=== PATIENT | female | born 1980 | race Caucasian/White ===

== ENCOUNTER 2021-01-08 10:37 | Outpatient (REF) | payer OTHER, SELFPAY ==
[2021-01-08 14:43] LABS: Anion Gap 14 (12-20); Blood Urea Nitrogen 16 mg/dL (9-16); Carbon Dioxide 23 mmol/L (22-29); Chloride 106 mmol/L (96-108); Estimated Glomerular Filt Rate > 60; Potassium 4.3 mmol/L (3.3-5.1); Sodium 139 mmol/L (135-145)
[2021-01-08 14:58] LABS: Thyroid Stimulating Hormone 13.94 uIU/mL (0.32-4.0)
== END 2021-01-08 10:38 | disposition home or self-care (01) ==
LOC: HO.10HDL 10:37
PROVIDERS: Visit Provider Family Medicine
DX: E03.9 Hypothyroidism, unspecified (principal); I10 Essential (primary) hypertension
CPT/HCPCS: 36415; 80051; 82565; 84439; 84443; 84520

== ENCOUNTER 2021-02-21 12:09 | Outpatient (REF) | payer OTHER, SELFPAY ==
[2021-02-21 14:00] LABS: Free T4 (Free Thyroxine) 1.06 ng/dL (0.71-1.85); Thyroid Stimulating Hormone 4.34 uIU/mL (0.32-4.0)
== END 2021-02-21 12:10 | disposition home or self-care (01) ==
LOC: HO.10HDL 12:09
PROVIDERS: Visit Provider Family Medicine
DX: E03.9 Hypothyroidism, unspecified (principal)
CPT/HCPCS: 36415; 84439; 84443

== ENCOUNTER 2021-08-02 12:02 | Outpatient (REF) | payer OTHER, SELFPAY ==
[2021-08-02 14:14] LABS: Estimated Average Glucose 108 mg/dL; Hemoglobin A1c % 5.4 %
[2021-08-02 14:35] LABS: Anion Gap 12 (12-20); Blood Urea Nitrogen 13 mg/dL (9-16); Carbon Dioxide 24 mmol/L (22-29); Chloride 107 mmol/L (96-108); Estimated Glomerular Filt Rate > 60; Glucose Fasting 101 mg/dL (60-99); Potassium 4.1 mmol/L (3.3-5.1); Sodium 139 mmol/L (135-145)
[2021-08-02 14:47] LABS: Free T4 (Free Thyroxine) 0.79 ng/dL (0.71-1.85); Thyroid Stimulating Hormone 5.03 uIU/mL (0.32-4.0)
== END 2021-08-02 12:03 | disposition home or self-care (01) ==
LOC: HO.10HDL 12:02
PROVIDERS: Visit Provider Family Medicine
DX: I10 Essential (primary) hypertension (principal); E03.9 Hypothyroidism, unspecified; R73.9 Hyperglycemia, unspecified
CPT/HCPCS: 36415; 80051; 82565; 82947; 83036; 84439; 84443; 84520

== ENCOUNTER → 2021-10-08 09:58 | Outpatient (BNVA) | payer OTHER, SELFPAY | PROVIDERS: PCP Family Medicine; Visit Provider Physician Assistant | DX: Z13.89 Encounter for screening for other disorder (principal) ==

== ENCOUNTER → 2021-10-31 08:12 | Outpatient (BNVA) | payer OTHER, SELFPAY | PROVIDERS: PCP Family Medicine; Visit Provider Surgery | DX: Z13.89 Encounter for screening for other disorder (principal) | CPT/HCPCS: Q3014 ==

== ENCOUNTER 2021-11-02 11:28 | Outpatient (REF) | payer OTHER, SELFPAY ==
--- NOTE | ~2021-11-02 | XR_ITS ---
EXAMINATION: XR CHEST CLINICAL INFORMATION: Morbid obesity COMPARISON: 04/14/2017 TECHNIQUE: 2 views of the chest were obtained. FINDINGS: No significant abnormality is noted involving the heart, lungs, mediastinum, bony thorax or soft tissues. XR/XR chest 2V IMPRESSION: Unremarkable examination.
--- NOTE | 2021-11-02 11:35 | ECG_ITS ---
Test Reason : E66.01 Blood Pressure : / mmHG Vent. Rate : 071 BPM Atrial Rate : 071 BPM P-R Int : 132 ms QRS Dur : 084 ms QT Int : 376 ms P-R-T Axes : 010 015 -08 degrees QTc Int : 408 ms Normal sinus rhythm Normal ECG When compared to the previous EKG of No significant changes seen Referred By: Adi Saba Electronically Signed By:Taj Hunter
[2021-11-02 12:04] LABS: MANUAL DIFF FLAG NO
[2021-11-02 12:35] LABS: Basophils Percent Auto 0.4 % (0-2); Eosinophils Absolute Auto 0.1 X10*3/uL (0.0-0.4); Hematocrit 42.3 % (37.0-47.0); Hemoglobin 13.6 g/dl (12.0-16.0); Imm Gran Abs Auto 0.02 X10*3/uL (0.00-0.03); Imm Gran Pct Auto 0.3 % (0.0-0.4); Lymphocytes Absolute Auto 1.6 X10*3/uL (1.2-4.9); Lymphocytes Percent Auto 20.6 % (20-40); Mean Corpuscular HGB Conc 32.2 g/dl (31.0-35.0); Mean Corpuscular Hemoglobin 28.8 pg (27.0-33.0); Mean Corpuscular Volume 89.4 fL (80.0-98.0); Mean Platelet Volume 10.7 fL (9.4-12.3); Monocytes Absolute Auto 0.6 X10*3/uL (0.1-1.2); Monocytes Percent Auto 7.1 % (2-11); Neutrophils Absolute Auto 5.5 x10*3/uL (2.0-8.3); Neutrophils Percent Auto 70.6 % (45-73); Platelet Count 356 X10*3/uL (160-400); Red Blood Count 4.73 X10*6/uL (4.20-5.50); Red Cell Distribution Width 13.3 % (11.0-16.0); White Blood Count 7.8 X10*3/uL (4.8-10.8)
[2021-11-02 12:49] LABS: Estimated Average Glucose 105 mg/dL; Hemoglobin A1c % 5.3 %
[2021-11-02 12:52] LABS: Alanine Aminotransferase 40 U/L (0-31); Albumin Level 4.2 g/dL (3.5-5.0); Alkaline Phosphatase 105 U/L (39-117); Anion Gap 11 (12-20); Aspartate Amino Transferase 26 U/L (5-31); Bilirubin Total 0.9 mg/dL (0.0-1.0); Blood Urea Nitrogen 15 mg/dL (9-16); C Reactive Protein 1.33 mg/dL (< or = 0.50); Calcium 9.7 mg/dL (8.4-10.2); Carbon Dioxide 27 mmol/L (22-29); Chloride 105 mmol/L (96-108); Cholesterol 204 mg/dL; Estimated Glomerular Filt Rate > 60; Glucose Random 106 mg/dL (60-115); HDL Cholesterol 44 mg/dL; Iron 47 mcg/dL (30-160); LDL Cholesterol Calculated 139 mg/dl; Percent Iron Saturation 13 % (15-50); Potassium 4.2 mmol/L (3.3-5.1); Sodium 139 mmol/L (135-145); Total Iron Binding Capacity 355 mcg/dL (228-428); Total Protein 7.6 g/dL (6.5-8.0); Triglycerides 109 mg/dL; Unsaturated Iron Binding 308 ug/dL
[2021-11-02 13:15] LABS: Ferritin 168 ng/mL (10-250); Insulin 13 uU/mL (2-29); TSH reflex Free T4 5.82 uIU/mL (0.32-4.0); Vitamin D 25-OH Total 13.4 ng/mL (>30)
[2021-11-02 13:34] LABS: Folate 4.4 ng/mL (> or = 4.0); Vitamin B12 270 pg/mL (200-900)
[2021-11-02 14:07] LABS: Free T4 (Free Thyroxine) 0.95 ng/dL (0.71-1.85)
[2021-11-05 13:35] LABS: Calcium (PTHI) 9.4 mg/dL (8.6-10.2); PTHI 103 pg/mL (14-64)
[2021-11-06 12:52] LABS: Zinc 65 mcg/dL (60-130)
[2021-11-07 17:17] LABS: Vitamin A 42 mcg/dL (38-98)
[2021-11-08 08:11] LABS: Vitamin B1 <6 nmol/L (8-30)
== END 2021-11-02 11:29 | disposition home or self-care (01) ==
LOC: HO.LAB 11:28
PROVIDERS: PCP Family Medicine; Visit Provider Surgery
DX: I10 Essential (primary) hypertension (principal); E03.9 Hypothyroidism, unspecified; G93.2 Benign intracranial hypertension; J45.909 Unspecified asthma, uncomplicated; E66.01 Morbid (severe) obesity due to excess calories
CPT/HCPCS: 36415; 71046; 80053; 80061; 82306; 82607; 82728; 82746; 83036; 83525; 83540; 83970; 84425; 84439; 84443; 84590; 84630; 85025; 86140; 93005; 99211

== ENCOUNTER 2021-11-02 12:50 | Outpatient (REF) | payer OTHER, SELFPAY ==
[2021-11-06 13:07] LABS: H Pylori Breath Test Negative (Negative)
== END 2021-11-02 12:51 | disposition home or self-care (01) ==
LOC: HO.LNP 12:50
PROVIDERS: Visit Provider Surgery
DX: E66.01 Morbid (severe) obesity due to excess calories (principal); E03.9 Hypothyroidism, unspecified; I10 Essential (primary) hypertension; J45.909 Unspecified asthma, uncomplicated; G93.2 Benign intracranial hypertension
CPT/HCPCS: 83013

== ENCOUNTER → 2021-11-08 12:49 | Outpatient (BNVA) | payer OTHER, SELFPAY | PROVIDERS: PCP Family Medicine; Visit Provider Counselor Mental Health | DX: F43.23 Adjustment disorder with mixed anxiety and depressed mood (principal) | CPT/HCPCS: 90791 ==

== ENCOUNTER → 2021-11-21 08:05 | Outpatient (BNVA) | payer OTHER, SELFPAY | PROVIDERS: PCP Family Medicine; Visit Provider Dietitian, Registered | DX: E66.01 Morbid (severe) obesity due to excess calories (principal) | CPT/HCPCS: 97802 ==

== ENCOUNTER → 2021-11-30 08:16 | Outpatient (BNVA) | payer OTHER, SELFPAY | PROVIDERS: PCP Family Medicine; Visit Provider Surgery | DX: Z13.89 Encounter for screening for other disorder (principal) | CPT/HCPCS: Q3014 ==

== ENCOUNTER 2021-12-11 10:17 | Outpatient (REF) | payer OTHER, SELFPAY ==
--- NOTE | ~2021-12-11 | MM_ITS ---
EXAMINATION: MM SCREENING DIGITAL BREAST TOMOSYNTHESIS, BILATERAL CLINICAL INFORMATION: Screening. Asymptomatic. The lifetime risk of breast cancer based on the Tyrer-Cuzick Model is 15%. COMPARISON: Mammography: 02/09/2016 (baseline) TECHNIQUE: Digital breast tomosynthesis is performed in both the craniocaudal and mediolateral oblique views along with computer-aided detection (CAD). Synthesized 2D images are generated from the tomosynthesis. Additional left cleavage view is provided. FINDINGS: The breasts are heterogeneously dense, which may obscure small masses (ACR BI-RADS breast composition Category c). Breast tissue composition borders on average fibroglandular. Parenchymal pattern is similar to baseline exam. Again, there is incidental intramammary node posterior upper outer right breast and there is incidental low left axillary tail node on MLO view. Skin contours are smooth. MM/MM tomosynthesis screening BI IMPRESSION: No mammographic evidence of malignancy. ASSESSMENT: BI-RADS 2: Benign RECOMMENDATION: Routine annual mammography screening. This patient's information was entered into a reminder system with a target due date for their next mammogram.
== END 2021-12-11 10:18 | disposition home or self-care (01) ==
LOC: HO.MAMMO 10:17
PROVIDERS: PCP Family Medicine; Visit Provider Family Medicine
DX: Z12.31 Encounter for screening mammogram for malignant neoplasm of breast (principal)
CPT/HCPCS: 77063; 77067

== ENCOUNTER 2021-12-13 08:17 | Outpatient (REF) | payer OTHER, SELFPAY ==
--- NOTE | ~2021-12-13 | US_ITS ---
EXAMINATION: US COMPLETE ABDOMEN WITH LIVER ELASTOGRAPHY CLINICAL INFORMATION: Obesity. COMPARISON: Ultrasound abdomen 02/23/2020. TECHNIQUE: Real-time imaging of the abdominal viscera. Noninvasive ultrasound liver fibrosis assessment is performed using Toshia ElastPQ point quantification shear wave elastography (2D-SWE) with a C5-2 MHz transducer. Multiple elastography samples are obtained. FINDINGS: PANCREAS: Normal. The visualized pancreatic head and body are normal in appearance. The remainder of the pancreas is obscured from visualization by the overlying bowel gas. ABDOMINAL AORTA: The proximal, middle, and distal aortic segments are normal in caliber. INFERIOR VENA CAVA: Visualized portions are normal. LIVER: The liver demonstrates normal size, contour and diffuse increased echogenicity. No focal lesion or intrahepatic biliary duct dilatation. The right lobe measures 17.8 cm in length. The left lobe measures 9.6 cm in length. Portal flow is hepatopedal. Shear wave liver elastography median stiffness is 1.55 m/s (reference: normal median stiffness is 1.3 m/s or less). IQR/median stiffness to assess sampling precision is 0.12 (reference: good quality data set is IQR/median stiffness of 0.15 or less). GALLBLADDER: Normal. The gallbladder is physiologically distended without evidence of stones, sludge, polyps, wall thickening or pericholecystic fluid. COMMON BILE DUCT: Normal in caliber measuring 0.6 cm in diameter. RIGHT KIDNEY: Normal. No hydronephrosis. No renal calculi or focal parenchymal lesions. The kidney measures 11.3 cm in maximum dimension. LEFT KIDNEY: Normal. No hydronephrosis. No renal calculi or focal parenchymal lesions. The kidney measures 10.8 cm in maximum dimension. SPLEEN: Normal. The spleen measures 11.4 cm in maximum dimension. FREE FLUID: None. US/US abdomen comp w elastography IMPRESSION: 1. Diffuse hepatic steatosis without focal lesion. The rest of the abdominal ultrasound is unremarkable. 2. Liver elastography: Median liver stiffness 1.55 m/s. Findings correlate with cACLD (ruled out). REFERENCE: Society of Radiologists in Ultrasound Liver Stiffness Thresholds (2019): LIVER STIFFNESS THRESHOLDS: *Liver Stiffness equal or less than 1.3 m/s: High probability of being normal. *Liver Stiffness less than 1.7 m/s: In the absence of other known clinical signs, rules out compensated advanced chronic liver disease. *Liver Stiffness 1.7-2.1 m/s: Suggestive of compensated advanced chronic liver disease but need further test for confirmation. *Liver Stiffness over 2.1 m/s: Rules in compensated advanced chronic liver disease. *Liver Stiffness over 2.4 m/s: Suggestive of clinically significant portal hypertension. QUALITY OF DATA SET: *IQR/Median value equal or less than 0.15 implies a quality data set. *IQR/Median value over 0.15 implies a poor quality data set. SIGNIFICANT CHANGE FROM PRIOR EXAM: Significant change if liver stiffness measurement is 10% or greater from prior exam. OTHER CONSIDERATIONS: The stage of liver fibrosis may be overestimated in the setting of acute hepatitis, liver inflammation, elevated liver function tests, hepatic vascular congestion, obstructive cholestasis, non-fasting state, and infiltrative diseases such as amyloidosis and lymphoma. In some patients with NAFLD, the liver stiffness thresholds for compensated advanced chronic liver disease may be lower. In causes other than viral hepatitis and NAFLD, liver stiffness thresholds are not well established.
--- NOTE | ~2021-12-13 | FL_ITS ---
EXAMINATION: XR FLUOROSCOPY UPPER GI WITH AIR CLINICAL INFORMATION: Morbid/severe obesity. COMPARISON: None. TECHNIQUE: Routine upper GI air-contrast study was performed. FINDINGS: Following oral administration of thick barium and effervescent granules, there is normal propagation of bolus from oral cavity through the pharynx and esophagus and into the stomach without any evidence of obstruction, narrowing or stricture. On placing patient supine and prone lying, the course, caliber and peristalsis of the stomach and the duodenal bulb are normal. The mucosal pattern of stomach and the duodenum is normal. There is mild gastroesophageal reflux without hiatal hernia. FLUOROSCOPY TIME: 1.6 minutes. DOSE AREA PRODUCT: 129.135 uGy-m2 (microgray-meter squared). FL/FL upper GI w air IMPRESSION: Mild gastroesophageal reflux without hiatal hernia.
== END 2021-12-13 08:18 | disposition home or self-care (01) ==
LOC: HO.US 08:17
PROVIDERS: PCP Family Medicine; Visit Provider Surgery
DX: E03.9 Hypothyroidism, unspecified (principal); G93.2 Benign intracranial hypertension; I10 Essential (primary) hypertension; J45.909 Unspecified asthma, uncomplicated; E66.01 Morbid (severe) obesity due to excess calories
CPT/HCPCS: 74246; 76705; 76981

== ENCOUNTER 2021-12-21 08:12 | Outpatient (REF) | payer OTHER, SELFPAY ==
[2021-12-21 13:00] LABS: MANUAL DIFF FLAG NO
[2021-12-21 13:16] LABS: Basophils Percent Auto 0.4 % (0-2); Eosinophils Absolute Auto 0.2 X10*3/uL (0.0-0.4); Eosinophils Percent Auto 1.9 % (0-4); Hemoglobin 13.1 g/dl (12.0-16.0); Imm Gran Abs Auto 0.03 X10*3/uL (0.00-0.03); Imm Gran Pct Auto 0.4 % (0.0-0.4); Lymphocytes Absolute Auto 1.8 X10*3/uL (1.2-4.9); Mean Corpuscular HGB Conc 32.8 g/dl (31.0-35.0); Mean Corpuscular Hemoglobin 28.4 pg (27.0-33.0); Mean Corpuscular Volume 86.6 fL (80.0-98.0); Mean Platelet Volume 11.1 fL (9.4-12.3); Monocytes Absolute Auto 0.8 X10*3/uL (0.1-1.2); Monocytes Percent Auto 9.9 % (2-11); Neutrophils Absolute Auto 5.1 x10*3/uL (2.0-8.3); Neutrophils Percent Auto 64.4 % (45-73); Platelet Count 311 X10*3/uL (160-400); Red Blood Count 4.62 X10*6/uL (4.20-5.50); Red Cell Distribution Width 12.8 % (11.0-16.0)
[2021-12-21 13:22] LABS: INTERNATIONAL NORM RATIO 1.2 (0.9-1.1); Prothrombin Time 13.9 SEC (9.9-13.0)
[2021-12-21 13:25] LABS: Partial Thromboplastin Time 35.1 SEC (24.1-38.0)
[2021-12-21 13:45] LABS: Alanine Aminotransferase 32 U/L (0-31); Albumin Level 4.1 g/dL (3.5-5.0); Alkaline Phosphatase 98 U/L (39-117); Anion Gap 12 (12-20); Aspartate Amino Transferase 22 U/L (5-31); Bilirubin Total 0.8 mg/dL (0.0-1.0); Blood Urea Nitrogen 13 mg/dL (9-16); C Reactive Protein 2.13 mg/dL (< or = 0.50); Calcium 9.6 mg/dL (8.4-10.2); Carbon Dioxide 26 mmol/L (22-29); Chloride 105 mmol/L (96-108); Cholesterol 186 mg/dL; Estimated Glomerular Filt Rate > 60; Glucose Random 106 mg/dL (60-115); HDL Cholesterol 42 mg/dL; LDL Cholesterol Calculated 119 mg/dl; Potassium 4.3 mmol/L (3.3-5.1); Sodium 139 mmol/L (135-145); Total Protein 7.3 g/dL (6.5-8.0); Triglycerides 127 mg/dL
[2021-12-21 14:00] LABS: Estimated Average Glucose 100 mg/dL; Hemoglobin A1c % 5.1 %
[2021-12-21 14:08] LABS: Insulin 24 uU/mL (2-29); TSH reflex Free T4 0.01 uIU/mL (0.32-4.0)
[2021-12-21 15:30] LABS: Free T4 (Free Thyroxine) 1.69 ng/dL (0.71-1.85)
== END 2021-12-21 08:13 | disposition home or self-care (01) ==
LOC: HO.LAB 08:12
PROVIDERS: PCP Family Medicine; Visit Provider Surgery
DX: E66.01 Morbid (severe) obesity due to excess calories (principal); E03.9 Hypothyroidism, unspecified; I10 Essential (primary) hypertension
CPT/HCPCS: 36415; 80053; 80061; 83036; 83525; 84439; 84443; 85025; 85610; 85730; 86140; 86850; 86900; 86901; Q3014

== ENCOUNTER 2021-12-27 06:03 | Inpatient (IN) | payer OTHER, SELFPAY ==
[2021-12-20 10:45] VITALS: BMI 44.9
--- NOTE | 2021-12-22 00:05 | MHC.SHP ---
Pre-Procedural Eval Section A Date of Service: 12/22/21 The patient is an INPATIENT: Yes The History & Physical has been completed within 30 days and I have reviewed it.: Yes Section B Chief Complaint: obesity Relevant Social History: None Present Medications: None Medical History: No relevant PMH History of Previous Operations: No relevant previous surgery Allergies: Allergies Allergy/AdvReac Type Severity Reaction Status Date / Time Penicillins [PENICILLINS] Allergy Intermediate HIVES Verified 12/21/21 11:40 Review of Systems Sugical H&P ROS: Negative: Constitution, Cardiovascular, Respiratory, Neurological, Psychiatric, Hem-Onc, Allergic/Immunologic, Gastrointestinal, Genitourinary, Musculoskeletal, Integumentary, Endocrine and Eyes/Ears/Nose/Throat Exam Surgical H&P Exam: Normal: HEENT, Normal: Heart, Normal: Lungs, Normal: Extremities, Normal: Abdomen, Normal: Skin and Normal: Neurological Plan Diagnosis/Plan: Unchanged I have reviewed the history and physical and performed a pertinent physical examination on my patient. No changes have occurred unless specified.
--- NOTE | 2021-12-26 09:31 | HO.ANESPROP2 ---
Documented by User: Elizabeth Hernandez NP 12/26/21 09:33 HPI - Anesthesia Eval Consult details Narrative: 41yo F for Gastrectomy Sleeve,EGD,poss diaphragmatic hernia,poss ventral hernia,poss open, PMFSH Active Problems Active Problems: All Active Problems (Updated 12/20/21 @ 10:41 by Wanda Tomlin, MIRANDA) Adjustment disorder with mixed anxiety and depressed mood (Acute) Vitamin B1 deficiency (Acute) Vitamin B12 deficiency (Acute) Vitamin D deficiency (Acute) Pseudotumor cerebri (Acute) Asthma (Acute) Anxiety (Acute) Neck pain (Acute) Back pain (Acute) Hypothyroidism (Acute) IBS (irritable bowel syndrome) (Acute) Hypertension (Acute) Morbid obesity (Acute) Past Medical History Medical History (Updated 12/20/21 @ 10:41 by Wanda Tomlin RN) Anxiety Asthma Back pain Depression Environmental allergies Fatty liver Fibromyalgia GERD (gastroesophageal reflux disease) Graves' disease History of lumbar puncture Hx of headache Hypertension Hypothyroidism IBS (irritable bowel syndrome) Morbid obesity Neck pain Pseudotumor cerebri Seasonal allergies Family History Family History (Updated 10/08/21 @ 10:10 by Shahida Hi) Mother Hypertension Heart problem Father Diabetes Heart problem High cholesterol Brother Hypertension Sister Hypertension Sister Hypertension Sister Hypertension Brother Heart problem Hypertension Son No problems noted. Daughter No problems noted. Surgical History Surgical History (Updated 12/20/21 @ 10:27 by Wanda Tomlin RN) History of hysteroscopy Hx of section Hx of tubal ligation Social History Social History (Updated 10/08/21 @ 10:11 by Shahida Hi) Household Members Other:: son 19 yrs, daughter 18 yrs Are you a primary managed care nurse to a significant other at home: No Do you presently have visiting nurse or other home services: No Alcohol intake: never Patient Tobacco Use Status: Former Tobacco user Quit Date: 2016 Tobacco use type: Cigarette Advance Directives: No Meds Allergies Allergy/AdvReac Type Severity Reaction Status Date / Time Penicillins [PENICILLINS] Allergy Intermediate HIVES Verified 12/21/21 11:40 Home Medications Medication Instructions Recorded Confirmed Last Taken Type cyclobenzaprine 5 mg tablet 5 mg PO BEDTIME 10/08/21 12/21/21 Unknown History dicyclomine 10 mg capsule 10 mg PO Q8H PRN 10/08/21 12/21/21 Unknown History diltiazem HCl 360 mg 360 mg PO DAILY 10/08/21 12/21/21 12/27/21 History capsule,extended release 24 hr hydralazine 50 mg tablet 50 mg PO BID 10/08/21 12/21/21 12/27/21 History levothyroxine 200 mcg tablet 200 mcg PO DAILY 10/08/21 12/21/21 12/27/21 History ibuprofen 400 mg tablet 400 mg PO TID PRN 10/30/21 12/21/21 12/06/21 History albuterol sulfate 90 mcg/actuation 2 puff INHALATION Q6H PRN 12/20/21 12/21/21 Unknown History aerosol inhaler citalopram 20 mg tablet 1 tab PO DAILY 12/20/21 12/21/21 Unknown History Exam Exam Date and Time: December 26, 2021 0931 Height,Weight and Vital Signs: Height 5 ft 1 in Weight 107.955 kg Pertinent Lab Results Pertinent Lab Results: Laboratory Tests 12/21/21 12/21/21 12:58 12:58 WBC 8.0 Hgb 13.1 Hct 40.0 Plt Count 311 Sodium 139 Potassium 4.3 Chloride 105 Carbon Dioxide 26 BUN 13 Creatinine 0.88 Narrative Narrative: EKG 10/2021 Vent. Rate : 071 BPM ? ? Atrial Rate : 071 BPM ?? P-R Int : 132 ms? QRS Dur : 084 ms ? ? QT Int : 376 ms ? ? ? P-R-T Axes : 010 015 -08 degrees ?? QTc Int : 408 ms ? Normal sinus rhythm Normal ECG When compared to the previous EKG of No significant changes seen Assessment and Plan Assessment Anesthesia Assessment: Chart Reviewed Documented by User: Mary Woodard MD 12/27/21 07:05 [facility] Past Medical History Medical History (Updated 12/20/21 @ 10:41 by Wanda Tomlin RN) Anxiety Asthma Back pain Depression Environmental allergies Fatty liver Fibromyalgia GERD (gastroesophageal reflux disease) Graves' disease History of lumbar puncture Hx of headache Hypertension Hypothyroidism IBS (irritable bowel syndrome) Morbid obesity Neck pain Pseudotumor cerebri Seasonal allergies Family History Family History (Updated 10/08/21 @ 10:10 by Shahida Hi) Mother Hypertension Heart problem Father Diabetes Heart problem High cholesterol Brother Hypertension Sister Hypertension Sister Hypertension Sister Hypertension Brother Heart problem Hypertension Son No problems noted. Daughter No problems noted. Family history of problems with anesthesia: No Surgical History Surgical History (Updated 12/20/21 @ 10:27 by Wanda Tomlin RN) History of hysteroscopy Hx of section Hx of tubal ligation History of Problems with Anesthesia: No Social History Social History (Updated 10/08/21 @ 10:11 by Shahida Hi) Household Members Other:: son 19 yrs, daughter 18 yrs Are you a primary managed care nurse to a significant other at home: No Do you presently have visiting nurse or other home services: No Alcohol intake: never Patient Tobacco Use Status: Former Tobacco user Quit Date: 2016 Tobacco use type: Cigarette Advance Directives: No Meds Allergies Allergy/AdvReac Type Severity Reaction Status Date / Time Penicillins [PENICILLINS] Allergy Intermediate HIVES Verified 12/21/21 11:40 Home Medications Medication Instructions Recorded Confirmed Last Taken Type cyclobenzaprine 5 mg tablet 5 mg PO BEDTIME 10/08/21 12/21/21 Unknown History dicyclomine 10 mg capsule 10 mg PO Q8H PRN 10/08/21 12/21/21 Unknown History diltiazem HCl 360 mg 360 mg PO DAILY 10/08/21 12/21/21 12/27/21 History capsule,extended release 24 hr hydralazine 50 mg tablet 50 mg PO BID 10/08/21 12/21/21 12/27/21 History levothyroxine 200 mcg tablet 200 mcg PO DAILY 10/08/21 12/21/21 12/27/21 History ibuprofen 400 mg tablet 400 mg PO TID PRN 10/30/21 12/21/21 12/06/21 History albuterol sulfate 90 mcg/actuation 2 puff INHALATION Q6H PRN 12/20/21 12/21/21 Unknown History aerosol inhaler citalopram 20 mg tablet 1 tab PO DAILY 12/20/21 12/21/21 Unknown History Exam Airway Mallampati Class: II TM Dist: >3cm Neck ROM: Full Assessment and Plan Assessment Anesthesia Assessment: Anesthesia Plan Discussed Final Anesthetic Review Family History of Problems with Anesthesia: No History of Problems with Anesthesia: No NPO: Yes ASA Class: III Final Preanesthetic Review: No Changes in Pt Med Stat, Meds/Allgs Chart Reviewed, Consent Obtained/Reviewed and Anes Risks/Benef Reviewed Patient Risk: Intermediate Procedure Risk: Intermediate Anesthetic Plan Anesthetic Plan: GA Disposition: Standard PACU
[2021-12-26 12:47] LABS: COVID-19 Test Negative (Negative)
[2021-12-27] VITALS (12 sets, daily range): BP systolic 134–175; BP diastolic 82–108; PULSE 83–124; RESP 16–20; TEMP 35.8–37.1; O2SAT 96–99
[2021-12-27] MEDS: Lactated Ringers 1,000 ML 999 ML IV (06:30)
--- NOTE | 2021-12-27 10:46 | PM.DS ---
DS: Providers Provider Date of Service: 12/28/21 Date of admission: 12/27/21 06:03 Primary care physician: Alen Land MD DS: Summary Hospital Course Hospital Course: ADMITTING DIAGNOSIS: morbid obesity, anxiety, asthma, LBP, HTN, Hypothyroid ? DISCHARGE DIAGNOSIS: same, s/p laparoscopic sleeve gastrectomy ? PAST SURGICAL HISTORY: cesarian section, tubal ligation ? PROCEDURE: upper endoscopy, laparoscopic sleeve gastrectomy ? DISCHARGE SUMMARY: ? History of Present Illness: ? The patient is a 41 year-old woman with a BMI of 47.7 kg/m2 and associated co-morbidities as described above. The patient had extensive work-up,lost?18.4 lbs preoperatively and was electively scheduled for laparoscopic, possible open sleeve gastrectomy and gastropexy. Risks and complications of the surgery were discussed with the patient in advance, particularly the possibility of , pulmonary embolism, anastomotic leak, bleeding, bowel injury, GERD, cardiac, renal or pulmonary complications. The patient understood all the risks and was in agreement with the surgical plan. ? Hospital Course: ? The patient underwent an uneventful laparoscopic sleeve gastrectomy with gastropexy on the day of admission. Postoperatively, the patient was transferred to the surgical floor. The patient received IV Acetaminophen and IV dilaudid for pain control. Patient was started on bariatric phase 1 diet POD #0. On postoperative day one, the patient was feeling well without nausea, vomiting, fevers, or tachycardia. The patient had some mild incisional pain and the abdomen was soft. ? On the morning of postoperative day one, the patient was continued on 1 ounce of water or ice every half hour. During the day, the patient did fairly well, having some incisional pain, but able to ambulate adequately and to tolerate liquids well. ? Since the patient is doing well, we decided that the patient was ready to be discharged. The patient was given instructions to follow-up with me next week and to call my office for any fever over 101, persistent abdominal pain, nausea, vomiting, GERD, symptoms of DVT such as calf tenderness, or leg swelling, or pulmonary embolism such as chest pain or shortness of breath. The patient was also instructed to drink 40-60 ounces of liquids per day using the 1-ounce cups. The patient had been given prescriptions for Tylenol for pain, Zofran prn for nausea, and pantoprazole and carafate previously. The patient was encouraged to ambulate and use the incentive spirometer. The patient was allowed to shower, but no baths, and encouraged to stay active at home. All of these instructions were given to the patient personally. All questions were answered and the patient understood all instructions, the instructions were also given to the patient in print. The pt was also found to have a low TSH of 0.01. She has known hypothryoidism and has been followed by her PCP for this. SHe recently had a medication adjustment in October. She requested a referral to Endocrinology and one was placed to Dr Terry Washington. Time Spent with Patient Time attestation: Total time spent providing and/or coordinating discharge services: Discharge coordination time: Less than 30 minutes Quality: Safe Use of Opioids Does Pt have an Active Cancer Diagnosis on the Problem List?: No Quality: Stroke Does the patient have a stroke diagnosis?: No Physical Exam Vital Signs: Vital Signs: Last Vital Signs Temp 96.5 F L 12/27/21 06:08 Pulse 83 12/27/21 06:08 Resp 18 12/27/21 06:08 BP 134/91 H 12/27/21 06:08 Pulse Ox 98 12/27/21 06:08 BMI result Body Mass Index 44.9 DS: Data Data Completed and Pending Pending studies at discharge: Pending at discharge 12/27/21 09:57 Surgical [PTH] Routine Labs on day of discharge: Laboratory Results - last 24 hr 12/21/21 12/26/21 12:49 12:15 COVID-19 (BAL) Negative COVID-19 Clin Com See Note Blood Type A Positive Antibody Screen NEGATIVE Discharge Plan Discharge Patient Disposition: Home, Self-Care Discharge Diagnosis: s/p laparoscopic sleeve gastrectomy Referrals: Alen Land MD [Primary Care Provider] - 1 Week Discharge Medications: Continued citalopram 20 mg tablet 1 tab PO DAILY 0RF albuterol sulfate 90 mcg/actuation Hfa Aerosol Inhaler 2 puff INHALATION Q6H PRN (Reason: Shortness Of Breath Or Wheezing) 0RF hydralazine 50 mg tablet 50 mg PO BID 0RF dicyclomine 10 mg capsule 10 mg PO Q8H PRN (Reason: cramps) 0RF cyclobenzaprine 5 mg tablet 5 mg PO BEDTIME 0RF diltiazem HCl 360 mg capsule,extended release 24hr 360 mg PO DAILY 0RF pantoprazole 40 mg tablet,delayed release (DR/EC) 40 mg PO DAILY Qty: 30 2RF sucralfate 100 mg/mL suspension 10 ml PO BID Qty: 400 2RF ondansetron HCl 4 mg tablet 4 mg PO Q12H Qty: 20 0RF Held levothyroxine 200 mcg tablet 200 mcg PO DAILY 0RF Hold Instructions: Resume on 12/31/21. Discontinued thiamine HCl (vitamin B1) 100 mg tablet 100 mg PO DAILY Qty: 30 2RF mecobalamin (vitamin B12) 1,000 mcg tablet,disintegrating 1,000 mcg sublingual DAILY Qty: 30 2RF Rx Instructions: place tablet under tongue and allow to dissolve for at least30 secs before swallowing cholecalciferol (vitamin D3) 125 mcg (5,000 unit) capsule 125 mcg PO DAILY Qty: 30 2RF ibuprofen 400 mg tablet 400 mg PO TID PRN (Reason: Pain) 0RF polyethylene glycol 3350 [Miralax] 17 gram powder in packet 17 g PO DAILY Qty: 14 0RF Rx Instructions: Mix each packet with 8oz of water and do 7 packets on 12/25/21 and another 7 packets on 12/26/21 Discharge Orders: Discharge Order (Routine); Ordered 12/28/21 Ordered By: Adi Saba Diet: other Activity on Discharge: No heavy lifting Stand Alone Forms: Patient Portal Discharge page Care Plan Goals: weight loss Health Concerns: morbid obesity Plan of Treatment: No tub baths, sex or returning to work until discussed at first post op appointment. No exercise, alcohol, tobacco or illegal drug use. Continue to use incentive spirometer hourly while awake. Walk in home for 5- 10 minutes every 2 hours during the first week. Follow all instructions in the bariatric handbook and call with any questions.Discharge Instructions 1. Please call your doctor or come back to the emergency room should any new symptoms arise. 2. You will receive a courtesy call from [facility] 24-48 hours after discharge. 3. Activity: abstain from alcohol, practice limited stair climbing, no bending, no driving, no exercise, no illicit substances, no lifting, no sex, no tub bath, no work. 4. Diet: continue as discussed with Dr. Saba. 5. Dressing Change/Wound Care: Your incision is covered by clear bandages and guaze underneath. If the area is tender, you may apply an ice pack for short intervals (no more than 20 minutes on, followed by at least 20 minutes off). Do not apply heat. Do not use creams, lotions, or topical antibiotics unless instructed to do so by your surgeon. These can cause infection or allergic reaction. 6. Call your doctor if: - Your temperature exceeds 101.5 F - You experience excessive pain or swelling - You have an unexpected reaction to medication - You have excessive bleeding - You experience continued vomiting/nausea - Your incision begins to separate - Your incision shows signs of infection such as increased redness, swelling, excessive pain, heat, or drainage (light blood or clear fluid is normal) 7. General instructions: No lifting greater than 5 lbs for the next 4 weeks[address] within 24 hours of taking narcotic pain medications. If you do not move your bowels in the next 2 days, please take milk of magnesia over the counter. Please follow the post op diet and do not advance your diet until you are seen in the office in about 2 weeks. Please walk around your home every hour or two to prevent blood clots from forming in your legs. You do not need to wake from sleeping to walk. Please sleep in a bed or couch to prevent kinking at the hips and knees. Please take your incentive spirometer (your lung building attendant) home with you and use it for the next few days to prevent pneumonias. You may shower, no hot tubs, baths or swimming pools. Please call the office with any questions or concerns such as increasing abdominal pain, fever, chills, shortness of breath, chest pain, leg pain or swelling, or redness or drainage from your incisions. Please stay on stage 3 diet which includes sugar free clear liquids such as ice pops and jello and broth and crystal light. Avoid all carbonation. Please drink 3 protein shakes with at least 25-30 grams of protein daily or 3 of the Celebrate 4:1 shakes which can be purchased in our office. The Celebrate shakes have all of the bariatric vitamins you need if you consume these shakes. If you are drinking other protein shakes, you will need to purchase the Celebrate multivitamins and calcium that we provide in the office (they will provide all the vitamins you need). Please make sure you are consuming at least 40-60 ounces of water in addition to your 3 protein shakes daily. Do not hesitate to contact the office with any questions at . The patient's medical history has been reviewed and they are considered low risk for post op DVT and therefore DVT prophylaxis is not considered necessary. Travel after surgery was reviewed. The patient has not disclosed any travel plans during the first 30 days after surgery and they have been advised that within the first 30 days after surgery any bus, plane, train or car travel over 2 hours in duration is contraindicated due to the possibility of developing blood clots from immobility. Any travel, needs to include periods of ambulation of 10 minutes in duration every 2 hours.? The patient was instructed to discuss any plans for travel during this period with their bariatric surgeon. Assessment: stable s/p laparoscopic sleeve gastrectomy Discharge Date/Time: 12/28/21 09:16
[2021-12-27] MEDS: Metoclopramide HCl 10 MG/2 ML VIAL IVPUSH (10:47)
[2021-12-27] MEDS: Famotidine/PF 20 MG/2 ML VIAL IVPUSH ×2 (10:49→20:35)
--- NOTE | 2021-12-27 10:52 | P.BOP_ITS ---
Brief Operative Note Date of Service: 12/27/21 Pre-op diagnosis: Morbid obesity with comorbidities (see below) Post-op diagnosis: same (congenital abdominal adhesions) Procedure: INITIAL PATIENT BMI ON PRESENTATION AT OUR OFFICE: 47.7 kg/m2 LAST BMI BEFORE SURGERY: 44.2 kg/m2 COMORBIDITIES: hypothyroidism, pseudotumor cerebri, hypertension, back pain, neck pain, IBS, anxiety, asthma, GERD, mild fibrosis ?The patient presented to the Weight Management Program with significant obesity that was negatively impacting the patient's comorbidities as listed above.? The program is a phased program with a special focus on preoperative medical weight management to promote substantial weight loss and prepare the patients for the second phase of the program: bariatric surgery. The patient participated in an intensive weekly lifestyle ?intervention and exercise program during which the patient ?has lost between the initial office visit and the last preoperative visit 19 lbs, or 7.4% of initial actual body weight. It was deemed appropriate for the patient to now have bariatric surgery. In light of the current Covid-19 pandemic and the well documented strong association of obesity and increased risk of worse outcomes if infected with Covid-19 (REFERENCES: https://pubmed.ncbi.nlm.nih.gov/87640285/ ,? https://pubmed.ncbi.nlm.nih.gov/13155777/ ), any delay in undergoing bariatric surgery may lead to the patient's worsening health condition and increased?risk of more severe Covid-19 disease if infected. In addition a recent?study from [facility] published in [employer] on 08/27/2021 ([email or web address]) found that, among patients with obesity, substantial weight loss achieved with surgery was associated with improved outcomes of COVID-19 infection. The findings suggest that obesity can be a modifiable risk factor for the severity of COVID-19 infection. In addition, the patient met the BMI-criteria for bariatric surgery based on the BMI on initial presentation. The patient should not be penalized for achieving such weight loss because ?it is not sustainable long-term without surgical intervention and it was achieved in preparation for bariatric surgery ?under my direction and based on my published research ([email or web address]).[email or web address] and? [email or web address]. soard.org/article/[email or web address](56)[email or web address]-X/pdf ) ?that a 10% preoperative weight loss improves long-term weight loss after surgery and reduces perioperative complications.? Insurance carriers such as [facility] have endorsed my recommendations ?and have included in their policies criteria to include a 10% preoperative weight loss requirement. PROCEDURE: Esophago-gastroscopy, laparoscopic lysis of adhesions, laparoscopic sleeve gastrectomy and laparoscopic gastropexy INDICATIONS: This is a 41 year-old female who was electively scheduled for laparoscopic, possibly open sleeve gastrectomy. The risks and complications of the procedure were discussed with the patient in advance, particularly the possibility of ; pulmonary embolism; staple line leak; bleeding; GERD; cardiac, pulmonary, or renal complications; as well as long-term problems such as insufficient weight loss, vitamin deficiency, strictures, or ulcers. The patient understood all the risks, and was in agreement to proceed with surgery. DESCRIPTION OF PROCEDURE: After informed consent was obtained from the patient, the patient was given preoperative antibiotics, and was transferred to the operating room. After successful induction of general anesthesia, pneumatic compression devices were placed on both lower extremities. An upper endoscopy was performed next. The oropharynx and esophagus appeared to be within normal limits. There was no diaphragmatic hernia present consistent with the findings of the preoperative upper GI. The stomach was entered. Then after all fluid and air were suctioned and the stomach was fully decompressed, the scope was withdrawn and secured in the mid esophagus. The patient was then prepped and draped in the usual sterile manner, and abdominal access was established at the right upper quadrant with the Laverne technique. A 12 mm blunt port was inserted, and the abdomen was insufflated with CO2 to a pressure of 15 mmHg. Under direct visualization, additional ports were placed, specifically two 5 mm Versi-step ports to the left upper quadrant, and a 5 mm Versi-Step port to the right upper quadrant. 1% lidocaine plain was used to infiltrate all port sites as well as all fascia defects. Using the EndoClose suture passer device, I placed a #1 Polysorb tie across the falciform ligament in order to retract it up against the abdominal wall and prevent injury of the ligament with our instruments during the procedure. Following that, the patient was placed in a steep reverse Trendelenburg position. An additional 5 mm port was placed to the right flank for the Mediflex retractor that was used to retract the left lobe of the liver. The gastro-esophageal fat pad was opened with the ultrasonic device (Thunderbeat, Olympus) and the anterior esophagus and hiatus were exposed. The angle of His was opened with the ultrasonic device the fundus of the stomach from any diaphragmatic and splenic attachments. I then opened the gastrocolic ligament between the transverse colon and the greater curvature of the stomach with the ultrasonic device to enter the lesser sac and facilitate the ligation of the short gastric vessels. I started at a mid-point along the greater curvature and using the Thunderbeat, all short gastric vessels were divided all the way to the angle of His until the left warner was completely dissected at its entirety. I then divided the gastro-colic ligament distally to a distance of about 3-4 cm proximal to the pylorus. There were extensive congenital adhesions between the pancreas and posterior gastric wall. Those were lysed completely with the ultrasonic device. Adhesiolysis took approximately 45 min to complete. The stomach was then divided transversely with one Endo MIGUE-45 purple, two MIGUE- 45 orange loads and three MIGUE-60 articulating orange loads using the AEON stapler and loads. Every effort was made that the gastric sleeve had a tubular shape and an even caliber throughout. Once the sleeve resection was completed, the staple line of the gastric sleeve was reinforced with Hemoclips. The resected stomach was retrieved without difficulty from the Laverne port. A gastropexy was then performed in order to prevent postoperative GERD and partial gastric volvulus. Several interrupted 2.0 Surgidac sutures were placed between the sleeve's staple line and the previously divided greater omentum and gastro-colic ligament using the Endo-Stitch device. ?An upper endoscopy was performed. There was no narrowing at the GE junction. The scope was easily advanced all the way to the pylorus which was clearly visualized. There was no narrowing anywhere and the sleeve's caliber was even throughout. The sleeve's staple line was inspected and there was no evidence of ischemia, bleeding or dehiscence. At that point the gastroscope was withdrawn from the patient?s mouth while we were decompressing the bowel and the stomach from any remaining air. I looked into the lesser sac to see how the sleeve was situating and it was situating well. There was no bleeding from the staple line, spleen, or short gastric vessels. The Mediflex retractor was removed, and the undersurface of the liver was inspected and there was no bleeding. The patient was placed in supine position. I closed the fascial defect of the 12 mm port site with a figure of eight #1 Polysorb suture. Then 100 cc 0.25 % Marcaine plain with 10 mg of Dexamethasone were used to infiltrate the fascial closure as well as all skin incisions. At this point, the abdomen was deflated, all ports were removed under direct vision, and no bleeding was noted from any of the port sites. The skin incisions were irrigated with saline and were closed with 4-0 absorbable monofilament sutures. Steri-Strips and OpSites were used to cover all incisions. The patient was extubated and was transferred in stable condition to the recovery room for further care. I was present and performed all waters parts of the procedure. Mr Carias was the assistant signal maintainer. There were no residents to assist with this case. Jagdeep Saba MD, PhD, FACS Surgeon: Adi Saba MD Anesthesia: GETA, local and other (TAP block and 5.5ml of Zynrelef) Was an American Indian Policy Specialist used for this Procedure?: Yes American Indian Policy Specialist: Chad Carias Estimated blood loss (mL): 10 IV fluids (mL): 2,500 Urine output (mL): 0 (No Headley to gravity) Pathology: other (Stomach) Condition: stable Disposition: PACU
--- NOTE | 2021-12-27 10:57 | PM.PNGS ---
Subjective Subjective Date of Service: 12/28/21 Interval history: Patient has mild incisional pain, but was able to ambulate and use the incentive spirometer. She is tolerating phase 1 bariatric diet Physical Exam Vital Signs: Vital Signs: Last Vital Signs Temp 96.5 F L 12/27/21 06:08 Pulse 83 12/27/21 06:08 Resp 18 12/27/21 06:08 BP 134/91 H 12/27/21 06:08 Pulse Ox 98 12/27/21 06:08 BMI result Body Mass Index 44.9 GI: Inspection: Yes normal to inspection, Yes incision (clean, dry and intact) and Yes obesity Extrem: Right lower extremity: normal to inspection (no calf tenderness) Left lower extremity: normal to inspection (no calf tenderness) Objective Data Active Medications Albuterol Sulfate (Albuterol Sulfate (0.083%) 2.5 Mg/3 Ml Vial.Neb) 2.5 mg INHALE ONCE PRN PRN Reason: Shortness of Breath/Wheezing Famotidine (Famotidine/Pf 20 Mg/2 Ml Vial) 20 mg IVPUSH BID SANDY Last Admin: 12/27/21 10:49 Dose: 20 mg Documented by: DEON.WARM Fentanyl (Fentanyl Citrate/Pf 100 Mcg/2 Ml Vial) 50 mcg IVPUSH Q5M PRN; Protocol PRN Reason: Pain, Severe (Pain Scale 7-10) Lactated Ringer's (Lr) 1,000 mls @ 100 mls/hr IVCONT .Q10H SANDY Lactated Ringer's (Lr) 1,000 mls @ 100 mls/hr IVCONT .Q10H [facility] Metoclopramide HCl (Metoclopramide Hcl 10 Mg/2 Ml Vial) 10 mg IVPUSH Q6H PRN PRN Reason: Nausea Last Admin: 12/27/21 10:47 Dose: 10 mg Documented by: HO.WARM Ondansetron HCl (Ondansetron Hcl 4 Mg/2 Ml Vial) 4 mg IVPUSH ONCE PRN PRN Reason: Nausea and Vomiting Oxycodone HCl (Oxycodone Hcl Immed Release 5 Mg Tablet) 10 mg PO ONCE PRN PRN Reason: Pain, Severe (Pain Scale 7-10) Labs CBC & Chem 7: 12/28/21 05:30 12/28/21 05:30 Labs: Laboratory Results - last 24 hr 12/21/21 12/26/21 12:49 12:15 COVID-19 (BAL) Negative COVID-19 Clin Com See Note Blood Type A Positive Antibody Screen NEGATIVE Procedures Date of Service Date of Service: 12/28/21 Progress Note: A&P Assessment and plan (1) S/P laparoscopic sleeve gastrectomy: Status: Acute Assessment and Plan: s/p laparoscopic sleeve gastrectomy, lysis of adhesions and gastropexy Doing well Check am labs. If OK, will discharge home? (2) Morbid obesity: Status: Acute (3) Hypertension: Status: Acute (4) IBS (irritable bowel syndrome): Status: Acute (5) Hypothyroidism: Status: Acute (6) Back pain: Status: Acute (7) Neck pain: Status: Acute (8) Anxiety: Status: Acute (9) Asthma: Status: Acute (10) Pseudotumor cerebri: Status: Acute (11) Congenital intra-abdominal adhesions: Status: Acute (12) GERD (gastroesophageal reflux disease): Status: Acute (13) Liver fibrosis: Status: Acute Time Spent With Patient Time: Total time spent is greater than 50% in coordination of care (as documented) at patient's floor/unit and/or counseling patient: Quality Stroke Does the patient have a stroke diagnosis?: No VTE Prior VTE?: No VTE Risk Level:: Surgical - moderate VTE Device Contraindication: N/A - Device Ordered VTE Drug Contraindication: Treatment Not Indicated
[2021-12-27 11:34] LABS: Hematocrit 37.7 % (37.0-47.0); Hemoglobin 12.4 g/dl (12.0-16.0)
[2021-12-27 11:37] LABS: Anion Gap 13 (12-20); Blood Urea Nitrogen 10 mg/dL (9-16); Calcium 8.7 mg/dL (8.4-10.2); Carbon Dioxide 23 mmol/L (22-29); Chloride 103 mmol/L (96-108); Creatinine Clr Calc Pharmacy 96.6; Estimated Glomerular Filt Rate > 60; Glucose Random 146 mg/dL (60-115); Potassium 3.4 mmol/L (3.3-5.1); Sodium 136 mmol/L (135-145)
[2021-12-27] MEDS: Lactated Ringers 1,000 ML 100 ML IVCONT (12:07)
--- NOTE | 2021-12-27 15:30 | MHC.CM.PN ---
nurse case operator ntoe electronic medical record reviewed along with case discssed with staff nurse , met with patient tajik speaking , s/p bariatric surgical patient , awake alert reported [place] [facility] [place] two children a son age 19 yrs just graduated and a daughter 18 years of age , educated about hcp and she woul like to complete one tomorrow naming her children as her agents. she has no vna , no dme servixes in the home, and does not anticipate having any needs at discharge , she is active with mental health counseling with [facility] and her pcp provids her medciations at this time. discharge plan home no aervices pcp dr angela zamora surgical bariatric follow up pwer discharge instructions transportation to be determined family member or friend covid vacinated x2 would like to complet hcp 12/28/21
[2021-12-27] MEDS: KCl 40 mEq in 0.9 % Sodium Chl 40 MEQ/1,000 ML IV.SOLN 125 MEQ IVCONT (17:55)
[2021-12-27] MEDS: HYDROmorphone HCl 0.5 MG/0.5 ML SYRINGE 0.25 MG IVPUSH (18:18)
[2021-12-27] MEDS: ondansetron HCL 4 MG/2 ML VIAL IVPUSH (20:34)
[2021-12-27] MEDS: LORazepam 2 MG/ML VIAL 0.5 MG IVPUSH (20:34)
[2021-12-27] MEDS: 0.9 % Sodium Chloride Flush 3 ML SYRINGE IVFLUSH (20:35)
[2021-12-27] MEDS: Metoprolol Tartrate 5 MG in 0.9 % Sodium Chloride 50 ML 220 MG IV (22:01)
[2021-12-28] MEDS: KCl 40 mEq in 0.9 % Sodium Chl 40 MEQ/1,000 ML IV.SOLN 125 MEQ IVCONT (01:29)
[2021-12-28 03:20] VITALS: BP 147/86; PULSE 97; RESP 18; TEMP 36.6; O2SAT 95
[2021-12-28] MEDS: Metoprolol Tartrate 5 MG in 0.9 % Sodium Chloride 50 ML 220 MG IV (03:32)
[2021-12-28] MEDS: ondansetron HCL 4 MG/2 ML VIAL IVPUSH (03:33)
[2021-12-28] MEDS: Levothyroxine Sodium 200 MCG TABLET PO (05:40)
[2021-12-28 06:06] LABS: MANUAL DIFF FLAG NO
[2021-12-28 06:18] LABS: Basophils Percent Auto 0.1 % (0-2); Hematocrit 36.6 % (37.0-47.0); Hemoglobin 12.4 g/dl (12.0-16.0); Imm Gran Abs Auto 0.06 X10*3/uL (0.00-0.03); Imm Gran Pct Auto 0.5 % (0.0-0.4); Lymphocytes Absolute Auto 1.2 X10*3/uL (1.2-4.9); Lymphocytes Percent Auto 10.6 % (20-40); Mean Corpuscular HGB Conc 33.9 g/dl (31.0-35.0); Mean Corpuscular Hemoglobin 29.5 pg (27.0-33.0); Mean Corpuscular Volume 86.9 fL (80.0-98.0); Mean Platelet Volume 11.1 fL (9.4-12.3); Monocytes Absolute Auto 0.8 X10*3/uL (0.1-1.2); Neutrophils Percent Auto 81.8 % (45-73); Platelet Count 318 X10*3/uL (160-400); Red Blood Count 4.21 X10*6/uL (4.20-5.50); Red Cell Distribution Width 12.7 % (11.0-16.0)
[2021-12-28 06:52] LABS: Anion Gap 13 (12-20); Blood Urea Nitrogen 8 mg/dL (9-16); Calcium 9.3 mg/dL (8.4-10.2); Carbon Dioxide 21 mmol/L (22-29); Chloride 108 mmol/L (96-108); Creatinine Clr Calc Pharmacy 105.2; Estimated Glomerular Filt Rate > 60; Glucose Random 107 mg/dL (60-115); Potassium 4.7 mmol/L (3.3-5.1); Sodium 137 mmol/L (135-145)
[2021-12-28 08:22] VITALS: BP 144/85; PULSE 76; RESP 18; TEMP 36.3; O2SAT 97
--- NOTE | 2021-12-28 10:57 | MHC.CM.PN ---
NURSE CXASE MANAGEMENT MET WITH PATIENT SHE IS AWARE THAT SHE WILL BE DISCHAGRED HOME TODAY DISCHARGE PLAN HOME NO SERVICES PCP FIOLLOW UP POST DISCHARGE TERANSPORTATION NPATIENT TO SELF ARRANGE HCP COMPLETED ON THIS ADMISSION NAMING HER TWO CHILDREN HER AGENTS , ORIGINAL AND COPIES GIEBN TO HER ONE PLACED IN HARD CHARGT
--- NOTE | 2021-12-28 14:40 | HO.POSTANES ---
Post Anesthesia Evaluation Post Anesthesia Evaluation Vital Signs: Vital Signs Temp Pulse Resp BP Pulse Ox 12/28/21 08:22 97.4 F 76 18 144/85 H 97 12/28/21 03:20 98 F 97 18 147/86 H 95 Anesthesia: General Endotracheal-GETA Mental Status: Awake Pain Control: Satisfactory Nausea/Vomiting: None Hydration: Adequate Anesthesia-Related Issues: No Anes. Related Issues
== END 2021-12-28 09:16 | disposition home or self-care (01) | DRG 621 ==
LOC: HO.SSSA 10:46 → HO.S3 11:21
PROVIDERS: Physician Assistant Surgical; Admitting Provider Surgery; PCP Family Medicine; Visit Provider Surgery
PROC: 0DB64Z3 Excision of Stomach, Percutaneous Endoscopic Approach, Vertical (ICD-10-PCS; CPT 43845; principal; 2021-12-27 08:00)
DX: E66.01 Morbid (severe) obesity due to excess calories (principal); J45.909 Unspecified asthma, uncomplicated; M54.9 Dorsalgia, unspecified; F32.A Depression, unspecified; K76.0 Fatty (change of) liver, not elsewhere classified; M79.7 Fibromyalgia; K21.9 Gastro-esophageal reflux disease without esophagitis; E05.00 Thyrotoxicosis with diffuse goiter without thyrotoxic crisis or storm; G93.2 Benign intracranial hypertension; Z68.41 Body mass index [BMI] 40.0-44.9, adult; K58.9 Irritable bowel syndrome, unspecified; K66.0 Peritoneal adhesions (postprocedural) (postinfection); I10 Essential (primary) hypertension; Z20.822 Contact with and (suspected) exposure to COVID-19; Z98.51 Tubal ligation status; Z87.891 Personal history of nicotine dependence; Z79.890 Hormone replacement therapy; Z79.899 Other long term (current) drug therapy
CPT/HCPCS: 36415; 80048; 85014; 85018; 85025; 86850; 86900; 86901; 87635; 88307; 88342; 99024; A4649; C9399; J0131; J1100; J1170; J1956; J2060; J2250; J2405; J2550; J2765; J3010

== ENCOUNTER → 2022-01-01 13:19 | Outpatient (BNVA) | payer OTHER, SELFPAY | PROVIDERS: PCP Family Medicine; Referring Provider Family Medicine; Visit Provider Surgery | DX: E66.01 Morbid (severe) obesity due to excess calories (principal); Z68.41 Body mass index [BMI] 40.0-44.9, adult; Z98.84 Bariatric surgery status | CPT/HCPCS: 99212 ==

== ENCOUNTER 2022-01-10 12:11 | Outpatient (REF) | payer OTHER, SELFPAY ==
[2022-01-10 12:52] LABS: MANUAL DIFF FLAG NO
[2022-01-10 12:58] LABS: Basophils Percent Auto 0.4 % (0-2); Eosinophils Absolute Auto 0.1 X10*3/uL (0.0-0.4); Eosinophils Percent Auto 1.7 % (0-4); Hemoglobin 14.1 g/dl (12.0-16.0); Imm Gran Abs Auto 0.03 X10*3/uL (0.00-0.03); Imm Gran Pct Auto 0.4 % (0.0-0.4); Lymphocytes Absolute Auto 1.7 X10*3/uL (1.2-4.9); Lymphocytes Percent Auto 23.4 % (20-40); Mean Corpuscular HGB Conc 33.6 g/dl (31.0-35.0); Mean Corpuscular Hemoglobin 28.8 pg (27.0-33.0); Mean Corpuscular Volume 85.7 fL (80.0-98.0); Mean Platelet Volume 11.6 fL (9.4-12.3); Monocytes Absolute Auto 0.7 X10*3/uL (0.1-1.2); Monocytes Percent Auto 10.4 % (2-11); Neutrophils Absolute Auto 4.5 x10*3/uL (2.0-8.3); Neutrophils Percent Auto 63.7 % (45-73); Platelet Count 324 X10*3/uL (160-400); Red Cell Distribution Width 13.1 % (11.0-16.0); White Blood Count 7.1 X10*3/uL (4.8-10.8)
[2022-01-10 13:53] LABS: Free T4 (Free Thyroxine) 1.56 ng/dL (0.71-1.85); Thyroid Stimulating Hormone < 0.01 uIU/mL (0.32-4.0)
== END 2022-01-10 12:12 | disposition home or self-care (01) ==
LOC: HO.LAB 12:11
PROVIDERS: Absent Provider Surgery; PCP Family Medicine; Visit Provider Family Medicine
DX: R53.83 Other fatigue (principal)
CPT/HCPCS: 36415; 84439; 84443; 85025

== ENCOUNTER → 2022-01-23 08:14 | Outpatient (BNVA) | payer OTHER, SELFPAY | PROVIDERS: PCP Family Medicine; Visit Provider Dietitian, Registered | DX: E66.01 Morbid (severe) obesity due to excess calories (principal); Z68.41 Body mass index [BMI] 40.0-44.9, adult; Z71.3 Dietary counseling and surveillance | CPT/HCPCS: 97803 ==

== ENCOUNTER → 2022-02-06 09:49 | Outpatient (BNVA) | payer OTHER, SELFPAY | PROVIDERS: PCP Family Medicine; Referring Provider Surgery; Visit Provider Dietitian, Registered | DX: E66.9 Obesity, unspecified (principal); Z3A.39 39 weeks gestation of pregnancy | CPT/HCPCS: 97803 ==

== ENCOUNTER → 2022-02-27 10:44 | Outpatient (BNVA) | payer OTHER, SELFPAY | PROVIDERS: PCP Family Medicine; Referring Provider Surgery; Visit Provider Dietitian, Registered | DX: E66.9 Obesity, unspecified (principal); Z68.39 Body mass index [BMI] 39.0-39.9, adult; Z98.84 Bariatric surgery status; Z71.3 Dietary counseling and surveillance | CPT/HCPCS: 97803 ==

== ENCOUNTER → 2022-03-27 10:42 | Outpatient (BNVA) | payer OTHER, SELFPAY | PROVIDERS: PCP Family Medicine; Referring Provider Surgery; Visit Provider Dietitian, Registered | DX: E66.9 Obesity, unspecified (principal); Z68.37 Body mass index [BMI] 37.0-37.9, adult | CPT/HCPCS: 97803 ==

== ENCOUNTER → 2022-03-29 12:54 | Outpatient (BNVA) | payer OTHER, SELFPAY | PROVIDERS: PCP Family Medicine; Visit Provider Internal Medicine Endocrinology, Diabetes & Metabolism | DX: E03.9 Hypothyroidism, unspecified (principal); Z79.899 Other long term (current) drug therapy | CPT/HCPCS: 99202 ==

== ENCOUNTER → 2022-04-26 11:20 | Outpatient (BNVA) | payer OTHER, SELFPAY | PROVIDERS: PCP Family Medicine; Referring Provider Surgery; Visit Provider Dietitian, Registered | DX: E66.9 Obesity, unspecified (principal); Z68.37 Body mass index [BMI] 37.0-37.9, adult | CPT/HCPCS: 97803 ==

== ENCOUNTER → 2022-05-28 10:50 | Outpatient (BNVA) | payer OTHER, SELFPAY | PROVIDERS: PCP Family Medicine; Referring Provider Surgery; Visit Provider Dietitian, Registered | DX: E66.9 Obesity, unspecified (principal); Z68.35 Body mass index [BMI] 35.0-35.9, adult; Z98.84 Bariatric surgery status; Z71.3 Dietary counseling and surveillance | CPT/HCPCS: 97803 ==

== ENCOUNTER → 2022-06-28 09:30 | Outpatient (BNVA) | payer OTHER, SELFPAY | PROVIDERS: PCP Family Medicine; Referring Provider Dietitian, Registered; Visit Provider Physician Assistant Surgical | DX: E66.9 Obesity, unspecified (principal); Z98.84 Bariatric surgery status; Z68.34 Body mass index [BMI] 34.0-34.9, adult | CPT/HCPCS: Q3014 ==

== ENCOUNTER → 2022-07-29 10:58 | Outpatient (BNVA) | payer OTHER, SELFPAY | PROVIDERS: PCP Family Medicine; Visit Provider Dietitian, Registered | DX: E66.9 Obesity, unspecified (principal); Z68.34 Body mass index [BMI] 34.0-34.9, adult | CPT/HCPCS: 97803 ==

== ENCOUNTER 2022-07-31 11:53 | Outpatient (REF) | payer OTHER, SELFPAY ==
[2022-07-31 12:10] LABS: MANUAL DIFF FLAG NO
[2022-07-31 12:36] LABS: Basophils Percent Auto 0.4 % (0-2); Eosinophils Absolute Auto 0.2 X10*3/uL (0.0-0.4); Hematocrit 40.3 % (37.0-47.0); Hemoglobin 13.6 g/dl (12.0-16.0); Imm Gran Abs Auto 0.03 X10*3/uL (0.00-0.03); Imm Gran Pct Auto 0.4 % (0.0-0.4); Lymphocytes Absolute Auto 1.7 X10*3/uL (1.2-4.9); Lymphocytes Percent Auto 23.2 % (20-40); Mean Corpuscular HGB Conc 33.7 g/dl (31.0-35.0); Mean Corpuscular Hemoglobin 30.2 pg (27.0-33.0); Mean Corpuscular Volume 89.4 fL (80.0-98.0); Mean Platelet Volume 10.9 fL (9.4-12.3); Monocytes Absolute Auto 0.5 X10*3/uL (0.1-1.2); Monocytes Percent Auto 6.9 % (2-11); Neutrophils Percent Auto 67.1 % (45-73); Platelet Count 307 X10*3/uL (160-400); Red Blood Count 4.51 X10*6/uL (4.20-5.50); Red Cell Distribution Width 12.4 % (11.0-16.0); White Blood Count 7.5 X10*3/uL (4.8-10.8)
[2022-07-31 12:42] LABS: Estimated Average Glucose 94 mg/dL; Hemoglobin A1c % 4.9 %
[2022-07-31 13:30] LABS: Ferritin 165 ng/mL (10-250); Insulin 7 uU/mL (2-29); TSH reflex Free T4 6.34 uIU/mL (0.32-4.0); Vitamin D 25-OH Total 28.6 ng/mL (>30)
[2022-07-31 13:39] LABS: Alanine Aminotransferase 16 U/L (0-31); Alkaline Phosphatase 89 U/L (39-117); Anion Gap 13 (12-20); Aspartate Amino Transferase 16 U/L (5-31); Bilirubin Total 0.9 mg/dL (0.0-1.0); Blood Urea Nitrogen 11 mg/dL (9-16); C Reactive Protein 1.21 mg/dL (< or = 0.50); Calcium 9.3 mg/dL (8.4-10.2); Carbon Dioxide 25 mmol/L (22-29); Chloride 103 mmol/L (96-108); Cholesterol 211 mg/dL; Estimated Glomerular Filt Rate > 60; Folate 9.6 ng/mL (> or = 4.0); Free T4 (Free Thyroxine) 0.82 ng/dL (0.71-1.85); Glucose Random 92 mg/dL (60-115); HDL Cholesterol 55 mg/dL; Iron 81 mcg/dL (30-160); LDL Cholesterol Calculated 129 mg/dl; Percent Iron Saturation 27 % (15-50); Sodium 137 mmol/L (135-145); Thyroid Stimulating Hormone 6.24 uIU/mL (0.32-4.0); Total Iron Binding Capacity 303 mcg/dL (228-428); Total Protein 7.1 g/dL (6.5-8.0); Triglycerides 137 mg/dL; Unsaturated Iron Binding 222 ug/dL; Vitamin B12 228 pg/mL (200-900)
[2022-08-01 09:00] LABS: Thyroid Peroxidase Antibodies >900 IU/mL (<9)
[2022-08-02 13:44] LABS: Calcium (PTHI) 9.2 mg/dL (8.6-10.2); PTHI 77 pg/mL (16-77)
[2022-08-03 17:58] LABS: Zinc 78 mcg/dL (60-130)
[2022-08-04 16:48] LABS: Vitamin A 51 mcg/dL (38-98)
[2022-08-05 06:18] LABS: Vitamin B1 <6 nmol/L (8-30)
== END 2022-07-31 11:54 | disposition home or self-care (01) ==
LOC: HO.LAB 11:53
PROVIDERS: Absent Provider Physician Assistant Surgical; PCP Family Medicine; Visit Provider Internal Medicine Endocrinology, Diabetes & Metabolism
DX: K91.2 Postsurgical malabsorption, not elsewhere classified (principal); E03.9 Hypothyroidism, unspecified; Z98.84 Bariatric surgery status
CPT/HCPCS: 36415; 80053; 80061; 82306; 82607; 82728; 82746; 83036; 83525; 83540; 83970; 84425; 84439; 84443; 84590; 84630; 85025; 86140; 86376; 99212

== ENCOUNTER → 2022-09-05 11:07 | Outpatient (BNVA) | payer OTHER, SELFPAY | PROVIDERS: PCP Family Medicine; Visit Provider Dietitian, Registered | DX: E66.9 Obesity, unspecified (principal); Z68.35 Body mass index [BMI] 35.0-35.9, adult; Z98.84 Bariatric surgery status; Z71.3 Dietary counseling and surveillance | CPT/HCPCS: 97803 ==

== ENCOUNTER → 2022-11-04 11:08 | Outpatient (BNVA) | payer OTHER, SELFPAY | PROVIDERS: PCP Family Medicine; Visit Provider Dietitian, Registered | DX: E66.9 Obesity, unspecified (principal) | CPT/HCPCS: 97803 ==

== ENCOUNTER 2022-11-07 14:34 | Outpatient (REF) | payer OTHER, SELFPAY ==
[2022-11-07 16:24] LABS: Free T4 (Free Thyroxine) 0.85 ng/dL (0.71-1.85); Thyroid Stimulating Hormone 2.16 uIU/mL (0.32-4.0)
== END 2022-11-07 14:35 | disposition home or self-care (01) ==
LOC: HO.LAB 14:34
PROVIDERS: PCP Family Medicine; Visit Provider Internal Medicine Endocrinology, Diabetes & Metabolism
DX: E03.9 Hypothyroidism, unspecified (principal)
CPT/HCPCS: 36415; 84439; 84443

== ENCOUNTER → 2022-11-15 09:56 | Outpatient (BNVA) | payer OTHER, SELFPAY | PROVIDERS: PCP Family Medicine; Visit Provider Internal Medicine Endocrinology, Diabetes & Metabolism | DX: E03.9 Hypothyroidism, unspecified (principal) | CPT/HCPCS: 99212 ==

== ENCOUNTER 2023-01-24 09:59 | Outpatient (REF) | payer OTHER, SELFPAY ==
[2023-01-24 11:07] LABS: Estimated Average Glucose 94 mg/dL; Hemoglobin A1c % 4.9 %
[2023-01-24 11:26] LABS: Anion Gap 12 (12-20); Blood Urea Nitrogen 13 mg/dL (9-16); Carbon Dioxide 26 mmol/L (22-29); Chloride 110 mmol/L (96-108); Cholesterol 210 mg/dL; Estimated Glomerular Filt Rate > 60; Glucose Fasting 90 mg/dL (60-99); HDL Cholesterol 54 mg/dL; LDL Cholesterol Calculated 134 mg/dl; Potassium 4.2 mmol/L (3.3-5.1); Sodium 144 mmol/L (135-145); Triglycerides 111 mg/dL
== END 2023-01-24 10:00 | disposition home or self-care (01) ==
LOC: HO.10HDL 09:59
PROVIDERS: Visit Provider Family Medicine
DX: I10 Essential (primary) hypertension (principal); E78.00 Pure hypercholesterolemia, unspecified; Z79.899 Other long term (current) drug therapy
CPT/HCPCS: 36415; 80051; 80061; 82565; 82947; 83036; 84520

== ENCOUNTER 2023-09-12 10:25 | Outpatient (REF) | payer OTHER, SELFPAY ==
[2023-09-12 14:07] LABS: Alanine Aminotransferase 14 U/L (0-31); Anion Gap 8 (12-20); Aspartate Amino Transferase 13 U/L (5-31); Blood Urea Nitrogen 15 mg/dL (9-16); Carbon Dioxide 27 mmol/L (22-29); Chloride 108 mmol/L (96-108); Cholesterol 193 mg/dL (<200); Estimated Glomerular Filt Rate > 60; Glucose Fasting 88 mg/dL (60-99); HDL Cholesterol 54 mg/dL (>40); LDL Cholesterol Calculated 120 mg/dL (<100); Sodium 139 mmol/L (135-145); Triglycerides 95 mg/dL (<150)
[2023-09-12 14:10] LABS: Thyroid Stimulating Hormone 3.91 uIU/mL (0.32-4.0)
[2023-09-12 14:16] LABS: Estimated Average Glucose 97 mg/dL
== END 2023-09-12 10:26 | disposition home or self-care (01) ==
LOC: HO.10HDL 10:25
PROVIDERS: Visit Provider Family Medicine
DX: I10 Essential (primary) hypertension (principal); E03.9 Hypothyroidism, unspecified; E78.00 Pure hypercholesterolemia, unspecified; R73.9 Hyperglycemia, unspecified; Z79.899 Other long term (current) drug therapy
CPT/HCPCS: 36415; 80051; 80061; 82550; 82565; 82947; 83036; 84439; 84443; 84450; 84460; 84520

== ENCOUNTER 2023-11-30 12:58 | Inpatient (IN) | payer OTHER, SELFPAY ==
--- NOTE | ~2023-11-30 | XR_ITS ---
EXAMINATION: CHEST 2 VIEWS CLINICAL INFORMATION: CP, fever. COMPARISON: 11/02/2021. TECHNIQUE: PA and lateral views of the chest obtained. FINDINGS: The lungs are well expanded. No focal infiltrate, effusion, edema, or pneumothorax. Cardiac and mediastinal silhouettes are within normal limits for technique. No acute bony abnormality seen XR/XR chest 2V IMPRESSION: No evidence of acute disease
--- NOTE | ~2023-11-30 | CT_ITS ---
EXAMINATION: CT abdomen pelvis w IV con CLINICAL INFORMATION: Reason for Exam Right lower quadrant pain COMPARISON: No prior CT available for comparison. TECHNIQUE: Multidetector volumetric imaging was performed from the superior aspect of the liver through the pubic symphysis 85 mL Omnipaque 350 injected Sagittal and coronal reformatted images were obtained on the technologist's workstation. This CT examination was performed using dose optimization techniques as appropriate, variously including the following: *Automated exposure control *Adjustment of mA and/or kV according to patient size (this includes techniques or standardized protocols for targeted exams where dose is matched to indication/reason for exam; i.e. extremities or head) *Use of iterative reconstruction technique DLP: 872 mGy-cm FINDINGS: LOWER THORAX: Included lung bases are clear. HEPATOBILIARY: No focal hepatic lesions. No biliary ductal dilatation. GALLBLADDER: Gallbladder unremarkable. SPLEEN: Spleen is normal in size. PANCREAS: No focal mass or ductal dilatation. STOMACH AND GASTROINTESTINAL TRACT: Postsurgical changes prior partial gastrectomy, no CT evidence of dehiscence or leak. There is no bowel distention or thickening. No CT evidence of appendicitis. ADRENALS: No adrenal nodules. KIDNEYS/URETERS: There is mild left renal hydronephrosis and hydroureter there is however no calcified visible stone along the course of the ureter, this could be due to recently passed stone, reflux, versus soft tissue obstruction of the distal ureter at the UVJ. No mass found. There are small nonobstructing stones in the left kidney measuring 2 and 3 mm, 3 of which found. Single tiny 1 mm stone right kidney. No hydronephrosis on the right side. URINARY BLADDER: Partially decompressed. PELVIC VISCERA: Unremarkable PERITONEUM: No free air or fluid. LYMPH NODES: No lymphadenopathy. VASCULAR:Abdominal aorta normal in size, no aneurysm found. BONES, ABDOMINAL WALL AND SOFT TISSUES: Age-appropriate changes of the spine and skeletal system, no destructive osteolytic or osteosclerotic bone lesion found CT/CT abdomen pelvis w IV con IMPRESSION: 1. There is mild left renal hydronephrosis and hydroureter, there is however no calcified visible stone along the course of the left ureter, this could be due to recently passed stone, reflux, versus soft tissue obstruction of the distal ureter at the UVJ. 2. There are small nonobstructing stones in the left kidney and single tiny stone in the right kidney. 3. Postsurgical changes prior partial gastrectomy, no CT evidence of dehiscence or leak. 4. 4. No CT evidence of appendicitis, no explanation for patient's right lower quadrant pain.
--- NOTE | 2023-11-30 13:00 | ECG_ITS ---
Test Reason : CP Blood Pressure : / mmHG Vent. Rate : 145 BPM Atrial Rate : 145 BPM P-R Int : 112 ms QRS Dur : 074 ms QT Int : 348 ms P-R-T Axes : 000 002 001 degrees QTc Int : 540 ms Sinus tachycardia Nonspecific ST abnormality Abnormal ECG When compared with ECG of 02-NOV-2021 11:50, Vent. rate has increased BY 74 BPM Referred By: Lori Sheppard Electronically Signed By:HOLLIS MIRELES MD
[2023-11-30 13:05] VITALS: BP 153/107; PULSE 145; RESP 18; TEMP 38.4; O2SAT 99; BMI 41.9
--- NOTE | 2023-11-30 13:05 | ED_ITS ---
HPI - General Adult General Chief complaint: Fever Stated complaint: CP Since Friday Fever Nausea Etc Time Seen by Provider: 11/30/23 13:52 Source: patient Mode of arrival: ambulatory Limitations: no limitations History of Present Illness HPI narrative: 43-year-old female female history of congenital intra-abdominal adhesions, GERD, liver fibrosis, adjustment disorder, anxiety, status post laparoscopic sleeve gastrectomy, vitamin B12 deficiency, pseudotumor cerebri, asthma, anxiety, hypothyroidism, IBS, hypertension, obesity presents to the emergency department with concerns that she may be having an IBS flare for the past 4 days. Reports right-sided abdominal discomfort right-sided flank pain, headache, fevers, chills, fatigue, malaise and myalgias. Denies sick contacts. She tells me she just does not feel right. She reports she never gets fevers and yesterday she took her temperature and her temperature was a 102.1 degrees and this am 103.6F this is why she decided to come in. Reporting diffuse chest discomfort however no shortness a breath. Related Data Home Medications Medication Instructions Recorded Confirmed cyclobenzaprine 5 mg tablet 5 mg PO BEDTIME 10/08/21 11/15/22 dicyclomine 10 mg capsule 10 mg PO Q8H PRN cramps 10/08/21 11/15/22 diltiazem HCl 360 mg 360 mg PO DAILY 10/08/21 11/15/22 capsule,extended release 24 hr hydralazine 50 mg tablet 50 mg PO BID 10/08/21 11/15/22 albuterol sulfate 90 mcg/actuation 2 puff inhalation Q6H PRN 12/20/21 11/15/22 aerosol inhaler Shortness Of Breath Or Wheezing citalopram 20 mg tablet 1 tab PO DAILY 12/20/21 11/15/22 diltiazem HCl 180 mg 180 mg PO DAILY 03/29/22 11/15/22 capsule,extended release 24 hr trazodone 50 mg tablet 50 mg PO BEDTIME 11/15/22 11/15/22 Previous Rx's Medication Instructions Recorded inulin 2 gram chewable tablet 2 g PO DAILY #90 tabs 06/28/22 levothyroxine 150 mcg tablet 150 mcg PO DAILY #20 tabs 08/01/22 levothyroxine 175 mcg tablet 175 mcg PO DAILY #20 tabs 08/01/22 cholecalciferol (vitamin D3) 25 25 mcg PO DAILY #90 caps 08/05/22 mcg (1,000 unit) capsule thiamine mononitrate (vit B1) 100 100 mg PO DAILY #90 tabs 08/05/22 mg tablet (Vitamin B-1 (mononitrate)) Allergies Allergy/AdvReac Type Severity Reaction Status Date / Time Penicillins [PENICILLINS] Allergy Intermediate HIVES Verified 11/30/23 13:05 Review of Systems 2 Review of Systems: Constitutional : No Weight loss, + Fever, + Chills, + Fatigue, + Malaise ENT/Mouth : No sore throat, No Rhinorrhea Eyes: No Eye Pain, No Swelling, No Redness Cardiovascular : No Chest Pain, No SOB, No Dyspnea on Exertion, No Orthopnea, No Edema, No Palpitations Respiratory : No Cough, No Sputum, No Wheezing Gastrointestinal : No Nausea, No Vomiting, No Diarrhea, No Constipation, + abdominal Pain, No Hematochezia, No Melena Genitourinary : No Dysuria, No Urinary Frequency, No Hematuria, Musculoskeletal : No joint pain, No Myalgias, No Joint Swelling Skin : No Skin Lesions, No rash Neuro : No Weakness, No Numbness, No Dizziness, No Headache Psych : No Anxiety/Panic, No Depression All other systems reviewed and are negative Yes all other systems are reviewed and are negative [facility] Past Medical History Attestation statement: The following information was validated with the patient. Source: old records reviewed and nursing notes reviewed Medical History (Updated 11/30/23 @ 17:55 by YURIDIA Gonzalez) Liver fibrosis Graves' disease GERD (gastroesophageal reflux disease) Fibromyalgia Fatty liver Hx of headache Seasonal allergies Environmental allergies Depression History of lumbar puncture Pseudotumor cerebri Asthma Anxiety Neck pain Back pain Hypothyroidism IBS (irritable bowel syndrome) Hypertension Morbid obesity Surgical History History of hysteroscopy History of sleeve gastrectomy Hx of section Hx of tubal ligation Family History Family History Mother Hypertension Heart problem Father Diabetes Heart problem High cholesterol Brother Hypertension Sister Hypertension Sister Hypertension Sister Hypertension Brother Heart problem Hypertension Son No problems noted. Daughter No problems noted. Social History Social History Household Members Other:: son 19 yrs, daughter 18 yrs Are you a primary summer child caregiver to a significant other at home: No Do you presently have visiting nurse or other home services: No Alcohol intake: never Patient Tobacco Use Status: Former Tobacco user Quit Date: 2016 Tobacco use type: Cigarette Advance Directives: No Advance Directives Information Provided: No Patient : No service: No Current occupational status: disabled Physical Exam ED Vital Signs: Vital Signs - 24 hr 11/30/23 13:05 11/30/23 15:18 11/30/23 15:39 Temperature 101.2 F H 99.1 F Pulse Rate 145 H 108 H 102 H Respiratory Rate 18 21 H 22 H Blood Pressure 153/107 H 133/90 H 137/92 H Pulse Oximetry 99 97 96 Oxygen Delivery Method Room Air Room Air Room Air BMI result Body Mass Index 41.9 tachy, febrile Appearance: Alert.? Oriented X3.? No acute distress.? Head: Normocephalic, atraumatic, no step-offs or deformities Eyes: Pupils equal, round and reactive to light.? CVS: Normal heart rate and rhythm.? Pulses normal.? Respiratory: No respiratory distress.? Breath sounds normal.? Abdomen: Soft and +TTP to RUQ .? Skin: Skin warm and dry.? Normal skin color.? Normal skin turgor.? Extremities: No lower extremity edema.? No calf ttp. 5/5 strength to bilateral upper and lower extremities Back: Mild L sided CVa tenderness Neuro: Oriented X 3.? No motor deficit.? No sensory deficit. CN 2-12 intact Course Course Course Narrative: This is an RME: Additional HPI, ROS, PE not included below will be deferred to primary provider. Patient is a 43 old female who presents to the emergency department for evaluation of IBS flare x 4 days, took bentyl with no improvement, having fevers, chills, diffuse chest pain but primarily right- sided, headaches, body aches. T max yesterday 102.1 Reports history of intracranial hypertension. Tylenol 975mg at 0800, ibuprofen 600mg at 0000 (states not supposed to take secondary to gastric sleeve in 2021). Meeting sepsis criteria, charge loader made aware. Reevaluation(s) Reevaluation #1: Patients HR now 90-97 bpm. Patient well appearing. UA resulted and showing + nitrates and leukocytes. Discussed this case with Urology who states if patient still tachy she should be admitted for hydration, fluids and atbx. They will follow while in the hospital. NO indication for surgical managment. Patient agreeable to stay in the hospital. Laboratory studies with leukocytosis and left shift. Chemistry unremarkable. Beta hCG negative Time: 17:45 Medications Administered Discontinued Medications Generic Name Dose Route Start Last Admin Trade Name Sam PRN Reason Stop Dose Admin Acetaminophen 975 mg 11/30/23 13:11 11/30/23 14:06 Acetaminophen 325 Mg Tablet PO 11/30/23 13:12 975 mg ONCE ONE Administration Sodium Chloride 1,000 mls @ 999 mls/hr 11/30/23 14:15 11/30/23 15:15 Ns IV 11/30/23 15:15 Infused .Q1H1M SANDY Infusion Ceftriaxone Sodium 1 gm/ 50 mls @ 100 mls/hr 11/30/23 15:55 11/30/23 17:06 Sodium Chloride IV 11/30/23 16:24 Infused ONCE ONE Infusion Ibuprofen 400 mg 11/30/23 14:05 11/30/23 14:10 Ibuprofen 400 Mg Tablet PO 11/30/23 14:06 400 mg ONCE ONE Administration Iohexol 100 ml 11/30/23 14:55 11/30/23 14:56 Iohexol 350 Mg/Ml 100 Ml Infus..Btl IV 11/30/23 14:56 85 ml ONCE ONE Administration Medical Decision Making Medical Decision Making MDM Narrative: 43-year-old female presents with concerns that she may have an IBS flare x4 days. Also reporting fevers, chills, chest discomfort, right-sided flank pain and abdominal pain Physical exam slight right upper quadrant discomfort and L-sided flank pain. Patient tachycardic on exam heart rate around 110. History and physical exam concerning for pyelonephritis versus urinary tract infection versus cholecystitis. Unlikely acute abdomen, obstruction, appendicitis, diverticulitis, pancreatitis. Unlikely metabolic derangements however will rule out. Will also rule out viral illnesses. Headache likely secondary to viral illness unlikely meningitis, encephalitis, intracranial hemorrhage, stroke, posterior stroke. Negative NIH stroke scale. This patient was initially evaluated by Dr. Wallace who administered ibuprofen, ceftriaxone, acetaminophen and fluids. Labs and imaging also ordered by previous provider. I was to follow results. Differential Diagnosis Differential Diagnoses: The differential diagnosis associated with the presentation includes History and physical exam concerning for pyelonephritis versus urinary tract infection versus cholecystitis. Unlikely acute abdomen, obstruction, appendicitis, diverticulitis, pancreatitis. Unlikely metabolic derangements however will rule out. Will also rule out viral illnesses. Headache likely secondary to viral illness unlikely meningitis, encephalitis, intracranial hemorrhage, stroke, posterior stroke. Negative NIH stroke scale. Admission/Observation Consideration of admission/observation: Escalation of care including admission/observation considered Likely Consult Healthcare Provider Management of the patient was discussed with: Hospitalist Lab Data MDM Lab Attestation statement: I reviewed the patient's lab results. 11/30/23 13:32 11/30/23 13:32 Labs: Lab Results 11/30/23 11/30/23 Range/Units 13:32 16:57 WBC 11.3 H (4.8-10.8) X10*3/uL RBC 4.77 (4.20-5.50) X10*6/uL Hgb 14.1 (12.0-16.0) g/dl Hct 41.4 (37.0-47.0) % MCV 86.8 (80.0-98.0) fL MCH 29.6 (27.0-33.0) pg MCHC 34.1 (31.0-35.0) g/dl RDW 12.4 (11.0-16.0) % Plt Count 215 D (160-400) X10*3/uL MPV 10.4 (9.4-12.3) fL Immature Gran % (Auto) 0.7 H (0.0-0.4) % Neut % (Auto) 87.4 H (45-73) % Lymph % (Auto) 5.7 L (20-40) % [place] % (Auto) 6.0 (2-11) % Eos % (Auto) 0.0 (0-4) % Baso % (Auto) 0.2 (0-2) % Lymph # (Auto) 0.7 L (1.2-4.9) X10*3/uL [place] # (Auto) 0.7 (0.1-1.2) X10*3/uL Eos # (Auto) 0.0 (0.0-0.4) X10*3/uL Baso # (Auto) 0.0 (0.0-0.2) X10*3/uL Abs Immat Gran (auto) 0.08 H (0.00-0.03) X10*3/uL Absolute Neuts (auto) 9.9 H (2.0-8.3) x10*3/uL Absolute Nucleated RBC 0.000 (0.0-0.012) X10*3/uL Nucleated RBC % (auto) 0.0 (0.0-0.2) /100WBC PT 18.5 H (11.1-13.3) SEC INR 1.5 H (0.9-1.1) Sodium 137 (135-145) mmol/L Potassium 3.2 L (3.3-5.1) mmol/L Chloride 104 (96-108) mmol/L Carbon Dioxide 23 (22-29) mmol/L Anion Gap 13 (12-20) BUN 15 (9-16) mg/dL Creatinine 1.30 (0.5-1.4) mg/dL Estim Creat Clear Calc 62.4 Estimated GFR 44 Random Glucose 119 H (60-115) mg/dL Lactic Acid 1.5 (0.5-2.0) mmol/L Calcium 9.3 (8.4-10.2) mg/dL Total Bilirubin 1.3 H (0.0-1.0) mg/dL AST 24 (5-31) U/L ALT 32 H (0-31) U/L Alkaline Phosphatase 112 (39-117) U/L Troponin I High Sens 3.5 (<3.5-17.0) ng/L Total Protein 8.3 H (6.5-8.0) g/dL Albumin 4.0 (3.5-5.0) g/dL Lipase 13 (8-78) U/L Beta HCG, Quant < 2 mIU/mL Urine Color Yellow Urine Appearance Cloudy Urine pH 6.0 (5.0-9.0) Ur Specific [place] >= 1.030 H (1.005-1.025) Urine Protein 100 (2+) H (Neg-Trace) mg/dL Urine Glucose (UA) Negative (Negative) mg/dL Urine Ketones 15 (Negative) mg/dL Urine Blood Large (3+) H (Negative) Urine Nitrite Positive H (Negative) Ur Leukocyte Esterase Trace H (Negative) Urine RBC >20 H (0-2) /HPF Urine WBC 21-50 H (0-5) /HPF Ur Squamous Epith Cells 3-5 (0-2) /HPF Urine Bacteria 4+ (None Seen) Hyaline Casts 3-5 (0-2) /LPF Urine Test NEGATIVE (NEGATIVE) Influenza Type A (PCR) NEGATIVE (Negative) Influenza Type B (PCR) NEGATIVE (Negative) RSV RNA Qual (PCR) NEGATIVE (Negative) SARS-CoV-2 RNA (RT-PCR) NEGATIVE (Negative) Independent Interpretation I performed an independent interpretation of an: CT Scan (CT/CT abdomen pelvis w IV con IMPRESSION: 1. There is mild left renal hydronephrosis and hydroureter, there is however no calcified visible stone along the course of the left ureter, this could be due to recently passed stone, reflux, versus soft tissue obstruction of the distal ureter at the UV) Radiology Impression Discussion of test interpretation with radiology: I have reviewed the radiologist's reading. Prescription Management I considered prescription management with: Antibiotic Chronic Conditions Patient?s care impacted by: Hypertension and Other (Obesity, congenital intra- abdominal adhesions, GERD, liver fibrosis, adjustment disorder, anxiety, status post laparoscopic sleeve gastrectomy, vitamin B12 deficiency, pseudotumor cerebri, asthma, anxiety, hypothyroidism, IBS, hypertension, obesity) Critical Care Time Critical Care Time Critical Care Time: Yes Total Critical Care Time: 45 Attestation: I attest to this time spent taking care of the patient, obtaining history, physical, reviewing labs, imaging, speaking to my attending, speaking to specialist. Discharge Plan Discharge Clinical Impression: Pyelonephritis Patient Disposition: Still a Patient Prescriptions: No Action levothyroxine 150 mcg tablet 150 mcg PO DAILY Qty: 20 5RF Rx Instructions: To Alternate 150 mcg with 175 mcg levothyroxine 175 mcg tablet 175 mcg PO DAILY Qty: 20 5RF Rx Instructions: Alternate 150 mcg with 175 mcg thiamine mononitrate (vit B1) [Vitamin B-1 (mononitrate)] 100 mg tablet 100 mg PO DAILY Qty: 90 3RF cholecalciferol (vitamin D3) 25 mcg (1,000 unit) capsule 25 mcg PO DAILY Qty: 90 3RF citalopram 20 mg tablet 1 tab PO DAILY albuterol sulfate 90 mcg/actuation Hfa Aerosol Inhaler 2 puff INHALATION Q6H PRN (Reason: Shortness Of Breath Or Wheezing) hydralazine 50 mg tablet 50 mg PO BID dicyclomine 10 mg capsule 10 mg PO Q8H PRN (Reason: cramps) cyclobenzaprine 5 mg tablet 5 mg PO BEDTIME diltiazem HCl 360 mg capsule,extended release 24hr 360 mg PO DAILY diltiazem HCl 180 mg capsule,extended release 24hr 180 mg PO DAILY inulin 2 gram tablet,chewable 2 g PO DAILY Qty: 90 3RF trazodone 50 mg tablet 50 mg PO BEDTIME
[2023-11-30 13:38] LABS: MANUAL DIFF FLAG NO
[2023-11-30 13:47] LABS: Basophils Percent Auto 0.2 % (0-2); Hematocrit 41.4 % (37.0-47.0); Hemoglobin 14.1 g/dl (12.0-16.0); Imm Gran Abs Auto 0.08 X10*3/uL (0.00-0.03); Imm Gran Pct Auto 0.7 % (0.0-0.4); Lymphocytes Absolute Auto 0.7 X10*3/uL (1.2-4.9); Lymphocytes Percent Auto 5.7 % (20-40); Mean Corpuscular HGB Conc 34.1 g/dl (31.0-35.0); Mean Corpuscular Hemoglobin 29.6 pg (27.0-33.0); Mean Corpuscular Volume 86.8 fL (80.0-98.0); Mean Platelet Volume 10.4 fL (9.4-12.3); Monocytes Absolute Auto 0.7 X10*3/uL (0.1-1.2); Neutrophils Absolute Auto 9.9 x10*3/uL (2.0-8.3); Neutrophils Percent Auto 87.4 % (45-73); Platelet Count 215 X10*3/uL (160-400); Red Blood Count 4.77 X10*6/uL (4.20-5.50); Red Cell Distribution Width 12.4 % (11.0-16.0); White Blood Count 11.3 X10*3/uL (4.8-10.8)
[2023-11-30 13:48] LABS: INTERNATIONAL NORM RATIO 1.5 (0.9-1.1); Prothrombin Time 18.5 SEC (11.1-13.3)
[2023-11-30 13:51] LABS: Lactic Acid 1.5 mmol/L (0.5-2.0)
[2023-11-30 13:56] LABS: Alanine Aminotransferase 32 U/L (0-31); Alkaline Phosphatase 112 U/L (39-117); Anion Gap 13 (12-20); Aspartate Amino Transferase 24 U/L (5-31); Bilirubin Total 1.3 mg/dL (0.0-1.0); Blood Urea Nitrogen 15 mg/dL (9-16); Calcium 9.3 mg/dL (8.4-10.2); Carbon Dioxide 23 mmol/L (22-29); Chloride 104 mmol/L (96-108); Creatinine Clr Calc Pharmacy 62.4; Estimated Glomerular Filt Rate 44; Glucose Random 119 mg/dL (60-115); Lipase 13 U/L (8-78); Potassium 3.2 mmol/L (3.3-5.1); Sodium 137 mmol/L (135-145); Total Protein 8.3 g/dL (6.5-8.0)
[2023-11-30 14:03] LABS: Troponin-I High Sensitivity 3.5 ng/L (<3.5-17.0)
[2023-11-30] MEDS: Acetaminophen 325 MG TABLET 975 MG PO (14:06)
[2023-11-30] MEDS: Ibuprofen 400 MG TABLET PO (14:10)
[2023-11-30] MEDS: 0.9 % Sodium Chloride 1,000 ML 999 ML IV (14:10)
--- NOTE | 2023-11-30 14:15 | PC.NURSE ---
patient brought back to ED 10, 20# IV placed in the right forearm, second set of cultures drawn by PCT. patient medicated per OCT for fever. patient on tele monitor, tachycardic in the 120s. patient is alert and oriented x3, ambulatory.
[2023-11-30 14:33] LABS: HCG Quantitative < 2 mIU/mL
[2023-11-30 14:40] LABS: Influenza A PCR NEGATIVE (Negative); Influenza B PCR NEGATIVE (Negative); Resp Syncy Virus RNA Qual PCR NEGATIVE (Negative); SARS COV2 PCR INHOUSE NEGATIVE (Negative)
[2023-11-30] MEDS: iohexoL 350 MG/ML 100 ML INFUS..BTL IV (14:56)
[2023-11-30 15:18] VITALS: BP 133/90; PULSE 108; RESP 21; O2SAT 97
[2023-11-30 15:39] VITALS: BP 137/92; PULSE 102; RESP 22; TEMP 37.3; O2SAT 96
[2023-11-30] MEDS: cefTRIAXone sodium 1 GM in 0.9 % Sodium Chloride 50 ML IV (16:24)
[2023-11-30 17:14] LABS: Appearance Urine Cloudy; Color Urine Yellow; Glucose Urine UA Negative (Negative); Leukocyte Esterase Urine Trace (Negative); Nitrite Urine Positive (Negative); Specific Gravity - Urine >= 1.030 (1.005-1.025); UMIC TRIGGER UACC YES; Urine Blood Large (3+) (Negative); Urine Ketones 15 mg/dL (Negative); Urine Protein 100 (2+) mg/dL (Neg-Trace)
[2023-11-30 17:17] LABS: UPreg QC Valid YES; Urine Pregnancy NEGATIVE (NEGATIVE)
[2023-11-30 17:40] LABS: Bacteria Urine 4+ (None Seen); RBC Urine >20 /HPF (0-2); UACC Culture Trigger YES; WBC Urine 21-50 /HPF (0-5)
--- NOTE | 2023-11-30 18:03 | PM.IMHP ---
History of Present Illness Date of Service: 11/30/23 Attending physician on admission: Nohelia Guzmán Chief Complaint: fevers, malaise, abd pain 43 year old female with history of hypothyroidism, h/o gastric sleevectomy, vitamin d/b1/b12 deficiency, htn, ICH, gerd, fibromyalgia, and ibs presented to the ed earlier today for evaluation of fevers and abdominal pain. Reports began experiencing right sided abdominal pain and flank pain about 1 week ago. Thought this was an ibs flare an increased dose of dicyclomine without effect. In the last few days has developed shaking chills, sweats, fevers 102-103.6 this morning with increased urinary frequency, decreased urinary output, and urgency.She also states she has a dry cough, headache, and air hunger. No sore throat, congestion, n/v/d, dysuria, hematuria, lightheadedness, wheezing, or chest pain. No known sick contacts. On arrival, pt febrile ot 101.2, tachycardic to 145, tachypneic to 22. No hypotension. Mild leukocytosis 11.3. Renal function and lytes normal except for K 3.2. Lactic acid 1.5. UA with trace leuks, positive nitrites, 3+ blood, elevated specific gravity, positive urinary sediment, 4+ bacteria. Negative for COVID-19, RSV, influenza. CXR unremarkable. CT abdomen/pelvis shows mild left-sided renal hydronephrosis and hydroureter but no visible calcified stone possibly recent passed stone, reflux, versus soft tissue obstruction of the distal ureter at the UVJ. There is small nonobstructing stones in the left kidney and single tiny stone in the right kidney. No clear explanation for right lower quadrant pain. In the ED, has received IV NS, Tylenol, ibuprofen, and IV ceftriaxone. Review of Systems Review of Systems: General: +fevers, +malaise, +chills. No unintentional weight loss HEENT: No blurred vision, diplopia. No sore throat, nasal congestion, rhinorrhea, sinus pain, ear pain Cardiovascular: No chest pain, palpitations, or leg edema Respiratory: +cough. No shortness of breath, wheezing GI: +abd pain. No nausea, vomiting, diarrhea, constipation, melena, hematochezia : +increased frequency/urgency, +decreased urinary output. No dysuria, hematuria MSK: No myalgia. +r flank pain Neuro: +headaches. No weakness, paresthesias Skin: No rashes or lesions [facility] Medical History Liver fibrosis Graves' disease GERD (gastroesophageal reflux disease) Fibromyalgia Fatty liver Hx of headache Seasonal allergies Environmental allergies Depression History of lumbar puncture Pseudotumor cerebri Asthma Anxiety Neck pain Back pain Hypothyroidism IBS (irritable bowel syndrome) Hypertension Morbid obesity Family History Mother Hypertension Heart problem Father Diabetes Heart problem High cholesterol Brother Hypertension Sister Hypertension Sister Hypertension Sister Hypertension Brother Heart problem Hypertension Son No problems noted. Daughter No problems noted. Surgical History History of sleeve gastrectomy History of hysteroscopy Hx of tubal ligation Hx of section Social History Household Members Other:: son 19 yrs, daughter 18 yrs Are you a primary manager home healthcare to a significant other at home: No Do you presently have visiting nurse or other home services: No Alcohol intake: never Patient Tobacco Use Status: Former Tobacco user Quit Date: 2016 Tobacco use type: Cigarette Advance Directives: No Advance Directives Information Provided: No Patient : No service: No Current occupational status: disabled Meds Allergies Allergy/AdvReac Type Severity Reaction Status Date / Time Penicillins [PENICILLINS] Allergy Intermediate HIVES Verified 11/30/23 13:05 Active Medications: Current Medications Acetaminophen (Acetaminophen 325 Mg Tablet) 650 mg PO Q6H PRN PRN Reason: Pain, Mild (Pain Scale 1-3) Enoxaparin Sodium (Enoxaparin Sodium 40 Mg/0.4 Ml Syringe) 40 mg SUBCUT Q24H SANDY Sodium Chloride (Ns) 1,000 mls @ 100 mls/hr IVCONT .Q10H SANDY Ceftriaxone Sodium 1 gm/ (Sodium Chloride) 50 mls @ 100 mls/hr IV Q24H SANDY Morphine Sulfate (Morphine Sulfate 4 Mg/Ml Cartridge) 2 mg IVPUSH Q4H PRN; Protocol PRN Reason: Pain, Severe (Pain Scale 7-10) Ondansetron HCl (Ondansetron Hcl 4 Mg/2 Ml Vial) 4 mg IVPUSH Q8H PRN PRN Reason: Nausea and Vomiting Oxycodone HCl (Oxycodone Hcl Immed Release 5 Mg Tablet) 5 mg PO Q6H PRN PRN Reason: Pain, Moderate(Pain Scale 4-6) Senna (Sennosides 8.6 Mg Tablet) 17.2 mg PO BEDTIME PRN PRN Reason: Constipation Sodium Chloride (0.9 % Sodium Chloride Flush 3 Ml Syringe) 3 [facility] Medications Medication Instructions Recorded Confirmed Last Taken Type buspirone 5 mg tablet 5 mg PO TID 11/30/23 11/30/23 Unknown History cholecalciferol (vitamin D3) 25 25 mcg PO DAILY 11/30/23 11/30/23 Unknown History mcg (1,000 unit) tablet (Vitamin D3) citalopram 10 mg tablet 10 mg PO QAM 11/30/23 11/30/23 Unknown History citalopram 20 mg tablet 20 mg PO QPM 11/30/23 11/30/23 Unknown History dicyclomine 10 mg capsule 10 mg PO Q8H PRN cramps 11/30/23 11/30/23 Unknown History ibuprofen 200 mg tablet 600 - 800 mg PO Q8H PRN Pain 11/30/23 11/30/23 11/30/23 History levothyroxine 150 mcg tablet 150 mcg PO DAILY 11/30/23 11/30/23 11/30/23 History metoprolol succinate 50 mg 50 mg PO QAM 11/30/23 11/30/23 Unknown History tablet,extended release 24 hr vitamin B complex 1 tab PO DAILY 11/30/23 11/30/23 Unknown History Physical Exam Vital Signs and Narrative: Vital Signs: Last Vital Signs Temp 99.1 F 11/30/23 15:39 Pulse 102 H 11/30/23 15:39 Resp 22 H 11/30/23 15:39 BP 137/92 H 11/30/23 15:39 Pulse Ox 96 11/30/23 15:39 O2 Del Method Room Air 11/30/23 15:39 BMI result Body Mass Index 41.9 Constitutional - Awake and Alert, No apparent distress Eyes - PERRLA, EOMI Cardiovascular - S1S2, RRR, No edema Respiratory - Normal lung expansion, Normal respiratory effort, No respiratory distress, CTA bilaterally Gastrointestinal - midl lower abd ttp. ND; +BS; No rebound or guarding - +Left sided CVA tenderness Extremities - no calf tenderness bilaterally, no swelling Skin - Warm/Dry Neurological - Alert & oriented x3 Psychological - Appropriate affect Results Labs 11/30/23 13:32 11/30/23 13:32 Labs: Laboratory Results - last 24 hr 11/30/23 11/30/23 13:32 16:57 MCV 86.8 MCH 29.6 MCHC 34.1 RDW 12.4 Plt Count 215 D MPV 10.4 Immature Gran % (Auto) 0.7 H Neut % (Auto) 87.4 H Lymph % (Auto) 5.7 L [place] % (Auto) 6.0 Eos % (Auto) 0.0 Baso % (Auto) 0.2 Lymph # (Auto) 0.7 L [place] # (Auto) 0.7 Eos # (Auto) 0.0 Baso # (Auto) 0.0 Abs Immat Gran (auto) 0.08 H Absolute Neuts (auto) 9.9 H Absolute Nucleated RBC 0.000 Nucleated RBC % (auto) 0.0 PT 18.5 H INR 1.5 H Anion Gap 13 Estim Creat Clear Calc 62.4 Estimated GFR 44 Random Glucose 119 H Lactic Acid 1.5 Calcium 9.3 Total Bilirubin 1.3 H AST 24 ALT 32 H Alkaline Phosphatase 112 Troponin I High Sens 3.5 Total Protein 8.3 H Albumin 4.0 Lipase 13 Beta HCG, Quant < 2 Urine Color Yellow Urine Appearance Cloudy Urine pH 6.0 Ur Specific [place] >= 1.030 H Urine Protein 100 (2+) H Urine Glucose (UA) Negative Urine Ketones 15 Urine Blood Large (3+) H Urine Nitrite Positive H Ur Leukocyte Esterase Trace H Urine RBC >20 H Urine WBC 21-50 H Ur Squamous Epith Cells 3-5 Urine Bacteria 4+ Hyaline Casts 3-5 Urine Test NEGATIVE Influenza Type A (PCR) NEGATIVE Influenza Type B (PCR) NEGATIVE RSV RNA Qual (PCR) NEGATIVE SARS-CoV-2 RNA (RT-PCR) NEGATIVE Imaging Radiologist's Impressions: Impressions Chest X-Ray 11/30/23 13:16 IMPRESSION: No evidence of acute disease Abdomen/Pelvis CT 11/30/23 15:01 IMPRESSION: 1. There is mild left renal hydronephrosis and hydroureter, there is however no calcified visible stone along the course of the left ureter, this could be due to recently passed stone, reflux, versus soft tissue obstruction of the distal ureter at the UVJ. 2. There are small nonobstructing stones in the left kidney and single tiny stone in the right kidney. 3. Postsurgical changes prior partial gastrectomy, no CT evidence of dehiscence or leak. 4. 4. No CT evidence of appendicitis, no explanation for patient's right lower quadrant pain. Assessment and Plan (1) Pyelonephritis: Status: Acute Plan 43 year old female with history of hypothyroidism, h/o gastric sleevectomy, vitamin d/b1/b12 deficiency, htn, ICH, gerd, fibromyalgia, and ibs who is morbidly obese with bmi >41 admitted for further management of clinical pyelonephritis with sepsis. #Acute clinical pyelonephritis with sepsis -leukocytosis 11.3, tachycardia, febrile, tachypneic. No lactic acidosis. No other significant organ dysfunctionor hypotension. No severe sepsis/shock -CT abd pelvis shows mild left hydronephrosis and hydroureter without visible stone- possibly passed stone, reflux, vs soft tissue obstruction of distal ureter at UVJ -per urology, no surgical intervention. Consider consult if not improving -IV cts (initiated 11/29) -continue ivf -follow cbc, cultures #Acute kidney injury -creat 1.31, baseline 0.8- likely prerenal possibly from recently passed stone as above -continue ivf -avoid nephrotoxins -low sodium diet -follow renal function.lytes #Acute hypokalemia -K 3.2. repleted, follow lytes #HTN/ICH -continue metoprolol #hypothyroidism -continue levothyroxine #Mood disoder -continue home meds #Morbid obesity with bmi >41 -weight loss efforts encouraged. h/o gastric sleeve dvt prophylaxis- lovenox full code pt requires inpt stay at least 2 midnights for management of clinical pyelonephritis with sepsis and lizzeth requiring iv abx, ivf and close monitoring of vital signs and close monitoring for decompensation Quality Stroke Does the patient have a stroke diagnosis?: No VTE Prior VTE?: No VTE Risk Level:: Medical - moderate - high VTE Device Contraindication: Treatment Not Indicated VTE Drug Contraindication: N/A - Med Ordered
--- NOTE | 2023-11-30 18:03 | PHA.MEDREC ---
Pharmacy Consult ? Medication Reconciliation Pharmacy has completed the medication reconciliation. spoke with patient to confirm medications. She reports taking metoprolol in the morning instead of bedtime. She reports taking levothyroxine and ibuprofen today.
[2023-11-30 18:46] VITALS: BP 144/97; PULSE 92; RESP 20; TEMP 36.8; O2SAT 99
[2023-11-30] MEDS: 0.9 % Sodium Chloride 1,000 ML 100 ML IVCONT (18:47)
[2023-11-30] MEDS: Metoprolol Succinate ER 50 MG TAB.ER.24H PO (19:02)
[2023-11-30] MEDS: Escitalopram Oxalate 5 MG TABLET PO (19:02)
[2023-11-30] MEDS: Escitalopram Oxalate 10 MG TABLET PO ×2 (19:02→20:17)
[2023-11-30] MEDS: oxyCODONE HCl Immed Release 5 MG TABLET PO (20:24)
--- NOTE | 2023-11-30 20:46 | PC.NURSE ---
Assumed care of this Pt at 1900. Pt A&Ox3, reports 01/08 headache. Pt medicated per OCT. IV fluids running per OCT. Pt ambulated independently to BR with steady gait. Report complete Pt will be transported to room 376, Pt aware of plan.
[2023-11-30 22:34] VITALS: BP 137/82; PULSE 87; RESP 20; TEMP 36.8; O2SAT 95
[2023-11-30 22:42] VITALS: BMI 42.6
[2023-12-01] VITALS (8 sets, daily range): BP systolic 131–142; BP diastolic 82–87; PULSE 76–88; RESP 16–18; TEMP 36.2–36.9; O2SAT 95–96
--- NOTE | 2023-12-01 01:53 | MHC.PIE ---
p; critical lab, blood cx + for GNR i; dr rivera notified e; will cont to monitor
[2023-12-01] MEDS: Acetaminophen 325 MG TABLET 650 MG PO ×3 (01:57→23:46)
[2023-12-01] MEDS: oxyCODONE HCl Immed Release 5 MG TABLET PO (01:58)
[2023-12-01] MEDS: 0.9 % Sodium Chloride 1,000 ML 100 ML IVCONT ×2 (04:35→16:00)
[2023-12-01] MEDS: Levothyroxine Sodium 150 MCG TABLET PO (04:36)
[2023-12-01 05:40] LABS: MANUAL DIFF FLAG NO
[2023-12-01 05:43] LABS: Basophils Percent Auto 0.3 % (0-2); Eosinophils Percent Auto 0.4 % (0-4); Hematocrit 33.1 % (37.0-47.0); Hemoglobin 11.2 g/dl (12.0-16.0); Imm Gran Abs Auto 0.05 X10*3/uL (0.00-0.03); Imm Gran Pct Auto 0.7 % (0.0-0.4); Lymphocytes Absolute Auto 0.7 X10*3/uL (1.2-4.9); Lymphocytes Percent Auto 10.6 % (20-40); Mean Corpuscular HGB Conc 33.8 g/dl (31.0-35.0); Mean Corpuscular Hemoglobin 30.1 pg (27.0-33.0); Mean Platelet Volume 10.7 fL (9.4-12.3); Monocytes Absolute Auto 0.5 X10*3/uL (0.1-1.2); Monocytes Percent Auto 6.7 % (2-11); Neutrophils Absolute Auto 5.5 x10*3/uL (2.0-8.3); Neutrophils Percent Auto 81.3 % (45-73); Platelet Count 165 X10*3/uL (160-400); Red Blood Count 3.72 X10*6/uL (4.20-5.50); Red Cell Distribution Width 12.7 % (11.0-16.0); White Blood Count 6.7 X10*3/uL (4.8-10.8)
--- NOTE | 2023-12-01 05:57 | MHC.PIE ---
p; second blood cx + for GNR i; dr rivera notified e; will cont to monitor
[2023-12-01 06:07] LABS: Anion Gap 10 (12-20); Blood Urea Nitrogen 15 mg/dL (9-16); Calcium 8.4 mg/dL (8.4-10.2); Carbon Dioxide 20 mmol/L (22-29); Chloride 111 mmol/L (96-108); Estimated Glomerular Filt Rate 57; Glucose Random 108 mg/dL (60-115); Potassium 3.9 mmol/L (3.3-5.1); Sodium 137 mmol/L (135-145)
[2023-12-01] MEDS: Albuterol/Iprat 2.5/0.5MG 3 ML AMPUL.NEB INHALE ×4 (08:07→19:59)
[2023-12-01] MEDS: Escitalopram Oxalate 5 MG TABLET PO (08:54)
[2023-12-01] MEDS: Metoprolol Succinate ER 50 MG TAB.ER.24H PO (08:54)
[2023-12-01] MEDS: Benzonatate 100 MG CAPSULE PO ×3 (08:54→20:39)
[2023-12-01] MEDS: 0.9 % Sodium Chloride Flush 3 ML SYRINGE IVFLUSH (08:54)
[2023-12-01] MEDS: busPIRone HCl 5 MG TABLET PO ×3 (08:54→20:39)
[2023-12-01] MEDS: Cholecalciferol (Vitamin D3) 25 MCG TABLET PO (08:54)
[2023-12-01] MEDS: Multivitamin TABLET 1 TAB PO (08:54)
--- NOTE | 2023-12-01 09:30 | HO.PM.IMPN ---
Subjective Subjective Date of Service: 12/01/23 Physical Exam Vital Signs: Vital Signs: Last Vital Signs Temp 98.5 F 12/01/23 07:28 Pulse 88 12/01/23 08:07 Resp 95 H 12/01/23 08:07 BP 142/87 H 12/01/23 07:28 Pulse Ox 95 12/01/23 07:28 O2 Del Method Room Air 12/01/23 07:28 BMI result Body Mass Index 42.6 Objective Data Active Medications Acetaminophen (Acetaminophen 325 Mg Tablet) 650 mg PO Q6H PRN PRN Reason: Pain, Mild (Pain Scale 1-3) Last Admin: 12/01/23 08:58 Dose: 650 mg Documented By: CUCA Albuterol/Ipratropium (Albuterol/Iprat 2.5/0.5mg 3 Ml Ampul.Neb) 3 ml INHALE RQ4H WHILE AWAKE [facility] Last Admin: 12/01/23 08:07 Dose: 3 ml Documented By: RACHID Benzonatate (Benzonatate 100 Mg Capsule) 100 mg PO TID [facility] Last Admin: 12/01/23 08:54 Dose: 100 mg Documented By: CUCA Buspirone HCl (Buspirone Hcl 5 Mg Tablet) 5 mg PO TID [facility] Last Admin: 12/01/23 08:54 Dose: 5 mg Documented By: CUCA Dicyclomine HCl (Dicyclomine Hcl 10 Mg Capsule) 10 mg PO Q8H PRN PRN Reason: cramps Enoxaparin Sodium (Enoxaparin Sodium 40 Mg/0.4 Ml Syringe) 40 mg SUBCUT Q24H [facility] Last Admin: 11/30/23 18:49 Dose: Not Given Documented By: ESTEBAN Non-Admin Reason: Patient Refused Escitalopram Oxalate (Escitalopram Oxalate 5 Mg Tablet) 5 mg PO DAILY [facility] Last Admin: 12/01/23 08:54 Dose: 5 mg Documented By: CUCA Escitalopram Oxalate (Escitalopram Oxalate 10 Mg Tablet) 10 mg PO DAILY@2100 [facility] Last Admin: 11/30/23 20:17 Dose: 10 mg Documented By: SERRANX Guaifenesin (Guaifenesin 200 Mg/10 Ml 10 Ml Liquid) 10 ml PO Q4H PRN PRN Reason: Cough Sodium Chloride (Ns) 1,000 mls @ 100 mls/hr IVCONT .Q10H [facility] Last Admin: 12/01/23 04:35 Dose: 100 mls/hr Documented By: SALAZAR Ceftriaxone Sodium 1 gm/ (Sodium Chloride) 50 mls @ 100 mls/hr IV Q24H [facility] Ibuprofen (Ibuprofen 600 Mg Tablet) 600 mg PO Q6H PRN PRN Reason: Headache Levothyroxine Sodium (Levothyroxine Sodium 150 Mcg Tablet) 150 mcg PO DAILY@0600 [facility] Last Admin: 12/01/23 04:36 Dose: 150 mcg Documented By: SALAZAR Metoprolol Succinate (Metoprolol Succinate Er 50 Mg Tab.Er.24h) 50 mg PO DAILY [facility]; Protocol Last Admin: 12/01/23 08:54 Dose: 50 mg Documented By: CUCA Morphine Sulfate (Morphine Sulfate 4 Mg/Ml Cartridge) 2 mg IVPUSH Q4H PRN; Protocol PRN Reason: Pain, Severe (Pain Scale 7-10) Multivitamins/Vitamin C (Multivitamin Tablet) 1 tab PO DAILY [facility] Last Admin: 12/01/23 08:54 Dose: 1 tab Documented By: CUCA Ondansetron HCl (Ondansetron Hcl 4 Mg/2 Ml Vial) 4 mg IVPUSH Q8H PRN PRN Reason: Nausea and Vomiting Oxycodone HCl (Oxycodone Hcl Immed Release 5 Mg Tablet) 5 mg PO Q6H PRN PRN Reason: Pain, Moderate(Pain Scale 4-6) Last Admin: 12/01/23 01:58 Dose: 5 mg Documented By: SALAZAR Senna (Sennosides 8.6 Mg Tablet) 17.2 mg PO BEDTIME PRN PRN Reason: Constipation Sodium Chloride (0.9 % Sodium Chloride Flush 3 Ml Syringe) 3 ml IVFLUSH QSHIFT [facility] Last Admin: 12/01/23 08:54 Dose: 3 ml Documented By: CUCA Vitamin D (Cholecalciferol (Vitamin D3) 25 Mcg Tablet) 25 mcg PO DAILY [facility] Last Admin: 12/01/23 08:54 Dose: 25 mcg Documented By: CUCA Labs 12/01/23 05:24 12/01/23 05:24 Labs: Laboratory Results - last 24 hr 11/30/23 11/30/23 12/01/23 13:32 16:57 05:24 MCV 86.8 89.0 MCH 29.6 30.1 MCHC 34.1 33.8 RDW 12.4 12.7 Plt Count 215 D 165 MPV 10.4 10.7 Immature Gran % (Auto) 0.7 H 0.7 H Neut % (Auto) 87.4 H 81.3 H Lymph % (Auto) 5.7 L 10.6 L [place] % (Auto) 6.0 6.7 Eos % (Auto) 0.0 0.4 Baso % (Auto) 0.2 0.3 Lymph # (Auto) 0.7 L 0.7 L [place] # (Auto) 0.7 0.5 Eos # (Auto) 0.0 0.0 Baso # (Auto) 0.0 0.0 Abs Immat Gran (auto) 0.08 H 0.05 H Absolute Neuts (auto) 9.9 H 5.5 Absolute Nucleated RBC 0.000 0.000 Nucleated RBC % (auto) 0.0 0.0 PT 18.5 H INR 1.5 H Anion Gap 13 10 L Estim Creat Clear Calc 62.4 78.0 Estimated GFR 44 57 Random Glucose 119 H 108 Lactic Acid 1.5 Calcium 9.3 8.4 D Total Bilirubin 1.3 H AST 24 ALT 32 H Alkaline Phosphatase 112 Troponin I High Sens 3.5 Total Protein 8.3 H Albumin 4.0 Lipase 13 Beta HCG, Quant < 2 Urine Color Yellow Urine Appearance Cloudy Urine pH 6.0 Ur Specific [place] >= 1.030 H Urine Protein 100 (2+) H Urine Glucose (UA) Negative Urine Ketones 15 Urine Blood Large (3+) H Urine Nitrite Positive H Ur Leukocyte Esterase Trace H Urine RBC >20 H Urine WBC 21-50 H Ur Squamous Epith Cells 3-5 Urine Bacteria 4+ Hyaline Casts 3-5 Urine Test NEGATIVE Influenza Type A (PCR) NEGATIVE Influenza Type B (PCR) NEGATIVE RSV RNA Qual (PCR) NEGATIVE SARS-CoV-2 RNA (RT-PCR) NEGATIVE Microbiology Microbiology Results: Microbiology 11/30/23 16:57 Urine Culture - Preliminary Urine clean catch - Urine graf top Gram negative yesica 11/30/23 14:11 Blood Culture - Preliminary Blood - Venous Prelim: GNR Gram Stain only 11/30/23 13:32 Blood Culture - Preliminary Blood - Venous Prelim: GNR Gram Stain only Assessment and Plan (1) Pyelonephritis: Status: Acute Plan 43 year old female with history of hypothyroidism, h/o gastric sleevectomy, vitamin d/b1/b12 deficiency, htn, ICH, gerd, fibromyalgia, and ibs who is morbidly obese with bmi >41 admitted for further management of clinical pyelonephritis with sepsis. GNR bacteremia secondary to Acute clinical pyelonephritis with sepsis leukocytosis 11.3, tachycardia, febrile, tachypneic. No lactic acidosis. No other significant organ dysfunction or hypotension. No severe sepsis/shock CT abd pelvis shows mild left hydronephrosis and hydroureter without visible stone- possibly passed stone, reflux, vs soft tissue obstruction of distal ureter at UVJ continue IVF follow final cx continue Rocephin ID consult Dry cough patient reports hx of this but not recent was told that it had to do with thyroid but has never had US of thyroid, TSH WNL ? r/t GERD vs virus, oral cavity without inflammation CXR neg for consolidation and clear lungs without wheezing ordered salena padgett albuterol updrafts IV pepcid RPP to rule out viral cause Acute kidney injury Creat trending down likely prerenal possibly from recently passed stone as above continue IVF Acute hypokalemia Repleted and resolved HTN continue metoprolol Hypothyroidism continue levothyroxine Mood disoder continue home meds Morbid obesity. BMI 42.6 Discussed importance of weight management as this may be contributing to worsening of other comorbidities Hx of gastric surgery DVT prophylaxis with lovenox Attending Dr. Blair full code Continue hospital stay for management of clinical pyelonephritis with sepsis and lizzeth requiring iv abx, ivf and close monitoring of vital signs and close monitoring for decompensation Quality Stroke Does the patient have a stroke diagnosis?: No VTE Prior VTE?: No VTE Risk Level:: Medical - moderate - high VTE Device Contraindication: Treatment Not Indicated VTE Drug Contraindication: N/A - Med Ordered
--- NOTE | 2023-12-01 09:53 | MHC.CM.PN ---
IMM DELIVERED PATIENT IS FROM HOME W/ ADULT CHILDREN FUNCTIONALLY INDEPENDENT. DENIES USE OF SERVICES OR DME. PCP MIGUE LAZO MD HCP ON FILE AND VERIFIED, AGENT IS SON DP: GOAL IS HOME SELF CARE. SON TO TRANSPORT. CM WILL CONTINUE TO FOLLOW FOR DC NEEDS.
[2023-12-01] MEDS: Famotidine/PF 20 MG/2 ML VIAL IVPUSH (10:45)
[2023-12-01] MEDS: Ibuprofen 600 MG TABLET PO ×2 (14:07→20:41)
[2023-12-01] MEDS: cefTRIAXone sodium 1 GM in 0.9 % Sodium Chloride 50 ML IV (19:21)
[2023-12-01] MEDS: Escitalopram Oxalate 10 MG TABLET PO (20:38)
--- NOTE | 2023-12-01 23:09 | W.PM.IDCN ---
History of Present Illness Data of Consult Service Date: 12/01/23 Requesting physician: Belem Paredes Primary Care Provider: Alen Land MD HPI Reason for consult: sepsis,gram negative yesica She presents with fever to 102 as well as right sided flank pain for a day. She has some nausea but no vomiting and some fatigue. She has gram negative rods urine and blood. There is some pyelonephritis but no obstruction. [facility] Past Medical History Medical History Liver fibrosis Graves' disease GERD (gastroesophageal reflux disease) Fibromyalgia Fatty liver Hx of headache Seasonal allergies Environmental allergies Depression History of lumbar puncture Pseudotumor cerebri Asthma Anxiety Neck pain Back pain Hypothyroidism IBS (irritable bowel syndrome) Hypertension Morbid obesity Family History Family History Mother Hypertension Heart problem Father Diabetes Heart problem High cholesterol Brother Hypertension Sister Hypertension Sister Hypertension Sister Hypertension Brother Heart problem Hypertension Son No problems noted. Daughter No problems noted. Family history: reviewed and not pertinent Surgical History Surgical History History of sleeve gastrectomy History of hysteroscopy Hx of tubal ligation Hx of section Social History Social History Household Members: Family Household Members Other:: son 19 yrs, daughter 18 yrs Housing: House Are you a primary attending ambulatory care to a significant other at home: No Do you presently have visiting nurse or other home services: No Alcohol intake: never Patient Tobacco Use Status: Former Tobacco user Quit Date: 2016 Tobacco use type: Cigarette Use of substances other than those prescribed or required for medical reasons: No Currently Displaying Signs/Symptoms of Drug Intoxication Withdrawal: No Have you been hit, kicked, punched, or otherwise hurt by someone within the past year? If so, by whom?: No Do you feel safe in your current relationship?: Yes Is there a partner from a previous relationship who is making you feel unsafe now?: No Are you made to feel afraid or neglected: No Advance Directives: No Advance Directives Information Provided: No Do you have thoughts of harming others: None Do you have a plan to hurt others: No Plan Recently lost weight without trying: No Eating poorly because of decreased appetite: No Nutrition Risks: No Nutritional Risk Patient : No : No Poor oral hygiene: No service: No Current occupational status: disabled Meds Allergies Allergy/AdvReac Type Severity Reaction Status Date / Time Penicillins [PENICILLINS] Allergy Intermediate HIVES Verified 11/30/23 13:05 Active Medications: Current Medications Acetaminophen (Acetaminophen 325 Mg Tablet) 650 mg PO Q6H PRN PRN Reason: Pain, Mild (Pain Scale 1-3) Last Admin: 12/01/23 08:58 Dose: 650 mg Albuterol/Ipratropium (Albuterol/Iprat 2.5/0.5mg 3 Ml Ampul.Neb) 3 ml INHALE RQ4H WHILE AWAKE [facility] Last Admin: 12/01/23 19:59 Dose: 3 ml Benzonatate (Benzonatate 100 Mg Capsule) 100 mg PO TID [facility] Last Admin: 12/01/23 20:39 Dose: 100 mg Buspirone HCl (Buspirone Hcl 5 Mg Tablet) 5 mg PO TID [facility] Last Admin: 12/01/23 20:39 Dose: 5 mg Dicyclomine HCl (Dicyclomine Hcl 10 Mg Capsule) 10 mg PO Q8H PRN PRN Reason: cramps Enoxaparin Sodium (Enoxaparin Sodium 40 Mg/0.4 Ml Syringe) 40 mg SUBCUT Q24H [facility] Last Admin: 12/01/23 19:13 Dose: Not Given Escitalopram Oxalate (Escitalopram Oxalate 5 Mg Tablet) 5 mg PO DAILY [facility] Last Admin: 12/01/23 08:54 Dose: 5 mg Escitalopram Oxalate (Escitalopram Oxalate 10 Mg Tablet) 10 mg PO DAILY@2100 [facility] Last Admin: 12/01/23 20:38 Dose: 10 mg Famotidine (Famotidine/Pf 20 Mg/2 Ml Vial) 20 mg IVPUSH DAILY [facility] Last Admin: 12/01/23 10:45 Dose: 20 mg Guaifenesin (Guaifenesin 200 Mg/10 Ml 10 Ml Liquid) 10 ml PO Q4H PRN PRN Reason: Cough Sodium Chloride (Ns) 1,000 mls @ 100 mls/hr IVCONT .Q10H [facility] Last Admin: 12/01/23 16:00 Dose: 100 mls/hr Ceftriaxone Sodium 1 gm/ (Sodium Chloride) 50 mls @ 100 mls/hr IV Q24H [facility] Last Infusion: 12/01/23 19:55 Dose: Infused Ibuprofen (Ibuprofen 600 Mg Tablet) 600 mg PO Q6H PRN PRN Reason: Headache Last Admin: 12/01/23 20:41 Dose: 600 mg Levothyroxine Sodium (Levothyroxine Sodium 150 Mcg Tablet) 150 mcg PO DAILY@0600 [facility] Last Admin: 12/01/23 04:36 Dose: 150 mcg Metoprolol Succinate (Metoprolol Succinate Er 50 Mg Tab.Er.24h) 50 mg PO DAILY [facility]; Protocol Last Admin: 12/01/23 08:54 Dose: 50 mg Morphine Sulfate (Morphine Sulfate 4 Mg/Ml Cartridge) 2 mg IVPUSH Q4H PRN; Protocol PRN Reason: Pain, Severe (Pain Scale 7-10) Multivitamins/Vitamin C (Multivitamin Tablet) 1 tab PO DAILY [facility] Last Admin: 12/01/23 08:54 Dose: 1 tab Ondansetron HCl (Ondansetron Hcl 4 Mg/2 Ml Vial) 4 mg IVPUSH Q8H PRN PRN Reason: Nausea and Vomiting Oxycodone HCl (Oxycodone Hcl Immed Release 5 Mg Tablet) 5 mg PO Q6H PRN PRN Reason: Pain, Moderate(Pain Scale 4-6) Last Admin: 12/01/23 01:58 Dose: 5 mg Senna (Sennosides 8.6 Mg Tablet) 17.2 mg PO BEDTIME PRN PRN Reason: Constipation Sodium Chloride (0.9 % Sodium Chloride Flush 3 Ml Syringe) 3 ml IVFLUSH QSHIFT [facility] Last Admin: 12/01/23 16:01 Dose: Not Given Vitamin D (Cholecalciferol (Vitamin D3) 25 Mcg Tablet) 25 mcg PO DAILY [facility] Last Admin: 12/01/23 08:54 Dose: 25 mcg Home Medications Medication Instructions Recorded Confirmed Last Taken Type buspirone 5 mg tablet 5 mg PO TID 11/30/23 11/30/23 Unknown History cholecalciferol (vitamin D3) 25 25 mcg PO DAILY 11/30/23 11/30/23 Unknown History mcg (1,000 unit) tablet (Vitamin D3) citalopram 10 mg tablet 10 mg PO QAM 11/30/23 11/30/23 Unknown History citalopram 20 mg tablet 20 mg PO QPM 11/30/23 11/30/23 Unknown History dicyclomine 10 mg capsule 10 mg PO Q8H PRN cramps 11/30/23 11/30/23 Unknown History ibuprofen 200 mg tablet 600 - 800 mg PO Q8H PRN Pain 11/30/23 11/30/23 11/30/23 History levothyroxine 150 mcg tablet 150 mcg PO DAILY 11/30/23 11/30/23 11/30/23 History metoprolol succinate 50 mg 50 mg PO QAM 11/30/23 11/30/23 Unknown History tablet,extended release 24 hr vitamin B complex 1 tab PO DAILY 11/30/23 11/30/23 Unknown History Physical Exam Vital Signs: Vital Signs: Last Vital Signs Temp 97.6 F 12/01/23 19:28 Pulse 82 12/01/23 20:00 Resp 16 12/01/23 20:00 BP 142/87 H 12/01/23 19:28 Pulse Ox 96 12/01/23 19:28 O2 Del Method Room Air 12/01/23 19:28 BMI result Body Mass Index 42.6 Const: General: cooperative HEENT: Head: Yes normal to inspection Face and sinus: Yes normal facial exam Mouth: Normal oral and palatal mucosa present Teeth and gingiva: dentition normal Eyes: General: appearance normal, both eyes and all related structures Pupils: Equal, round and reactive pupils present Resp: Effort & Inspection: normal respiratory effort Cardio: Rate: regular rate Rhythm: regular rhythm GI: Palpation (GI): Soft to palpation and nontender : General: Yes no CVA tenderness Back/Spine/Pelvis: Other: some thoracic disk discomfort Back: no CVA tenderness Skin: General skin exam: no rashes or lesions noted Neuro: General: moves all extremities Cranial nerves: Yes Equal, round and reactive pupils present Extrem: General: Yes normal to inspection Psych: Appearance: grossly normal Results Labs 12/01/23 05:24 12/01/23 05:24 Labs: Short CBC 12/01/23 Range/Units 05:24 WBC 6.7 (4.8-10.8) X10*3/uL Hgb 11.2 L D (12.0-16.0) g/dl Hct 33.1 L D (37.0-47.0) % Plt Count 165 (160-400) X10*3/uL BMP 12/01/23 05:24 Sodium 137 Potassium 3.9 D Chloride 111 H Carbon Dioxide 20 L BUN 15 Creatinine 1.05 Calcium 8.4 D Microbiology Microbiology Results: Microbiology 11/30/23 14:11 Blood - Venous Blood Culture - Preliminary Gram negative yesica 11/30/23 13:32 Blood - Venous Blood Culture - Preliminary Gram negative yesica 11/30/23 16:57 Urine clean catch - Urine graf top Urine Culture - Preliminary Gram negative yesica Assessment and Plan (1) Pyelonephritis: Status: Acute She has likely urinary source of sepsis. She has no signs of SBP. She has possible gram negative such as E coli or Klebsiella. (2) Liver fibrosis: Status: Acute Plan IV Ceftriaxone Await final cultures. Urology evaluation.
[2023-12-01] MEDS: guaiFENesin 200 MG/10 ML 10 ML LIQUID PO (23:45)
[2023-12-02] MEDS: 0.9 % Sodium Chloride 1,000 ML 100 ML IVCONT ×2 (01:46→09:38)
[2023-12-02] MEDS: Ibuprofen 600 MG TABLET PO (06:16)
[2023-12-02] MEDS: guaiFENesin 200 MG/10 ML 10 ML LIQUID PO (06:16)
[2023-12-02] MEDS: Levothyroxine Sodium 150 MCG TABLET PO (06:17)
[2023-12-02] MEDS: Albuterol/Iprat 2.5/0.5MG 3 ML AMPUL.NEB INHALE ×3 (07:25→20:05)
[2023-12-02 07:26] VITALS: PULSE 85; RESP 16; O2SAT 95
[2023-12-02 07:49] VITALS: BP 154/82; PULSE 98; RESP 17; TEMP 37.1; O2SAT 97
[2023-12-02] MEDS: Benzonatate 100 MG CAPSULE PO ×3 (08:15→20:23)
[2023-12-02] MEDS: Famotidine/PF 20 MG/2 ML VIAL IVPUSH (08:15)
[2023-12-02] MEDS: busPIRone HCl 5 MG TABLET PO ×3 (08:15→20:23)
[2023-12-02] MEDS: Metoprolol Succinate ER 50 MG TAB.ER.24H PO (08:15)
[2023-12-02] MEDS: Cholecalciferol (Vitamin D3) 25 MCG TABLET PO (08:15)
[2023-12-02] MEDS: Escitalopram Oxalate 5 MG TABLET PO (08:15)
[2023-12-02] MEDS: Multivitamin TABLET 1 TAB PO (08:15)
--- NOTE | 2023-12-02 08:19 | P.PNIM_ITS ---
Subjective Subjective Date of Service: 12/02/23 Review of Systems Follow up GNR bacteremia, UTI dry cough and headache Physical Exam 2 Vital Signs: Vital Signs: Last Vital Signs Temp 98.7 F 12/02/23 07:49 Pulse 98 12/02/23 07:49 Resp 17 12/02/23 07:49 BP 154/82 H 12/02/23 07:49 Pulse Ox 97 12/02/23 07:49 O2 Del Method Room Air 12/02/23 07:49 BMI result Body Mass Index 42.6 Appearing in no acute distress lung sounds are clear to auscultation heart regular rate rhythm, clear S1, S2 positive bowel sounds, abdomen is soft, nontender neuro patient is alert x3, no focal deficits Objective Data Active Medications Acetaminophen (Acetaminophen 325 Mg Tablet) 650 mg PO Q6H PRN PRN Reason: Pain, Mild (Pain Scale 1-3) Last Admin: 12/01/23 23:46 Dose: 650 mg Documented By: YISSEL Albuterol/Ipratropium (Albuterol/Iprat 2.5/0.5mg 3 Ml Ampul.Neb) 3 ml INHALE RQ4H WHILE AWAKE [facility] Last Admin: 12/02/23 07:25 Dose: 3 ml Documented By: RACHID Benzonatate (Benzonatate 100 Mg Capsule) 100 mg PO TID [facility] Last Admin: 12/02/23 08:15 Dose: 100 mg Documented By: ELLIOTT Buspirone HCl (Buspirone Hcl 5 Mg Tablet) 5 mg PO TID [facility] Last Admin: 12/02/23 08:15 Dose: 5 mg Documented By: ELLIOTT Dicyclomine HCl (Dicyclomine Hcl 10 Mg Capsule) 10 mg PO Q8H PRN PRN Reason: cramps Enoxaparin Sodium (Enoxaparin Sodium 40 Mg/0.4 Ml Syringe) 40 mg SUBCUT Q24H [facility] Last Admin: 12/01/23 19:13 Dose: Not Given Documented By: GAMAL Non-Admin Reason: Patient Refused Escitalopram Oxalate (Escitalopram Oxalate 5 Mg Tablet) 5 mg PO DAILY [facility] Last Admin: 12/02/23 08:15 Dose: 5 mg Documented By: ELLIOTT Escitalopram Oxalate (Escitalopram Oxalate 10 Mg Tablet) 10 mg PO DAILY@2100 [facility] Last Admin: 12/01/23 20:38 Dose: 10 mg Documented By: GAMAL Famotidine (Famotidine/Pf 20 Mg/2 Ml Vial) 20 mg IVPUSH DAILY [facility] Last Admin: 12/02/23 08:15 Dose: 20 mg Documented By: ELLIOTT Guaifenesin (Guaifenesin 200 Mg/10 Ml 10 Ml Liquid) 10 ml PO Q4H PRN PRN Reason: Cough Last Admin: 12/02/23 06:16 Dose: 10 ml Documented By: YISSEL Sodium Chloride (Ns) 1,000 mls @ 100 mls/hr IVCONT .Q10H [facility] Last Admin: 12/02/23 01:46 Dose: 100 mls/hr Documented By: YISSEL Ceftriaxone Sodium 1 gm/ (Sodium Chloride) 50 mls @ 100 mls/hr IV Q24H [facility] Last Infusion: 12/01/23 19:55 Dose: Infused Documented By: GAMAL Ibuprofen (Ibuprofen 600 Mg Tablet) 600 mg PO Q6H PRN PRN Reason: Headache Last Admin: 12/02/23 06:16 Dose: 600 mg Documented By: YISSEL Levothyroxine Sodium (Levothyroxine Sodium 150 Mcg Tablet) 150 mcg PO DAILY@0600 [facility] Last Admin: 12/02/23 06:17 Dose: 150 mcg Documented By: YISSEL Melatonin (Melatonin 3 Mg Tablet) 6 mg PO BEDTIME PRN PRN Reason: Insomnia Metoprolol Succinate (Metoprolol Succinate Er 50 Mg Tab.Er.24h) 50 mg PO DAILY [facility]; Protocol Last Admin: 12/02/23 08:15 Dose: 50 mg Documented By: ELLIOTT Morphine Sulfate (Morphine Sulfate 4 Mg/Ml Cartridge) 2 mg IVPUSH Q4H PRN; Protocol PRN Reason: Pain, Severe (Pain Scale 7-10) Multivitamins/Vitamin C (Multivitamin Tablet) 1 tab PO DAILY [facility] Last Admin: 12/02/23 08:15 Dose: 1 tab Documented By: ELLIOTT Ondansetron HCl (Ondansetron Hcl 4 Mg/2 Ml Vial) 4 mg IVPUSH Q8H PRN PRN Reason: Nausea and Vomiting Oxycodone HCl (Oxycodone Hcl Immed Release 5 Mg Tablet) 5 mg PO Q6H PRN PRN Reason: Pain, Moderate(Pain Scale 4-6) Last Admin: 12/01/23 01:58 Dose: 5 mg Documented By: SALAZAR Dossna (Sennosides 8.6 Mg Tablet) 17.2 mg PO BEDTIME PRN PRN Reason: Constipation Sodium Chloride (0.9 % Sodium Chloride Flush 3 Ml Syringe) 3 ml IVFLUSH QSHIFT [facility] Last Admin: 12/02/23 07:19 Dose: Not Given Documented By: ELLIOTT Non-Admin Reason: See Note Vitamin D (Cholecalciferol (Vitamin D3) 25 Mcg Tablet) 25 mcg PO DAILY [facility] Last Admin: 12/02/23 08:15 Dose: 25 mcg Documented By: ELLIOTT Labs 12/01/23 05:24 12/01/23 05:24 Microbiology Microbiology Results: Microbiology 11/30/23 16:57 Urine Culture - Final Urine clean catch - Urine graf top Escherichia coli 11/30/23 14:11 Blood Culture - Preliminary Blood - Venous Gram negative yesica 11/30/23 13:32 Blood Culture - Preliminary Blood - Venous Gram negative yesica Assessment and Plan (1) Pyelonephritis: Status: Acute Plan 43 year old female with history of hypothyroidism, h/o gastric sleevectomy, vitamin d/b1/b12 deficiency, htn, ICH, gerd, fibromyalgia, and ibs who is morbidly obese with bmi >41 admitted for further management of clinical pyelonephritis with sepsis. GNR bacteremia secondary to Acute clinical pyelonephritis with sepsis leukocytosis 11.3, tachycardia, febrile, tachypneic. No lactic acidosis. No other significant organ dysfunction or hypotension. No severe sepsis/shock CT abd pelvis shows mild left hydronephrosis and hydroureter without visible stone- possibly passed stone, reflux, vs soft tissue obstruction of distal ureter at UVJ continue Rocephin consult> no surgical intervention needed at this time, o/p urology follow up for monitoring of stones ID consult>follow final cx for final abx Dry cough patient reports hx of this but not recent was told that it had to do with thyroid but has never had US of thyroid, TSH WNL ? 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 rec Breo 200 daily, VIANEY as needed, consider o/p antihistamine: chlorphenaramine Acute kidney injury Creat trending down likely prerenal possibly from recently passed stone as above s/p IVF Acute hypokalemia Repleted and resolved HTN continue metoprolol Hypothyroidism continue levothyroxine Mood disoder continue home meds Morbid obesity. BMI 42.6 Discussed importance of weight management as this may be contributing to worsening of other comorbidities Hx of gastric surgery DVT prophylaxis with lovenox Attending Dr. Blair full code Continue hospital stay for management of clinical pyelonephritis with sepsis and lizzeth requiring iv abx, ivf and close monitoring of vital signs and close monitoring for decompensation Quality Stroke Does the patient have a stroke diagnosis?: No VTE Prior VTE?: No VTE Risk Level:: Medical - moderate - high VTE Device Contraindication: Treatment Not Indicated VTE Drug Contraindication: N/A - Med Ordered
[2023-12-02 08:40] LABS: Adenovirus PCR Not Detected (Not Detect.); Bordetella parapertussis PCR Not Detected (Not Detect.); Bordetella pertussis PCR Not Detected (Not Detect.); Chlamydia pneumoniae PCR Not Detected (Not Detect.); Coronavirus 229E PCR Not Detected (Not Detect.); Coronavirus HKU1 PCR Not Detected (Not Detect.); Coronavirus NL63 PCR Not Detected (Not Detect.); Coronavirus OC43 PCR Not Detected (Not Detect.); Human metapneumovirus PCR Not Detected (Not Detect.); Influenza A PCR Not Detected (Not Detect.); Influenza B PCR Not Detected (Not Detect.); Mycoplasma pneumoniae PCR Not Detected (Not Detect.); Parainfluenza 1 PCR Not Detected (Not Detect.); Parainfluenza 2 PCR Not Detected (Not Detect.); Parainfluenza 3 PCR Not Detected (Not Detect.); Parainfluenza 4 PCR Not Detected (Not Detect.); RSV PCR Not Detected (Not Detect.); Rhino/Enterovirus PCR Not Detected (Not Detect.)
--- NOTE | 2023-12-02 08:54 | PM.CNPUL ---
History of Present Illness History of Present Illness Consult date: 12/02/23 Chief complaint: Clinical Pyelonephritis,sepsis Narrative: This is an in patient pulmonary consultation. The patient is a 43 year old female with history of hypothyroidism, h/o gastric sleevectomy, gerd, fibromyalgia, and ibs presented to the ed earlier today for evaluation of fevers and abdominal pain. Reports began experiencing right sided abdominal pain and flank pain about 1 week ago. Thought this was an ibs flare an increased dose of dicyclomine without effect. In the last few days has developed shaking chills, sweats, fevers 102-103.6 this morning with increased urinary frequency, decreased urinary output, and urgency.She also states she has a dry cough, headache, and air hunger. No sore throat, congestion, n/v/d, dysuria, hematuria, lightheadedness, wheezing, or chest pain. No known sick contacts. The patient is admitted to the hospital with pyelonephritis. She is currently on antibiotics. On further questioning she does complaint of persistent cough. Nonproductive in nature could be moderate to severe resulting in significant headaches. She has been having this cough since she had COVID-19. Can not seem to improve. She has gotten a few courses of prednisone the to help her symptoms. A Pulmonary consultation was requested regarding the chronic persistent cough. Currently cough is a little better. She does have some post exhalation cough and also some expiratory wheezing suggesting some reactive airway disease. Review of Systems Review of Systems: General: +fevers, -malaise, -chills. No unintentional weight loss HEENT: No blurred vision, diplopia. No sore throat, nasal congestion, rhinorrhea, sinus pain, ear pain Cardiovascular: No chest pain, palpitations, or leg edema Respiratory: +cough. No shortness of breath, wheezing GI: +abd pain. No nausea, vomiting, diarrhea, constipation, melena, hematochezia : +increased frequency/urgency, +decreased urinary output. No dysuria, hematuria MSK: No myalgia. +r flank pain Neuro: +headaches. 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 Reactive airway disease Chronic cough Liver fibrosis Graves' disease GERD (gastroesophageal reflux disease) Fibromyalgia Fatty liver Hx of headache Seasonal allergies Environmental allergies Depression History of lumbar puncture Pseudotumor cerebri Asthma Anxiety Neck pain Back pain Hypothyroidism IBS (irritable bowel syndrome) Hypertension Morbid obesity Family History Family History Mother Hypertension Heart problem Father Diabetes Heart problem High cholesterol Brother Hypertension Sister Hypertension Sister Hypertension Sister Hypertension Brother Heart problem Hypertension Son No problems noted. Daughter No problems noted. Family history: reviewed and not pertinent Surgical History Surgical History History of sleeve gastrectomy History of hysteroscopy Hx of tubal ligation Hx of section Social History Social History Household Members: Family Household Members Other:: son 19 yrs, daughter 18 yrs Housing: House Are you a primary healthcare business analyst to a significant other at home: No Do you presently have visiting nurse or other home services: No Alcohol intake: never Patient Tobacco Use Status: Former Tobacco user Quit Date: 2016 Tobacco use type: Cigarette Use of substances other than those prescribed or required for medical reasons: No Currently Displaying Signs/Symptoms of Drug Intoxication Withdrawal: No Have you been hit, kicked, punched, or otherwise hurt by someone within the past year? If so, by whom?: No Do you feel safe in your current relationship?: Yes Is there a partner from a previous relationship who is making you feel unsafe now?: No Are you made to feel afraid or neglected: No Advance Directives: No Advance Directives Information Provided: No Do you have thoughts of harming others: None Do you have a plan to hurt others: No Plan Recently lost weight without trying: No Eating poorly because of decreased appetite: No Nutrition Risks: No Nutritional Risk Patient : No : No Poor oral hygiene: No service: No Current occupational status: disabled Meds Allergies Allergy/AdvReac Type Severity Reaction Status Date / Time Penicillins [PENICILLINS] Allergy Intermediate HIVES Verified 11/30/23 13:05 Active Medications: Current Medications Acetaminophen (Acetaminophen 325 Mg Tablet) 650 mg PO Q6H PRN PRN Reason: Pain, Mild (Pain Scale 1-3) Last Admin: 12/01/23 23:46 Dose: 650 mg Acetaminophen/Butalbital/Caffeine (Butalb/Acetamin/Caff 50/325/40 Tablet) 1 tab PO Q4H PRN PRN Reason: headache Albuterol/Ipratropium (Albuterol/Iprat 2.5/0.5mg 3 Ml Ampul.Neb) 3 ml INHALE RQ4H WHILE AWAKE [facility] Last Admin: 12/02/23 07:25 Dose: 3 ml Benzonatate (Benzonatate 100 Mg Capsule) 100 mg PO TID [facility] Last Admin: 12/02/23 08:15 Dose: 100 mg Buspirone HCl (Buspirone Hcl 5 Mg Tablet) 5 mg PO TID [facility] Last Admin: 12/02/23 08:15 Dose: 5 mg Dicyclomine HCl (Dicyclomine Hcl 10 Mg Capsule) 10 mg PO Q8H PRN PRN Reason: cramps Enoxaparin Sodium (Enoxaparin Sodium 40 Mg/0.4 Ml Syringe) 40 mg SUBCUT Q24H [facility] Last Admin: 12/01/23 19:13 Dose: Not Given Escitalopram Oxalate (Escitalopram Oxalate 5 Mg Tablet) 5 mg PO DAILY [facility] Last Admin: 12/02/23 08:15 Dose: 5 mg Escitalopram Oxalate (Escitalopram Oxalate 10 Mg Tablet) 10 mg PO DAILY@2100 [facility] Last Admin: 12/01/23 20:38 Dose: 10 mg Famotidine (Famotidine/Pf 20 Mg/2 Ml Vial) 20 mg IVPUSH DAILY [facility] Last Admin: 12/02/23 08:15 Dose: 20 mg Fluticasone/Vilanterol (Fluticasone/Vilanterol 200/25 Blst.W.Dev) 1 puff INHALE RDAILY [facility] Guaifenesin (Guaifenesin 200 Mg/10 Ml 10 Ml Liquid) 10 ml PO Q4H PRN PRN Reason: Cough Last Admin: 12/02/23 06:16 Dose: 10 ml Sodium Chloride (Ns) 1,000 mls @ 100 mls/hr IVCONT .Q10H [facility] Last Admin: 12/02/23 01:46 Dose: 100 mls/hr Ceftriaxone Sodium 1 gm/ (Sodium Chloride) 50 mls @ 100 mls/hr IV Q24H [facility] Last Infusion: 12/01/23 19:55 Dose: Infused Ibuprofen (Ibuprofen 600 Mg Tablet) 600 mg PO Q6H PRN PRN Reason: Headache Last Admin: 12/02/23 06:16 Dose: 600 mg Levothyroxine Sodium (Levothyroxine Sodium 150 Mcg Tablet) 150 mcg PO DAILY@0600 [facility] Last Admin: 12/02/23 06:17 Dose: 150 mcg Melatonin (Melatonin 3 Mg Tablet) 6 mg PO BEDTIME PRN PRN Reason: Insomnia Metoprolol Succinate (Metoprolol Succinate Er 50 Mg Tab.Er.24h) 50 mg PO DAILY [facility]; Protocol Last Admin: 12/02/23 08:15 Dose: 50 mg Morphine Sulfate (Morphine Sulfate 4 Mg/Ml Cartridge) 2 mg IVPUSH Q4H PRN; Protocol PRN Reason: Pain, Severe (Pain Scale 7-10) Multivitamins/Vitamin C (Multivitamin Tablet) 1 tab PO DAILY [facility] Last Admin: 12/02/23 08:15 Dose: 1 tab Ondansetron HCl (Ondansetron Hcl 4 Mg/2 Ml Vial) 4 mg IVPUSH Q8H PRN PRN Reason: Nausea and Vomiting Oxycodone HCl (Oxycodone Hcl Immed Release 5 Mg Tablet) 5 mg PO Q6H PRN PRN Reason: Pain, Moderate(Pain Scale 4-6) Last Admin: 12/01/23 01:58 Dose: 5 mg Senna (Sennosides 8.6 Mg Tablet) 17.2 mg PO BEDTIME PRN PRN Reason: Constipation Sodium Chloride (0.9 % Sodium Chloride Flush 3 Ml Syringe) 3 ml IVFLUSH QSHIFT [facility] Last Admin: 12/02/23 07:19 Dose: Not Given Vitamin D (Cholecalciferol (Vitamin D3) 25 Mcg Tablet) 25 mcg PO DAILY [facility] Last Admin: 12/02/23 08:15 Dose: 25 mcg Home Medications Medication Instructions Recorded Confirmed Last Taken Type buspirone 5 mg tablet 5 mg PO TID 11/30/23 11/30/23 Unknown History cholecalciferol (vitamin D3) 25 25 mcg PO DAILY 11/30/23 11/30/23 Unknown History mcg (1,000 unit) tablet (Vitamin D3) citalopram 10 mg tablet 10 mg PO QAM 11/30/23 11/30/23 Unknown History citalopram 20 mg tablet 20 mg PO QPM 11/30/23 11/30/23 Unknown History dicyclomine 10 mg capsule 10 mg PO Q8H PRN cramps 11/30/23 11/30/23 Unknown History ibuprofen 200 mg tablet 600 - 800 mg PO Q8H PRN Pain 11/30/23 11/30/23 11/30/23 History levothyroxine 150 mcg tablet 150 mcg PO DAILY 11/30/23 11/30/23 11/30/23 History metoprolol succinate 50 mg 50 mg PO QAM 11/30/23 11/30/23 Unknown History tablet,extended release 24 hr vitamin B complex 1 tab PO DAILY 11/30/23 11/30/23 Unknown History Physical Exam Vital Signs: Vital Signs: Last Vital Signs Temp 98.7 F 12/02/23 07:49 Pulse 98 12/02/23 07:49 Resp 17 12/02/23 07:49 BP 154/82 H 12/02/23 07:49 Pulse Ox 97 12/02/23 07:49 O2 Del Method Room Air 12/02/23 07:49 BMI result Body Mass Index 42.6 Appearing in no acute distress lung sounds+ post exhalation cough, +wheezing during force exhalation heart regular rate rhythm, clear S1, S2 positive bowel sounds, abdomen is soft, nontender neuro patient is alert x3, no focal deficits Results Laboratory Findings 12/01/23 05:24 12/01/23 05:24 ABG, PT/INR, D-dimer: PT/INR, D-dimer PT 18.5 SEC (11.1-13.3) H 11/30/23 13:32 INR 1.5 (0.9-1.1) H 11/30/23 13:32 Abnormal lab findings: Abnormal Labs 11/30/23 11/30/23 12/01/23 13:32 16:57 05:24 WBC 11.3 H RBC 3.72 L D Hgb 11.2 L D Hct 33.1 L D Immature Gran % (Auto) 0.7 H 0.7 H Neut % (Auto) 87.4 H 81.3 H Lymph % (Auto) 5.7 L 10.6 L Lymph # (Auto) 0.7 L 0.7 L Abs Immat Gran (auto) 0.08 H 0.05 H Absolute Neuts (auto) 9.9 H PT 18.5 H INR 1.5 H Potassium 3.2 L Chloride 111 H Carbon Dioxide 20 L Anion Gap 10 L Random Glucose 119 H Total Bilirubin 1.3 H ALT 32 H Total Protein 8.3 H Ur Specific Dalton >= 1.030 H Urine Protein 100 (2+) H Urine Blood Large (3+) H Urine Nitrite Positive H Ur Leukocyte Esterase Trace H Urine RBC >20 H Urine WBC 21-50 H Microbiology: Microbiology 11/30/23 16:57 Urine clean catch - Urine graf top Urine Culture - Final Escherichia coli 11/30/23 14:11 Blood - Venous Blood Culture - Preliminary Gram negative yesica 11/30/23 13:32 Blood - Venous Blood Culture - Preliminary Gram negative yesica Diagnostic Findings Chest x-ray: report reviewed Assessment and Plan (1) Chronic cough: Status: Acute (2) Reactive airway disease: Qualifiers: Asthma severity: moderate Asthma persistence: persistent Asthma complication type: uncomplicated Qualified Code(s): J45.40 - Moderate persistent asthma, uncomplicated Status: Acute (3) 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 Procedures Date of Service Date of Service: 12/02/23
[2023-12-02 09:05] LABS: SARS-CoV-2 PCR Not Detected (Not Detect.)
[2023-12-02] MEDS: methylPREDNISolone Sod Succ 125 MG/2 ML VIAL 60 MG IVPUSH (09:38)
--- NOTE | 2023-12-02 11:10 | P.CNUR_ITS ---
History of Present Illness Consult details Consult date: 12/02/23 Requesting physician: Belem Paredes Narrative: 43 year old female with history of hypothyroidism, h/o gastric sleevectomy, vitamin d/b1/b12 deficiency, htn, ICH, gerd, fibromyalgia, and IBS presented to the ED for evaluation of fevers and abdominal pain. She states she began experiencing right sided abdominal pain and flank pain about 1 week ago and thought this was due to flare in IBS. In the last few days has developed shaking chills, sweats, fevers with increased urinary frequency, and urgency, denies dysuria. Denies prior h/o kidney stones. I reviewed CT imaging, findings c/w recently passed stone. Blood and urine c/s GNR. ID has also been consulted. Clinically improving on IV abx, denies flank pain. CTAP w/IV contrast: There is mild left renal hydronephrosis and hydroureter, there is however no calcified visible stone along the course of the left ureter, this could be due to recently passed stone, reflux, versus soft tissue obstruction of the distal ureter at the UVJ. There are small nonobstructing stones in the left kidney and single tiny stone in the right kidney. 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 Reactive airway disease Chronic cough Liver fibrosis Graves' disease GERD (gastroesophageal reflux disease) Fibromyalgia Fatty liver Hx of headache Seasonal allergies Environmental allergies Depression History of lumbar puncture Pseudotumor cerebri Asthma Anxiety Neck pain Back pain Hypothyroidism IBS (irritable bowel syndrome) Hypertension Morbid obesity Family History Family History Mother Hypertension Heart problem Father Diabetes Heart problem High cholesterol Brother Hypertension Sister Hypertension Sister Hypertension Sister Hypertension Brother Heart problem Hypertension Son No problems noted. Daughter No problems noted. Family history: reviewed and not pertinent Surgical History Surgical History History of sleeve gastrectomy History of hysteroscopy Hx of tubal ligation Hx of section Social History Social History Household Members: Family Household Members Other:: son 19 yrs, daughter 18 yrs Housing: House Are you a primary day care home provider to a significant other at home: No Do you presently have visiting nurse or other home services: No Alcohol intake: never Patient Tobacco Use Status: Former Tobacco user Quit Date: 2016 Tobacco use type: Cigarette Use of substances other than those prescribed or required for medical reasons: No Currently Displaying Signs/Symptoms of Drug Intoxication Withdrawal: No Have you been hit, kicked, punched, or otherwise hurt by someone within the past year? If so, by whom?: No Do you feel safe in your current relationship?: Yes Is there a partner from a previous relationship who is making you feel unsafe now?: No Are you made to feel afraid or neglected: No Advance Directives: No Advance Directives Information Provided: No Do you have thoughts of harming others: None Do you have a plan to hurt others: No Plan Recently lost weight without trying: No Eating poorly because of decreased appetite: No Nutrition Risks: No Nutritional Risk Patient : No : No Poor oral hygiene: No service: No Current occupational status: disabled Meds Allergies Allergy/AdvReac Type Severity Reaction Status Date / Time Penicillins [PENICILLINS] Allergy Intermediate HIVES Verified 11/30/23 13:05 Active Medications: Current Medications Acetaminophen (Acetaminophen 325 Mg Tablet) 650 mg PO Q6H PRN PRN Reason: Pain, Mild (Pain Scale 1-3) Last Admin: 12/01/23 23:46 Dose: 650 mg Acetaminophen/Butalbital/Caffeine (Butalb/Acetamin/Caff 50/325/40 Tablet) 1 tab PO Q4H PRN PRN Reason: headache Albuterol/Ipratropium (Albuterol/Iprat 2.5/0.5mg 3 Ml Ampul.Neb) 3 ml INHALE RQ4H WHILE AWAKE [facility] Last Admin: 12/02/23 07:25 Dose: 3 ml Benzonatate (Benzonatate 100 Mg Capsule) 100 mg PO TID [facility] Last Admin: 12/02/23 08:15 Dose: 100 mg Buspirone HCl (Buspirone Hcl 5 Mg Tablet) 5 mg PO TID [facility] Last Admin: 12/02/23 08:15 Dose: 5 mg Dicyclomine HCl (Dicyclomine Hcl 10 Mg Capsule) 10 mg PO Q8H PRN PRN Reason: cramps Enoxaparin Sodium (Enoxaparin Sodium 40 Mg/0.4 Ml Syringe) 40 mg SUBCUT Q24H [facility] Last Admin: 12/01/23 19:13 Dose: Not Given Escitalopram Oxalate (Escitalopram Oxalate 5 Mg Tablet) 5 mg PO DAILY [facility] Last Admin: 12/02/23 08:15 Dose: 5 mg Escitalopram Oxalate (Escitalopram Oxalate 10 Mg Tablet) 10 mg PO DAILY@2100 [facility] Last Admin: 12/01/23 20:38 Dose: 10 mg Famotidine (Famotidine/Pf 20 Mg/2 Ml Vial) 20 mg IVPUSH DAILY [facility] Last Admin: 12/02/23 08:15 Dose: 20 mg Fluticasone/Vilanterol (Fluticasone/Vilanterol 200/25 Blst.W.Dev) 1 puff INHALE RDAILY [facility] Guaifenesin (Guaifenesin 200 Mg/10 Ml 10 Ml Liquid) 10 ml PO Q4H PRN PRN Reason: Cough Last Admin: 12/02/23 06:16 Dose: 10 ml Sodium Chloride (Ns) 1,000 mls @ 100 mls/hr IVCONT .Q10H [facility] Last Admin: 12/02/23 09:38 Dose: 100 mls/hr Ceftriaxone Sodium 1 gm/ (Sodium Chloride) 50 mls @ 100 mls/hr IV Q24H [facility] Last Infusion: 12/01/23 19:55 Dose: Infused Ibuprofen (Ibuprofen 600 Mg Tablet) 600 mg PO Q6H PRN PRN Reason: Headache Last Admin: 12/02/23 06:16 Dose: 600 mg Levothyroxine Sodium (Levothyroxine Sodium 150 Mcg Tablet) 150 mcg PO DAILY@0600 [facility] Last Admin: 12/02/23 06:17 Dose: 150 mcg Melatonin (Melatonin 3 Mg Tablet) 6 mg PO BEDTIME PRN PRN Reason: Insomnia Metoprolol Succinate (Metoprolol Succinate Er 50 Mg Tab.Er.24h) 50 mg PO DAILY [facility]; Protocol Last Admin: 12/02/23 08:15 Dose: 50 mg Morphine Sulfate (Morphine Sulfate 4 Mg/Ml Cartridge) 2 mg IVPUSH Q4H PRN; Protocol PRN Reason: Pain, Severe (Pain Scale 7-10) Multivitamins/Vitamin C (Multivitamin Tablet) 1 tab PO DAILY [facility] Last Admin: 12/02/23 08:15 Dose: 1 tab Ondansetron HCl (Ondansetron Hcl 4 Mg/2 Ml Vial) 4 mg IVPUSH Q8H PRN PRN Reason: Nausea and Vomiting Oxycodone HCl (Oxycodone Hcl Immed Release 5 Mg Tablet) 5 mg PO Q6H PRN PRN Reason: Pain, Moderate(Pain Scale 4-6) Last Admin: 12/01/23 01:58 Dose: 5 mg Senna (Sennosides 8.6 Mg Tablet) 17.2 mg PO BEDTIME PRN PRN Reason: Constipation Sodium Chloride (0.9 % Sodium Chloride Flush 3 Ml Syringe) 3 ml IVFLUSH QSHIFT [facility] Last Admin: 12/02/23 07:19 Dose: Not Given Vitamin D (Cholecalciferol (Vitamin D3) 25 Mcg Tablet) 25 mcg PO DAILY [facility] Last Admin: 12/02/23 08:15 Dose: 25 mcg Home Medications Medication Instructions Recorded Confirmed Last Taken Type buspirone 5 mg tablet 5 mg PO TID 11/30/23 11/30/23 Unknown History cholecalciferol (vitamin D3) 25 25 mcg PO DAILY 11/30/23 11/30/23 Unknown History mcg (1,000 unit) tablet (Vitamin D3) citalopram 10 mg tablet 10 mg PO QAM 11/30/23 11/30/23 Unknown History citalopram 20 mg tablet 20 mg PO QPM 11/30/23 11/30/23 Unknown History dicyclomine 10 mg capsule 10 mg PO Q8H PRN cramps 11/30/23 11/30/23 Unknown History ibuprofen 200 mg tablet 600 - 800 mg PO Q8H PRN Pain 11/30/23 11/30/23 11/30/23 History levothyroxine 150 mcg tablet 150 mcg PO DAILY 11/30/23 11/30/23 11/30/23 History metoprolol succinate 50 mg 50 mg PO QAM 11/30/23 11/30/23 Unknown History tablet,extended release 24 hr vitamin B complex 1 tab PO DAILY 11/30/23 11/30/23 Unknown History Physical Exam 2 Vital Signs: Vital Signs: Last Vital Signs Temp 98.7 F 12/02/23 07:49 Pulse 98 12/02/23 07:49 Resp 17 12/02/23 07:49 BP 154/82 H 12/02/23 07:49 Pulse Ox 97 12/02/23 07:49 O2 Del Method Room Air 12/02/23 07:49 BMI result Body Mass Index 42.6 Const: General: cooperative, healthy appearing and no acute distress O rientation/consciousness: patient oriented x3 HEENT: Head: Yes normal to inspection, Yes normocephalic and Yes atraumatic Eyes: Conjunctivae: conjunctivae normal Neck: Neck: Yes normal visual inspection and Yes trachea midline Chest: Chest palpation & inspection: normal inspection of the chest Resp: Effort & Inspection: normal respiratory effort Cardio: Rate: regular rate GI: Inspection: Yes normal to inspection Palpation (GI): Soft to palpation : General: No no CVA tenderness Back/Spine/Pelvis: Back: No no CVA tenderness Neuro: General: patient oriented x3 Psych: Appearance: grossly normal Results Labs 12/01/23 05:24 12/01/23 05:24 Labs: Urine 11/30/23 Range/Units 16:57 Urine Color Yellow Urine Appearance Cloudy Urine pH 6.0 (5.0-9.0) Ur Specific [place] >= 1.030 H (1.005-1.025) Urine Protein 100 (2+) H (Neg-Trace) mg/dL Urine Glucose (UA) Negative (Negative) mg/dL Urine Test NEGATIVE (NEGATIVE) Collected: 11/30/23-1656 Status: COMP Req#: [id number] Received: 11/30/23 Source: [facility] Desc: Urine graf Subm Dr: Lori Sheppard CNP Ordered: Urine Culture Procedure Result Verified Urine Culture Final 12/02/23 Organism 1 Escherichia coli Quant > 100,000 cfu/mL E coli M.I.C. RX --------- --- Ampicillin 8 S Ceftriaxone <=0.25 S Gentamicin <=1 S Levofloxacin <=0.12 S Nitrofurantoin <=16 S Trimethoprim/Sulfamethoxazole <=20 S Imaging Additional studies: Date of Service: 11/30/23 EXAMINATION: CT abdomen pelvis w IV con CLINICAL INFORMATION: Reason for Exam Right lower quadrant pain COMPARISON: No prior CT available for comparison. TECHNIQUE: Multidetector volumetric imaging was performed from the superior aspect of the liver through the pubic symphysis 85 mL Omnipaque 350 injected Sagittal and coronal reformatted images were obtained on the technologist's workstation. This CT examination was performed using dose optimization techniques as appropriate, variously including the following: *Automated exposure control *Adjustment of mA and/or kV according to patient size (this includes techniques or standardized protocols for targeted exams where dose is matched to indication/reason for exam; i.e. extremities or head) *Use of iterative reconstruction technique DLP: 872 mGy-cm FINDINGS: LOWER THORAX: Included lung bases are clear. HEPATOBILIARY: No focal hepatic lesions. No biliary ductal dilatation. GALLBLADDER: Gallbladder unremarkable. SPLEEN: Spleen is normal in size. PANCREAS: No focal mass or ductal dilatation. STOMACH AND GASTROINTESTINAL TRACT: Postsurgical changes prior partial gastrectomy, no CT evidence of dehiscence or leak. There is no bowel distention or thickening. No CT evidence of appendicitis. ADRENALS: No adrenal nodules. KIDNEYS/URETERS: There is mild left renal hydronephrosis and hydroureter there is however no calcified visible stone along the course of the ureter, this could be due to recently passed stone, reflux, versus soft tissue obstruction of the distal ureter at the UVJ. No mass found. There are small nonobstructing stones in the left kidney measuring 2 and 3 mm, 3 of which found. Single tiny 1 mm stone right kidney. No hydronephrosis on the right side. URINARY BLADDER: Partially decompressed. PELVIC VISCERA: Unremarkable PERITONEUM: No free air or fluid. LYMPH NODES: No lymphadenopathy. VASCULAR:Abdominal aorta normal in size, no aneurysm found. BONES, ABDOMINAL WALL AND SOFT TISSUES: Age-appropriate changes of the spine and skeletal system, no destructive osteolytic or osteosclerotic bone lesion found IMPRESSION: 1. There is mild left renal hydronephrosis and hydroureter, there is however no calcified visible stone along the course of the left ureter, this could be due to recently passed stone, reflux, versus soft tissue obstruction of the distal ureter at the UVJ. 2. There are small nonobstructing stones in the left kidney and single tiny stone in the right kidney. 3. Postsurgical changes prior partial gastrectomy, no CT evidence of dehiscence or leak. 4. 4. No CT evidence of appendicitis, no explanation for patient's right lower quadrant pain. Assessment and Plan (1) Pyelonephritis: Status: Acute (2) Bilateral kidney stones: Status: Acute (3) Hydronephrosis: Status: Acute Plan No surgical intervention indicated at this time. Urine c/s - Ecoli - pansensitive Abx per ID. Will need Outpatient urology follow up to monitor stones Procedures Date of Service Date of Service: 12/02/23
[2023-12-02 11:27] VITALS: PULSE 98; RESP 17; O2SAT 96
[2023-12-02 15:28] VITALS: BP 154/84; PULSE 82; RESP 18; TEMP 36.4; O2SAT 96
[2023-12-02] MEDS: Enoxaparin Sodium 40 MG/0.4 ML SYRINGE SUBCUT (17:03)
[2023-12-02] MEDS: cefTRIAXone sodium 1 GM in 0.9 % Sodium Chloride 50 ML IV (17:03)
[2023-12-02 19:15] VITALS: BP 164/88; PULSE 96; RESP 18; TEMP 36.3; O2SAT 97
[2023-12-02 20:07] VITALS: PULSE 72; RESP 16; O2SAT 97
[2023-12-02] MEDS: 0.9 % Sodium Chloride Flush 3 ML SYRINGE IVFLUSH (20:23)
[2023-12-02] MEDS: Escitalopram Oxalate 10 MG TABLET PO (20:23)
[2023-12-02] MEDS: Butalb/Acetamin/Caff 50/325/40 TABLET 1 TAB PO (20:32)
[2023-12-03 03:52] VITALS: BP 163/92; PULSE 86; RESP 16; TEMP 36.1; O2SAT 97
[2023-12-03 05:52] LABS: Anion Gap 12 (12-20); Blood Urea Nitrogen 11 mg/dL (9-16); Carbon Dioxide 21 mmol/L (22-29); Chloride 112 mmol/L (96-108); Creatinine Clr Calc Pharmacy 97.5; Estimated Glomerular Filt Rate > 60; Glucose Random 124 mg/dL (60-115); Potassium 3.7 mmol/L (3.3-5.1); Sodium 141 mmol/L (135-145)
[2023-12-03 06:42] LABS: Thyroid Stimulating Hormone 0.83 uIU/mL (0.32-4.0)
[2023-12-03] MEDS: busPIRone HCl 5 MG TABLET PO (07:09)
[2023-12-03] MEDS: Cholecalciferol (Vitamin D3) 25 MCG TABLET PO (07:09)
[2023-12-03] MEDS: Escitalopram Oxalate 5 MG TABLET PO (07:09)
[2023-12-03] MEDS: Metoprolol Succinate ER 50 MG TAB.ER.24H PO (07:09)
[2023-12-03] MEDS: predniSONE 20 MG TABLET 40 MG PO (07:09)
[2023-12-03] MEDS: Levothyroxine Sodium 150 MCG TABLET PO (07:09)
[2023-12-03] MEDS: Benzonatate 100 MG CAPSULE PO (07:09)
[2023-12-03] MEDS: Multivitamin TABLET 1 TAB PO (07:09)
[2023-12-03] MEDS: Famotidine/PF 20 MG/2 ML VIAL IVPUSH (07:09)
[2023-12-03] MEDS: oxyCODONE HCl Immed Release 5 MG TABLET PO ×2 (07:10→12:55)
[2023-12-03] MEDS: 0.9 % Sodium Chloride Flush 3 ML SYRINGE IVFLUSH (07:10)
--- NOTE | 2023-12-03 07:17 | PC.NURSE ---
Pt reported concerns to this technical proposal writer my hands are red and there is even some green in one spot . RN assessed, no redness or green discoloration noted. Pt denies itchiness. Hands are dry, normothermic. Dr. Angel Lazaro notified. order for TSH level this morning, back WNL. No changes in hands overnight. Oncoming RN made aware in handoff report.
[2023-12-03 07:37] VITALS: BP 147/86; PULSE 70; RESP 16; TEMP 36.4; O2SAT 97
[2023-12-03 08:17] VITALS: PULSE 75; RESP 16; O2SAT 98
[2023-12-03] MEDS: Fluticasone/Vilanterol 200/25 BLST.W.DEV 1 PUFF INHALE (08:17)
[2023-12-03] MEDS: Albuterol/Iprat 2.5/0.5MG 3 ML AMPUL.NEB INHALE (08:17)
--- NOTE | 2023-12-03 09:53 | P.DS_ITS ---
DS: Providers Provider Date of Service: 12/03/23 Date of admission: 11/30/23 17:57 Primary care physician: Alen Land MD Consults: 12/01/23 09:32 Consult to Infectious Diseases Routine Consulting Provider: [facility] Infectious Disease Reason for consultation: GNR bactermia 12/01/23 14:18 Consult to Pulmonology Routine Consulting Provider: [facility] Pulmonology Services Reason for consultation: continous dry cough 12/02/23 07:08 Consult to Urology Routine Consulting Provider: Kyung Sofia Reason for consultation: ecoli uti/bactermia DS: Diagnosis Discharge Diagnosis (1) Pyelonephritis: Status: Acute DS: Summary Hospital Course Hospital Course: History and physical as per admitting provider. 43 year old female with history of hypothyroidism, h/o gastric sleevectomy, vitamin d/b1/b12 deficiency, htn, ICH, gerd, fibromyalgia, and ibs presented to the ed earlier today for evaluation of fevers and abdominal pain. Reports began experiencing right sided abdominal pain and flank pain about 1 week ago. Thought this was an ibs flare an increased dose of dicyclomine without effect. In the last few days has developed shaking chills, sweats, fevers 102-103.6 this morning with increased urinary frequency, decreased urinary output, and urgency.She also states she has a dry cough, headache, and air hunger. No sore throat, congestion, n/v/d, dysuria, hematuria, lightheadedness, wheezing, or chest pain. No known sick contacts. On arrival, pt febrile ot 101.2, tachycardic to 145, tachypneic to 22. No hypotension. Mild leukocytosis 11.3. Renal function and lytes normal except for K 3.2. Lactic acid 1.5. UA with trace leuks, positive nitrites, 3+ blood, elevated specific gravity, positive urinary sediment, 4+ bacteria. Negative for COVID-19, RSV, influenza. CXR unremarkable. CT abdomen/pelvis shows mild left- sided renal hydronephrosis and hydroureter but no visible calcified stone possibly recent passed stone, reflux, versus soft tissue obstruction of the distal ureter at the UVJ. There is small nonobstructing stones in the left kidney and single tiny stone in the right kidney. No clear explanation for right lower quadrant pain. In the ED, has received IV NS, Tylenol, ibuprofen, and IV ceftriaxone. 43-year-old woman treated for E coli bacteremia and E coli UTI. Initially thought to be clinical pyelonephritis, abdominal CT showed mild left hydronephrosis and hydroureter without visible stone but patient may have passed a stone. She was started on IV Rocephin. She was seen by Urology with no recommendation for surgical intervention but outpatient follow-up as needed. She will continue with Ceftin for total of 14 days for bacteremia. She also had mild REBECA likely prerenal from passed stone, treated with IV fluids and resolved. She complained of an acute on chronic dry cough. She was last treated for this 18 months ago with steroids. She was seen by pulmonology while inpatient who thought this may be more related to asthma versus some inflammation near the trachea area as patient had no wheezing or abnormalities noted on chest x-ray inpatient status she did not have any history of asthma. She was started on scheduled DuoNebs, cough suppressants and was given a dose of IV Solu-Medrol thats all seemed to help her symptoms. [facility]. Short prednisone taper. She may follow-up with pulmonology o utpatient as needed. Plan is to discharge patient home and she is in agreement with this. Acute hypokalemia. Repleted and resolved Hypertension. Continue metoprolol Hypothyroidism. Continue levothyroxine Mental health. Continue home medications Morbid obesity. BMI 42.6. Discussed importance of weight management as this may be contributing to worsening of other comorbidities Time Attestation Discharge Coordination Time (in mins): 40 Quality: Safe Use of Opioids Does Pt have an Active Cancer Diagnosis on the Problem List?: No Quality: Stroke Does the patient have a stroke diagnosis?: No Physical Exam Vital Signs: Vital Signs: Last Vital Signs Temp 97.5 F 12/03/23 07:37 Pulse 75 12/03/23 08:17 Resp 16 12/03/23 08:17 BP 147/86 H 12/03/23 07:37 Pulse Ox 97 12/03/23 07:37 O2 Del Method Room Air 12/03/23 07:37 BMI result Body Mass Index 42.6 Appearing in no acute distress head is normocephalic atraumatic eyes pupils are PERRLA sclera is anicteric mouth throat mucous membranes are intact and moist neck is supple no lymphadenopathy, no JVD noted lung sounds are clear to auscultation heart regular rate rhythm, clear S1, S2 positive bowel sounds, abdomen is soft, nontender neuro patient is alert x3, no focal deficits DS: Data Data Completed and Pending Completed studies during hospitalization [Text1]: Procedures Excision of Stomach, Percutaneous Endoscopic Approach, Vertical (12/27/21) Release Peritoneum, Percutaneous Endoscopic Approach (12/27/21) Labs on day of discharge: Laboratory Results - last 24 hr 12/03/23 05:05 Hold Purple Top SEE NOTE Sodium 141 Potassium 3.7 Chloride 112 H Carbon Dioxide 21 L Anion Gap 12 BUN 11 Creatinine 0.84 Estim Creat Clear Calc 97.5 Estimated GFR > 60 Random Glucose 124 H Calcium 9.0 D TSH 0.83 Preliminary micro results at discharge 11/30/23 14:11 Blood Culture - Preliminary Blood - Venous Escherichia coli 11/30/23 13:32 Blood Culture - Preliminary Blood - Venous Escherichia coli Discharge Plan Discharge Anticipated Discharge Date/Time: 12/03/23 09:47 Patient Disposition: Home, Self-Care Discharge Diagnosis: E coli bacteremia E coli UTI Clinical pyelonephritis Acute on chronic dry cough REBECA Acute hypokalemia Referrals: Kyung Sofia MD [Physician] - None Alen aLnd MD [Primary Care Provider] - 1 Week Frandy Paredes MD [Physician] - None Discharge Medications: New prednisone 20 mg Tablet See Taper PO DAILY Qty: 20 0RF Taper: Prednisone 40 mg daily for 2 Days and 0 Hour 30 mg daily for 2 Days and 0 Hour 20 mg daily for 2 Days and 0 Hour 10 mg daily for 2 Days and 0 Hour benzonatate 100 mg Capsule 100 mg PO TID Qty: 12 0RF fluticasone furoate-vilanterol [Breo Ellipta] 200-25 mcg/dose Blister With Device 1 inh inhalation RDAILY Qty: 60 0RF cefuroxime axetil 500 mg tablet 500 mg PO BID Qty: 28 0RF Continued buspirone 5 mg tablet 5 mg PO TID metoprolol succinate 50 mg tablet extended release 24 hr 50 mg PO QAM citalopram 10 mg tablet 10 mg PO QAM citalopram 20 mg tablet 20 mg PO QPM levothyroxine 150 mcg tablet 150 mcg PO DAILY ibuprofen 200 mg Tablet 600 - 800 mg PO Q8H PRN (Reason: Pain) vitamin B complex Tablet 1 tab PO DAILY dicyclomine 10 mg capsule 10 mg PO Q8H PRN (Reason: cramps) cholecalciferol (vitamin D3) [Vitamin D3] 25 mcg (1,000 unit) Tablet 25 mcg PO DAILY Discharge Orders: Discharge Order (Routine); Ordered 12/03/23 Ordered By: Belem Paredes Diet: Advance to usual diet Activity on Discharge: As tolerated Stand Alone Forms: Patient Portal Discharge page Care Plan Goals: Take all medications as prescribed Health Concerns: E coli bacteremia E coli UTI Clinical pyelonephritis Acute on chronic dry cough REBECA Acute hypokalemia Plan of Treatment: Follow-up with primary care provider as needed Assessment: See discharge summary
--- NOTE | 2023-12-03 10:39 | MHC.CM.PN ---
Patient is medically cleared for dc home self care. Sister is at bedside to transport home. RN aware.
== END 2023-12-03 13:03 | disposition home or self-care (01) | DRG 872 ==
LOC: HO.ED 17:55 → HO.EDOVER 18:08 → HO.S3 19:47
PROVIDERS: Internal Medicine; Nurse Practitioner Family; Admitting Provider Physician Assistant; Emergency Provider Student in an Organized Health Care Education/Training Program; PCP Family Medicine; Visit Provider Nurse Practitioner Acute Care
DX: A41.9 Sepsis, unspecified organism (principal); N13.6 Pyonephrosis; N17.9 Acute kidney failure, unspecified; Z68.41 Body mass index [BMI] 40.0-44.9, adult; E78.6 Lipoprotein deficiency; E66.01 Morbid (severe) obesity due to excess calories; B96.20 Unspecified Escherichia coli [E. coli] as the cause of diseases classified elsewhere; U09.9 Post COVID-19 condition, unspecified; J45.40 Moderate persistent asthma, uncomplicated; M79.7 Fibromyalgia; E03.9 Hypothyroidism, unspecified; Z20.822 Contact with and (suspected) exposure to COVID-19; Z98.84 Bariatric surgery status; Z79.51 Long term (current) use of inhaled steroids; Z79.890 Hormone replacement therapy; Z79.899 Other long term (current) drug therapy
CPT/HCPCS: 0241U; 36415; 71046; 74177; 80048; 80053; 81001; 81025; 83605; 83690; 84443; 84484; 84702; 85025; 85610; 87040; 87077; 87086; 87088; 87186; 87205; 87633; 93005; 94640; 99285; J0696; J1650; J2930; Q9967

== ENCOUNTER → 2023-11-30 13:00 | Outpatient (BNV) | payer OTHER, SELFPAY | PROVIDERS: Admitting Provider Physician Assistant; Emergency Provider Student in an Organized Health Care Education/Training Program; PCP Family Medicine; Visit Provider Internal Medicine Cardiovascular Disease | DX: R94.31 Abnormal electrocardiogram [ECG] [EKG] (principal) | CPT/HCPCS: 93010 ==

== ENCOUNTER → 2023-11-30 17:57 | Outpatient (BNV) | payer OTHER, SELFPAY | PROVIDERS: Admitting Provider Physician Assistant; Emergency Provider Student in an Organized Health Care Education/Training Program; PCP Family Medicine; Visit Provider Internal Medicine | DX: N12 Tubulo-interstitial nephritis, not specified as acute or chronic (principal); K74.00 Hepatic fibrosis, unspecified | CPT/HCPCS: 99222 ==

== ENCOUNTER → 2023-11-30 17:57 | Outpatient (BNV) | payer OTHER, SELFPAY | PROVIDERS: Admitting Provider Physician Assistant; Emergency Provider Student in an Organized Health Care Education/Training Program; PCP Family Medicine; Visit Provider Hospitalist | DX: R05.3 Chronic cough (principal); J45.40 Moderate persistent asthma, uncomplicated; U09.9 Post COVID-19 condition, unspecified | CPT/HCPCS: 99223 ==

== ENCOUNTER → 2023-11-30 17:57 | Outpatient (BNV) | payer OTHER, SELFPAY | PROVIDERS: Admitting Provider Physician Assistant; Emergency Provider Student in an Organized Health Care Education/Training Program; PCP Family Medicine; Visit Provider Urology | DX: N12 Tubulo-interstitial nephritis, not specified as acute or chronic (principal); N20.0 Calculus of kidney; N13.30 Unspecified hydronephrosis | CPT/HCPCS: 99222 ==

== ENCOUNTER → 2023-11-30 17:57 | Outpatient (BNV) | payer OTHER, SELFPAY | PROVIDERS: Admitting Provider Physician Assistant; Emergency Provider Student in an Organized Health Care Education/Training Program; PCP Family Medicine; Visit Provider Nurse Practitioner Acute Care | DX: A41.9 Sepsis, unspecified organism (principal); N10 Acute pyelonephritis | CPT/HCPCS: 99223; 99232; 99239 ==

== ENCOUNTER 2023-12-09 09:02 | Outpatient (AMB) | payer OTHER, SELFPAY ==
--- NOTE | 2023-12-09 09:11 | MHC.OFFVIS ---
Intake Vital Signs 12/09/23 09:14 Height 5 ft 1.5 in Weight 230 lb BMI 42.7 BP 142/64 H Pulse 84 Pulse Source Pulse Oximeter Pulse Oximetry (%) 98 Oxygen Delivery Method Room Air Intake Visit Reasons: [place] [facility] [place] Follow Up/Cough Infectious Waste Technician Required: No Netbackup Administrator: Netbackup Administrator offered & declined Accompanied by: Self / Same As Patient Allergies Penicillins [PENICILLINS] Allergy (Intermediate, Verified 12/09/23 09:17) HIVES Medication List - Last Reconciled 12/09/23 by Angelina Noriega LPN benzonatate 100 mg PO TID buspirone 5 mg PO TID cefuroxime axetil 500 mg PO BID cholecalciferol (vitamin D3) (Vitamin D3) 25 mcg PO DAILY citalopram 20 mg PO QPM citalopram 10 mg PO QAM dicyclomine 10 mg PO Q8H PRN fluticasone furoate-vilanterol 200-25 mcg/dose (Breo Ellipta) 1 inh inhalation RDAILY ibuprofen 600 - 800 mg PO Q8H PRN levothyroxine 150 mcg PO DAILY metoprolol succinate ER 50 mg PO QAM prednisone See Taper mg PO DAILY vitamin B complex 1 tab PO DAILY HPI [place] [facility] [place] Follow Up/Cough HPI Details Torie is a pleasant 43 year old female, former smoker with 10 pack year history quit 6 years ago, with underlying asthma, HTN. seasonal allergies, GERD and Graves's disease. She was referred by ED for pulmonary evaluation. She was evaluated on the friday before easter started with a dry cough, moderate wheezing, dyspnea, also reported fevers ultimately diagnosed with UTI. Discharged with antibiotics and prednisone. She notes poor control of asthma with season changes, otherwise has been controlled. Today she reports intermittent wheezing, dry cough and dyspnea. She reports exacerbations more frequently since having COVID in 2019. Denies any pertinent family history. Denies any occupational exposure. She reports multiple seasonal allergies, no recent allergy tests. 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 Reactive airway disease Chronic cough Liver fibrosis Graves' disease GERD (gastroesophageal reflux disease) Fibromyalgia Fatty liver Hx of headache Seasonal allergies Environmental allergies Depression History of lumbar puncture Pseudotumor cerebri Asthma Anxiety Neck pain Back pain Hypothyroidism IBS (irritable bowel syndrome) Hypertension Morbid obesity Surgical History History of sleeve gastrectomy History of hysteroscopy Hx of tubal ligation Hx of section Family History Mother Hypertension Heart problem Father Diabetes Heart problem High cholesterol Brother Hypertension Sister Hypertension Sister Hypertension Sister Hypertension Brother Heart problem Hypertension Son No problems noted. Daughter No problems noted. Social History (Updated 12/09/23 @ 09:18 by Angelina Noriega LPN) Household Members: Family Household Members Other:: son 19 yrs, daughter 18 yrs Housing: House Are you a primary career development coordinator to a significant other at home: No Do you presently have visiting nurse or other home services: No Alcohol intake: never Patient Tobacco Use Status: Former Tobacco user Quit Date: 2016 Tobacco use type: Cigarette service: No Current occupational status: disabled Review of Systems Const Denies chills, Denies excessive sweating, Denies fever(s), Denies headache(s) and Denies night sweats Eyes Denies dry eyes, Denies irritation and Denies itchy eyes ENT Reports Normal hearing present, Denies headache(s), Denies nasal congestion, Denies nasal discharge, Denies post nasal drip and Denies sore throat Card Denies chest pain, Denies chest pain at rest, Denies chest pain with activity, Denies claudication, Denies leg edema, Denies orthopnea and Denies paroxysmal nocturnal dyspnea Resp Denies chest congestion, Denies excessive phlegm production, Denies pain on inspiration, Denies pain with cough and Denies stridor Musc Denies myalgias Neuro Reports Normal hearing present and Denies headache(s) Endo Denies excessive sweating Medhat/Lymph Denies lymphadenopathy Aller/Immun Denies itchy eyes and Denies seasonal rhinorrhea Physical Exam Vital Signs: Last Vital Signs Pulse 84 12/09/23 09:14 BP 142/64 H 12/09/23 09:14 Pulse Ox 98 12/09/23 09:14 Oxygen Delivery Method Room Air 12/09/23 09:14 BMI result Body Mass Index 42.7 Const General: cooperative, healthy appearing, comfortable, no acute distress, well developed and alert Nutritional Appearance: obese Orientation/consciousness: patient oriented x3 Limitations: no limitations HEENT Head: Yes normal to inspection, Yes normocephalic and Yes atraumatic Ears: hearing grossly normal bilaterally and external ears normal Eyes General: appearance normal, both eyes and all related structures Eyelids: Yes eyelids normal Sclerae: sclerae normal EOM: EOMs intact bilaterally Neck Neck: Yes normal visual inspection and Yes no lymphadenopathy Lymphatic: no lymphadenopathy noted Chest Chest palpation & inspection: normal inspection of the chest Resp Effort & Inspection: normal respiratory effort, able to speak in complete sentences, no audible wheezes, no cough, no stridor, not tachypneic, no tripod positioning and no use of accessory muscles Auscultation: clear to auscultation bilaterally Cardio Jugular venous distension: no JVD Rate: regular rate Rhythm: regular rhythm Skin Other: warm, dry General skin exam: no rashes or lesions noted Neuro General: patient oriented x3 Cranial nerves: Yes Normal hearing present Cognition (Neuro): normal cognition Gait exam (Neuro): Normal gait present Extrem General: Yes normal to inspection, Yes capillary refill normal, Yes no clubbing, cyanosis or edema and Yes no pedal edema Psych Appearance: grossly normal and well kempt Speech and movement: Normal speech and movement present and Clear speech present Affect: normal affect Attitude: cooperative Thought process: Normal thought process present Thought content: Normal thought content present Insight: Good insight present (Psych) Judgement: Good judgement present (Psych) Assessment & Plan Assessment & Plan (1) Asthma: Code(s): J45.909 - Unspecified asthma, uncomplicated (2) Environmental and seasonal allergies: Code(s): J30.89 - Other allergic rhinitis Plan Torie's symptoms are likely related to underlying asthma with an allergic component. Will send for PFT and RAST to evaluate. Encouraged to continue to use Breo, will send refills. Inhaler technique reviewed and importance of good oral hygiene. Unremarkable respiratory exam, finishing antibiotics and prednisone in the next few days. Advised to call if symptoms begin to worsen after completing course. All questions were answered and patient is in agreement of plan. Will follow up to review results or sooner if needed. Orders: Orders PFT pulmonary function test Today J45.909 - Unspecified asthma, uncomplicated Immunoglobulin E Today J30.89 - Other allergic rhinitis Resp Allergy Profile Region I Today J30.89 - Other allergic rhinitis Complete Blood Count Auto Diff Today J45.909 - Unspecified asthma, uncomplicated Medications: Changed From fluticasone furoate-vilanterol 200-25 mcg/dose (Breo Ellipta) 1 inh inhalation RDAILY 60 ea 0RF To fluticasone furoate-vilanterol 200-25 mcg/dose (Breo Ellipta) 1 inh inhalation DAILY 60 ea 6RF Coding Level of Care Code New Pt Level 4 (49222) Diagnoses Asthma J45.909 Environmental and seasonal allergies J30.89
[2023-12-09 09:14] VITALS: BP 142/64; PULSE 84; O2SAT 98; BMI 42.7
== END 2023-12-09 09:43 | disposition home or self-care (01) ==
PROVIDERS: PCP Family Medicine; Referring Provider Family Medicine; Visit Provider Nurse Practitioner Family
DX: J45.909 Unspecified asthma, uncomplicated (principal); J30.89 Other allergic rhinitis
CPT/HCPCS: 99204

== ENCOUNTER 2023-12-09 09:43 | Outpatient (REF) | payer OTHER, SELFPAY ==
[2023-12-09 11:39] LABS: MANUAL DIFF FLAG NO
[2023-12-09 11:41] LABS: Basophils Percent Auto 0.3 % (0-2); Eosinophils Absolute Auto 0.1 X10*3/uL (0.0-0.4); Eosinophils Percent Auto 0.8 % (0-4); Hematocrit 38.2 % (37.0-47.0); Hemoglobin 12.5 g/dl (12.0-16.0); Imm Gran Abs Auto 0.45 X10*3/uL (0.00-0.03); Imm Gran Pct Auto 3.2 % (0.0-0.4); Lymphocytes Absolute Auto 2.9 X10*3/uL (1.2-4.9); Lymphocytes Percent Auto 20.3 % (20-40); Mean Corpuscular HGB Conc 32.7 g/dl (31.0-35.0); Mean Corpuscular Hemoglobin 29.3 pg (27.0-33.0); Mean Corpuscular Volume 89.7 fL (80.0-98.0); Mean Platelet Volume 10.1 fL (9.4-12.3); Monocytes Absolute Auto 0.8 X10*3/uL (0.1-1.2); Monocytes Percent Auto 5.7 % (2-11); Neutrophils Absolute Auto 9.9 x10*3/uL (2.0-8.3); Neutrophils Percent Auto 69.7 % (45-73); Platelet Count 426 X10*3/uL (160-400); Red Blood Count 4.26 X10*6/uL (4.20-5.50); Red Cell Distribution Width 13.3 % (11.0-16.0); White Blood Count 14.2 X10*3/uL (4.8-10.8)
[2023-12-10 23:33] LABS: Class Alternaria alternata 0; Class Aspergillus fumigatus 0; Class Bermuda Grass 0; Class Birch 0; Class Cat Dander 2; Class Cladosporium herbarum 0; Class Cockroach 0/1; Class Common Ragweed 0; Class Cottonwood 0/1; Class Derm. pterony 3; Class Dermatophagoides farinae 3; Class Dog Dander 4; Class Elm 0; Class Maple Box Elder 0; Class Mountain Cedar 0/1; Class Mouse Urine Protein 0/1; Class Mugwort 0; Class Oak 0; Class Penicillium crysogenum 0; Class Rough Pigweed 0; Class Sheep Sorrel 0; Class Sycamore 0; Class Timothy Grass 0; Class Walnut Tree 0/1; Class White Ash 0; Class White Mulberry 0; D001 IgE D pteronyssinus 5.32 kU/L; D002 - IgE D farinae 4.24 kU/L; E001 - IgE Cat Dander 2.74 kU/L; E072-IgE Mouse Urine 0.34 kU/L; G002 IgE Bermuda Grass <0.10 kU/L; G006 - IgE Timothy Grass <0.10 kU/L; I006-IgE Cockroach, German 0.12 kU/L; Immunoglobulin E 186 kU/L (<OR=114); M001 IgE Penicillium chrysogen <0.10 kU/L; M002 - IgE Cladosporium herbar <0.10 kU/L; M003 - IgE Aspergillus fumigat <0.10 kU/L; M006 - IgE Alternaria alternat <0.10 kU/L; T001 IgE Maple/Box Elder <0.10 kU/L; T003 IgE Common Silver Birch <0.10 kU/L; T007 - IgE Oak, White <0.10 kU/L; T008 IgE Elm, American <0.10 kU/L; T011 - IgE Maple Leaf Sycamore <0.10 kU/L; T014 - IgE Cottonwood 0.12 kU/L; T015 - IgE Ash, White <0.10 kU/L; T070 - IgE White Mulberry <0.10 kU/L; W001 - IgE Ragweed, Short <0.10 kU/L; W006 - IgE Mugwort <0.10 kU/L; W014 IgE Pigweed, Common <0.10 kU/L; W018 IgE Sheep Sorrel <0.10 kU/L
== END 2023-12-09 09:44 | disposition home or self-care (01) ==
LOC: HO.WFDLDS 09:43
PROVIDERS: Visit Provider Nurse Practitioner Family
DX: J45.909 Unspecified asthma, uncomplicated (principal); Z91.09 Other allergy status, other than to drugs and biological substances
CPT/HCPCS: 36415; 82785; 85025; 86003; 99202

== ENCOUNTER 2024-01-05 15:08 | Outpatient (REF) | payer OTHER, SELFPAY ==
[2024-01-05 15:21] LABS: MANUAL DIFF FLAG NO
[2024-01-05 16:12] LABS: Basophils Percent Auto 0.5 % (0-2); Eosinophils Absolute Auto 0.2 X10*3/uL (0.0-0.4); Eosinophils Percent Auto 2.7 % (0-4); Hematocrit 40.1 % (37.0-47.0); Hemoglobin 13.5 g/dl (12.0-16.0); Imm Gran Abs Auto 0.03 X10*3/uL (0.00-0.03); Imm Gran Pct Auto 0.5 % (0.0-0.4); Lymphocytes Percent Auto 33.5 % (20-40); Mean Corpuscular HGB Conc 33.7 g/dl (31.0-35.0); Mean Corpuscular Hemoglobin 30.2 pg (27.0-33.0); Mean Corpuscular Volume 89.7 fL (80.0-98.0); Mean Platelet Volume 10.2 fL (9.4-12.3); Monocytes Absolute Auto 0.6 X10*3/uL (0.1-1.2); Monocytes Percent Auto 9.4 % (2-11); Neutrophils Absolute Auto 3.2 x10*3/uL (2.0-8.3); Neutrophils Percent Auto 53.4 % (45-73); Platelet Count 359 X10*3/uL (160-400); Red Blood Count 4.47 X10*6/uL (4.20-5.50); Red Cell Distribution Width 13.2 % (11.0-16.0)
[2024-01-05 16:49] LABS: Erythrocyte Sedimentation Rate 21 MM/HR (0-20)
[2024-01-05 17:01] LABS: Alanine Aminotransferase 19 U/L (0-31); Albumin Level 3.9 g/dL (3.5-5.0); Alkaline Phosphatase 84 U/L (39-117); Anion Gap 14 (12-20); Aspartate Amino Transferase 16 U/L (5-31); Bilirubin Total 0.4 mg/dL (0.0-1.0); Blood Urea Nitrogen 13 mg/dL (9-16); Calcium 9.2 mg/dL (8.4-10.2); Carbon Dioxide 24 mmol/L (22-29); Chloride 107 mmol/L (96-108); Estimated Glomerular Filt Rate > 60; Glucose Random 89 mg/dL (60-115); Potassium 3.8 mmol/L (3.3-5.1); Sodium 141 mmol/L (135-145); Total Protein 7.5 g/dL (6.5-8.0)
[2024-01-05 17:23] LABS: Thyroid Stimulating Hormone 4.78 uIU/mL (0.32-4.0)
== END 2024-01-05 15:09 | disposition home or self-care (01) ==
LOC: HO.LAB 15:08
PROVIDERS: PCP Family Medicine; Visit Provider Family Medicine
DX: I10 Essential (primary) hypertension (principal); D64.9 Anemia, unspecified; R53.83 Other fatigue; R53.81 Other malaise
CPT/HCPCS: 36415; 80053; 84443; 85025; 85652

== ENCOUNTER 2024-01-09 09:01 | Outpatient (REF) | payer OTHER, SELFPAY ==
[2024-01-09 16:24] LABS: Urine Cytology See Pathology rpt
== END 2024-01-09 09:02 | disposition home or self-care (01) ==
LOC: HO.LAB 09:01
PROVIDERS: PCP Family Medicine; Visit Provider Urology
DX: R31.9 Hematuria, unspecified (principal)
CPT/HCPCS: 81003; 88112; 99212

== ENCOUNTER 2024-01-09 09:01 | Outpatient (AMB) | payer OTHER, SELFPAY ==
--- NOTE | 2024-01-09 09:06 | MHC.OFFVIS ---
Intake Visit Reasons: Pyelonephritis, hydronephrosis, bilateral nephroli Intake Note: NEW Patient presents today to established treatment for Pyelonephritis: Meds- None Allergies to Antibiotic- Penicillin Blood Thinner- None Refrigeration Plant Cork Insulator Required: No Accompanied by: Self / Same As Patient Allergies Penicillins [PENICILLINS] Allergy (Intermediate, Verified 01/09/24 09:07) HIVES Medication List - Last Reconciled 01/10/24 by Kyung Sofia MD buspirone 5 mg PO TID cholecalciferol (vitamin D3) (Vitamin D3) 25 mcg PO DAILY citalopram 20 mg PO QPM citalopram 10 mg PO QAM dicyclomine 10 mg PO Q8H PRN levothyroxine 150 mcg PO DAILY metoprolol succinate ER 50 mg PO QAM vitamin B complex 1 tab PO DAILY HPI Comments Details: 01/09/2024--Torie is here for follow-up after inpatient at [facility] [place] treated for pyelonephritis. She was seen in consultation on 12/02/2023. She states that she completed the antibiotics that she was sent home with Ceftin 500 mg. She denies history of kidney stones in the past. She denies problems with the occurring UTIs. I have discussed that not drinking enough fluids is 1 of the leading causes of kidney stone formation. The patient states that since her gastric sleeve procedure she is limited on how much fluid she can consume. I have discussed plan for 24 hour urine and renal ultrasound to re-evaluate and confirm resolution of hydronephrosis. Review of chart: 12/02/23--[facility] [place]-consult HPI-- 43 year old female with history of hypothyroidism, h/o gastric sleevectomy, vitamin d/b1/b12 deficiency, htn, ICH, gerd, fibromyalgia, and IBS presented to the ED for evaluation of fevers and abdominal pain. She states she began experiencing right sided abdominal pain and flank pain about 1 week ago and thought this was due to flare in IBS. In the last few days has developed shaking chills, sweats, fevers with increased urinary frequency, and urgency, denies dysuria. Denies prior h/o kidney stones. I reviewed CT imaging, findings c/w recently passed stone. Blood and urine c/s GNR. ID has also been consulted. Clinically improving on IV abx, denies flank pain. CTAP w/IV contrast: There is mild left renal hydronephrosis and hydroureter, there is however no calcified visible stone along the course of the left ureter, this could be due to recently passed stone, reflux, versus soft tissue obstruction of the distal ureter at the UVJ. There are small nonobstructing stones in the left kidney and single tiny stone in the right kidney. 01/09/24--plan for 24 hour urine and renal ultrasound to re-evaluate and confirm resolution of hydronephrosis. FOR[facility] Medical History [id number] syndrome Reactive airway disease Chronic cough Liver fibrosis Graves' disease GERD (gastroesophageal reflux disease) Fibromyalgia Fatty liver Hx of headache Seasonal allergies Environmental allergies Depression History of lumbar puncture Pseudotumor cerebri Asthma Anxiety Neck pain Back pain Hypothyroidism IBS (irritable bowel syndrome) Hypertension Morbid obesity Surgical History History of sleeve gastrectomy History of hysteroscopy Hx of tubal ligation Hx of section Family History Mother Hypertension Heart problem Father Diabetes Heart problem High cholesterol Brother Hypertension Sister Hypertension Sister Hypertension Sister Hypertension Brother Heart problem Hypertension Son No problems noted. Daughter No problems noted. Social History Household Members: Family Household Members Other:: son 19 yrs, daughter 18 yrs Housing: House Are you a primary neonatal intensive care nurse to a significant other at home: No Do you presently have visiting nurse or other home services: No Alcohol intake: never Patient Tobacco Use Status: Former Tobacco user Quit Date: 2016 Tobacco use type: Cigarette service: No Current occupational status: disabled Review of Systems Const All systems reviewed & are unremarkable except as noted in HPI and below Reports no additional complaints Eyes Reports no additional complaints ENT Reports no additional complaints Card Reports no additional complaints Resp Reports no additional complaints GI Reports no additional complaints Reports as per HPI Musc Reports no additional complaints Skin/Breast Reports system reviewed and no additional complaints, except as documented Neuro Reports no additional complaints Psych Reports no additional complaints Endo Reports no additional complaints Medhat/Lymph Reports no additional complaints Aller/Immun Reports no additional complaints Results AMB Urinalysis, Automated UA Leukoctes 0 Michael/uL Last Edit by SRI Carbajal on 01/09/24 09:14 UA Nitrite Negative Last Edit by Myranda Dodson Ayaan on 01/09/24 09:14 UA Urobilinogen 0.2 mg/dL Last Edit by Myranda Dodson Ayaan on 01/09/24 09:14 UA Protein 15 mg/dL Last Edit by Myranda Dodson Ayaan on 01/09/24 09:14 UA pH 6.0 Last Edit by Myranda Dodson Ayaan on 01/09/24 09:14 UA Blood 200 Hair/uL Last Edit by Myranda Dodson Ayaan on 01/09/24 09:14 3+ Myranda Dodson 01/09/24 09:14 UA Specific [place] 1.020 Last Edit by Myranda Dodson Ayaan on 01/09/24 09:14 UA Ketone Negative Last Edit by Myranda Dodson Ayaan on 01/09/24 09:14 UA Bilirubin 0 mg/dL Last Edit by Myranda Dodson [facility] on 01/09/24 09:14 UA Glucose 0 mg/dL Last Edit by Myranda Dodson Ayaan on 01/09/24 09:14 Results Reviewed Results Reviewed: Laboratory Last Values Urine pH (Auto) 6.0 01/09/24 09:11 Specific [place] (Auto) 1.020 01/09/24 09:11 Urine Protein (Auto) 15 mg/dL 01/09/24 09:11 Glucose (UA)(Auto) 0 mg/dL 01/09/24 09:11 Urine Ketones (Auto) Negative 01/09/24 09:11 Urine Blood (Auto) 200 Hair/uL 01/09/24 09:11 Urine Nitrite (Auto) Negative 01/09/24 09:11 Urine Bilirubin (Auto) 0 mg/dL 01/09/24 09:11 Urine Urobilinogen (Auto) 0.2 mg/dL 01/09/24 09:11 Leukocyte Esterase (Auto) 0 Michael/uL 01/09/24 09:11 Collected: 11/30/23 Status: COMP Req#: [id number] Received: 11/30/23 Source: [facility] Sp Desc: Urine graf Subm Dr: Lori Sheppard RESISTOR WINDER Ordered: Urine Culture Procedure Result Verified Urine Culture Final 12/02/23 Organism 1 Escherichia coli Quant > 100,000 cfu/mL E coli M.I.C. RX --------- --- Ampicillin 8 S Ceftriaxone <=0.25 S Gentamicin <=1 S Levofloxacin <=0.12 S Nitrofurantoin <=16 S Trimethoprim/Sulfamethoxazole <=20 S Date of Service: 11/30/23 CLINICAL INFORMATION: Reason for Exam Right lower quadrant pain COMPARISON: No prior CT available for comparison. TECHNIQUE: Multidetector volumetric imaging was performed from the superior aspect of the liver through the pubic symphysis 85 mL Omnipaque 350 injected Sagittal and coronal reformatted images were obtained on the technologist's workstation. This CT examination was performed using dose optimization techniques as appropriate, variously including the following: *Automated exposure control *Adjustment of mA and/or kV according to patient size (this includes techniques or standardized protocols for targeted exams where dose is matched to indication/reason for exam; i.e. extremities or head) *Use of iterative reconstruction technique DLP: 872 mGy-cm FINDINGS: LOWER THORAX: Included lung bases are clear. HEPATOBILIARY: No focal hepatic lesions. No biliary ductal dilatation. GALLBLADDER: Gallbladder unremarkable. SPLEEN: Spleen is normal in size. PANCREAS: No focal mass or ductal dilatation. STOMACH AND GASTROINTESTINAL TRACT: Postsurgical changes prior partial gastrectomy, no CT evidence of dehiscence or leak. There is no bowel distention or thickening. No CT evidence of appendicitis. ADRENALS: No adrenal nodules. KIDNEYS/URETERS: There is mild left renal hydronephrosis and hydroureter there is however no calcified visible stone along the course of the ureter, this could be due to recently passed stone, reflux, versus soft tissue obstruction of the distal ureter at the UVJ. No mass found. There are small nonobstructing stones in the left kidney measuring 2 and 3 mm, 3 of which found. Single tiny 1 mm stone right kidney. No hydronephrosis on the right side. URINARY BLADDER: Partially decompressed. PELVIC VISCERA: Unremarkable PERITONEUM: No free air or fluid. LYMPH NODES: No lymphadenopathy. VASCULAR:Abdominal aorta normal in size, no aneurysm found. BONES, ABDOMINAL WALL AND SOFT TISSUES: Age-appropriate changes of the spine and skeletal system, no destructive osteolytic or osteosclerotic bone lesion found IMPRESSION: 1. There is mild left renal hydronephrosis and hydroureter, there is however no calcified visible stone along the course of the left ureter, this could be due to recently passed stone, reflux, versus soft tissue obstruction of the distal ureter at the UVJ. 2. There are small nonobstructing stones in the left kidney and single tiny stone in the right kidney. 3. Postsurgical changes prior partial gastrectomy, no CT evidence of dehiscence or leak. 4. 4. No CT evidence of appendicitis, no explanation for patient's right lower quadrant pain. Assessment & Plan Assessment & Plan (1) Pyelonephritis: Code(s): N12 - Tubulo-interstitial nephritis, not specified as acute or chronic Category: Medical (2) Hydronephrosis: Code(s): N13.30 - Unspecified hydronephrosis Category: Medical (3) Bilateral kidney stones: Code(s): N20.0 - Calculus of kidney Category: Medical (4) Complicated UTI (urinary tract infection): Code(s): N39.0 - Urinary tract infection, site not specified Category: Medical (5) Hydronephrosis, left: Code(s): N13.30 - Unspecified hydronephrosis Category: Medical Plan 24 hour urine and renal ultrasound to re-evaluate and confirm resolution of hydronephrosis. Orders: Orders AMB Urinalysis Automated 01/09/24 Z13.9 - Encounter for screening, unspecified Urine Cytology 01/09/24 R31.9 - Hematuria, unspecified US retroperitoneal comp 01/09/24 N13.30 - Unspecified hydronephrosis, N39.0 - Urinary tract infection, site not specified Patient Instructions: The patient had an opportunity to ask questions regarding treatment plan. The patient expressed understanding and agreement with the above treatment plan. The patient is aware they should contact our office by phone for worsening of their current condition or the appearance of new symptoms. Compliance is encouraged with any medications and followup testing that is ordered. It is a privilege to be allowed the opportunity to participate in the urologic care of your patient. If you have any questions or concerns regarding treatment for the above conditions please do not hesitate to contact me. The office telephone contact is [phone]. This note is constructed in part using voice recognition software. While every effort has been made to ensure accuracy dinkey engine firer errors may have been included. Yours sincerely, Kyung Sofia MD Coding Level of Care Code Est Pt Level 4 (92238) Complex EM visit Add On G2211 Diagnoses Pyelonephritis N12 Hydronephrosis N13.30 Bilateral kidney stones N20.0 Complicated UTI (urinary tract infection) N39.0 Hydronephrosis, left N13.30
== END 2024-01-09 09:40 | disposition home or self-care (01) ==
PROVIDERS: PCP Family Medicine; Visit Provider Urology
DX: N12 Tubulo-interstitial nephritis, not specified as acute or chronic (principal); N13.30 Unspecified hydronephrosis; N20.0 Calculus of kidney; N39.0 Urinary tract infection, site not specified
CPT/HCPCS: 99214; G2211

== ENCOUNTER 2024-01-23 09:05 | Outpatient (REF) | payer OTHER, SELFPAY ==
[2024-01-23 11:09] VITALS: PULSE 92; RESP 16; O2SAT 100
--- NOTE | 2024-01-23 14:57 | PFT_ITS ---
Flows: FEV1: 95 % of predicted at 2.48 L FVC: 91 % of predicted at 2.92 L FEV1/FVC: 85 % Bronchodilator response: Absent Volumes: Total lung capacity: 85 % of predicted at 4.01 L Residual volume: 90 % of predicted at 1.12 L Slow vital capacity: 83 % of predicted at 2.90 L Expiratory reserve volume: 44 % of predicted at 0.44 L Diffusion capacity: Normal Impression: No obstructive or restrictive ventilatory defect. No bronchodilator response. Decreased expiratory reserve volume suggests extrathoracic restriction likely secondary to abdominal obesity. MTDD
== END 2024-01-23 09:06 | disposition home or self-care (01) ==
LOC: HO.RESP 09:05
PROVIDERS: PCP Family Medicine; Visit Provider Nurse Practitioner Family
DX: J45.909 Unspecified asthma, uncomplicated (principal)
CPT/HCPCS: 94010; 94727; 94729

== ENCOUNTER → 2024-01-23 14:57 | Outpatient (BNV) | payer OTHER, SELFPAY | PROVIDERS: PCP Family Medicine; Visit Provider Internal Medicine Pulmonary Disease | DX: J45.909 Unspecified asthma, uncomplicated (principal) | CPT/HCPCS: 94060; 94727; 94729 ==

== ENCOUNTER 2024-02-03 08:58 | Outpatient (AMB) | payer OTHER, SELFPAY ==
--- NOTE | 2024-02-03 09:01 | MHC.OFFVIS ---
Vital Signs 02/03/24 09:02 Height 5 ft 1.5 in Weight 238 lb 8 oz BMI 44.3 BP 136/80 Blood Pressure Location Lt brachial Position Sitting Pulse 72 Pulse Source Pulse Oximeter Pulse Oximetry (%) 98 Oxygen Delivery Method Room Air Intake Visit Reasons: Cough Allergies Penicillins [PENICILLINS] Allergy (Intermediate, Verified 02/03/24 09:05) HIVES HPI HPI Cough: Details: Torie is a pleasant 43 year old female, former smoker with 10 pack year history quit 6 years ago, with underlying asthma, HTN. seasonal allergies, GERD and Graves's disease. She continues to report dry cough and hoarseness. Denies dyspnea, wheezing or chest tightness. She recently was evaluated by ENT for persistent hoarseness and advised against any inhalers at this time. Today she presents to review PFT and RAST. 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 Reactive airway disease Chronic cough Liver fibrosis Graves' disease GERD (gastroesophageal reflux disease) Fibromyalgia Fatty liver Hx of headache Seasonal allergies Environmental allergies Depression History of lumbar puncture Pseudotumor cerebri Asthma Anxiety Neck pain Back pain Hypothyroidism IBS (irritable bowel syndrome) Hypertension Morbid obesity Surgical History History of sleeve gastrectomy History of hysteroscopy Hx of tubal ligation Hx of section Family History Mother Hypertension Heart problem Father Diabetes Heart problem High cholesterol Brother Hypertension Sister Hypertension Sister Hypertension Sister Hypertension Brother Heart problem Hypertension Son No problems noted. Daughter No problems noted. Social History Household Members: Family Household Members Other:: son 19 yrs, daughter 18 yrs Housing: House Are you a primary patient care associate to a significant other at home: No Do you presently have visiting nurse or other home services: No Alcohol intake: never Patient Tobacco Use Status: Former Tobacco user Tobacco use type: Cigarette service: No Current occupational status: disabled Review of Systems Const Denies chills, Denies excessive sweating, Denies fever(s), Denies headache(s) and Denies night sweats Eyes Denies dry eyes, Denies irritation and Denies itchy eyes ENT Reports Normal hearing present, Denies headache(s), Denies nasal congestion, Denies nasal discharge and Denies post nasal drip Card Denies chest pain, Denies chest pain at rest, Denies chest pain with activity, Denies claudication, Denies leg edema, Denies dyspnea, Denies dyspnea on exertion, Denies orthopnea and Denies paroxysmal nocturnal dyspnea Resp Denies chest congestion, Denies excessive phlegm production, Denies pain on inspiration, Denies pain with cough, Denies dyspnea, Denies dyspnea on exertion, Denies stridor and Denies wheezing Musc Denies myalgias Neuro Reports Normal hearing present and Denies headache(s) Endo Denies excessive sweating Medhat/Lymph Denies lymphadenopathy Aller/Immun Denies itchy eyes, Denies seasonal rhinorrhea and Denies wheezing Physical Exam Vital Signs: Last Vital Signs Pulse 72 02/03/24 09:02 BP 136/80 02/03/24 09:02 Pulse Ox 98 02/03/24 09:02 Oxygen Delivery Method Room Air 02/03/24 09:02 BMI result Body Mass Index 44.3 Const General: cooperative, healthy appearing, comfortable, no acute distress, well developed and alert Nutritional Appearance: obese Orientation/consciousness: patient oriented x3 Limitations: no limitations HEENT Head: Yes normal to inspection, Yes normocephalic and Yes atraumatic Ears: hearing grossly normal bilaterally and external ears normal Eyes General: appearance normal, both eyes and all related structures Eyelids: Yes eyelids normal Sclerae: sclerae normal EOM: EOMs intact bilaterally Neck Neck: Yes normal visual inspection and Yes no lymphadenopathy Lymphatic: no lymphadenopathy noted Chest Chest palpation & inspection: normal inspection of the chest Resp Effort & Inspection: normal respiratory effort, able to speak in complete sentences, no audible wheezes, no cough, no stridor, not tachypneic, no tripod positioning and no use of accessory muscles Auscultation: clear to auscultation bilaterally Cardio Jugular venous distension: no JVD Rate: regular rate Rhythm: regular rhythm Skin Other: warm, dry General skin exam: no rashes or lesions noted Neuro General: patient oriented x3 Cranial nerves: Yes Normal hearing present Cognition (Neuro): normal cognition Gait exam (Neuro): Normal gait present Extrem General: Yes normal to inspection, Yes capillary refill normal, Yes no clubbing, cyanosis or edema and Yes no pedal edema Psych Appearance: grossly normal and well kempt Speech and movement: Normal speech and movement present and Clear speech present Affect: normal affect Attitude: cooperative Thought process: Normal thought process present Thought content: Normal thought content present Insight: Good insight present (Psych) Judgement: Good judgement present (Psych) Assessment & Plan Assessment & Plan (1) Asthma: Code(s): J45.909 - Unspecified asthma, uncomplicated Category: Medical (2) Environmental and seasonal allergies: Code(s): J30.89 - Other allergic rhinitis Category: Medical Plan Reviewed PFT which did not reveal any obstructive or restrictive ventilatory defect. No bronchodilator response. Decreased expiratory reserve volume suggests extrathoracic restriction likely secondary to abdominal obesity. DLCO normal. RAST + tress, dust mites, cat, dog and cockroach. Patient does have a dog. Discussed ways to minimize allergen exposures.Also discussed importance of weight loss. Patient recently evaluated by ENT and has been instructed to stop Breo, as she had significant laryngitis and this may be a contributing factor. She has an upcoming more thorough evaluation with ENT for possible vocal cord dysfunction. At this time, will add singulair and instructed to use albuterol PRN. If respiratory symptoms worsen she will call office. All questions were answered and patient is in agreement of plan. Will follow up in three months to assess singulair and review ENT input. She is aware to call if she needs to be seen sooner. Medications: New montelukast (Singulair) 10 mg PO BEDTIME 30 tabs 6RF Coding Level of Care Code Est Pt Level 4 (72966) Diagnoses Asthma J45.909 Environmental and seasonal allergies J30.89
[2024-02-03 09:02] VITALS: BP 136/80; PULSE 72; O2SAT 98; BMI 44.3
== END 2024-02-03 09:36 | disposition home or self-care (01) ==
PROVIDERS: PCP Family Medicine; Visit Provider Nurse Practitioner Family
DX: J45.909 Unspecified asthma, uncomplicated (principal); J30.89 Other allergic rhinitis
CPT/HCPCS: 99214

== ENCOUNTER → 2024-02-03 08:58 | Outpatient (BNVA) | payer OTHER, SELFPAY | PROVIDERS: PCP Family Medicine; Visit Provider Nurse Practitioner Family | DX: J45.909 Unspecified asthma, uncomplicated (principal); J30.89 Other allergic rhinitis | CPT/HCPCS: 99212 ==

== ENCOUNTER 2024-03-30 10:15 | Outpatient (REF) | payer OTHER, SELFPAY ==
--- NOTE | ~2024-03-30 | US_ITS ---
EXAMINATION: US RETROPERITONEAL COMPLETE (RENAL) CLINICAL INFORMATION: Urinary tract infection, site not specified. COMPARISON: CT abdomen and pelvis 11/30/2023. Ultrasound abdomen 12/13/2021 and 02/23/2020. TECHNIQUE: Real-time imaging of the kidneys and bladder. Limited visualization due to bowel gas. FINDINGS: RIGHT KIDNEY: 11.5 x 4.2 x 5.4 cm (SAG x AP x TRV). No hydronephrosis. No renal calculi. Renal cortical thickness is normal. Limited visualization. LEFT KIDNEY: 10.7 x 4.1 x 4.4 cm (SAG x AP x TRV). 0.2 cm left midpole calculus. No hydronephrosis. Renal cortical thickness is normal. Limited visualization. BLADDER: Moderately distended. Bilateral ureteral jets are demonstrated. Prevoid bladder volume is 159 mL. Postvoid bladder volume is 2.3 mL. US/US retroperitoneal comp IMPRESSION: 0.2 cm left midpole calculus. No hydronephrosis.
== END 2024-03-30 10:16 | disposition home or self-care (01) ==
LOC: HO.HMGCX 10:15
PROVIDERS: PCP Family Medicine; Visit Provider Urology
DX: N39.0 Urinary tract infection, site not specified (principal); N13.30 Unspecified hydronephrosis
CPT/HCPCS: 76770

== ENCOUNTER 2024-04-08 08:06 | Outpatient (AMB) | payer OTHER, SELFPAY ==
--- NOTE | 2024-04-08 08:09 | MHC.OFFVIS ---
Intake Visit Reasons: 3m/US/[facility](US 03/30) Intake Note: Patient is Present for 3 month follow up Kidney stones Urology Med:None Antibiotic Allergy: Penicillins Blood Thinners:None CC: Patient states that she has been having discomfort only on her left side. Stated it started around the time she had her ultrasound. She also states that she has been experiencing frequency of urination and feels like she does not fully empty her bladder because she will only urinate a little bit. Denies any burning or pain during urination. PVR Today:0ml's Software Test Analyst Required: No Accompanied by: Self / Same As Patient Allergies Penicillins [PENICILLINS] Allergy (Intermediate, Verified 04/08/24 08:11) PILO HPI Comments Details: 04/08/2024--Torie is here for follow-up. She was evaluated due to pyelonephritis and left hydronephrosis secondary to obstructive ureteral stone. She is here in follow-up post renal ultrasound which was performed on 03/30/2024 left hydronephrosis is resolved small nonobstructing left renal stone remains. Right kidney within normal limits. I have discussed the importance of hydrating up to 2-2.5 L, increasing citrate in the diet by adding lemon to water, drinking lemonade, the patient states she completed the 24 hour urine I have not received the results as yet. We will call the [facility] lab. Will continue to monitor kidneys. Follow-up in 1 year Review of chart: 01/09/2024--Torie is here for follow-up after inpatient at [facility] treated for pyelonephritis. She was seen in consultation on 12/02/2023. She states that she completed the antibiotics that she was sent home with Ceftin 500 mg. She denies history of kidney stones in the past. She denies problems with the occurring UTIs. I have discussed that not drinking enough fluids is 1 of the leading causes of kidney stone formation. The patient states that since her gastric sleeve procedure she is limited on how much fluid she can consume. I have discussed plan for 24 hour urine and renal ultrasound to re-evaluate and confirm resolution of hydronephrosis. 12/02/23--[facility]-consult HPI-- 43 year old female with history of hypothyroidism, h/o gastric sleevectomy, vitamin d/b1/b12 deficiency, htn, ICH, gerd, fibromyalgia, and IBS presented to the ED for evaluation of fevers and abdominal pain. She states she began experiencing right sided abdominal pain and flank pain about 1 week ago and thought this was due to flare in IBS. In the last few days has developed shaking chills, sweats, fevers with increased urinary frequency, and urgency, denies dysuria. Denies prior h/o kidney stones. I reviewed CT imaging, findings c/w recently passed stone. Blood and urine c/s GNR. ID has also been consulted. Clinically improving on IV abx, denies flank pain. CTAP w/IV contrast: There is mild left renal hydronephrosis and hydroureter, there is however no calcified visible stone along the course of the left ureter, this could be due to recently passed stone, reflux, versus soft tissue obstruction of the distal ureter at the UVJ. There are small nonobstructing stones in the left kidney and single tiny stone in the right kidney. [facility] Medical History [id number] syndrome Reactive airway disease Chronic cough Liver fibrosis Graves' disease GERD (gastroesophageal reflux disease) Fibromyalgia Fatty liver Hx of headache Seasonal allergies Environmental allergies Depression History of lumbar puncture Pseudotumor cerebri Asthma Anxiety Neck pain Back pain Hypothyroidism IBS (irritable bowel syndrome) Hypertension Morbid obesity Surgical History History of sleeve gastrectomy History of hysteroscopy Hx of tubal ligation Hx of section Family History Mother Hypertension Heart problem Father Diabetes Heart problem High cholesterol Brother Hypertension Sister Hypertension Sister Hypertension Sister Hypertension Brother Heart problem Hypertension Son No problems noted. Daughter No problems noted. Social History Household Members: Family Household Members Other:: son 19 yrs, daughter 18 yrs Housing: House Are you a primary child care center administrator to a significant other at home: No Do you presently have visiting nurse or other home services: No Alcohol intake: never Patient Tobacco Use Status: Former Tobacco user Tobacco use type: Cigarette service: No Current occupational status: disabled Review of Systems Const All systems reviewed & are unremarkable except as noted in HPI and below Reports no additional complaints Eyes Reports no additional complaints ENT Reports no additional complaints Card Reports no additional complaints Resp Reports no additional complaints GI Reports no additional complaints Reports as per HPI Musc Reports no additional complaints Skin/Breast Reports system reviewed and no additional complaints, except as documented Neuro Reports no additional complaints Psych Reports no additional complaints Endo Reports no additional complaints Medhat/Lymph Reports no additional complaints Aller/Immun Reports no additional complaints Office Procedures Post Void Residual Post Residual Void Post Void Residual (PVR): 0 [id number] Void Residual by ultrasound Results AMB Urinalysis, Automated UA Leukoctes 0 Michael/uL Last Edit by Ellie Olvera [facility] on 04/08/24 08:27 UA Nitrite Negative Last Edit by Ellie Olvera [facility] on 04/08/24 08:27 UA Urobilinogen 0.2 mg/dL Last Edit by Ellie Olvera A on 04/08/24 08:27 UA Protein 15 mg/dL Last Edit by Ellie Olvera A on 04/08/24 08:27 UA pH 6.0 Last Edit by Ellie Olvera A on 04/08/24 08:27 UA Blood 25 Hair/uL Last Edit by Ellie Olvera A on 04/08/24 08:27 UA Specific [place] 1.025 Last Edit by Ellie Olvera A on 04/08/24 08:27 UA Ketone Negative Last Edit by Ellie Olvera A on 04/08/24 08:27 UA Bilirubin 0 mg/dL Last Edit by Ellie Olvera A on 04/08/24 08:27 UA Glucose 0 mg/dL Last Edit by Ellie Olvera A on 04/08/24 08:27 Results Reviewed Results Reviewed: Laboratory Last Values Urine pH (Auto) 6.0 04/08/24 08:26 Specific [place] (Auto) 1.025 04/08/24 08:26 Urine Protein (Auto) 15 mg/dL 04/08/24 08:26 Glucose (UA)(Auto) 0 mg/dL 04/08/24 08:26 Urine Ketones (Auto) Negative 04/08/24 08:26 Urine Blood (Auto) 25 Hair/uL 04/08/24 08:26 Urine Nitrite (Auto) Negative 04/08/24 08:26 Urine Bilirubin (Auto) 0 mg/dL 04/08/24 08:26 Urine Urobilinogen (Auto) 0.2 mg/dL 04/08/24 08:26 Leukocyte Esterase (Auto) 0 Michael/uL 04/08/24 08:26 Reviewed renal ultrasound dated 03/30/2024--right kidney within normal limits left kidney hydronephrosis is resolved small left nonobstructing renal calculus. Collected: 11/30/23 Status: COMP Req#: [id number] Received: 11/30/23-1838 Source: [facility] Desc: Urine graf Subm Dr: Lori Sheppard [employer] Ordered: Urine Culture Procedure Result Verified Urine Culture Final 12/02/23 Organism 1 Escherichia coli Quant > 100,000 cfu/mL E coli M.I.C. RX --------- --- Ampicillin 8 S Ceftriaxone <=0.25 S Gentamicin <=1 S Levofloxacin <=0.12 S Nitrofurantoin <=16 S Trimethoprim/Sulfamethoxazole <=20 S Date of Service: 11/30/23 CT abdomen pelvis CLINICAL INFORMATION: Reason for Exam Right lower quadrant pain COMPARISON: No prior CT available for comparison. TECHNIQUE: Multidetector volumetric imaging was performed from the superior aspect of the liver through the pubic symphysis 85 mL Omnipaque 350 injected Sagittal and coronal reformatted images were obtained on the technologist's workstation. This CT examination was performed using dose optimization techniques as appropriate, variously including the following: *Automated exposure control *Adjustment of mA and/or kV according to patient size (this includes techniques or standardized protocols for targeted exams where dose is matched to indication/reason for exam; i.e. extremities or head) *Use of iterative reconstruction technique DLP: 872 mGy-cm FINDINGS: LOWER THORAX: Included lung bases are clear. HEPATOBILIARY: No focal hepatic lesions. No biliary ductal dilatation. GALLBLADDER: Gallbladder unremarkable. SPLEEN: Spleen is normal in size. PANCREAS: No focal mass or ductal dilatation. STOMACH AND GASTROINTESTINAL TRACT: Postsurgical changes prior partial gastrectomy, no CT evidence of dehiscence or leak. There is no bowel distention or thickening. No CT evidence of appendicitis. ADRENALS: No adrenal nodules. KIDNEYS/URETERS: There is mild left renal hydronephrosis and hydroureter there is however no calcified visible stone along the course of the ureter, this could be due to recently passed stone, reflux, versus soft tissue obstruction of the distal ureter at the UVJ. No mass found. There are small nonobstructing stones in the left kidney measuring 2 and 3 mm, 3 of which found. Single tiny 1 mm stone right kidney. No hydronephrosis on the right side. URINARY BLADDER: Partially decompressed. PELVIC VISCERA: Unremarkable PERITONEUM: No free air or fluid. LYMPH NODES: No lymphadenopathy. VASCULAR:Abdominal aorta normal in size, no aneurysm found. BONES, ABDOMINAL WALL AND SOFT TISSUES: Age-appropriate changes of the spine and skeletal system, no destructive osteolytic or osteosclerotic bone lesion found IMPRESSION: 1. There is mild left renal hydronephrosis and hydroureter, there is however no calcified visible stone along the course of the left ureter, this could be due to recently passed stone, reflux, versus soft tissue obstruction of the distal ureter at the UVJ. 2. There are small nonobstructing stones in the left kidney and single tiny stone in the right kidney. 3. Postsurgical changes prior partial gastrectomy, no CT evidence of dehiscence or leak. 4. 4. No CT evidence of appendicitis, no explanation for patient's right lower quadrant pain. Assessment & Plan Assessment & Plan (1) Pyelonephritis: Code(s): N12 - Tubulo-interstitial nephritis, not specified as acute or chronic Category: Medical (2) Hydronephrosis: Code(s): N13.30 - Unspecified hydronephrosis Category: Medical (3) Complicated UTI (urinary tract infection): Code(s): N39.0 - Urinary tract infection, site not specified Category: Medical (4) Hydronephrosis, left: Code(s): N13.30 - Unspecified hydronephrosis Category: Medical (5) Kidney stone on left side: Code(s): N20.0 - Calculus of kidney Category: Medical Plan 03/30/2024 left hydronephrosis is resolved small nonobstructing left renal stone remains. Right kidney within normal limits. I have discussed the importance of hydrating up to 2-2.5 L, increasing citrate in the diet by adding lemon to water, drinking lemonade, the patient states she completed the 24 hour urine I have not received the results as yet. We will call the [facility] lab. Will continue to monitor kidneys. Follow-up in 1 year Orders: Orders AMB Urinalysis Automated Today Z13.9 - Encounter for screening, unspecified AMB Post Void Residual by ultrasound Today N39.0 - Urinary tract infection, site not specified Patient Instructions: The patient had an opportunity to ask questions regarding treatment plan. The patient expressed understanding and agreement with the above treatment plan. The patient is aware they should contact our office by phone for worsening of their current condition or the appearance of new symptoms. Compliance is encouraged with any medications and followup testing that is ordered. It is a privilege to be allowed the opportunity to participate in the urologic care of your patient. If you have any questions or concerns regarding treatment for the above conditions please do not hesitate to contact me. The office telephone contact is [phone]. This note is constructed in part using voice recognition software. While every effort has been made to ensure accuracy claim professional errors may have been included. Yours sincerely, Kyung Sofia MD Coding Level of Care Code Est Pt Level 4 (88348) Diagnoses Pyelonephritis N12 Hydronephrosis N13.30 Complicated UTI (urinary tract infection) N39.0 Hydronephrosis, left N13.30 Kidney stone on left side N20.0 CPT Codes Post Residual Void - PVR CPT Code: 77592-Sqgz Void Residual by ultrasound ([id number])
== END 2024-04-08 08:49 | disposition home or self-care (01) ==
PROVIDERS: PCP Family Medicine; Visit Provider Urology
DX: N12 Tubulo-interstitial nephritis, not specified as acute or chronic (principal); N13.30 Unspecified hydronephrosis; N39.0 Urinary tract infection, site not specified; N20.0 Calculus of kidney; Z13.9 Encounter for screening, unspecified
CPT/HCPCS: 99214

== ENCOUNTER → 2024-04-08 08:06 | Outpatient (BNVA) | payer OTHER, SELFPAY | PROVIDERS: PCP Family Medicine; Visit Provider Urology | DX: N20.0 Calculus of kidney (principal); N13.30 Unspecified hydronephrosis; N39.0 Urinary tract infection, site not specified; N12 Tubulo-interstitial nephritis, not specified as acute or chronic | CPT/HCPCS: 51798; 81003; 99212 ==

== ENCOUNTER 2024-06-17 14:05 | Outpatient (REF) | payer OTHER, SELFPAY ==
--- NOTE | ~2024-06-17 | XR_ITS ---
EXAMINATION: XR CERVICAL SPINE CLINICAL INFORMATION: Neck pain COMPARISON: August 26, 2013 TECHNIQUE: 5 views of the cervical spine, inclusive of oblique views, were obtained. FINDINGS: There is stable straightening of cervical lordosis unchanged since previous study. Vertebral bodies are well aligned and intervertebral disks are preserved neuroforamina are not encroached. Soft tissues unremarkable XR/XR cervical spine 5V IMPRESSION: Muscle spasm with straightening of cervical lordosis Electronically signed by: Virgen Land MD 06/17/2024 04:25 PM EDT
== END 2024-06-17 14:06 | disposition home or self-care (01) ==
LOC: HO.XRAY 14:05
PROVIDERS: PCP Family Medicine; Visit Provider Family Medicine
DX: M54.2 Cervicalgia (principal); R51.9 Headache, unspecified
CPT/HCPCS: 72050

== ENCOUNTER 2024-06-18 11:35 | Outpatient (REF) | payer OTHER, SELFPAY ==
[2024-06-18 13:15] LABS: MANUAL DIFF FLAG NO
[2024-06-18 13:23] LABS: Basophils Percent Auto 0.6 % (0-2); Eosinophils Absolute Auto 0.2 X10*3/uL (0.0-0.4); Eosinophils Percent Auto 2.4 % (0-4); Hematocrit 37.9 % (37.0-47.0); Hemoglobin 12.5 g/dl (12.0-16.0); Imm Gran Abs Auto 0.04 X10*3/uL (0.00-0.03); Imm Gran Pct Auto 0.6 % (0.0-0.4); Lymphocytes Absolute Auto 1.7 X10*3/uL (1.2-4.9); Lymphocytes Percent Auto 27.2 % (20-40); Mean Corpuscular Volume 87.9 fL (80.0-98.0); Mean Platelet Volume 10.5 fL (9.4-12.3); Monocytes Absolute Auto 0.6 X10*3/uL (0.1-1.2); Monocytes Percent Auto 8.8 % (2-11); Neutrophils Absolute Auto 3.9 x10*3/uL (2.0-8.3); Neutrophils Percent Auto 60.4 % (45-73); Platelet Count 310 X10*3/uL (160-400); Red Blood Count 4.31 X10*6/uL (4.20-5.50); Red Cell Distribution Width 13.3 % (11.0-16.0); White Blood Count 6.4 X10*3/uL (4.8-10.8)
[2024-06-18 14:00] LABS: Anion Gap 13 (12-20); Blood Urea Nitrogen 12 mg/dL (9-16); Carbon Dioxide 24 mmol/L (22-29); Chloride 108 mmol/L (96-108); Estimated Glomerular Filt Rate > 60; Potassium 3.7 mmol/L (3.3-5.1); Sodium 141 mmol/L (135-145)
[2024-06-18 14:02] LABS: Free T4 (Free Thyroxine) 0.64 ng/dL (0.71-1.85); Thyroid Stimulating Hormone 10.37 uIU/mL (0.32-4.0)
== END 2024-06-18 11:36 | disposition home or self-care (01) ==
LOC: HO.HMGCLDS 11:35
PROVIDERS: PCP Family Medicine; Visit Provider Family Medicine
DX: I10 Essential (primary) hypertension (principal); E03.9 Hypothyroidism, unspecified; L50.9 Urticaria, unspecified
CPT/HCPCS: 36415; 80051; 82565; 84439; 84443; 84520; 85025

== ENCOUNTER 2024-07-26 09:39 | Outpatient (REF) | payer OTHER, SELFPAY ==
[2024-07-26 14:19] LABS: Free T4 (Free Thyroxine) 1.35 ng/dL (0.71-1.85); Thyroid Stimulating Hormone 0.03 uIU/mL (0.32-4.0)
[2024-07-27 08:58] LABS: Triiodothyronine T3 Free 4.1 pg/mL (2.3-4.2)
== END 2024-07-26 09:40 | disposition home or self-care (01) ==
LOC: HO.HMGCLDS 09:39
PROVIDERS: PCP Family Medicine; Visit Provider Family Medicine
DX: E03.9 Hypothyroidism, unspecified (principal)
CPT/HCPCS: 36415; 84439; 84443; 84481

== ENCOUNTER 2024-08-20 09:01 | Outpatient (AMB) | payer OTHER, SELFPAY ==
[2024-08-20 09:10] VITALS: BMI 44.2
--- NOTE | 2024-08-20 09:10 | A.OFFVIS_ITS ---
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 Patient reports that on Jul 21 she was in the basement gym she lightly grasped the handles of her stationary bike when she felt a sharp pain in the palm of her hand. She reports that the palm of the hand is sensitive to the touch and weight bearing. The small lump at the base of the palm and wrist is hard, she reports that it gets very inflamed. She is taking Ibuprofen for her swelling and pain. Reports limited ROM and some numbness and tingling in the finger tips. 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 The patient reports that this area has been present for approximately 2-3 months. Patient states that she does not recall any particular incident or injury that caused this pain and swelling to start. The patient states that the pain is bearable at baseline, but when she puts any pressure onto the proximal part of the volar hand she gets pain that is so severe that it occasionally radiates up into the elbow or even into the shoulder . Denies any numbness or tingling in the left upper extremity. No other acute complaints or concerns at this time. [facility] Medical History [id number] syndrome Reactive airway disease Chronic cough Liver fibrosis Graves' disease GERD (gastroesophageal reflux disease) Fibromyalgia Fatty liver Hx of headache Seasonal allergies Environmental allergies Depression History of lumbar puncture Pseudotumor cerebri Asthma Anxiety Neck pain Back pain Hypothyroidism IBS (irritable bowel syndrome) Hypertension Morbid obesity Surgical History History of sleeve gastrectomy History of hysteroscopy Hx of tubal ligation Hx of section Family History Mother Hypertension Heart problem Father Diabetes Heart problem High cholesterol Brother Hypertension Sister Hypertension Sister Hypertension Sister Hypertension Brother Heart problem Hypertension Son No problems noted. Daughter No problems noted. Social History Household Members: Family Household Members Other:: son 19 yrs, daughter 18 yrs Housing: House Are you a primary career and transition teacher to a significant other at home: No Do you presently have visiting nurse or other home services: No Alcohol intake: never Patient Tobacco Use Status: Former Tobacco user Tobacco use type: Cigarette service: No Current occupational status: disabled Review of Systems Const All systems reviewed & are unremarkable except as noted in HPI and below Physical Exam Vital Signs: BMI result Body Mass Index 44.2 Extrem Other: Patient is alert, oriented, and in no acute distress. Neuro: Normal sensation of the tips of all digits of the left hand at this time Vascular: Cap refill brisk Pain: Patient reports tenderness to palpation of the volar left wrist at the level of the small mass No pain with range of motion ROM: Patient is able to make a closed fist and extend all digits of the left hand fully Skin: No lacerations or abrasions. General: No ecchymosis, erythema, or evidence of infection. There is noted to be a small, approximately 0.5-1 cm in diameter firm mass noted on the volar aspect of the patient's left wrist Psych: Appears grossly normal Affect normal Attitude cooperative Results Reviewed Results Reviewed: X-rays obtained in the office today and independently reviewed by me, Alen Chavez PA-C, demonstrate no fracture or acute bony abnormality of the left hand or wrist. Assessment & Plan Assessment & Plan (1) Mass of left wrist: Code(s): R22.32 - Localized swelling, mass and lump, left upper limb Category: Medical Plan 1. Mass of the volar left wrist Present for approximately 3 months Physical exam findings not consistent with ganglion At this time, CT scan of the patient's left wrist is ordered no order to assess what this mass is and determine if further treatment is indicated Patient will follow-up after CT scan for results review and discussion of further treatment options if indicated Patient was amenable to this plan Orders: Orders XR wrist LT min 3V Today M25.532 - Pain in left wrist CT wrist LT wo IV con Today R22.32 - Localized swelling, mass and lump, left upper limb NE nerve conduction velocity Today R20.0 - Anesthesia of skin, R20.2 - Paresthesia of skin NE electromyogram (EMG) Today R20.0 - Anesthesia of skin, R20.2 - Paresthesia of skin Coding Level of Care Code New Pt Level 3 (23432) Diagnoses Mass of left wrist R22.32
== END 2024-08-20 09:46 | disposition home or self-care (01) ==
PROVIDERS: PCP Family Medicine
DX: R22.32 Localized swelling, mass and lump, left upper limb (principal)
CPT/HCPCS: 99203

== ENCOUNTER 2024-09-23 13:50 | Outpatient (REF) | payer OTHER, SELFPAY ==
--- NOTE | 2024-09-23 13:53 | EMG_ITS ---
Chief complaint: Left wrist pain, thought to be ganglion cyst. Also with pain/paresthesia running to lateral wrist, 5th digit and up to the elbow. Reason for referral: Evaluate for Carpal Tunnel Syndrome Referred by: Alen SHI Procedure done: Left upper extremity NCS/EMG Precautions and/or limitations: None The limb temperature was monitored continuously and remained between 32-36 degrees C during the performance of the NCS. Ulnar motor NCS was performed with moderate elbow flexion between 70-90 degrees, with across-elbow distance of 10 cm. Nerve Conduction Studies Anti Sensory Summary Table ?Stim Site NR Onset (ms) Norm Onset (ms) Peak (ms) Norm Peak (ms) O-P Amp (?V) Norm O-P Amp Site1 Site2 Delta-0 (ms) Dist (cm) Nuno (m/s) Norm Nuno (m/s) Left Median Anti Sensory (2nd Digit) Wrist ? 2.4 2.9 <3.6 72.9 >10 Wrist 2nd Digit 2.4 14.0 58 Left Radial Anti Sensory (Thumb) Forearm ? 1.5 2.2 <3.1 27.2 Forearm Thumb 1.5 0.0 Left Ulnar Anti Sensory (5th Digit) Wrist ? 2.0 2.9 <3.7 35.0 >15.0 Wrist 5th Digit 2.0 14.0 70 Motor Summary Table ?Stim Site NR Onset (ms) Norm Onset (ms) O-P Amp (mV) Norm O-P Amp iAmp (mV) Amp (1st) (%) Site1 Site2 Delta-0 (ms) Dist (cm) Nuno (m/s) Norm Nuno (m/s) Left Median Motor (Abd Poll Brev) Wrist ? 2.6 <3.9 9.7 >4.5 10.6 100.0 Elbow Wrist 3.2 18.0 56 >45 Elbow ? 5.8 9.5 11.5 97.9 Left Ulnar Motor (Abd Dig Minimi) Wrist ? 2.3 <3.0 8.1 >5 9.9 100.0 B Elbow Wrist 2.5 15.5 62 >45 B Elbow ? 4.8 5.6 7.3 69.1 A Elbow B Elbow 1.8 10.0 56 >45 A Elbow ? 6.6 2.6 3.7 32.1 EMG ?Side Muscle Nerve Root Ins Act Fibs Psw Amp Dur Poly Recrt Int Pat Comment Left 1stDorInt Ulnar C8-T1 Nml Nml Nml Nml Nml 0 Nml Complete Left Biceps Musculocut C5-6 Nml Nml Nml Nml Nml 0 Nml Complete Left Triceps Radial C6-7-8 Nml Nml Nml Nml Nml 0 Nml Complete Left Deltoid Axillary C5-6 Nml Nml Nml Nml Nml 0 Nml Complete Left FlexCarpiUln Ulnar C8,T1 Nml Nml Nml Nml Nml 0 Nml Complete FINDINGS: Left ulnar motor nerve showed prolonged distal latency, drop in amplitude above elbow and slight slowing of conduction velocity across the elbow. All other nerves tested were within normal. Concentric needle EMG was performed in selected muscles of the left upper extremity. Study did not reveal signs of electric abnormalities as shown in the table above. IMPRESSION: 1. This is an abnormal study. 2. There is electrodiagnostic evidence for left ulnar neuropathy at the elbow. 3. There is no electrodiagnostic evidence for median neuropathy, brachial plexopathy, or cervical radiculopathy. Thank you for your kind referral. Imani Ghosh MD, DICKSON Board Certified, [place] Board of Physical Medicine and Rehabilitation (ABPMR) Board Certified, [place] Board of Electrodiagnostic Medicine (ABEM) [place]OD[place] [address] [facility]
== END 2024-09-23 13:51 | disposition home or self-care (01) ==
LOC: HO.NEURO 13:50
PROVIDERS: PCP Family Medicine
DX: R20.0 Anesthesia of skin (principal); R20.2 Paresthesia of skin
CPT/HCPCS: 95886; 95909

== ENCOUNTER → 2024-09-23 13:53 | Outpatient (BNV) | payer OTHER, SELFPAY | PROVIDERS: PCP Family Medicine; Visit Provider Physical Medicine & Rehabilitation | DX: G56.22 Lesion of ulnar nerve, left upper limb (principal) | CPT/HCPCS: 95886; 95909 ==

== ENCOUNTER 2024-09-28 16:45 | Outpatient (REF) | payer OTHER, SELFPAY ==
--- NOTE | ~2024-09-28 | CT_ITS ---
CLINICAL HISTORY: R22.32 - Localized swelling, mass and lump, left upper limb CT scan of the left wrist is performed without contrast. Comparison: None Findings: There are no acute bony abnormalities. The joint spaces are normal. There is mild soft tissue edema along the volar aspect of the wrist. No masses are identified. The muscles and tendons are grossly unremarkable. Impression: Mild soft tissue edema along the volar aspect of the wrist. No acute bony abnormalities. The soft tissue structures would be best evaluated with MRI. This document has been electronically signed by: Clifton Garcia MD on 09/29/2024 10:37:58
== END 2024-09-28 16:46 | disposition home or self-care (01) ==
LOC: HO.CT 16:45
PROVIDERS: PCP Family Medicine
DX: R22.32 Localized swelling, mass and lump, left upper limb (principal)
CPT/HCPCS: 73200

== ENCOUNTER → 2024-09-28 16:48 | Outpatient (BNV) | payer OTHER, SELFPAY | PROVIDERS: PCP Family Medicine; Visit Provider Radiology Diagnostic Radiology | DX: R22.32 Localized swelling, mass and lump, left upper limb (principal) | CPT/HCPCS: 73200 ==

== ENCOUNTER 2024-10-11 10:02 | Outpatient (AMB) | payer OTHER, SELFPAY ==
--- NOTE | 2024-10-11 10:22 | A.OFFVIS_ITS ---
Vital Signs 10/11/24 10:23 Height 5 ft 1.5 in Weight 238 lb BMI 44.2 Intake Visit Reasons: OV- EMG/CT review LT wrist Intake Note: Torie is a 44 year old right hand dominant female who presents today for a follow up of her left wrist mass. At her last visit a CT scan was ordered as well as EMG/NCS CT Impression: Mild soft tissue edema along the volar aspect of the wrist. No acute bony abnormalities. The soft tissue structures would be best evaluated with MRI. NCS IMPRESSION: 1. This is an abnormal study. 2. There is electrodiagnostic evidence for left ulnar neuropathy at the elbow. 3. There is no electrodiagnostic evidence for median neuropathy, brachial plexopathy, or cervical radiculopathy Allergies Penicillins [PENICILLINS] Allergy (Intermediate, Verified 10/11/24 10:38) HIVES oxycodone Allergy (Verified 10/11/24 10:38) Rash HPI HPI OV- EMG/CT review LT wrist: Details: Torie is a 44 year old right hand dominant female who presents today for a follow up of her left wrist mass. At her last visit a CT scan was ordered as well as EMG/NCS. Patient continues to endorse numbness and tingling in the small finger of the left hand that is intermittent, daily, worse at night. No other acute complaints or concerns at this time. CT Impression: Mild soft tissue edema along the volar aspect of the wrist. No acute bony abnormalities. The soft tissue structures would be best evaluated with MRI. NCS IMPRESSION: 1. This is an abnormal study. 2. There is electrodiagnostic evidence for left ulnar neuropathy at the elbow. 3. There is no electrodiagnostic evidence for median neuropathy, brachial plexopathy, or cervical radiculopathy [facility] Medical History [id number] syndrome Reactive airway disease Chronic cough Liver fibrosis Graves' disease GERD (gastroesophageal reflux disease) Fibromyalgia Fatty liver Hx of headache Seasonal allergies Environmental allergies Depression History of lumbar puncture Pseudotumor cerebri Asthma Anxiety Neck pain Back pain Hypothyroidism IBS (irritable bowel syndrome) Hypertension Morbid obesity Surgical History History of sleeve gastrectomy History of hysteroscopy Hx of tubal ligation Hx of section Family History Mother Hypertension Heart problem Father Diabetes Heart problem High cholesterol Brother Hypertension Sister Hypertension Sister Hypertension Sister Hypertension Brother Heart problem Hypertension Son No problems noted. Daughter No problems noted. Social History Household Members: Family Household Members Other:: son 19 yrs, daughter 18 yrs Housing: House Are you a primary nurse behavioral health care to a significant other at home: No Do you presently have visiting nurse or other home services: No Alcohol intake: never Patient Tobacco Use Status: Former Tobacco user Tobacco use type: Cigarette service: No Current occupational status: disabled Review of Systems Const All systems reviewed & are unremarkable except as noted in HPI and below Physical Exam Vital Signs: BMI result Body Mass Index 44.2 Extrem Other: Patient is alert, oriented, and in no acute distress. Neuro: Normal sensation of the tips of all digits of the left hand at this time Vascular: Cap refill brisk Pain: Patient reports tenderness to palpation of the volar left wrist at the level of the small mass No pain with range of motion ROM: Patient is able to make a closed fist and extend all digits of the left hand fully Skin: No lacerations or abrasions. General: No ecchymosis, erythema, or evidence of infection. Area of firmness and swelling noted on previous examination is not present today Psych: Appears grossly normal Affect normal Attitude cooperative Assessment & Plan Assessment & Plan (1) Cubital tunnel syndrome on left: Code(s): G56.22 - Lesion of ulnar nerve, left upper limb Category: Medical (2) Mass of left wrist: Code(s): R22.32 - Localized swelling, mass and lump, left upper limb Category: Medical Plan 1. Cubital tunnel syndrome, left Intermittent, daily, worse at night I educated the patient about the condition. I discussed both operative and nonoperative treatment options. The patient would like to proceed with surgery. The risks and benefits of operative treatment were discussed with the patient and the patient wishes to proceed with surgery. These risks include, but are not limited to, risk of damage to blood vessels, nerves, tendons, infection, recurrence, incomplete relief of preoperative symptoms, persistent pain, possible need for further surgery, and the risks associated with regional blocks and/or anesthesia. Plan is to take the patient to the operating room at some point in the next few weeks for the following procedures: 1. Left cubital tunnel release under general All of the preoperative paperwork including the consent was discussed today. All of the patient's questions were answered in the clinic today. The patient understands that they will be in contact with our medical or surgical instrument maker to discuss scheduling their procedure. Patient denies diabetes, blood thinners, asthma, heart issues, lung issues, kidney issues, or current smoking. 2. Swelling of volar left wrist Resolved since last visit Patient was advised that if the swelling does recur and if she is concerned once again for a cyst or other mass, she should call us for repeat evaluation for potential add on of removal of mass Patient was amenable to this plan Patient will follow-up as needed with any acute concerns Coding Level of Care Code Est Pt Level 4 (96298) Diagnoses Cubital tunnel syndrome on left G56.22 Mass of left wrist R22.32
[2024-10-11 10:23] VITALS: BMI 44.2
== END 2024-10-11 10:40 | disposition home or self-care (01) ==
PROVIDERS: PCP Family Medicine
DX: G56.22 Lesion of ulnar nerve, left upper limb (principal); R22.32 Localized swelling, mass and lump, left upper limb
CPT/HCPCS: 99214

== ENCOUNTER → 2024-10-11 10:02 | Outpatient (BNVA) | payer OTHER, SELFPAY | PROVIDERS: PCP Family Medicine | DX: G56.22 Lesion of ulnar nerve, left upper limb (principal); R22.32 Localized swelling, mass and lump, left upper limb | CPT/HCPCS: 99212 ==

== ENCOUNTER 2024-10-25 09:03 | Outpatient (REF) | payer OTHER, SELFPAY ==
[2024-10-25 11:31] LABS: Anion Gap 11 (12-20); Blood Urea Nitrogen 9 mg/dL (9-16); Carbon Dioxide 24 mmol/L (22-29); Chloride 111 mmol/L (96-108); Estimated Glomerular Filt Rate > 60; Free T4 (Free Thyroxine) 0.81 ng/dL (0.71-1.85); Potassium 3.8 mmol/L (3.3-5.1); Sodium 142 mmol/L (135-145); Thyroid Stimulating Hormone 7.33 uIU/mL (0.32-4.0)
== END 2024-10-25 09:04 | disposition home or self-care (01) ==
LOC: HO.HMGCLDS 09:03
PROVIDERS: PCP Family Medicine; Visit Provider Family Medicine
DX: I10 Essential (primary) hypertension (principal); E03.9 Hypothyroidism, unspecified
CPT/HCPCS: 36415; 80051; 82565; 84439; 84443; 84520

== ENCOUNTER 2024-10-27 09:47 | Outpatient (REF) | payer OTHER, SELFPAY ==
[2024-10-27 10:57] LABS: Free T4 (Free Thyroxine) 0.96 ng/dL (0.71-1.85); Thyroid Stimulating Hormone 7.16 uIU/mL (0.32-4.0)
[2024-10-28 12:58] LABS: Triiodothyronine T3 Total 121 ng/dL (76-181)
== END 2024-10-27 09:48 | disposition home or self-care (01) ==
LOC: HO.10HDL 09:47
PROVIDERS: Visit Provider Family Medicine
DX: E03.9 Hypothyroidism, unspecified (principal)
CPT/HCPCS: 36415; 84439; 84443; 84480

== ENCOUNTER 2024-11-25 08:00 | Outpatient (RCR) | payer OTHER, SELFPAY ==
[2024-11-01 08:55] VITALS: BP 153/82; PULSE 87
--- NOTE | 2024-11-01 10:08 | MHC.PT.EP ---
[facility] [place] Office [place] Office [place] Office [address] Walker [place] [address] [phone] F: [phone] F: [phone] F: [phone] F: [phone] Physical Therapy Plan of Care Date of Evaluation: 11/01/24 Date of Surgery: Diagnosis: This is a 44 yo female presenting to skilled PT with a script for vertigo. Assessment: This is a 44 yo female presenting to skilled PT with a script for vertigo. Patient reporting that she suffers from vertigo here and there for years. Lately, she feels like she is getting nauseous, dizzy and is afraid to go out. Her symptoms are described as everything is spinning, sweating, feels sick and sweaty. Increases with getting up fast, turning fast and when she is in public open spaces. She reports that she has had images down and lumbar punctures in the past. She has not seen a neurologist. She does endorse a dx of intracranial HTN that causes eye issues and dizziness. Examination shows ? + oculomotor tests with saccades, (-) VBI B, and decreased cervical AROM. She was (-) for BPPV with real-hallpike B and B roll test. Balance was decreased but grossly WFL however she became symptomatic the more we did. S/S are not consistent with BPPV and I question if her symptoms are even vestibular hypofunction in nature or more grossly related to her intracranial hypertension however she would like to trial PT as she will be going on a cruise and then also having surgery after this. She would benefit from a trial of PT 2x/wk for 4wks to address impairments, implement HEP and optimize functional mobility. Plan to start with eye retraining and balance and then move to craniosacral. Frequency and Duration: The patient will be seen 2x/wk for 4wks Short Term Goals: reassess canals as needed transition to manual when appropriate Alf Goals: I in HEP Negative in all 6 canals for dizziness and nystagmus Return to normal gait pattern without reports fo LOB due to dizziness Treatment Plan: Modalities to reduce pain, spasms and effusion. Manual therapy to restore motion and function. Therapeutic exercise to improve strength and flexibility. Neuromuscular re-education for posture and balance. Therapeutic activities to return to functional activities of daily living. Electronically signed by: Mali Carrero PT Please sign and return to therapist. Thank you for your referral.
--- NOTE | 2024-12-03 08:40 | MHC.PT.DC ---
[facility] [place] Office [place] Office [place] Office [address] Walker [place] [address] [phone] F: [phone] F: [phone] F: [phone] F: [phone] Physical Therapy Discharge Report Diagnosis: This is a 44 yo female presenting to skilled PT with a script for vertigo. Date of Surgery: Date of Evaluation: 11/01/24 Date of Discharge: 12/03/24 Treatments to Date: 7 Cancellations to Date: 0 No Shows to Date: 0 Discharge Status: Improved Function Independent with HEP Patient Elected to Stop Physician Discontinued Tx Discharge Summary: Symptoms have improved per last treatment note. Patient saw MD however and called to cancel remaining visits and per patient's MD DC therapy for now. Patient with an HEP to continue on her own at this time. DC to HEP Electronically signed by: Mali Carrero PT Please sign and return to therapist. Thank you for your referral.
== END 2024-12-03 08:42 | disposition home or self-care (01) ==
LOC: HO.PTCHIC 08:00
PROVIDERS: PCP Family Medicine; Visit Provider Family Medicine
DX: H81.13 Benign paroxysmal vertigo, bilateral (principal)
CPT/HCPCS: 97110; 97112; 97140; 97162

== ENCOUNTER 2024-12-15 10:36 | Outpatient (AMB) | payer OTHER, SELFPAY ==
--- NOTE | 2024-12-15 10:45 | MHC.OFFVIS ---
Vital Signs 12/15/24 10:49 Height 5 ft 1.5 in Weight 138 lb BMI 25.6 Intake Visit Reasons: Pre-Lt Cubital 12/30/24 Intake Note: Torie 44 yr old female presents today for her Pre op visit for her left cubital tunnel release scheduled for 12/30/[address] Peterson. Allergies Penicillins [PENICILLINS] Allergy (Intermediate, Verified 12/15/24 10:45) HIVES oxycodone Allergy (Verified 12/15/24 10:45) Rash HPI HPI Pre-Lt Cubital 12/30/24: Details: Torie is a 44 year old right hand dominant woman who presents to discuss her left cubital tunnel syndrome. She complains of numbness primarily in her small finger. Symptoms intermittent, but daily, worse at night. She says she has been experiencing some new intermittent numbness in her thumb She also complains of some newer numbness in her right hand. She is out of work and on Disability [facility] Medical History [id number] syndrome Reactive airway disease Chronic cough Liver fibrosis Graves' disease GERD (gastroesophageal reflux disease) Fibromyalgia Fatty liver Hx of headache Seasonal allergies Environmental allergies Depression History of lumbar puncture Pseudotumor cerebri Asthma Anxiety Neck pain Back pain Hypothyroidism IBS (irritable bowel syndrome) Hypertension Morbid obesity Surgical History History of sleeve gastrectomy History of hysteroscopy Hx of tubal ligation Hx of section Family History Mother Hypertension Heart problem Father Diabetes Heart problem High cholesterol Brother Hypertension Sister Hypertension Sister Hypertension Sister Hypertension Brother Heart problem Hypertension Son No problems noted. Daughter No problems noted. Social History Household Members: Family Household Members Other:: son 19 yrs, daughter 18 yrs Housing: House Are you a primary managed care nurse to a significant other at home: No Do you presently have visiting nurse or other home services: No Alcohol intake: never Patient Tobacco Use Status: Former Tobacco user Tobacco use type: Cigarette service: No Current occupational status: disabled Review of Systems Const All systems reviewed & are unremarkable except as noted in HPI and below Physical Exam Vital Signs: BMI result Body Mass Index 25.6 Const General: cooperative, healthy appearing and no acute distress Orientation/consciousness: patient oriented x3 HEENT Head: Yes normocephalic and Yes atraumatic Eyes EOM: EOMs intact bilaterally Resp Effort & Inspection: normal respiratory effort and able to speak in complete sentences Cardio Jugular venous distension: no JVD Skin General skin exam: turgor normal Rashes: no rashes Neuro General: patient oriented x3 Extrem Other: Evaluation of Left Upper Extremity: The patient is alert, oriented, and in no acute distress Neuro: Median, Ulnar, Radial nerves motor and sensory intact and sensation is normal to the tips of all digits No thenar or intrinsic wasting Good APB muscle belly firing and good finger cross Vascular: Cap refill brisk ROM: She can make a fist and extend all her digits No locking or catching Skin: No lacerations or abrasions. General: No Ecchymosis. No Erythema or evidence of infection. Nerve Conduction Study: IMPRESSION: 1. This is an abnormal study. 2. There is electrodiagnostic evidence for left ulnar neuropathy at the elbow. 3. There is no electrodiagnostic evidence for median neuropathy, brachial plexopathy, or cervical radiculopathy. Imani Ghosh MD, DICKSON 09/23/24 Psych Appearance: grossly normal Affect: normal affect Attitude: cooperative Assessment & Plan Assessment & Plan (1) Cubital tunnel syndrome on left: Code(s): G56.22 - Lesion of ulnar nerve, left upper limb Category: Medical Plan Assessment & Plan: 1. Cubital tunnel syndrome, left Intermittent, daily, worse at night I educated her about this condition I discussed operative and non-operative treatment options The patient would like to proceed with surgery The risks and benefits of operative treatment were discussed with the patient and the patient wishes to proceed with surgery. These risks include, but are not limited to, risk of damage to blood vessels, nerves, tendons, infection, recurrence, incomplete relief of preoperative symptoms, persistent pain, possible need for further surgery, and the risks associated with regional blocks and/or anesthesia. The plan is to take the patient to the operating room sometime on 12/30/24 for the following procedures: 1. Left cubital tunnel release, under general All of the preoperative paperwork including the consent was discussed today. All of the patient's questions were answered in the clinic today. The patient understands that they will be in contact with our assistant professor surgical technology to discuss scheduling their procedure. Patient denies diabetes, blood thinners, asthma, heart issues, lung issues, kidney issues, or current smoking. 2. Swelling of volar left wrist Resolved since last visit Patient was advised that if the swelling does recur and if she is concerned once again for a cyst or other mass, she should call us for repeat evaluation for potential add on of removal of mass Patient was amenable to this plan Patient will follow-up as needed with any acute concerns Scribed for Alejandrina Peterson MD by Godfrey Martinez, medical transcription radiology, on 12/15/24 at 11:15 AM, EST. Coding Level of Care Code Est Pt Level 4 (54780) Diagnoses Cubital tunnel syndrome on left G56.22
[2024-12-15 10:49] VITALS: BMI 25.6
== END 2024-12-15 11:18 | disposition home or self-care (01) ==
LOC: HO.HOS 10:36
PROVIDERS: PCP Family Medicine; Visit Provider Orthopaedic Surgery
DX: G56.22 Lesion of ulnar nerve, left upper limb (principal)
CPT/HCPCS: 99024

== ENCOUNTER → 2024-12-15 10:36 | Outpatient (BNVA) | payer OTHER, SELFPAY | PROVIDERS: PCP Family Medicine; Visit Provider Orthopaedic Surgery | DX: G56.22 Lesion of ulnar nerve, left upper limb (principal) | CPT/HCPCS: 99212 ==

== ENCOUNTER 2024-12-24 10:15 | Outpatient (REF) | payer OTHER, SELFPAY ==
--- NOTE | ~2024-12-24 | XR_ITS ---
EXAMINATION: XR FOOT, LEFT CLINICAL INFORMATION: LEFT FOOT PODALGIA COMPARISON: None available. TECHNIQUE: AP, lateral, and oblique views of the left foot. FINDINGS: No fracture, dislocation, or suspicious bone lesion. Normal bone mineralization. Normal alignment. Joint spaces are preserved. No significant arthropathy. Normal plantar arch. There is a moderate-sized plantar calcaneal spur. Soft tissues appear normal. XR/XR foot LT 2V IMPRESSION: 1. No acute findings left foot. Electronically signed by: Daniel Coyne MD 12/27/2024 02:17 PM EDT
== END 2024-12-24 10:16 | disposition home or self-care (01) ==
LOC: HO.XRAY 10:15
PROVIDERS: PCP Family Medicine; Visit Provider Family Medicine
DX: M79.672 Pain in left foot (principal)
CPT/HCPCS: 73620

== ENCOUNTER → 2024-12-24 10:25 | Outpatient (BNV) | payer OTHER, SELFPAY | PROVIDERS: PCP Family Medicine; Visit Provider Radiology Diagnostic Radiology | DX: M79.672 Pain in left foot (principal) | CPT/HCPCS: 73620 ==

== ENCOUNTER 2024-12-30 10:18 | Day surgery (SDC) | payer OTHER, SELFPAY ==
[2024-12-28 13:17] VITALS: BMI 25.6
[2024-12-30 10:40] VITALS: BMI 44.2
[2024-12-30] MEDS: Lactated Ringers 1,000 ML 100 ML IVCONT (10:47)
[2024-12-30 11:27] VITALS: BP 157/95; PULSE 70; RESP 18; TEMP 36.8; O2SAT 97
--- NOTE | 2024-12-30 11:29 | PC.NURSE ---
2 IV attempts by author. IV attempt and insertion by ana jackson. Dr. Crabtree aware that patient only has 22 gauge that works very well.
--- NOTE | 2024-12-30 11:31 | MHC.SHP ---
Pre-Procedural Eval Section A - 24 Hr Update-Section A only Date of Service: 12/30/24 The patient is an INPATIENT: No Changes since office visit: No Cold of Flu in the past 2 weeks, No New Medical Problems, No Changes in Medication and No Patient answered all questions The patient has been examined within 24 hours of the surgical procedure. The History & Physical has been completed within 30 days and I have reviewed it.: Yes Section B - Complete if H&P > 30 days Chief Complaint: Lesion of ulnar nerve, left upper limb Allergies: Allergies Allergy/AdvReac Type Severity Reaction Status Date / Time Penicillins [PENICILLINS] Allergy Intermediate HIVES Verified 12/30/24 11:31 oxycodone Allergy Rash Verified 12/15/24 10:45 Plan Diagnosis/Plan: Unchanged I have reviewed the history and physical and performed a pertinent physical examination on my patient. No changes have occurred unless specified. Time Spent With Patient Time: Total time managing care of this patient today ____ minutes.
--- NOTE | 2024-12-30 11:32 | P.OP_ITS ---
Operative Note Operative Note Date of Service: 12/30/24 Narrative: Operative Note Narrative: Preop diagnosis: 1. Left Cubital tunnel syndrome Postop diagnosis: Same Procedure: 1. Left Cubital Tunnel Release Surgeon: Alejandrina Peterson MD [employer] Demonstrator: Alen [employer]I Anesthesia: General Anesthesia Findings: Thickening and fibrosis about the ulnar nerve at the cubital tunnel Implants: none Tourniquet time: 38 minutes EBL: 5.0 ml Specimen: none Drains: None Complications: None Disposition: Brought to the recovery room in stable condition Plan: Follow-up in 10-14 days for wound check, and suture removal Indications: The patient is 44 years old with left cubital tunnel syndrome . The risks and benefits of operative treatment, including but not limited to risk of damage to blood vessels, nerves, tendons, infection, recurrence, persistent pain or numbness, incomplete resolution of preoperative symptoms, or need for further surgery were discussed with the patient and they wished to proceed with surgery. Procedure: Once consent was obtained patient was brought back to the operating suite and placed in the operating table in a supine position. Perioperative antibiotics and anesthesia was administered by the anesthesia team. The limb was prepped and draped in a standard surgical fashion, and a sterile tourniquet applied to the proximal aspect of the left upper extremity. The limb was elevated exsanguinated with Esmarch bandage and the tourniquet inflated to 250 mm of mercury for a total tourniquet time of 38 minutes. A 6 cm gently curved but longitudinally oriented incision was made centered over the cubital tunnel of the left upper extremity. Incision was made through the skin to the subcutaneous tissues using a # 15 Blade. I then dissected down to the level of the medial epicondyle and the cubital tunnel using tenotomy scissors. Care was taken to protect the medial antebrachial cutaneous nerve. The ulnar nerve was identified just posterior to the medial intermuscular septum. The ulnar nerve was released in a proximal to distal direction using tenotomy in iris scissors while directly visualizing and protecting the ulnar nerve. Thickening and fibrosis was appreciated about the ulnar nerve as it p assed through the cubital tunnel. The ulnar nerve was assessed as I passed the elbow through full flexion and extension and was found to remain stable within its groove. At this point the tourniquet was deflated and hemostasis obtained with a brief period of local pressure and bipolar electrocautery. The wound was copiously irrigated with normal saline. The subcutaneous layer was closed with 4-0 Vicryl suture, and the skin edges were reapproximated with 5-0 nylon suture. The wound was infiltrated with some 1% lidocaine with epinephrine for postop pain control and sterile dressings were applied. The patient appears to have tolerated the procedure well and with no complications. All digits were well vascularized at the conclusion of the case.
--- NOTE | 2024-12-30 12:51 | P.CONAN_ITS ---
Documented by User: Elizabeth Hernandez NP 12/28/24 13:54 HPI - Anesthesia Eval Consult details Narrative: 44yo F for Left Cubital Tunnel Release PMFSH Active Problems Active Problems: All Active Problems Cubital tunnel syndrome on left (Acute) Mass of left wrist (Acute) Kidney stone on left side (Acute) Hydronephrosis, left (Acute) Complicated UTI (urinary tract infection) (Acute) Environmental and seasonal allergies (Acute) Obesity (Acute) GERD (gastroesophageal reflux disease) (Acute) Congenital intra-abdominal adhesions (Acute) S/P laparoscopic sleeve gastrectomy (Acute) Adjustment disorder with mixed anxiety and depressed mood (Acute) Vitamin B1 deficiency (Acute) Vitamin B12 deficiency (Acute) Vitamin D deficiency (Acute) Pseudotumor cerebri (Acute) Asthma (Acute) Anxiety (Acute) Neck pain (Acute) Back pain (Acute) Hypothyroidism (Acute) IBS (irritable bowel syndrome) (Acute) Hypertension (Acute) Morbid obesity (Acute) Past Medical History Medical History [id number] syndrome Reactive airway disease Chronic cough Liver fibrosis Graves' disease GERD (gastroesophageal reflux disease) Fibromyalgia Fatty liver Hx of headache Seasonal allergies Environmental allergies Depression History of lumbar puncture Pseudotumor cerebri Asthma Anxiety Neck pain Back pain Hypothyroidism IBS (irritable bowel syndrome) Hypertension Morbid obesity Family History Family History Mother Hypertension Heart problem Father Diabetes Heart problem High cholesterol Brother Hypertension Sister Hypertension Sister Hypertension Sister Hypertension Brother Heart problem Hypertension Son No problems noted. Daughter No problems noted. Family history of problems with anesthesia: No Surgical History Surgical History History of sleeve gastrectomy History of hysteroscopy Hx of tubal ligation Hx of section History of Problems with Anesthesia: No Social History Social History Household Members: Family Household Members Other:: son 19 yrs, daughter 18 yrs Housing: House Are you a primary respiratory care technician to a significant other at home: No Do you presently have visiting nurse or other home services: No Alcohol intake: never Patient Tobacco Use Status: Former Tobacco user Tobacco use type: Cigarette Have you been hit, kicked, punched, or otherwise hurt by someone within the past year? If so, by whom?: No Are you DNR?: No Advance Directives: No Advance Directives Information Provided: Yes FDLMP: sporadic 10/2024 Poor oral hygiene: No service: No Current occupational status: disabled Meds Allergies Allergy/AdvReac Type Severity Reaction Status Date / Time Penicillins [PENICILLINS] Allergy Intermediate HIVES Verified 12/30/24 11:31 oxycodone Allergy Rash Verified 12/15/24 10:45 Home Medications ?Medication ?Instructions ?Recorded ?Confirmed ?Last Taken ?Type buspirone 5 mg tablet 5 mg PO TID 11/30/23 12/30/24 Unknown History cholecalciferol (vitamin D3) 25 25 mcg PO DAILY 11/30/23 12/30/24 Unknown History mcg (1,000 unit) tablet (Vitamin D3) citalopram 10 mg tablet 10 mg PO QAM 11/30/23 12/30/24 Unknown History citalopram 20 mg tablet 20 mg PO QPM 11/30/23 12/30/24 Unknown History dicyclomine 10 mg capsule 10 mg PO Q8H PRN cramps 11/30/23 12/30/24 Unknown History levothyroxine 150 mcg tablet 150 mcg PO DAILY 11/30/23 12/30/24 11/30/23 History metoprolol succinate 50 mg 50 mg PO QAM 11/30/23 12/30/24 Unknown History tablet,extended release 24 hr vitamin B complex 1 tab PO DAILY 11/30/23 12/30/24 Unknown History pantoprazole 20 mg tablet,delayed 20 mg PO DAILY 02/03/24 12/30/24 Unknown History release albuterol sulfate 90 mcg/actuation 2 puff inhalation Q4H PRN wheezing 04/08/24 12/30/24 Unknown History aerosol inhaler pantoprazole 40 mg tablet,delayed 40 mg PO QPM 04/08/24 12/30/24 Unknown History release losartan 100 mg tablet 100 mg PO DAILY 08/20/24 12/30/24 Unknown History trazodone 50 mg tablet 50 mg PO BEDTIME 08/20/24 12/30/24 Unknown History Exam Height,Weight and Vital Signs: Height 5 ft 1.5 in Weight 62.596 kg Assessment and Plan Assessment Anesthesia Assessment: Chart Reviewed Final Anesthetic Review Family History of Problems with Anesthesia: No History of Problems with Anesthesia: No Documented by User: Heather Crabtree DO 12/30/24 12:53 PMFSH Past Medical History Medical History [id number] syndrome Reactive airway disease Chronic cough Liver fibrosis Graves' disease GERD (gastroesophageal reflux disease) Fibromyalgia Fatty liver Hx of headache Seasonal allergies Environmental allergies Depression History of lumbar puncture Pseudotumor cerebri Asthma Anxiety Neck pain Back pain Hypothyroidism IBS (irritable bowel syndrome) Hypertension Morbid obesity Family History Family History Mother Hypertension Heart problem Father Diabetes Heart problem High cholesterol Brother Hypertension Sister Hypertension Sister Hypertension Sister Hypertension Brother Heart problem Hypertension Son No problems noted. Daughter No problems noted. Family history of problems with anesthesia: No Surgical History Surgical History History of sleeve gastrectomy History of hysteroscopy Hx of tubal ligation Hx of section History of Problems with Anesthesia: No Social History Social History Household Members: Family Household Members Other:: son 19 yrs, daughter 18 yrs Housing: House Are you a primary respiratory care technician to a significant other at home: No Do you presently have visiting nurse or other home services: No Alcohol intake: never Patient Tobacco Use Status: Former Tobacco user Tobacco use type: Cigarette Have you been hit, kicked, punched, or otherwise hurt by someone within the past year? If so, by whom?: No Are you DNR?: No Advance Directives: No Advance Directives Information Provided: Yes FDLMP: sporadic 10/2024 Poor oral hygiene: No service: No Current occupational status: disabled Meds Allergies Allergy/AdvReac Type Severity Reaction Status Date / Time Penicillins [PENICILLINS] Allergy Intermediate HIVES Verified 12/30/24 11:31 oxycodone Allergy Rash Verified 12/15/24 10:45 Home Medications ?Medication ?Instructions ?Recorded ?Confirmed ?Last Taken ?Type buspirone 5 mg tablet 5 mg PO TID 11/30/23 12/30/24 Unknown History cholecalciferol (vitamin D3) 25 25 mcg PO DAILY 11/30/23 12/30/24 Unknown History mcg (1,000 unit) tablet (Vitamin D3) citalopram 10 mg tablet 10 mg PO QAM 11/30/23 12/30/24 Unknown History citalopram 20 mg tablet 20 mg PO QPM 11/30/23 12/30/24 Unknown History dicyclomine 10 mg capsule 10 mg PO Q8H PRN cramps 11/30/23 12/30/24 Unknown History levothyroxine 150 mcg tablet 150 mcg PO DAILY 11/30/23 12/30/24 11/30/23 History metoprolol succinate 50 mg 50 mg PO QAM 11/30/23 12/30/24 Unknown History tablet,extended release 24 hr vitamin B complex 1 tab PO DAILY 11/30/23 12/30/24 Unknown History pantoprazole 20 mg tablet,delayed 20 mg PO DAILY 02/03/24 12/30/24 Unknown Hist ory release albuterol sulfate 90 mcg/actuation 2 puff inhalation Q4H PRN wheezing 04/08/24 12/30/24 Unknown History aerosol inhaler pantoprazole 40 mg tablet,delayed 40 mg PO QPM 04/08/24 12/30/24 Unknown History release losartan 100 mg tablet 100 mg PO DAILY 08/20/24 12/30/24 Unknown History trazodone 50 mg tablet 50 mg PO BEDTIME 08/20/24 12/30/24 Unknown History Exam Exam Date and Time: 12/30/24 1250 Height,Weight and Vital Signs: Height 5 ft 1.5 in Weight 62.596 kg Vital Signs Temperature 98.2 F 12/30/24 11:27 Pulse Rate 70 12/30/24 11:27 Respiratory Rate 18 12/30/24 11:27 Blood Pressure 157/95 H 12/30/24 11:27 Pulse Oximetry 97 12/30/24 11:27 Oxygen Delivery Method Room Air 12/30/24 11:27 Temperature 98.2 F 12/30/24 11:27 Pulse Rate 70 12/30/24 11:27 Respiratory Rate 18 12/30/24 11:27 Blood Pressure 157/95 H 12/30/24 11:27 Pulse Oximetry 97 12/30/24 11:27 Oxygen Delivery Method Room Air 12/30/24 11:27 Airway Mallampati Class: I TM Dist: >3cm Neck ROM: Full Loose/Missing/Broken Teeth: No (patient denies any loose or broken teeth) Heart: S1S2 Lungs: CTAB Assessment and Plan Assessment Anesthesia Assessment: Anesthesia Plan Discussed and Chart Reviewed Final Anesthetic Review Family History of Problems with Anesthesia: No History of Problems with Anesthesia: No NPO: Yes ASA Class: III Final Preanesthetic Review: No Changes in Pt Med Stat, Meds/Allgs Chart Reviewed, Consent Obtained/Reviewed and Anes Risks/Benef Reviewed Patient Risk: Intermediate Procedure Risk: Low Anesthetic Plan Anesthetic Plan: GA and Agree w/ Assess. and Plan Disposition: Standard PACU
[2024-12-30] MEDS: ceFAZolin Sodium/Dextrose,Iso 2 GM/50 ML PIGGYBACK IV (13:06)
[2024-12-30] MEDS: Acetaminophen 1,000 MG/100 ML PIGGYBACK 400 MG IV (13:16)
[2024-12-30 14:37] VITALS: BP 160/84; PULSE 110; RESP 16; TEMP 36.6; O2SAT 100
[2024-12-30 14:40] VITALS: BP 158/93; PULSE 94; RESP 16; O2SAT 100
[2024-12-30] MEDS: Haloperidol Lactate 5 MG/ML VIAL 1 MG IVPUSH (14:43)
[2024-12-30 14:45] VITALS: BP 168/97; PULSE 89; RESP 14; O2SAT 100
[2024-12-30 14:50] VITALS: BP 161/97; PULSE 85; RESP 19; O2SAT 100
[2024-12-30 15:05] VITALS: BP 155/89; PULSE 87; RESP 19; TEMP 36.6; O2SAT 97
== END 2024-12-30 15:37 | disposition home or self-care (01) ==
PROVIDERS: PCP Family Medicine; Visit Provider Orthopaedic Surgery
PROC: (CPT 64718; principal; 2024-12-30 12:00)
DX: G56.22 Lesion of ulnar nerve, left upper limb (principal); R20.0 Anesthesia of skin; J45.909 Unspecified asthma, uncomplicated; R05.3 Chronic cough; I10 Essential (primary) hypertension; G93.2 Benign intracranial hypertension; M79.7 Fibromyalgia; K76.0 Fatty (change of) liver, not elsewhere classified; E05.00 Thyrotoxicosis with diffuse goiter without thyrotoxic crisis or storm; Z79.899 Other long term (current) drug therapy; Z88.0 Allergy status to penicillin; Z88.5 Allergy status to narcotic agent; Z98.84 Bariatric surgery status; Z79.890 Hormone replacement therapy; Z87.891 Personal history of nicotine dependence
CPT/HCPCS: 64718; J0131; J0690; J1100; J1630; J2003; J2004; J2405; J2704; J3010

== ENCOUNTER → 2024-12-30 10:18 | Outpatient (BNV) | payer OTHER, SELFPAY | PROVIDERS: PCP Family Medicine; Visit Provider Orthopaedic Surgery | DX: G56.22 Lesion of ulnar nerve, left upper limb (principal) | CPT/HCPCS: 64718 ==

== ENCOUNTER 2025-01-12 09:59 | Outpatient (REF) | payer OTHER, SELFPAY ==
[2025-01-12 11:34] LABS: Rheumatoid Factor < 13.0 IU/mL (<15.0)
[2025-01-12 11:42] LABS: Alanine Aminotransferase 22 U/L (0-31); Anion Gap 13 (12-20); Aspartate Amino Transferase 26 U/L (5-31); Blood Urea Nitrogen 13 mg/dL (9-16); Carbon Dioxide 26 mmol/L (22-29); Chloride 106 mmol/L (96-108); Cholesterol 223 mg/dL (<200); Estimated Glomerular Filt Rate > 60; Glucose Fasting 95 mg/dL (60-99); HDL Cholesterol 56 mg/dL (>40); LDL Cholesterol Calculated 133 mg/dL (<100); Potassium 3.9 mmol/L (3.3-5.1); Sodium 141 mmol/L (135-145); Triglycerides 174 mg/dL (<150)
[2025-01-12 11:56] LABS: Ferritin 49 ng/mL (10-250); Free T4 (Free Thyroxine) 0.77 ng/dL (0.71-1.85); Thyroid Stimulating Hormone 8.73 uIU/mL (0.32-4.0)
[2025-01-12 12:17] LABS: Erythrocyte Sedimentation Rate 19 MM/HR (0-20)
[2025-01-14 13:24] LABS: Anti Nuclear Antibody Screen NEGATIVE (NEGATIVE)
== END 2025-01-12 10:00 | disposition home or self-care (01) ==
LOC: HO.10HDL 09:59
PROVIDERS: Visit Provider Family Medicine
DX: M19.90 Unspecified osteoarthritis, unspecified site (principal); E78.00 Pure hypercholesterolemia, unspecified; E03.9 Hypothyroidism, unspecified; I10 Essential (primary) hypertension
CPT/HCPCS: 36415; 80051; 80061; 82565; 82728; 82947; 84439; 84443; 84450; 84460; 84520; 85652; 86038; 86431; 99212

== ENCOUNTER 2025-01-12 10:12 | Outpatient (AMB) | payer OTHER, SELFPAY ==
--- NOTE | 2025-01-12 10:25 | MHC.OFFVIS ---
Intake Visit Reasons: PO-Lt Cubital 12/30/24 Intake Note: Torie is a 44 year old right hand dominant female who presents today for a post operative visit s/p left cubital tunnel release scheduled for 12/30/24 AR. Patient reports she is having a lot of muscle spasms through out the day and at night. She states that her pain goes through the whole arm. Patient is haivng numbness in her fingers Allergies Penicillins [PENICILLINS] Allergy (Intermediate, Verified 01/12/25 10:26) HIVES oxycodone Allergy (Verified 01/12/25 10:26) Rash [facility] Medical History [id number] syndrome Reactive airway disease Chronic cough Liver fibrosis Graves' disease GERD (gastroesophageal reflux disease) Fibromyalgia Fatty liver Hx of headache Seasonal allergies Environmental allergies Depression History of lumbar puncture Pseudotumor cerebri Asthma Anxiety Neck pain Back pain Hypothyroidism IBS (irritable bowel syndrome) Hypertension Morbid obesity Surgical History History of sleeve gastrectomy History of hysteroscopy Hx of tubal ligation Hx of section Family History Mother Hypertension Heart problem Father Diabetes Heart problem High cholesterol Brother Hypertension Sister Hypertension Sister Hypertension Sister Hypertension Brother Heart problem Hypertension Son No problems noted. Daughter No problems noted. Social History Household Members: Family Household Members Other:: son 19 yrs, daughter 18 yrs Housing: House Are you a primary child care leader to a significant other at home: No Do you presently have visiting nurse or other home services: No Alcohol intake: never Patient Tobacco Use Status: Former Tobacco user Tobacco use type: Cigarette service: No Current occupational status: disabled Assessment & Plan Assessment & Plan (1) Cubital tunnel syndrome on left: Code(s): G56.22 - Lesion of ulnar nerve, left upper limb Category: Medical Plan History of Present Illness The patient is a 44-year-old female presenting for postoperative follow-up following a left cubital tunnel release conducted on 12/30/24. Post-surgery, she reports experiencing muscular spasms and cramping in her left upper extremity, charan to [place] sensations. Hypersensitivity localized around the surgical incision manifests as a burning sensation when rubbed or touched, and she notes improvement in symptoms when the area is exposed to air. She also experiences stiffness and tightness in her left elbow when held in stationary positions, disturbing her sleep. Although there is observed improvement in numbness and sensation compared to her presurgical state, intermittent cramping is still present, potentially affecting nerve sensitivity. She reports swelling in the elbow, especially at night, limiting full extension. The patient acknowledges use of a sling sparingly, noting increases in tightness with its usage, and she adheres to postoperative instructions, including elevation and workspace adjustments, to minimize discomfort. She expresses anticipation for suture removal due to itching, highlighting eagerness for therapeutic interventions to restore complete function and soften discomfort. Review of Systems - Musculoskeletal: Reports muscle spasms, cramping, stiffness, and tightness in left upper extremity. - Neurological: Reports hypersensitivity and intermittent numbness in left hand. - Integumentary: Reports hypersensitivity and bruising around incision site. - Sleep: Reports disturbed sleep due to discomfort when the arm is stationary. - Pain: Reports tenderness and burning sensation at incision site. Systems reviewed and are negative except as per HPI and below Physical Exam - Musculoskeletal- Left elbow shows limited range of motion, with extension to approximately 15-20degrees. tenderness and hypersensitivity at the incision site are noted; minimal bruising and swelling present. sensation to the left hand is full and intact at this time Results Procedure - Informed Consent: Discussed and agreed upon with the patient. - Suture removal: Sutures were removed as per standard postoperative care protocol. Applied Steri-Strips on the incision site, instructing the patient that they may fall off naturally within five days; otherwise, she may remove them. Plan Occupational therapy is initiated for addressing the range of motion and desensitization of the left elbow and hand post-cubital tunnel release. The therapy will include gentle exercises targeting stiffness and hypersensitivity. The patient should adhere to restrictions limiting the lifting weight to two pounds for an additional two weeks following suture removal. Usage of a sling is discouraged due to potential contribution to tightness. Continuing current post-operative care, including Steri-Strip management, is emphasized. A further evaluation is set for four weeks to assess recovery progress. Comprehensive postoperative guidance was provided, focusing on hypersensitivity management and optimizing recovery. Patient was informed and verbally consented to the use of an ambient scribe for clinic note documentation during this visit. Discussion Notes During the visit, I discussed the postoperative status following the left cubital tunnel release with the patient. The importance of occupational therapy focusing on the range of motion and desensitizing exercises was emphasized as crucial for recovery. I explained the risks of continued hypersensitivity and outlined the benefits of therapy and movement exercises in promoting optimal functional outcomes. The decision to remove sutures and apply Steri-Strips was discussed, with reiteration of avoidance of heavy lifting or a sling to improve recovery and reduce potential complications. The patient consented to the plan and was provided with a card to schedule her therapy sessions promptly. We agreed on a follow-up in four weeks unless any immediate concerns arise. Patient Instructions - Begin occupational therapy for range of motion and desensitization exercises for the left elbow and hand. - Avoid lifting more than two pounds with the left hand for two additional weeks. - Do not use a sling; instead, maintain movement to avoid stiffness. - Keep the incision site clean and apply Steri-Strips as discussed. Allow them to fall off naturally within five days. - Monitor the incision site for signs of infection or complications. - Return for a follow-up appointment in four weeks or sooner if concerns arise. - For activities of daily living, avoid getting the suture area submerged in water for one more week. Orders: Orders OT Evaluation and Treatment Today G56.22 - Lesion of ulnar nerve, left upper limb Coding Level of Care Code Global (10427) Diagnoses Cubital tunnel syndrome on left G56.22
== END 2025-01-12 11:06 | disposition home or self-care (01) ==
LOC: HO.HOS 10:13
PROVIDERS: PCP Family Medicine
DX: G56.22 Lesion of ulnar nerve, left upper limb (principal)
CPT/HCPCS: 99024

== ENCOUNTER 2025-01-31 14:40 | Outpatient (REF) | payer OTHER, SELFPAY ==
--- NOTE | ~2025-01-31 | XR_ITS ---
EXAMINATION: XR KNEE 3 VIEWS LEFT HISTORY: left knee pain COMPARISON: There are no prior studies available for comparison. FINDINGS: Three views of the left knee are submitted. Osseous mineralization is normal. There is no fracture or dislocation. The joint spaces are preserved. Tiny osseous density in the posterior aspect of the joint space may represent a loose body. There is no joint effusion. XR/XR knee LT 3V IMPRESSION: Possible tiny loose body in the posterior aspect of the joint space. Otherwise unremarkable examination of the left knee. Electronically signed by: Terry Joseph MD 02/01/2025 07:39 AM EDT
== END 2025-01-31 14:41 | disposition home or self-care (01) ==
LOC: HO.XRAY 14:40
PROVIDERS: PCP Family Medicine; Visit Provider Family Medicine
DX: M25.562 Pain in left knee (principal)
CPT/HCPCS: 73562

== ENCOUNTER 2025-02-09 13:41 | Outpatient (AMB) | payer OTHER, SELFPAY ==
--- NOTE | 2025-02-09 14:22 | MHC.OFFVIS ---
Vital Signs 02/09/25 14:29 Height 5 ft 2 in Weight 242 lb BMI 44.3 Handedness Right Intake Visit Reasons: PO-Lt Cubital 12/30/24-ROM check Intake Note: Torie is a 44 year old right hand dominant female who presents today for a post operative visit s/p left cubital tunnel release DOS: 01/12/[address] Alejandrina Peterson. She states the she is still having muscle spasms with tenderness/sensitivity. Patient mentions sometime she tends to notice a lump on the ulnar aspect of the elbow. Patient states that OT is giving her relief and she is seeing slight improvement. Allergies Penicillins [PENICILLINS] Allergy (Intermediate, Verified 02/09/25 14:26) HIVES oxycodone Allergy (Verified 02/09/25 14:26) Rash HPI HPI PO-Lt Cubital 12/30/24-ROM check: Details: Torie is a 44 year old right hand dominant female who presents today for a post operative visit s/p left cubital tunnel release DOS: 01/12/[address] Alejandrina Peterson. She states the she is still having muscle spasms with tenderness/sensitivity. Patient mentions sometime she tends to notice a lump on the ulnar aspect of the elbow. Patient states that OT is giving her relief and she is seeing slight improvement. 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 Reactive airway disease Chronic cough Liver fibrosis Graves' disease GERD (gastroesophageal reflux disease) Fibromyalgia Fatty liver Hx of headache Seasonal allergies Environmental allergies Depression History of lumbar puncture Pseudotumor cerebri Asthma Anxiety Neck pain Back pain Hypothyroidism IBS (irritable bowel syndrome) Hypertension Morbid obesity Surgical History History of sleeve gastrectomy History of hysteroscopy Hx of tubal ligation Hx of section Family History Mother Hypertension Heart problem Father Diabetes Heart problem High cholesterol Brother Hypertension Sister Hypertension Sister Hypertension Sister Hypertension Brother Heart problem Hypertension Son No problems noted. Daughter No problems noted. Social History Household Members: Family Household Members Other:: son 19 yrs, daughter 18 yrs Housing: House Are you a primary acute care certified nursing assistant to a significant other at home: No Do you presently have visiting nurse or other home services: No Alcohol intake: never Patient Tobacco Use Status: Former Tobacco user Tobacco use type: Cigarette service: No Current occupational status: disabled Review of Systems Const All systems reviewed & are unremarkable except as noted in HPI and below Physical Exam Vital Signs: BMI result Body Mass Index 44.3 Const General: cooperative, healthy appearing and no acute distress Orientation/consciousness: patient oriented x3 HEENT Head: Yes normocephalic and Yes atraumatic Eyes EOM: EOMs intact bilaterally Resp Effort & Inspection: normal respiratory effort and able to speak in complete sentences Cardio Jugular venous distension: no JVD Skin General skin exam: turgor normal Rashes: no rashes Neuro General: patient oriented x3 Extrem Other: Evaluation of Left Upper Extremity: The patient is alert, oriented, and in no acute distress Neuro: Median, Ulnar, Radial nerves motor and sensory intact and sensation is normal to the tips of all digits No thenar or intrinsic wasting Good APB muscle belly firing and good finger cross Vascular: Cap refill brisk ROM: She can make a fist and extend all her digits No locking or catching Skin: No lacerations or abrasions. Pain and electric like sensation with even light palpation to the incision site on the left elbow, consistent with hypersensitivity reaction. General: No Ecchymosis. No Erythema or evidence of infection. Psych Appearance: grossly normal Affect: normal affect Attitude: cooperative Assessment & Plan Assessment & Plan (1) Cubital tunnel syndrome on left: Code(s): G56.22 - Lesion of ulnar nerve, left upper limb Category: Medical Plan Continue OT for desensitization and range of motion Patient is educated that range of motion and sensitivity have both improved significantly from previous evaluation, so no further follow-up with our office is necessary unless there are any issues Patient is educated that she has no further active restrictions from our perspective, and can return to activity as tolerated Patient is amenable to this plan Follow-up as needed Coding Level of Care Code Global (31257) Diagnoses Cubital tunnel syndrome on left G56.22
[2025-02-09 14:29] VITALS: BMI 44.3
== END 2025-02-09 14:58 | disposition home or self-care (01) ==
LOC: HO.HOS 13:41
PROVIDERS: PCP Family Medicine
DX: G56.22 Lesion of ulnar nerve, left upper limb (principal)
CPT/HCPCS: 99024

== ENCOUNTER → 2025-02-09 13:41 | Outpatient (BNVA) | payer OTHER, SELFPAY | PROVIDERS: PCP Family Medicine | DX: G56.22 Lesion of ulnar nerve, left upper limb (principal) | CPT/HCPCS: 99212 ==

== ENCOUNTER 2025-02-21 14:17 | Outpatient (RCR) | payer OTHER, SELFPAY ==
--- NOTE | 2025-01-19 15:20 | MHC.OT.EP ---
[address] [phone] Occupational Therapy Plan of Care Patient Name: Torie Grider Date of Evaluation: 01/19/25 Diagnosis: S/P L CUBITAL TUNNEL RELEASE Pain Location: 6/10 AT REST; SHARP 7/10 WITH USE; AT NIGHT PAIN GREATEST Pain Score: 6-7/10 Pain Scale Used: Numeric (0 - 10) Aggravating Factors: RUBBING/RESTING ON DIFFERENT TEXTURES, PINCHING WITH L HAND Alleviating Factors: USING ICE AND HEAT (IBUPROFEN WITHOUT RELIEF) Assessment: MS GRIDER IS ALMOST THREE WEEKS POST OP L CUBITAL TUNNEL RELEASE DUE TO [facility] REPORT OF L ULNAR NEUROPATHY. SHE STATES THAT HER PAIN RADIATES TO HER MEDIAL UPPER ARM AND VOLAR FOREARM. SHE APPEARS GUARDED AND HYPERSENSITIVE TO TOUCH THROUGHOUT HER LUE. AN 80% LIMITATION IS REPORTED PER THE QUICK DASH ASSESSMENT. ONGOING SKILLED OT IS WARRANTED FOR ROM, STRENGTHENING, DESENSITIZATION, SCAR MOBILIZATION, Pt EDUCATION, SAFE RETURN TO ADLs AND IADLs. Frequency and Duration: The patient will be seen 2X/WEEK 6 WEEKS Short Term Goals: IND HEP IND SCAR MOBILIZATION IND EDEMA MANAGEMENT IND JT PROTECTION/ ACTIVITY MODIFICATION [facility] Goals: TOLERATE 8 MINS OF VIBRATION, ROUGH TEXTURES >8 MINS QUICK DASH <50% L GRASP >20 POUNDS REPORT <5/10 PAIN WITH LIFTING 5 LB FLOOR TO WAIST FOR SIMULATED IADLs Treatment Plan: Therapeutic Exercise Therapeutic Activity Home Exercise Program Splinting Neuro Re-ed Patient Education Desensitization/Sensory Re-ed Edema Control ADL Training Ultrasound NMES Iontophoresis Paraffin Fluidotherapy MHP Cold Packs Joint Mobilization Soft Tissue Mobilization Kinesiotaping Other (see comments) Electronically Signed By: BRODIE ROBERSON OTR/L Please Sign and return to therapist. Thank you once again for your referral.
--- NOTE | 2025-02-21 15:04 | MHC.OT.DC ---
[address] [phone] F: [phone] Occupational Therapy Discharge Note Patient Name: Torie Grider Provider: Alen Chavez Diagnosis: S/P L CUBITAL TUNNEL RELEASE Date of Surgery: 12/30/24 Date of Evaluation: 01/19/25 Date of Discharge: 02/21/25 Treatments to Date: 8 Cancellations to Date: 1 No Shows to Date: 0 Discharge Status: Achieved Goals Improved Function Independent with HEP Discharge Summary: MS GRIDER HAS PROGRESSED WELL WITH HER OT GOALS. SHE HAS IMPROVED HER NON DOMINANT STRENGTH AND ROM, AND DEMO GOOD UNDERSTANDING OF SCAR MOBILIZATION AND DESENSITIZATION STRATEGIES. Pt READY TO TRANSITION TO A HOME BASED PROGRAM. D/C OT. Electronically Signed By: BRODIE ROBERSON OTR/L Reviewed/agree with student documentation: N/A Therapist: Please Sign and return to therapist, thank you for your referral.
== END 2025-02-21 15:00 | disposition home or self-care (01) ==
LOC: HO.OT 14:17
PROVIDERS: PCP Family Medicine
DX: G56.22 Lesion of ulnar nerve, left upper limb (principal)
CPT/HCPCS: 97035; 97110; 97112; 97140; 97166

== ENCOUNTER 2025-04-07 09:49 | Outpatient (AMB) | payer OTHER, SELFPAY ==
--- NOTE | 2025-04-07 10:01 | MHC.OFFVIS ---
Intake Visit Reasons: 1y/US Intake Note: Patient is Present for 1yr follow up/US Urology Med:None Antibiotic Allergy: Penicillins Blood Thinners:None Manager Cardiology Required: No Accompanied by: Self / Same As Patient Allergies Penicillins (PENICILLINS) Allergy (Intermediate, Verified 04/07/25 10:06) HIVES oxycodone Allergy (Verified 04/07/25 10:06) Rash HPI Comments Details: 04/07/25--corky is a 44-year-old female who is followed for kidney stones presents today to review recent renal ultrasound. 04/08/2024--Torie is here for follow-up. She was evaluated due to pyelonephritis and left hydronephrosis secondary to obstructive ureteral stone. She is here in follow-up post renal ultrasound which was performed on 03/30/2024 left hydronephrosis is resolved small nonobstructing left renal stone remains. Right kidney within normal limits. I have discussed the importance of hydrating up to 2-2.5 L, increasing citrate in the diet by adding lemon to water, drinking lemonade, the patient states she completed the 24 hour urine I have not received the results as yet. We will call the [facility] lab. Will continue to monitor kidneys. Follow-up in 1 year 01/09/2024--Torie is here for follow-up after inpatient at [facility] treated for pyelonephritis. She was seen in consultation on 12/02/2023. She states that she completed the antibiotics that she was sent home with Ceftin 500 mg. She denies history of kidney stones in the past. She denies problems with the occurring UTIs. I have discussed that not drinking enough fluids is 1 of the leading causes of kidney stone formation. The patient states that since her gastric sleeve procedure she is limited on how much fluid she can consume. I have discussed plan for 24 hour urine and renal ultrasound to re-evaluate and confirm resolution of hydronephrosis. 12/02/23--[facility]-consult HPI-- 43 year old female with history of hypothyroidism, h/o gastric sleevectomy, vitamin d/b1/b12 deficiency, htn, ICH, gerd, fibromyalgia, and IBS presented to the ED for evaluation of fevers and abdominal pain. She states she began experiencing right sided abdominal pain and flank pain about 1 week ago and thought this was due to flare in IBS. In the last few days has developed shaking chills, sweats, fevers with increased urinary frequency, and urgency, denies dysuria. Denies prior h/o kidney stones. I reviewed CT imaging, findings c/w recently passed stone. Blood and urine c/s GNR. ID has also been consulted. Clinically improving on IV abx, denies flank pain. CTAP w/IV contrast: There is mild left renal hydronephrosis and hydroureter, there is however no calcified visible stone along the course of the left ureter, this could be due to recently passed stone, reflux, versus soft tissue obstruction of the distal ureter at the UVJ. There are small nonobstructing stones in the left kidney and single tiny stone in the right kidney. [facility] Medical History [id number] syndrome Reactive airway disease Chronic cough Liver fibrosis Graves' disease GERD (gastroesophageal reflux disease) Fibromyalgia Fatty liver Hx of headache Seasonal allergies Environmental allergies Depression History of lumbar puncture Pseudotumor cerebri Asthma Anxiety Neck pain Back pain Hypothyroidism IBS (irritable bowel syndrome) Hypertension Morbid obesity Surgical History History of sleeve gastrectomy History of hysteroscopy Hx of tubal ligation Hx of section Family History Mother Hypertension Heart problem Father Diabetes Heart problem High cholesterol Brother Hypertension Sister Hypertension Sister Hypertension Sister Hypertension Brother Heart problem Hypertension Son No problems noted. Daughter No problems noted. Social History Household Members: Family Household Members Other:: son 19 yrs, daughter 18 yrs Housing: House Are you a primary health care marketing specialist to a significant other at home: No Do you presently have visiting nurse or other home services: No Alcohol intake: never Patient Tobacco Use Status: Former Tobacco user Tobacco use type: Cigarette service: No Current occupational status: disabled Results AMB Urinalysis, Automated UA Leukoctes 0 Michael/uL Last Edit by Sandee Lee on 04/07/25 15:19 UA Nitrite Negative Last Edit by Sandee Lee on 04/07/25 15:19 UA Urobilinogen 3.5 mg/dL Last Edit by Sandee Lee on 04/07/25 15:19 UA Protein 1 mg/dL Last Edit by Sandee Lee on 04/07/25 15:19 UA pH 6.0 Last Edit by Sandee Lee on 04/07/25 15:19 UA Blood 25 Hair/uL Last Edit by Sandee Lee on 04/07/25 15:19 UA Specific [place] 1.015 Last Edit by Sandee Lee on 04/07/25 15:19 UA Ketone Negative Last Edit by Sandee Lee on 04/07/25 15:19 UA Bilirubin 0 mg/dL Last Edit by Sandee Lee on 04/07/25 15:19 UA Glucose 0 mg/dL Last Edit by Sandee Lee on 04/07/25 15:19 Assessment & Plan Assessment & Plan Orders: Orders AMB Urinalysis Automated Today N13.30 - Unspecified hydronephrosis, N20.0 - Calculus of kidney, N39.0 - Urinary tract infection, site not specified Coding
== END 2025-04-07 10:44 | disposition home or self-care (01) ==
LOC: HO.HUSH 09:49
PROVIDERS: PCP Family Medicine; Visit Provider Urology
DX: N39.0 Urinary tract infection, site not specified (principal); N20.0 Calculus of kidney; N13.30 Unspecified hydronephrosis

== ENCOUNTER → 2025-04-07 09:49 | Outpatient (BNVA) | payer OTHER, SELFPAY | PROVIDERS: PCP Family Medicine; Visit Provider Urology | DX: Z71.2 Person consulting for explanation of examination or test findings (principal); N20.0 Calculus of kidney; N39.0 Urinary tract infection, site not specified; N13.30 Unspecified hydronephrosis | CPT/HCPCS: 81003; 99212 ==

== ENCOUNTER 2025-05-06 09:18 | Outpatient (AMB) | payer OTHER, SELFPAY ==
--- NOTE | 2025-05-06 09:20 | A.OFFPC_ITS ---
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: No Accompanied by: Self / Same As Patient Allergies Penicillins (PENICILLINS) Allergy (Intermediate, Verified 05/06/25 09:20) HIVES oxycodone Allergy (Verified 05/06/25 09:20) Rash Medication List - Last Reconciled 05/06/25 by Omar Merlos MD acetaminophen (Tylenol Extra Strength) 1,000 mg PO Q6H PRN albuterol sulfate 90 mcg/actuation 2 puffs inhalation Q4H PRN buspirone 5 mg PO TID carvedilol (Coreg) 6.25 mg PO BID 90 days cholecalciferol (vitamin D3) (Vitamin D3) 25 mcg PO DAILY citalopram 20 mg PO QPM citalopram 10 mg PO QAM dicyclomine 10 mg PO Q8H PRN diltiazem HCl CD 240 mg PO QAM gabapentin 300 mg PO BEDTIME ibuprofen 600 mg PO Q6H PRN levothyroxine 200 mcg PO DAILY levothyroxine 200 mcg PO DAILY losartan 100 mg PO DAILY meloxicam 15 mg PO QAM montelukast (Singulair) 10 mg PO BEDTIME pantoprazole 20 mg PO DAILY triamcinolone acetonide 0.1% 1 appl topical BID-TID vitamin B complex 1 tab PO DAILY Tobacco use date assessed: 05/06/25 HPI HPI Comments History of Present Illness Details The patient is a 44-year-old female presenting with ongoing issues related to essential hypertension, persistent hypothyroidism, fibromyalgia, and pseudotumor cerebri, among other complaints. The patient's history of essential hypertension includes problems with gaining control, which she states worsens with increased pain related to fibromyalgia and other stress factors. The patient reports chronic use of antihypertensive medication regimes, including increasing doses and adding medications like diltiazem and losartan, though her blood pressure readings remain elevated. The patient's history of hypothyroidism includes high doses of levothyroxine (400 mcg daily), with concerns regarding previous management resulting in prolonged periods of poor control. Symptoms of hypothyroidism such as joint pain, body aches, insomnia, vocal changes, and a sensation of difficulty breathing are present. She suspects having been misdiagnosed earlier with Graves' disease. Fibromyalgia has also been a complex issue, characterized by muscular pain and tenderness, exacerbated by stress and physical strain, and minimally responsive to medications. Gabapentin was recently restarted in an attempt to manage pain a ssociated with fibromyalgia. Pseudotumor cerebri contributes to episodes of severe headaches with ear involvement, showing some response to [id number] medication and other prescribed analgesics, though inefficacious in full symptom resolution. The patient has numerous atopic complaints, including environmentally triggered allergies leading to hives, managed with dermatological monitoring for urticaria. Of note is the patient?s history of a gastric sleeve procedure three years ago contributing to significant weight loss initially, though there is a concurrent concern of weight gain recently attributed to unmanaged thyroid problems. Despite a previous history of smoking, the patient quit six years ago after a nine-year pack-a-day habit. The patient?s history of past surgical interventions including ulnar nerve release and C-sections further complicates her current symptomatology. Medical History: - Essential Hypertension - Hypothyroidism - Suspected Graves? Disease - Fibromyalgia - Pseudotumor Cerebri - Gastroesophageal Reflux Disease (GERD) - Occasional Asthma - Chronic Urticaria - Allergies (Environmental and Fragrance Mix) - Anxiety and Depression Surgical History: - Gastric Sleeve Surgery (3 years ago) - Ulnar Nerve Release (December; recent) - Sections (2 in total) Medications: - Levothyroxine 400 mcg daily for Hypoth yroidism - Diltiazem 240 mg for Hypertension - Losartan 100 mg for Hypertension - Metoprolol 50 mg for Hypertension - Gabapentin 300 mg for Fibromyalgia - Citalopram for Anxiety and Depression - As needed medications for miscellaneou s symptom management Family History: - Ovarian Cancer - Breast Cancer - Thyroid Cancer - Heart Disease (Mother, Brother, Father ) - Diabetes (Father) Social: - No current smoking; previous smoking c essation six years ago after a nine-year habit of a pack a day. - Occasional alcohol use, mainly during festive occasions. - Resides with boyfriend and daughter, p roviding a stable and supportive home environment. - Previous occupational history not spec ified. - Reports compliance with dietary adjust ments despite noted triggers of allergenic response and IBS symptoms involving green foods and throat itch. - No current employment status provided, affecting resource access. 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 Reactive airway disease Chronic cough Liver fibrosis Graves' disease GERD (gastroesophageal reflux disease) Fibromyalgia Fatty liver Hx of headache Seasonal allergies Environmental allergies Depression History of lumbar puncture Pseudotumor cerebri Asthma Anxiety Neck pain Back pain Hypothyroidism IBS (irritable bowel syndrome) Hypertension Morbid obesity Surgical History History of sleeve gastrectomy History of hysteroscopy Hx of tubal ligation Hx of section Family History Mother Hypertension Heart problem Father Diabetes Heart problem High cholesterol Brother Hypertension Sister Hypertension Sister Hypertension Sister Hypertension Brother Heart problem Hypertension Son No problems noted. Daughter No problems noted. Social History Household Members: Family Household Members Other:: son 19 yrs, daughter 18 yrs Housing: House Are you a primary chiropractic care to a significant other at home: No Do you presently have visiting nurse or other home services: No Alcohol intake: never Patient Tobacco Use Status: Former Tobacco user Tobacco use type: Cigarette Years Smoked: 8 e-Cigarette/Vaping Use: Never Used service: No Current occupational status: disabled Questionnaire PHQ-9 Over the last 2 weeks, how often have you been bothered by any of the following problems? 1. Little interest or pleasure in doing things: not at all 2. Feeling down, depressed, or hopeless: not at all 3. Trouble falling or staying asleep, or sleeping too much: not at all 4. Feeling tired or having little energy: not at all 5. Poor appetite or overeating: not at all 6. Feeling bad about yourself - or that you are a failure or have let yourself or your family down: not at all 7. Trouble concentrating on things, such as reading the newspaper or watching television: not at all 8. Moving or speaking so slowly that other people could have noticed. Or the opposite - being so fidgety or restless that you have been moving around a lot more than usual: not at all 9. Thoughts that you would be better off or of hurting yourself in some way: not at all Total score: 0 Depression Screening Interpretation: Negative Depression Screening Done: Yes 49499 - PHQ-9 Billing: Yes Source: Developed by Drs. Terry Walls, Pillo Aden and colleagues, with an educational jose guadalupe from [employer]. Thrive Questionnaire Date Thrive assessed: 05/06/25 I am a: Patient What is your living situation today?: I have a steady place to live Within the past 12 months, did the food you bought not last and you didn't have the money to get more?: Never true Within the past 12 months, did you worry whether your food would run out before you got money to buy more?: Never true Do you have trouble paying for medicines?: No Do you have trouble getting transportation to medical appointments?: No Do you have trouble paying your heating and electricity bill?: No Do you have trouble taking care of your child, family member or friend?: No Do you have trouble with day-to-day activities such as bathing, preparing meals, shopping, managing finances, etc.?: No Are you currently unemployed and looking for a job?: No Are you interested in more education?: No THRIVE Score: 0 AUDIT C Alcohol Use Questionnaire (AUDIT-C) 1. How often do you have a drink containing alcohol?: Never 3. How often do you have six or more drinks on one occasion?: Never Total Score: 0 ADDY-7 AMB Questionnaire ADDY-7 Date ADDY - 7 assessed: 05/06/25 Feeling nervous, anxious, or on edge: 1 = Several days Not being able to stop or control worryin = Several days Worrying too much about different things: 2 = More than half the days Trouble relaxin = Several days Being so restless that it is hard to sit still: 1 = Several days Becoming easily annoyed or irritable: 0 = Not at all Feeling afraid as if something awful might happen: 1 = Several days Total ADDY-7 score (0-4 normal; 5-9 mild; 10-14 moderate; 15-21 severe): 7 Source: Developed by Jaye Burnett Kurt Kroenke and colleagues, with an educational jose guadalupe from [employer]. ADDY-7 Assessment Billing ADDY-7 Assessment Tool: ADDY-7 Assessment 57501 Review of Systems Const Details: - Cardiovascular: Reports persistent high blood pressure; denies current smoking, occasional alcohol consumption. - Endocrine: Reports hypothyroidism with symptoms including weight fluctuations, insomnia, fatigue, and joint aches. - Neurological: Reports fibromyalgia-induced muscle pain, pseudotumor cerebri with recurring severe headaches. - Dermatological: Reports chronic urticaria, environmental allergies. - Respiratory: Reports occasional asthma symptoms. - Psychiatric: Reports anxiety, stress-induced fibromyalgia exacerbations. All systems reviewed & are unremarkable except as noted in HPI and below Physical exam (Primary Care) Vital Signs: Last Vital Signs Temp 97.3 F 05/06/25 09:21 Pulse 73 05/06/25 09:21 Resp 17 05/06/25 09:21 BP 150/110 H 05/06/25 09:21 Pulse Ox 97 05/06/25 09:21 Oxygen Delivery Method Room Air 05/06/25 09:21 BMI result Body Mass Index 46.8 Tobacco/Smoking Status: Tobacco use Status Tobacco use date assessed 05/06/25 05/06/25 09:21 Patient Tobacco Use Status Former Tobacco user 05/06/25 09:21 Tobacco use type Cigarette 05/06/25 09:21 e-Cigarette/Vaping Use Never Used 05/06/25 09:21 Depression Screening Interpretation: Negative Thrive Assessment: Date of Thrive Assessment Date Thrive assessed 12/01/23 05/06/25 09:21 Const Other: General: Alert and oriented, Well nourished, No acute distress. Eye: Pupils are equal, round and reactive to light, Intact accommodation, Extraocular movements are intact, Normal conjunctiva, Vision unchanged. HENT: Normocephalic, Atraumatic, Tympanic membranes are clear, Normal hearing, Oral mucosa is moist, No pharyngeal erythema, Ear canals patent. Respiratory: Lungs CTA bilaterally, No wheeze, Respirations are non-labored. Cardiovascular: Regular rate, Regular rhythm, S1 auscultated, S2 auscultated, No murmur, Good pulses equal in all extremities, Normal peripheral perfusion, No edema. Gastrointestinal: Soft, Non-tender, Non-distended, Normal bowel sounds, No organomegaly. Musculoskeletal: Normal range of motion, Normal strength, No tenderness, No swelling, No deformity, Normal gait. Integumentary: Warm, Dry, Sabin, Intact. Patient reports breaking out in hives when exposed to sun or heat, diagnosed with chronic urticaria. Neurologic: Alert, Oriented, Normal sensory, Normal motor function, No focal defects, Cranial Nerves II-XII are grossly intact, Normal deep tendon reflexes. Patient reports issues with vertigo and headaches associated with pseudotumor cerebri. Psychiatric: Cooperative, Appropriate mood & affect, Normal judgment. Patient reports anxiety and is taking citalopram and buspirone for management. Coding Level of Care Code New Pt Level 4 (35100) Complex EM visit Add On G2211 Diagnoses Hypertension, unspecified type I10 Hypertension type: unspecified Hypothyroidism, unspecified type E03.9 Hypothyroidism type: unspecified Pseudotumor cerebri G93.2 Asthma, unspecified asthma severity, unspecified whether complicated, unspecified whether persistent J45.909 Asthma severity: unspecified severity Asthma persistence: unspecified Asthma complication type: unspecified Anxiety F41.9 Chronic pain of both knees M25.561; M25.562; G89.29 Chronicity: chronic Laterality: bilateral Environmental and seasonal allergies J30.89 IBS (irritable bowel syndrome) K58.9 Fibromyalgia M79.7 Additional Codes PHQ-9 - 85806 - PHQ-9 Billing: Yes ([id number]) ADDY-7 Assessment Billing - ADDY-7 Assessment Tool: ADDY-7 Assessment 85099 ([id number]) Assessment & Plan Assessment & Plan (1) Hypertension: Comment: - Current regimen of Diltiazem 240 mg and Losartan 100 mg deemed insufficient; transition to Carvedilol 6.25 mg from metoprolol recommended for improved pressure management based on persistent high home readings. - Record pressures at home Code(s): I10 - Essential (primary) hypertension Category: Medical Qualifiers: Hypertension type: unspecified Qualified Code(s): I10 - Essential (primary) hypertension (2) Hypothyroidism: Comment: - Continued management with high-dose Levothyroxine 400mcg; referral to Endocrinology for detailed evaluation due to abnormal hormonal levels and symptomology. - Could possibly have underlying malabsorption therefore will obtain celiac panel Code(s): E03.9 - Hypothyroidism, unspecified Category: Medical Qualifiers: Hypothyroidism type: unspecified Qualified Code(s): E03.9 - Hypothyroidism, unspecified (3) Pseudotumor cerebri: Comment: - Recommendations for specialist neurology intervention; stress adequate headache management with reviewed analgesic protocol. Code(s): G93.2 - Benign intracranial hypertension Category: Medical (4) Asthma: Comment: - Continue Albuterol as needed - No documented Spirometry Code(s): J45.909 - Unspecified asthma, uncomplicated Category: Medical Qualifiers: Asthma severity: unspecified severity Asthma persistence: unspecified Asthma complication type: unspecified Qualified Code(s): J45.909 - Unspecified asthma, uncomplicated (5) Anxiety: Comment: Currently being managed with citalopram (10 mg in morning and 20 mg in the evening), buspirone given her complicated medication set up in minimal improvement in symptoms we will refer to psychiatry for further management Code(s): F41.9 - Anxiety disorder, unspecified Category: Medical (6) Knee pain: Comment: Worsening knee pain her bilateral knees with locking of her left knee on movement. Imaging reviewed did show some floating objects in the posterior knee which may suggest the possible meniscal tear. We will refer to orthopedics for possible intervention Code(s): M25.569 - Pain in unspecified knee Category: Medical Qualifiers: Chronicity: chronic Laterality: bilateral Qualified Code(s): M25.561 - Pain in right knee; M25.562 - Pain in left knee; G89.29 - Other chronic pain (7) Environmental and seasonal allergies: Comment: Multiple positive environmental agents as per patient during her recent evaluation with Dermatology. Also scheduled to undergo environmental testing. Code(s): J30.89 - Other allergic rhinitis Category: Medical (8) IBS (irritable bowel syndrome): Comment: Extensive history of IBS with fluctuations between constipation and diarrhea. Also reports having allergic reaction to multiple foods she eats and unable to identify the exact cause. Given her poorly-controlled TSH which may be contributing from her celiac we will obtain a celiac panel as well. Code(s): K58.9 - Irritable bowel syndrome, unspecified Category: Medical (9) Fibromyalgia: Comment: - Implement aquatic therapy, re-evaluate Gabapentin utility, explore multidisciplinary approach. Code(s): M79.7 - Fibromyalgia Category: Medical Plan I carefully discussed the patient's conditions and management options, emphasizing the importance of specialist consultations for thyroid and neurological disorders. Risks of uncontrolled hormone levels and hypertension were delineated. I stressed immediate interventions like switching antihypertensive medication and starting aquatic therapy to address fibromyalgia. Additionally, psychiatric guidance was recommended for SSRI optimization, considering her anxiety and ADHD symptoms. The patient was urged to maintain a log of her blood pressures, continue with current medications, and faithfully attend follow-up appraisals, with return instructions if symptoms escalate. Orders: Orders Comprehensive Met. Panel Today I10 - Essential (primary) hypertension Hemoglobin A1c Today I10 - Essential (primary) hypertension Hepatitis A,B,C Profile Today I10 - Essential (primary) hypertension Syphilis Screen Today I10 - Essential (primary) hypertension TSH reflex Free T4 Today I10 - Essential (primary) hypertension Complete Blood Count Auto Diff Today I10 - Essential (primary) hypertension HIV Ab/Ag Today I10 - Essential (primary) hypertension Lipid Panel Today I10 - Essential (primary) hypertension Vitamin D 25-OH Total Today I10 - Essential (primary) hypertension Celiac Disease Panel Today K58.9 - Irritable bowel syndrome, unspecified Referrals Neurology Referral G93.2 - Benign intracranial hypertension Orthopedics Referral M25.569 - Pain in unspecified knee Endocrinology Referral E03.9 - Hypothyroidism, unspecified Psychiatry Referral F41.9 - Anxiety disorder, unspecified Medications: New carvedilol (Coreg) must administer with a meal/food 6.25 mg PO BID 180 tabs 0RF 90 days Patient Instructions: - Continue taking your medications as prescribed. - Start the new blood pressure medication, Carvedilol, as directed. - Keep a log of your blood pressure at home. - Incorporate swimming or aquatic therapy into your routine. - Follow up with Parts Sales Manager and Neurologist as scheduled. - Avoid excess ibuprofen for pain. - Monitor your diet for allergenic triggers and IBS symptoms. - Schedule psychiatric evaluation for your anxiety and ADHD-like symptoms. - Return for follow-up in two months or sooner if symptoms worsen.
[2025-05-06 09:21] VITALS: BP 150/110; PULSE 73; RESP 17; TEMP 36.3; O2SAT 97; BMI 46.8
== END 2025-05-06 11:00 | disposition home or self-care (01) ==
PROVIDERS: PCP Student in an Organized Health Care Education/Training Program; Visit Provider Student in an Organized Health Care Education/Training Program
DX: I10 Essential (primary) hypertension (principal); E03.9 Hypothyroidism, unspecified; G93.2 Benign intracranial hypertension; J45.909 Unspecified asthma, uncomplicated; F41.9 Anxiety disorder, unspecified; M25.561 Pain in right knee; M25.562 Pain in left knee; G89.29 Other chronic pain; J30.89 Other allergic rhinitis; K58.9 Irritable bowel syndrome, unspecified; M79.7 Fibromyalgia

== ENCOUNTER → 2025-05-06 09:18 | Outpatient (BNVA) | payer OTHER, SELFPAY | PROVIDERS: PCP Family Medicine; Visit Provider Internal Medicine | DX: Z09 Encounter for follow-up examination after completed treatment for conditions other than malignant neoplasm (principal) ==

== ENCOUNTER 2025-05-06 09:56 | Outpatient (REF) | payer OTHER, SELFPAY ==
[2025-05-06 10:50] LABS: MANUAL DIFF FLAG NO
[2025-05-06 10:57] LABS: Hematocrit 38.1 % (37.0-47.0); Hemoglobin 12.6 g/dl (12.0-16.0); Imm Gran Abs Auto 0.03 X10*3/uL (0.00-0.03); Imm Gran Pct Auto 0.5 % (0.0-0.4); Lymphocytes Absolute Auto 1.5 X10*3/uL (1.2-4.9); Mean Corpuscular HGB Conc 33.1 g/dl (31.0-35.0); Mean Corpuscular Hemoglobin 28.7 pg (27.0-33.0); Mean Corpuscular Volume 86.8 fL (80.0-98.0); NRBC Abs Auto 0.000 X10*3/uL (0.0-0.012); NRBC Pct Auto 0.0 /100WBC (0.0-0.2); Platelet Count 329 X10*3/uL (160-400); Red Blood Count 4.39 X10*6/uL (4.20-5.50); White Blood Count 6.2 X10*3/uL (4.8-10.8)
[2025-05-06 11:08] LABS: Hemoglobin A1C 120.2216 umol/L; Total Hemoglobin (HGBA1C) 3217.4829 umol/L
[2025-05-06 11:39] LABS: Alanine Aminotransferase 36 U/L (0-31); Albumin Level 4.2 g/dL (3.5-5.0); Alkaline Phosphatase 102 U/L (39-117); Anion Gap 12 (12-20); Aspartate Amino Transferase 30 U/L (5-31); Blood Urea Nitrogen 15 mg/dL (9-16); Calcium 8.8 mg/dL (8.4-10.2); Carbon Dioxide 27 mmol/L (22-29); Chloride 107 mmol/L (96-108); Cholesterol 197 mg/dL (<200); Estimated Glomerular Filt Rate > 60; HDL Cholesterol 56 mg/dL (>40); Potassium 3.7 mmol/L (3.3-5.1); Sodium 142 mmol/L (135-145); Total Protein 7.4 g/dL (6.5-8.0); Triglycerides 115 mg/dL (<150)
[2025-05-06 11:45] LABS: HBS Num1 1.73 mIU/mL (0-7.99); HBc Num1 0.07 S/CO (0.00-0.79); HBsAGNum1 0.59 S/CO (0.00-0.99); HIV Num 1 0.06 S/CO (0.00-0.99); Hepatitis A Antibody IgM 0.27 Index (0-0.79); Hepatitis B Surface Antigen Negative (Negative); Syphilis Screen Nonreactive (Nonreactive); ~HepC Num1 0.10 S/CO (0.00-0.79); ~Hepatitis A Antibody IgM Nonreactive (Nonreactive); ~Hepatitis B Surface Antibody NONREACTIVE (Nonreactive); ~Hepatitis C Antibody Nonreactive (Nonreactive)
== END 2025-05-06 09:57 | disposition home or self-care (01) ==
LOC: HO.10HDL 09:56
PROVIDERS: Visit Provider Student in an Organized Health Care Education/Training Program
DX: Z13.1 Encounter for screening for diabetes mellitus (principal); I10 Essential (primary) hypertension; E03.9 Hypothyroidism, unspecified; G93.2 Benign intracranial hypertension; J45.909 Unspecified asthma, uncomplicated; F41.9 Anxiety disorder, unspecified; K58.9 Irritable bowel syndrome, unspecified; M79.7 Fibromyalgia; M25.561 Pain in right knee; M25.562 Pain in left knee; G89.29 Other chronic pain
CPT/HCPCS: 36415; 80053; 80061; 82306; 83036; 84443; 85025; 86704; 86706; 86709; 86780; 86803; 87340; 87389; 96127; 99202

== ENCOUNTER 2025-05-10 12:50 | Outpatient (AMB) | payer OTHER, SELFPAY ==
[2025-05-10 13:05] VITALS: BP 140/98; PULSE 76; O2SAT 96; BMI 46.5
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
== END 2025-05-10 14:45 | disposition home or self-care (01) ==
LOC: HO.HSMS 12:50
PROVIDERS: PCP Student in an Organized Health Care Education/Training Program; Visit Provider Nurse Practitioner Family
DX: G93.2 Benign intracranial hypertension (principal); R51.9 Headache, unspecified; H53.9 Unspecified visual disturbance
CPT/HCPCS: 99204

== ENCOUNTER → 2025-05-10 12:50 | Outpatient (BNVA) | payer OTHER, SELFPAY | PROVIDERS: PCP Student in an Organized Health Care Education/Training Program; Visit Provider Nurse Practitioner Family | DX: G93.2 Benign intracranial hypertension (principal); R51.9 Headache, unspecified; H53.9 Unspecified visual disturbance; Z68.42 Body mass index [BMI] 45.0-49.9, adult; E66.01 Morbid (severe) obesity due to excess calories | CPT/HCPCS: 99202 ==

== ENCOUNTER 2025-05-11 08:53 | Outpatient (AMB) | payer OTHER, SELFPAY ==
--- NOTE | 2025-05-11 09:01 | A.OFFVIS_ITS ---
Vital Signs 05/11/25 09:02 Height 5 ft 2 in Weight 257 lb 15.053 oz BMI 47.2 BP 160/100 H Blood Pressure Location Lt brachial Position Sitting Pulse 79 Pulse Source Pulse Oximeter Pulse Oximetry (%) 96 Oxygen Delivery Method Room Air Intake Visit Reasons: Hypothyroidism (Adult) Intake Note: NEW Patient presents today to establish care for Hypothyroidism: Quality Assurance Engineer Required: No Accompanied by: Self / Same As Patient Allergies Penicillins (PENICILLINS) Allergy (Intermediate, Verified 05/11/25 09:04) HIVES oxycodone Allergy (Verified 05/11/25 09:04) Rash Medication List - Last Reconciled 05/11/25 by Matt Wilder MD acetaminophen (Tylenol Extra Strength) 1,000 mg PO Q6H PRN albuterol sulfate 90 mcg/actuation 2 puffs inhalation Q4H PRN buspirone 5 mg PO TID carvedilol (Coreg) 6.25 mg PO BID 90 days cholecalciferol (vitamin D3) 1,250 mcg PO QWEEK 12 weeks citalopram 20 mg PO QPM citalopram 10 mg PO QAM dicyclomine 10 mg PO Q8H PRN diltiazem HCl CD 240 mg PO QAM gabapentin 300 mg PO BEDTIME galcanezumab-gnlm (Emgality Pen) 240 mg (2 mL) subcut ONCE 30 days ibuprofen 600 mg PO Q6H PRN levothyroxine 200 mcg PO DAILY losartan 100 mg PO DAILY magnesium glycinate 400 mg (4 x 100 mg magnesium) PO BEDTIME 90 days meloxicam 15 mg PO QAM montelukast (Singulair) 10 mg PO BEDTIME pantoprazole 20 mg PO DAILY riboflavin (vitamin B2) 400 mg PO DAILY 90 days rosuvastatin 10 mg PO DAILY 90 days triamcinolone acetonide 0.1% 1 appl topical BID-TID ubrogepant (Ubrelvy) 50 - 100 mg (0.5 - 1 x 100 mg) PO ONCE PRN 30 days vitamin B complex 1 tab PO DAILY HPI Comments Details: The patient reported a history of hypothyroidism diagnosed around 2011 or 2012, 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 Since the diagnosis, the patient experienced difficulty maintaining stable medication dosages, specifically with levothyroxine, which started at 75 mcg and was recently increased to 200 mcg. The patient noted symptoms including severe fatigue, requiring excessive sleep, dry eyes, hair loss, skin issues, and body aches. The patient also experienced memory issues, anxiety, and fluctuating energy levels. Recently, the patient reported a sudden weight gain of 15-20 pounds, cold sensitivity, and heat intolerance. The patient expressed concern about the significant fluctuations in levothyroxine doses and its impact on symptoms. [facility] Medical History (Updated 05/11/25 @ 10:35 by Matt Wilder MD) Knee pain [id number] syndrome Reactive airway disease Chronic cough Liver fibrosis Graves' disease GERD (gastroesophageal reflux disease) Fibromyalgia Fatty liver Hx of headache Seasonal allergies Environmental allergies Depression History of lumbar puncture Pseudotumor cerebri Asthma Anxiety Neck pain Back pain IBS (irritable bowel syndrome) Hypertension Morbid obesity Surgical History (Updated 05/11/25 @ 09:05 by SRI Carbajal) Hx of elbow surgery History of sleeve gastrectomy History of hysteroscopy Hx of tubal ligation Hx of section Family History Mother Hypertension Heart problem Father Diabetes Heart problem High cholesterol Brother Hypertension Sister Hypertension Sister Hypertension Sister Hypertension Brother Heart problem Hypertension Son No problems noted. Daughter No problems noted. Social History Household Members: Family Household Members Other:: son 19 yrs, daughter 18 yrs Housing: House Are you a primary child care associate to a significant other at home: No Do you presently have visiting nurse or other home services: No Alcohol intake: never Patient Tobacco Use Status: Former Tobacco user Tobacco use type: Cigarette Years Smoked: 8 e-Cigarette/Vaping Use: Never Used service: No Current occupational status: disabled Review of Systems Const Details: Endocrine: Positive for cold sensitivity, heat intolerance, and fluctuating weight. Negative for thyroid nodules. Neurological: Positive for memory issues and fatigue. Negative for consistent sleep disturbances. Psychiatric: Positive for anxiety and mood swings. Negative for any other psychiatric symptoms. Physical Exam Exam Exam: General: Alert, in no acute distress Eyes: Pupils reactive to light and accommodation Neck: Thyroid palpable, no significant increase in size, no nodules, no painful to palpation Respiratory: No respiratory distress Lower extremity: No edema Vital Signs: Last Vital Signs Pulse 79 05/11/25 09:02 BP 160/100 H 05/11/25 09:02 Pulse Ox 96 05/11/25 09:02 Oxygen Delivery Method Room Air 05/11/25 09:02 BMI result Body Mass Index 47.2 Results Reviewed Results Reviewed: Most recent labs on 05/06/2025 showed TSH 0.32, vitamin-D 27.6 calcium level 8.8, albumin 4.2 sodium 142 potassium 3.7 creatinine 0.8 Assessment & Plan Assessment & Plan (1) 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 She does have all the specific symptoms that can be explained not only by hypothyroidism including muscle pain, anxiety, having bursts of energy We discussed that given her recent dose change to 200 mcg, we will not change the dose at this point, 1st of all because her TSH in lower range of normal also exam we will have to see how she feels after having this dose for some time. At the emphasized to the patient the importance of proper sleeping for requiring and fatigue resolution, and discuss other factors that could influence her feeling fatigue including fibromyalgia, being overweight, and social/emotional stressors that could feel like it. Given the reported symptoms of cough burst and possible filling that her neck is closing sometimes, we will order an ultrasound to rule out a large goiter which was not evident my exam (2) Morbid obesity: Code(s): E66.01 - Morbid (severe) obesity due to excess calories Category: Medical Plan: We discussed the influence of her obesity on levothyroxine doses, but also on the perceive syndrome fatigue as well as hypertension and possible sleep apnea. She does not report that she had a sleep apnea study in the past that was negative. 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
[2025-05-11 09:02] VITALS: BP 160/100; PULSE 79; O2SAT 96; BMI 47.2
== END 2025-05-11 09:52 | disposition home or self-care (01) ==
LOC: HO.ENCR 08:54
PROVIDERS: PCP Student in an Organized Health Care Education/Training Program; Visit Provider Student in an Organized Health Care Education/Training Program
DX: E06.3 Autoimmune thyroiditis (principal); E66.01 Morbid (severe) obesity due to excess calories
CPT/HCPCS: 99204

== ENCOUNTER → 2025-05-11 08:53 | Outpatient (BNVA) | payer OTHER, SELFPAY | PROVIDERS: PCP Student in an Organized Health Care Education/Training Program; Visit Provider Student in an Organized Health Care Education/Training Program | DX: E06.3 Autoimmune thyroiditis (principal); E66.01 Morbid (severe) obesity due to excess calories; Z68.42 Body mass index [BMI] 45.0-49.9, adult | CPT/HCPCS: 99202 ==

== ENCOUNTER 2025-06-02 09:54 | Outpatient (REF) | payer OTHER, SELFPAY ==
--- NOTE | ~2025-06-02 | US_ITS ---
EXAMINATION: US THYROID CLINICAL INFORMATION: Vee disease. COMPARISON: October 30, 2016. Correlated to CT soft tissue neck dated April 29, 2019. TECHNIQUE: Linear transducer grayscale and color Doppler examination with attention to the region of the thyroid. FINDINGS: SIZE: Measurements of the thyroid lobes and nodules are given in sagittal, anteroposterior and transverse dimensions respectively. Right Thyroid Lobe: 5.4 x 2.1 x 1.6 cm, volume 9.4 mL. Previous: 5.2 x 2.4 x 1.7 cm, volume: 11.2 cc. Parenchyma: The gland echotexture is heterogeneous. Thyroid vascularity is increased. Left Thyroid Lobe: 5.6 x 2.2 x 1.6 cm, volume 9.9 mL. Previous: 5.0 x 2.1 x 1.7 cm, volume: 9.6 cc. Parenchyma: The gland echotexture is heterogeneous. Thyroid vascularity is increased. Isthmus: 0.93 cm in maximum AP dimension. Previous: 0.80 cm. Estimated total number of nodules greater than or equal to 1 cm: 0. Concrete Saw Operator nodules are described as follows: NODES: No lymphadenopathy is seen in the tissue surrounding the thyroid gland. US/US thyroid IMPRESSION: ACR TI-RADS category: 1 ACR TI-RADS RECOMMENDATION REFERENCE: Ultrasound-guided fine-needle aspiration, followup ultrasound, no further follow up. * TR1 (0 point) and TR2 (2 points): No FNA or follow up. * TR3 (3 points): FNA if more than or equal to 2.5 cm in maximum dimension, followup ultrasound in 1, 3 and 5 years if 1.5 to 2.4 cm in maximum dimension. * TR4 (4-6 points): FNA if more than or equal to 1.5 cm in maximum dimension, followup ultrasound in 1, 2, 3 and 5 years if 1 to 1.4 cm in maximum dimension. * TR5 (more than or equal to 7 points): FNA if more than or equal to 1 cm in maximum dimension, followup ultrasound every year for 5 years if 0.5 to 0.9 cm in maximum dimension. * TR3, TR4 or TR5 nodules that are below the size threshold for followup receive no follow up. Electronically signed by: Joseluis Mtz MD 06/02/2025 10:58 AM EDT
--- NOTE | ~2025-06-02 | US_ITS ---
EXAMINATION: US RETROPERITONEAL LIMITED (RENAL ONLY) CLINICAL INFORMATION: N 39.0. Urinary tract infection, site not.. COMPARISON: March 30, 2024 TECHNIQUE: Real-time ultrasound kidneys using grayscale technique. FINDINGS: RIGHT KIDNEY: 11 x 4 x 5 cm (SAG x AP x TRV). Normal echotexture. Renal cortical thickness is normal. No hydronephrosis. No solid or cystic lesion. LEFT KIDNEY: 11 x 4 x 5 cm (SAG x AP x TRV). Normal echotexture. Renal cortical thickness is normal. No hydronephrosis. 3 mm hyperechoic structure in the corticomedullary junction, midportion. No gross solid or cystic lesion. US/US renal BI IMPRESSION: 3 mm nonobstructing nephrolithiasis, left kidney.. Electronically signed by: Joseluis Mtz MD 06/02/2025 10:54 AM EDT
== END 2025-06-02 09:55 | disposition home or self-care (01) ==
LOC: HO.HMGCX 09:54
PROVIDERS: PCP Student in an Organized Health Care Education/Training Program; Visit Provider Urology
DX: N39.0 Urinary tract infection, site not specified (principal); N20.0 Calculus of kidney; N13.30 Unspecified hydronephrosis; E03.9 Hypothyroidism, unspecified
CPT/HCPCS: 76536; 76775

== ENCOUNTER → 2025-06-02 09:57 | Outpatient (BNV) | payer OTHER, SELFPAY | PROVIDERS: PCP Student in an Organized Health Care Education/Training Program; Visit Provider Radiology Diagnostic Radiology | DX: N20.0 Calculus of kidney (principal); E05.00 Thyrotoxicosis with diffuse goiter without thyrotoxic crisis or storm | CPT/HCPCS: 76536; 76775 ==

== ENCOUNTER 2025-06-06 10:49 | Outpatient (AMB) | payer OTHER, SELFPAY ==
--- NOTE | 2025-06-06 10:49 | MHC.OFFVIS ---
Intake Visit Reasons: US F/U Intake Note: Patient is present for US F/U Urology Medication:VITAMIN B2, VITMAIN B COMPLEX Antibiotic Allergy:PENICILLINS Blood Thinner:NONE Cornice Maker Required: No Allergies Penicillins (PENICILLINS) Allergy (Intermediate, Verified 06/06/25 10:50) HIVES oxycodone Allergy (Verified 06/06/25 10:50) Rash Medication List - Last Reconciled 06/06/25 by Kyung Sofia MD acetaminophen (Tylenol Extra Strength) 1,000 mg PO Q6H PRN albuterol sulfate 90 mcg/actuation 2 puffs inhalation Q4H PRN buspirone 5 mg PO TID carvedilol (Coreg) 6.25 mg PO BID 90 days cholecalciferol (vitamin D3) 1,250 mcg PO QWEEK 12 weeks citalopram 20 mg PO QPM citalopram 10 mg PO QAM dicyclomine 10 mg PO Q8H PRN diltiazem HCl CD 240 mg PO QAM gabapentin 300 mg PO BEDTIME galcanezumab-gnlm (Emgality Pen) 240 mg (2 mL) subcut ONCE 30 days ibuprofen 600 mg PO Q6H PRN levothyroxine 200 mcg PO DAILY losartan 100 mg PO DAILY magnesium glycinate 400 mg (4 x 100 mg magnesium) PO BEDTIME 90 days meloxicam 15 mg PO QAM montelukast (Singulair) 10 mg PO BEDTIME pantoprazole 20 mg PO DAILY riboflavin (vitamin B2) 400 mg PO DAILY 90 days rosuvastatin 10 mg PO DAILY 90 days triamcinolone acetonide 0.1% 1 appl topical BID-TID ubrogepant (Ubrelvy) 50 - 100 mg (0.5 - 1 x 100 mg) PO ONCE PRN 30 days vitamin B complex 1 tab PO DAILY HPI Comments Details: 06/06/25--Torie is a 44-year-old female who is followed for kidney stones she presents as a telehealth follow-up with renal ultrasound. I have reviewed renal ultrasound dated 06/02/2025 there is a 3 mm left kidney stone. History of Present Illness She has a history of kidney stones and recently underwent a renal ultrasound on June 02, 2025, which revealed a 3 mm stone in the left kidney. The patient reports feeling generally well, although she has other unspecified health issues. The patient maintains adequate hydration by drinking a lot of water and beverages, although she avoids adding lemon due to exacerbation of gastroesophageal reflux disease (GERD). She experiences reflux symptoms, which are aggravated by lemon, and thus she avoids it in her diet. Results - Renal ultrasound on 06/02/25: 3 mm stone in the left kidney Plan 1. Nephrolithiasis - Continue monitoring the kidney stone with follow-up imaging in one year. - Encourage continued hydration to facilitate stone passage. 04/07/25--Torie is a 44-year-old female who is followed for kidney stones presents today for FU. She has not had a recent US completed. History of Present Illness - The patient is a 44-year-old female presenting for a review of a recent renal ultrasound related to kidney stones. - The patient has a history of kidney stones and is being followed up for this condition. - She reports experiencing anxiety, which she does not believe is related to her kidney condition. Plan - An ultrasound will be scheduled to further evaluate the kidney stones. - Telehealth fu in six to eight weeks to discuss the ultrasound results. 04/08/2024--Torie is here for follow-up. She was evaluated due to pyelonephritis and left hydronephrosis secondary to obstructive ureteral stone. She is here in follow-up post renal ultrasound which was performed on 03/30/2024 left hydronephrosis is resolved small nonobstructing left renal stone remains. Right kidney within normal limits. I have discussed the importance of hydrating up to 2-2.5 L, increasing citrate in the diet by adding lemon to water, drinking lemonade, the patient states she completed the 24 hour urine I have not received the results as yet. We will call the [facility] lab. Will continue to monitor kidneys. Follow-up in 1 year 01/09/2024--Torie is here for follow-up after inpatient at [facility] treated for pyelonephritis. She was seen in consultation on 12/02/2023. She states that she completed the antibiotics that she was sent home with Ceftin 500 mg. She denies history of kidney stones in the past. She denies problems with the occurring UTIs. I have discussed that not drinking enough fluids is 1 of the leading causes of kidney stone formation. The patient states that since her gastric sleeve procedure she is limited on how much fluid she can consume. I have discussed plan for 24 hour urine and renal ultrasound to re-evaluate and confirm resolution of hydronephrosis. 12/02/23--C-consult HPI-- 43 year old female with history of hypothyroidism, h/o gastric sleevectomy, vitamin d/b1/b12 deficiency, htn, ICH, gerd, fibromyalgia, and IBS presented to the ED for evaluation of fevers and abdominal pain. She states she began experiencing right sided abdominal pain and flank pain about 1 week ago and thought this was due to flare in IBS. In the last few days has developed shaking chills, sweats, fevers with increased urinary frequency, and urgency, denies dysuria. Denies prior h/o kidney stones. I reviewed CT imaging, findings c/w recently passed stone. Blood and urine c/s GNR. ID has also been consulted. Clinically improving on IV abx, denies flank pain. CTAP w/IV contrast: There is mild left renal hydronephrosis and hydroureter, there is however no calcified visible stone along the course of the left ureter, this could be due to recently passed stone, reflux, versus soft tissue obstruction of the distal ureter at the UVJ. There are small nonobstructing stones in the left kidney and single tiny stone in the right kidney. [facility] Medical History Foot pain Knee pain [id number] syndrome Reactive airway disease Chronic cough Liver fibrosis Graves' disease GERD (gastroesophageal reflux disease) Fibromyalgia Fatty liver Hx of headache Seasonal allergies Environmental allergies Depression History of lumbar puncture Pseudotumor cerebri Asthma Anxiety Neck pain Back pain IBS (irritable bowel syndrome) Hypertension Morbid obesity Surgical History Hx of elbow surgery History of sleeve gastrectomy History of hysteroscopy Hx of tubal ligation Hx of section Family History Mother Hypertension Heart problem Father Diabetes Heart problem High cholesterol Brother Hypertension Sister Hypertension Sister Hypertension Sister Hypertension Brother Heart problem Hypertension Son No problems noted. Daughter No problems noted. Social History Household Members: Family Household Members Other:: son 19 yrs, daughter 18 yrs Housing: House Are you a primary hospice spiritual care coordinator to a significant other at home: No Do you presently have visiting nurse or other home services: No Alcohol intake: never Patient Tobacco Use Status: Former Tobacco user Tobacco use type: Cigarette Years Smoked: 8 e-Cigarette/Vaping Use: Never Used service: No Current occupational status: disabled Review of Systems Const All systems reviewed & are unremarkable except as noted in HPI and below Reports no additional complaints Eyes Reports no additional complaints ENT Reports no additional complaints Card Reports no additional complaints Resp Reports no additional complaints GI Reports no additional complaints Reports as per HPI Musc Reports no additional complaints Skin/Breast Reports system reviewed and no additional complaints, except as documented Neuro Reports no additional complaints Psych Reports no additional complaints Endo Reports no additional complaints Medhat/Lymph Reports no additional complaints Aller/Immun Reports no additional complaints Telehealth Telehealth Telehealth Platform: clinovo Location of provider rendering services: practice address Location of patient: address on file Patient Identification confirmed using: Name, : Yes Telehealth method: video Patient verbally consented to treatment: Yes Patient verbally consented to billing insurance company: Yes Patient informed of any privacy concerns related to visit: Yes Results Reviewed Results Reviewed: Date of Service: 06/02/25 Procedure(s): US renal BI Accession Number(s): [id number] cc: Kyung Sofia MD; Omar Hollingsworth MD~ Reason for Exam: N39.0 - Urinary tract infection, site not specified EXAMINATION: US RETROPERITONEAL LIMITED (RENAL ONLY) CLINICAL INFORMATION: N 39.0. Urinary tract infection, site not.. COMPARISON: March 30, 2024 TECHNIQUE: Real-time ultrasound kidneys using grayscale technique. FINDINGS: RIGHT KIDNEY: 11 x 4 x 5 cm (SAG x AP x TRV). Normal echotexture. Renal cortical thickness is normal. No hydronephrosis. No solid or cystic lesion. LEFT KIDNEY: 11 x 4 x 5 cm (SAG x AP x TRV). Normal echotexture. Renal cortical thickness is normal. No hydronephrosis. 3 mm hyperechoic structure in the corticomedullary junction, midportion. No gross solid or cystic lesion. US/US renal BI IMPRESSION: 3 mm nonobstructing nephrolithiasis, left kidney.. Reviewed renal ultrasound dated 03/30/2024--right kidney within normal limits left kidney hydronephrosis is resolved small left nonobstructing renal calculus. Collected: 11/30/23 Status: COMP Req#: [id number] Received: 11/30/23 Source: [facility] Sp Desc: Urine graf Subm Dr: Lori Sheppard ROCK ROOM WORKER Ordered: Urine Culture Procedure Result Verified Urine Culture Final 12/02/23 Organism 1 Escherichia coli Quant > 100,000 cfu/mL E coli M.I.C. RX --------- --- Ampicillin 8 S Ceftriaxone <=0.25 S Gentamicin <=1 S Levofloxacin <=0.12 S Nitrofurantoin <=16 S Trimethoprim/Sulfamethoxazole <=20 S Date of Service: 11/30/23 CT abdomen pelvis CLINICAL INFORMATION: Reason for Exam Right lower quadrant pain COMPARISON: No prior CT available for comparison. TECHNIQUE: Multidetector volumetric imaging was performed from the superior aspect of the liver through the pubic symphysis 85 mL Omnipaque 350 injected Sagittal and coronal reformatted images were obtained on the technologist's workstation. This CT examination was performed using dose optimization techniques as appropriate, variously including the following: *Automated exposure control *Adjustment of mA and/or kV according to patient size (this includes techniques or standardized protocols for targeted exams where dose is matched to indication/reason for exam; i.e. extremities or head) *Use of iterative reconstruction technique DLP: 872 mGy-cm FINDINGS: LOWER THORAX: Included lung bases are clear. HEPATOBILIARY: No focal hepatic lesions. No biliary ductal dilatation. GALLBLADDER: Gallbladder unremarkable. SPLEEN: Spleen is normal in size. PANCREAS: No focal mass or ductal dilatation. STOMACH AND GASTROINTESTINAL TRACT: Postsurgical changes prior partial gastrectomy, no CT evidence of dehiscence or leak. There is no bowel distention or thickening. No CT evidence of appendicitis. ADRENALS: No adrenal nodules. KIDNEYS/URETERS: There is mild left renal hydronephrosis and hydroureter there is however no calcified visible stone along the course of the ureter, this could be due to recently passed stone, reflux, versus soft tissue obstruction of the distal ureter at the UVJ. No mass found. There are small nonobstructing stones in the left kidney measuring 2 and 3 mm, 3 of which found. Single tiny 1 mm stone right kidney. No hydronephrosis on the right side. URINARY BLADDER: Partially decompressed. PELVIC VISCERA: Unremarkable PERITONEUM: No free air or fluid. LYMPH NODES: No lymphadenopathy. VASCULAR:Abdominal aorta normal in size, no aneurysm found. BONES, ABDOMINAL WALL AND SOFT TISSUES: Age-appropriate changes of the spine and skeletal system, no destructive osteolytic or osteosclerotic bone lesion found IMPRESSION: 1. There is mild left renal hydronephrosis and hydroureter, there is however no calcified visible stone along the course of the left ureter, this could be due to recently passed stone, reflux, versus soft tissue obstruction of the distal ureter at the UVJ. 2. There are small nonobstructing stones in the left kidney and single tiny stone in the right kidney. 3. Postsurgical changes prior partial gastrectomy, no CT evidence of dehiscence or leak. 4. 4. No CT evidence of appendicitis, no explanation for patient's right lower quadrant pain. Assessment & Plan Assessment & Plan (1) Kidney stone on left side: Code(s): N20.0 - Calculus of kidney Category: Medical Plan Plan 1. Nephrolithiasis - Continue monitoring the kidney stone with follow-up imaging in one year. - Encourage continued hydration to facilitate stone passage. Orders: Orders US renal BI 11 Months N20.0 - Calculus of kidney Patient Instructions: The patient had an opportunity to ask questions regarding treatment plan. The patient expressed understanding and agreement with the above treatment plan. The patient is aware they should contact our office by phone for worsening of their current condition or the appearance of new symptoms. Compliance is encouraged with any medications and followup testing that is ordered. It is a privilege to be allowed the opportunity to participate in the urologic care of your patient. If you have any questions or concerns regarding treatment for the above conditions please do not hesitate to contact me. The office telephone contact is [phone]. This note is constructed in part using voice recognition software. While every effort has been made to ensure accuracy ball machine operator errors may have been included. Yours sincerely, Kyung Sofia MD Scribe Plan - Not visible on output: Patient was informed and verbally consented to the use of an ambient scribe for clinic note documentation during this visit. Coding Level of Care Code Tele Est Pt Level 3 (53828) Diagnoses Kidney stone on left side N20.0
== END 2025-06-06 12:24 | disposition home or self-care (01) ==
LOC: HO.HUSH 10:49
PROVIDERS: PCP Student in an Organized Health Care Education/Training Program; Visit Provider Urology
DX: N20.0 Calculus of kidney (principal)
CPT/HCPCS: 99213

== ENCOUNTER 2025-06-07 09:38 | Outpatient (AMB) | payer OTHER, SELFPAY ==
[2025-06-07 09:49] VITALS: BMI 45.7
--- NOTE | 2025-06-07 09:49 | A.OFFVIS_ITS ---
Vital Signs 06/07/25 09:49 Height 5 ft 2 in Weight 250 lb BMI 45.7 Intake Visit Reasons: Left foot pain - Small and Middle Toes Intake Note: Torie is a 44 year old female who presents today as a New Patient with complaints of Left Foot Pain. Patient reports that her pain is felt in her Left Small and Middle toes and radiates to her heel. She states she was injured back in November while in vacation in [facility]. She has followed the [facility] protocol and taken OTC pain medication and found no relief for her symptoms FINDINGS: No fracture, dislocation, or suspicious bone lesion. Normal bone mineralization. Normal alignment. Joint spaces are preserved. No significant arthropathy. Normal plantar arch. There is a moderate-sized plantar calcaneal spur. Soft tissues appear normal. XR/XR foot LT 2V IMPRESSION: 1. No acute findings left foot. Allergies Penicillins (PENICILLINS) Allergy (Intermediate, Verified 06/07/25 09:50) HIVES oxycodone Allergy (Verified 06/07/25 09:50) Rash HPI HPI Left foot pain - Small and Middle Toes: Details: 44-year-old female past medical history of IBS, hypertension, hypothyroidism, asthma, fibromyalgia seen today for initial evaluation of left foot and heel pain following an injury sustained during a vacation. The injury occurred in November when she missed a step and landed heavily on her left foot, causing immediate heel pain and subsequent pain in the lateral foot and middle toe. Since the incident, she has experienced persistent progressive pain and swelling, particularly in the heel and lateral aspect of the foot, which worsens with weight-bearing activities. She does note that the pain is worse after resting and getting up to walk. She is unable to walk without a limp. She has been managing the pain with ice and [id number] medications, but has been advised against ibuprofen due to stomach issues. The patient has also tried using supportive footwear to alleviate symptoms. Additionally, the patient has left knee pain, which she is seeing orthopedic surgery for next week. She has a history of left elbow surgery and is concerned about further injury from a potential fall due to instability in her knee. [facility] Medical History Foot pain Knee pain [id number] syndrome Reactive airway disease Chronic cough Liver fibrosis Graves' disease GERD (gastroesophageal reflux disease) Fibromyalgia Fatty liver Hx of headache Seasonal allergies Environmental allergies Depression History of lumbar puncture Pseudotumor cerebri Asthma Anxiety Neck pain Back pain IBS (irritable bowel syndrome) Hypertension Morbid obesity Surgical History Hx of elbow surgery History of sleeve gastrectomy History of hysteroscopy Hx of tubal ligation Hx of section Family History Mother Hypertension Heart problem Father Diabetes Heart problem High cholesterol Brother Hypertension Sister Hypertension Sister Hypertension Sister Hypertension Brother Heart problem Hypertension Son No problems noted. Daughter No problems noted. Social History Household Members: Family Household Members Other:: son 19 yrs, daughter 18 yrs Housing: House Are you a primary emergency care tech to a significant other at home: No Do you presently have visiting nurse or other home services: No Alcohol intake: never Patient Tobacco Use Status: Former Tobacco user Tobacco use type: Cigarette Years Smoked: 8 e-Cigarette/Vaping Use: Never Used service: No Current occupational status: disabled Review of Systems Const All systems reviewed & are unremarkable except as noted in HPI and below Physical Exam Vital Signs: BMI result Body Mass Index 45.7 Extrem Other: *Bilateral Lower Extremity Focused Exam Vascular: DP/PT 2/4, CFT<3s to all digits, TG warm to cool, no pedal edema Derm: No open wounds or lacerations or clinical signs of infection. Neuro: Protective sensation grossly intact to bilateral lower extremities. MSK: Moderate tenderness on palpation of the left 5th metatarsophalangeal joint plantarly and on forefoot squeeze. Moderate tenderness on palpation of the plantar medial calcaneal tubercle bilaterally, worse to left foot. Left Ankle dorsiflexion 0 degrees on knee extension, 2-3 degrees on knee flexion. Results Reviewed Results Reviewed: Podiatry X-ray Read: 12/24/2024 X-ray left foot 3 views (AP, MO, Lateral) nonweightbearing reviewed which shows no fractures, dislocations, or gross abnormalities. Moderate plantar calcaneal spur, without fragmentation or fracture. Bone density is within normal limits. Normal anatomy. No evidence of swelling, foreign body, or calcifications. I personally reviewed the imaging and my findings are listed above. Assessment & Plan Assessment & Plan (1) Plantar fasciitis of left foot: Code(s): M72.2 - Plantar fascial fibromatosis Category: Medical Plan: * Discussed etiology of the patient's foot pain. Differential diagnosis includes plantar fasciitis, occult fracture neuritis, tendinitis. * Patient educated on the nature and etiology of plantar fasciitis, which involves inflammation and microtearing of the plantar fascia due to repetitive stress and overuse. * Rx X-ray 3V left foot weight-bearing views * She was recommended weight-bearing in a cam boot however patient states that she is unable to use a boot due to her left knee and concerns for instability and falls. * She was instead recommended a night-splint to be used daily for next 3 weeks. * Recommended supportive shoe-wear with arch-supports to avoid increased loading on the patient's plantar fascia band.Recommended superfeet high-arch orthotics with metatarsal pad/support. * The patient was counseled on conservative management of plantar fasciitis, including daily stretching exercises targeting the plantar fascia and Achilles tendon, use of supportive and properly fitting footwear, and consideration of custom or prefabricated orthotics to improve foot biomechanics. * Instructed the patient on home stretching and range of motion exercises including calf-stretches, frozen water bottle therapy, band-therapy.She was given a handout for the stretching exercises. * Rx Medrol dose pack. * Rx Celebrex 200mg BID prn pain. * Discussed that if symptoms persist despite these measures, further interv entions such as corticosteroid injections may be considered. However given her history of injury, she has recommended a left foot MRI to rule out a mist/occult fracture to her heel. We will hold off on any cortisone injections until an MRI is performed. * Rx left foot MRI without contrast. An MRI is necessary to evaluate for a stress fracture of her left heel due to persistent pain for 6 months, inability to bear weight, clinical exam findings, and negative x-ray findings performed on 12/24/2024. * Patient states she is in too much pain currently and defers a physical therapy referral at this time however she will consider it in the future if she requires it for her knee as well. * Follow up in 3 weeks (2) Capsulitis of left foot: Code(s): M77.8 - Other enthesopathies, not elsewhere classified Category: Medical Plan: * Differential diagnosis includes capsulitis/Metatarsal-phalangeal joint ligament injury left 5th metatarsal. * Rx medrol dose pack (3) Cavus deformity of both feet: Code(s): Q66.71 - Congenital pes cavus, right foot; Q66.72 - Congenital pes cavus, left foot Category: Medical Plan: * Educated the patient on his foot type. Explained that his high arch foot type (Cavus feet) can lead to altered weight distribution, resulting in increased pressure on the heel and forefoot. Patients may experience symptoms such as pain, callus formation, tendinitis, instability, lateral ankle sprains, and, in some cases, development of digital deformities (e.g., claw toes or hammertoes). Discussed the importance of shoe type with heel and forefoot padding and support. (4) Fibromyalgia: Comment: - Implement aquatic therapy, re-evaluate Gabapentin utility, explore multidisciplinary approach. Code(s): M79.7 - Fibromyalgia Category: Medical Plan: * Continue to monitor Orders: Orders XR foot LT min 3V Today Q66.71 - Congenital pes cavus, right foot, Q66.72 - Congenital pes cavus, left foot MR foot LT wo con Today M72.2 - Plantar fascial fibromatosis, M77.8 - Other enthesopathies, not elsewhere classified Medications: New celecoxib (Celebrex) Take one tablet up to twice a day, for pain. 200 mg PO BID 20 caps 0RF plantar fasciitis M72.2 - Plantar fascial fibromatosis, M77.8 - Other enthesopathies, not elsewhere classified methylprednisolone Take 6 tablets on day 1, 5 tablets on day 2, 4 tablets on day 3, 3 tablets on day 4, 2 tablets on day 5, and 1 tablet on day 6. 4 mg PO PER PKG DIR 21 ea 0RF plantar fasciitis and capsulitis M72.2 - Plantar fascial fibromatosis, M77.8 - Other enthesopathies, not elsewhere classified Coding Level of Care Code New Pt Level 4 (24947) Diagnoses Plantar fasciitis of left foot M72.2 Capsulitis of left foot M77.8 Cavus deformity of both feet Q66.71; Q66.72 Fibromyalgia M79.7 Time Spent (min) 45
== END 2025-06-07 10:25 | disposition home or self-care (01) ==
LOC: HO.HPODS 09:39
PROVIDERS: PCP Student in an Organized Health Care Education/Training Program; Visit Provider Student in an Organized Health Care Education/Training Program
DX: M72.2 Plantar fascial fibromatosis (principal); M77.8 Other enthesopathies, not elsewhere classified; Q66.71 Congenital pes cavus, right foot; Q66.72 Congenital pes cavus, left foot; M79.7 Fibromyalgia
CPT/HCPCS: 99204

== ENCOUNTER → 2025-06-07 09:38 | Outpatient (BNVA) | payer OTHER, SELFPAY | PROVIDERS: PCP Student in an Organized Health Care Education/Training Program; Visit Provider Student in an Organized Health Care Education/Training Program | DX: Q66.71 Congenital pes cavus, right foot (principal); Q66.72 Congenital pes cavus, left foot; M72.2 Plantar fascial fibromatosis; M77.8 Other enthesopathies, not elsewhere classified | CPT/HCPCS: 99202 ==

== ENCOUNTER 2025-06-17 16:02 | Outpatient (REF) | payer OTHER, SELFPAY ==
--- NOTE | ~2025-06-17 | MR_ITS ---
EXAMINATION: MR ANGIOGRAPHY BRAIN WITHOUT CONTRAST CLINICAL INFORMATION: R 51.9. Headache. COMPARISON: None available. TECHNIQUE: 3-D [id number]. Maximum intensity projections [place]. FINDINGS: Anterior cerebral circulation: ICAs: No flow signal gap. No abrupt cut off. ICA terminus demonstrated no flow signal irregularity. MCA's: No flow signal gap. No abrupt cut off. Bifurcation/trifurcation demonstrated no flow signal irregularity. ACAs: No flow signal gap. No abrupt cut off. Anterior communicating artery flow signal is present and normal. Ophthalmic arteries flow signal is normal. Right posterior communicating artery flow signal is robust and normal. Posterior cerebral circulation: V3/V4 segment: No flow signal gap or intimal flap. Left vertebral artery slightly dominant. Posterior inferior cerebral arteries flow signal is normal. Anterior inferior cerebellar arteries flow signal is normal. Basilar artery flow signal is normal. Superior cerebellar arteries flow signal is normal. supervisor [employer] department: Right P1 segment is atretic. No flow signal gap or abrupt cut off. MR/MR angio head wo con IMPRESSION: No main cerebral artery occlusion or embolus or aneurysm. origin, right CCA. Electronically signed by: Joseluis Mtz MD 06/20/2025 07:09 AM EDT
--- NOTE | ~2025-06-17 | MR_ITS ---
EXAMINATION: MR VENOGRAM BRAIN WITH CONTRAST.. CLINICAL INFORMATION: R 51.9. Headache. TECHNIQUE: Coronal 2-D [id number]. Main cerebral veins. Maximum intensity projections main cerebral venous sinuses and cerebral veins. Total of 10.0 cc gadolinium based IV contrast without reported immediate complications. COMPARISON: None FINDINGS: Superior sagittal sinus, internal cerebral veins, vein of Ajith, straight sinus, torcula, transverse and sigmoid venous sinuses and jugular bulbs demonstrated normal patency without intraluminal filling defects. MR/MR venography head wo/w con IMPRESSION: No main cerebral venous sinus thrombosis. Electronically signed by: Joseluis Mtz MD 06/20/2025 07:14 AM EDT
--- NOTE | ~2025-06-17 | MR_ITS ---
EXAMINATION: MR BRAIN WITHOUT AND WITH CONTRAST CLINICAL INFORMATION: R 51.9. Headache. COMPARISON: November 27, 2016. TECHNIQUE: Multiplanar, multisequence MRI of the brain was obtained before and after the intravenous administration of 10.0 mL gadolinium based (Gadavist) without reported immediate complications.. FINDINGS: No restricted diffusion. No acute intracranial hemorrhage, mass effect, midline shift, hydrocephalus or herniation. Bilateral multifocal punctate deep periventricular white matter and subcortical white matter hyperintense T2 FLAIR signal involving centrum semiovale and michel radiata. Small caves septum pellucidum, congenital. Vincent-white matter differentiation is normal. Posterior cranial fossa contents demonstrated no signal abnormality or masses. Sellar/suprasellar region demonstrated no signal abnormality or masses. Craniocervical junction is intact with normal position of the cerebellar tonsils. Flow-void signal within the main cerebral vessels is normal. No abnormal enhancement within the intra-axial or the extra-axial compartment of the cranium. MR/MR head/brain wo/w con IMPRESSION: No acute brain abnormality. No abnormal enhancement. 1 matter T2 FLAIR signal foci. This could be seen patients with migraines. Electronically signed by: Joseluis Mtz MD 06/20/2025 07:40 AM EDT
== END 2025-06-17 16:03 | disposition home or self-care (01) ==
LOC: HO.MRI 16:02
PROVIDERS: PCP Student in an Organized Health Care Education/Training Program; Visit Provider Nurse Practitioner Family
DX: R51.9 Headache, unspecified (principal); G93.2 Benign intracranial hypertension; E66.01 Morbid (severe) obesity due to excess calories; H53.9 Unspecified visual disturbance
CPT/HCPCS: 70544; 70546; 70553; A9585

== ENCOUNTER → 2025-06-17 16:10 | Outpatient (BNV) | payer OTHER, SELFPAY | PROVIDERS: PCP Student in an Organized Health Care Education/Training Program; Visit Provider Radiology Diagnostic Radiology | DX: R51.9 Headache, unspecified (principal) | CPT/HCPCS: 70544; 70546; 70553 ==

== ENCOUNTER → 2025-06-22 19:42 | Outpatient (BNV) | payer OTHER, SELFPAY | PROVIDERS: PCP Student in an Organized Health Care Education/Training Program; Visit Provider Radiology Diagnostic Ultrasound | DX: M72.2 Plantar fascial fibromatosis (principal) | CPT/HCPCS: 73718 ==

== ENCOUNTER 2025-06-22 19:43 | Outpatient (REF) | payer OTHER, SELFPAY ==
--- NOTE | ~2025-06-22 | MR_ITS ---
EXAMINATION: MR LOWER EXTREMITY WITHOUT CONTRAST, LEFT CLINICAL INFORMATION: Rule out plantar fascial tear and evaluate fifth MTP joint. COMPARISON: X-ray 12/24/2024 TECHNIQUE: MRI of the left foot, [id number] imaging of the forefoot to the level of the distal foot was performed using routine sequences on a high-field scanner. FINDINGS: BONE/JOINTS: Mild T2 signal in the distal fifth proximal phalanx, the middle phalanx/distal phalanx, seen on the short axis and sagittal sequences. This is not as evident on the coronal STIR sequence. This could reflect mild marrow edema, sequela from inhomogeneous fat saturation, or a combination of these. No fracture plane is identified. No evidence of acute fracture or malalignment of the fifth MTP joint.. No significant arthropathy is identified on the provided sequences. No significant effusion. No acute fractures otherwise notified. Small subchondral cyst in the first metatarsal head. Tarsometatarsal alignment appears within normal limits. No aggressive marrow replacing lesion. MUSCLES/TENDONS: Visualized tendon is intact. No appreciable tenosynovitis. LIGAMENTS: Lisfranc ligament appears intact.. PLANTAR FASCIA: Visualized fascia is intact.. SUBCUTANEOUS SOFT TISSUES: Subcutaneous edema in the dorsal lateral forefoot. MR/MR foot LT wo con IMPRESSION: 1. Findings in the distal fifth proximal phalanx, middle/distal phalanx, could reflect sequela of inhomogeneous fat saturation versus mild edema. No focal fracture plane is seen. 2. No findings to suggest significant fifth MTP joint arthropathy or joint effusion. 3. Visualized plantar fascia appears intact. Electronically signed by: Viral Acevedo MD 06/23/2025 01:07 PM EDT
== END 2025-06-22 19:44 | disposition home or self-care (01) ==
LOC: HO.MRI 19:43
PROVIDERS: PCP Student in an Organized Health Care Education/Training Program; Visit Provider Student in an Organized Health Care Education/Training Program
DX: M72.2 Plantar fascial fibromatosis (principal); M77.8 Other enthesopathies, not elsewhere classified
CPT/HCPCS: 73718

== ENCOUNTER 2025-06-27 13:26 | Outpatient (REF) | payer OTHER, SELFPAY ==
--- NOTE | ~2025-06-27 | XR_ITS ---
EXAMINATION: XR KNEE, LEFT CLINICAL INFORMATION: M25.562 - Pain in left knee COMPARISON: January 31, 2025 TECHNIQUE: AP view both knees. Lateral and sunrise views of the left knee. FINDINGS: Mild asymmetric joint space narrowing involving mostly the medial compartment. No acute cortical disruption or malalignment. No lytic or blastic lesions. No gross suprapatellar bursa joint effusion. No metallic or radiopaque foreign body. No soft tissue calcifications. No subcutaneous emphysema. Patient's large body habitus. XR/XR knee LT 3V IMPRESSION: Mild medial compartment osteoarthrosis/osteoarthritis without acute fracture or dislocation. Electronically signed by: Joseluis Mtz MD 06/27/2025 02:39 PM EDT
== END 2025-06-27 13:27 | disposition home or self-care (01) ==
LOC: HO.HOSX 13:26
DX: S83.422A Sprain of lateral collateral ligament of left knee, initial encounter (principal); X58.XXXA Exposure to other specified factors, initial encounter
CPT/HCPCS: 73562

== ENCOUNTER 2025-06-27 14:19 | Outpatient (AMB) | payer OTHER, SELFPAY ==
--- NOTE | 2025-06-27 14:21 | MHC.OFFVIS ---
Vital Signs 06/27/25 14:22 Height 5 ft 2 in Weight 250 lb BMI 45.7 Intake Visit Reasons: Newprob-Pain in left knee/swelling Intake Note: Torie is a 44 year old female who presents today for a New Problem Visit to evaluate Left Knee Pain. Patient reports back in November, while on vacation, she missed a step, causing her to stomp really hard on her left foot. Patient complains of pain on the posterior and anterior aspect of the knee. She feels like it is going to buckle and give away. She has noticed popping and clicking. She also experiences occasional burning when swollen. She finds herself grabbing to stuff when walking. She has tried using a knee brace, ice, elevation, and Tylenol Exra Strength without relief. Denies previous injuries or surgeries to the left knee. IMPRESSION 01/31/25: Possible tiny loose body in the posterior aspect of the joint space. Otherwise unremarkable examination of the left knee. Allergies Penicillins (PENICILLINS) Allergy (Intermediate, Verified 07/06/25 08:16) HIVES oxycodone Allergy (Verified 07/06/25 08:16) Rash HPI HPI Newprob-Pain in left knee/swelling: Details: Torie is a 44 year old female who presents today for a New Problem Visit to evaluate Left Knee Pain. Patient reports back in November, while on vacation, she missed a step, causing her to stomp really hard on her left foot. Patient complains of pain on the posterior and anterior aspect of the knee. She feels like it is going to buckle and give away. She has noticed popping and clicking. She also experiences occasional burning when swollen. She finds herself grabbing to stuff when walking. She has tried using a knee brace, ice, elevation, and Tylenol Exra Strength without relief. Denies previous injuries or surgeries to the left knee. IMPRESSION 01/31/25: Possible tiny loose body in the posterior aspect of the joint space. Otherwise unremarkable examination of the left knee. [facility] Medical History (Updated 07/06/25 @ 08:51 by Omar Hollingsworth MD) Overweight Anxiety and depression Hyperlipidemia Hypothyroidism Migraine aura, persistent Foot pain Knee pain [id number] syndrome Reactive airway disease Chronic cough Liver fibrosis Graves' disease GERD (gastroesophageal reflux disease) Fibromyalgia Fatty liver Hx of headache Seasonal allergies Environmental allergies Depression History of lumbar puncture Pseudotumor cerebri Asthma Anxiety Neck pain Back pain IBS (irritable bowel syndrome) Hypertension Morbid obesity Surgical History Hx of elbow surgery History of sleeve gastrectomy History of hysteroscopy Hx of tubal ligation Hx of section Family History Mother Hypertension Heart problem Father Diabetes Heart problem High cholesterol Brother Hypertension Sister Hypertension Sister Hypertension Sister Hypertension Brother Heart problem Hypertension Son No problems noted. Daughter No problems noted. Social History Household Members: Family Household Members Other:: son 19 yrs, daughter 18 yrs Housing: House Are you a primary healthcare administration intern to a significant other at home: No Do you presently have visiting nurse or other home services: No Alcohol intake: current Alcohol intake frequency: holidays/special occasions only Patient Tobacco Use Status: Former Tobacco user Tobacco use type: Cigarette Years Smoked: 8 e-Cigarette/Vaping Use: Never Used service: No Current occupational status: disabled Cognitive needs: No Hearing needs: No Vision needs: No Review of Systems Const All systems reviewed & are unremarkable except as noted in HPI and below Physical Exam Vital Signs: BMI result Body Mass Index 45.7 Extrem Other: Patient's left knee normal to inspection No erythema, ecchymosis, edema noted No lacerations, abrasions, open areas No evidence of infection Patient reports tenderness to palpation of the distal insertion of the LCL of the left knee No tenderness to palpation of the proximal insertion of the LCL, MCL, patellar tendon, quad tendon, patella, posterior knee, or medial or lateral joint lines Patient is able to extend left knee to 0 degrees and flex to approximately 100 degrees without difficulty Negative Uriel's No ligamentous laxity noted Distal sensation intact Capillary refill brisk Results Reviewed Results Reviewed: X-rays obtained in the office today and independently reviewed by me, Alen Chavez PA-C, demonstrate no fracture or acute bony abnormality of the left knee. Assessment & Plan Assessment & Plan (1) Knee LCL sprain: Code(s): S83.429A - Sprain of lateral collateral ligament of unspecified knee, initial encounter Category: Medical Plan 1. LCL sprain of the left knee Patient is educated about this condition Patient is educated about the typical recovery course At this time, patient is referred to physical therapy for range of motion, strengthening, stabilization of the left knee Patient understands this in his amenable to this plan Patient may follow-up with me if she continues to experience ongoing knee pain after completing physical therapy Orders: Orders PT Evaluation and Treatment 06/27/25 S83.429A - Sprain of lateral collateral ligament of unspecified knee, initial encounter XR knee LT 3V 06/27/25 M25.562 - Pain in left knee Coding Level of Care Code Est Pt Level 3 (18553) Diagnoses Knee LCL sprain S83.429A
[2025-06-27 14:22] VITALS: BMI 45.7
== END 2025-06-27 14:57 | disposition home or self-care (01) ==
LOC: HO.HOS 14:20
PROVIDERS: PCP Student in an Organized Health Care Education/Training Program
DX: S83.422A Sprain of lateral collateral ligament of left knee, initial encounter (principal)
CPT/HCPCS: 99213

== ENCOUNTER → 2025-06-27 14:23 | Outpatient (BNV) | payer OTHER, SELFPAY | PROVIDERS: Visit Provider Radiology Diagnostic Radiology | DX: M17.12 Unilateral primary osteoarthritis, left knee (principal) | CPT/HCPCS: 73562 ==

== ENCOUNTER 2025-06-28 09:06 | Outpatient (AMB) | payer OTHER, SELFPAY ==
--- NOTE | 2025-06-28 09:11 | A.OFFVIS_ITS ---
Vital Signs 06/28/25 09:12 Height 5 ft 2 in Weight 250 lb BMI 45.7 Intake Visit Reasons: 3 week- Xray follow up Intake Note: Torie is a 44 year old female who presents to the office today for a 3 week follow up. At last visit pt was given a night-splint to be used daily for 3 weeks. Pt was also prescribed Medrol and celebrex and was advised to complete MRI. MRI completed 06/22/25. Pt states she is currently experiencing pain from her knee down and her heel she states feels like it is on fire. Allergies Penicillins (PENICILLINS) Allergy (Intermediate, Verified 06/28/25 09:28) HIVES oxycodone Allergy (Verified 06/28/25 09:28) Rash HPI HPI 3 week- Xray follow up: Details: 44-year-old female past medical history of IBS, hypertension, hypothyroidism, asthma, fibromyalgia returns today for MRI review left foot and heel pain. She states she took the Medrol Dosepak which did not help her pain at all. She then started the Celebrex, which she is tolerating well however it is still not helping her pain significantly, however she is still taking it. She went to see the Orthopedic center for her left knee pain as well. She was recommended to go to physical therapy. History: Left foot and heel pain started following an injury sustained during a vacation. The injury occurred in November when she missed a step and landed heavily on her left foot, causing immediate heel pain and subsequent pain in the lateral foot and middle toe. Since the incident, she has experienced persistent progressive pain and swelling, particularly in the heel and lateral aspect of the foot, which worsens with weight-bearing activities. She does note that the pain is worse after resting and getting up to walk. She is unable to walk without a limp. She has been managing the pain with ice and erri-pal-nsrptyh medications, but has been advised against ibuprofen due to stomach issues. The patient has also tried using supportive footwear to alleviate symptoms. Additionally, the patient has left knee pain, which she is seeing orthopedic surgery for next week. She has a history of left elbow surgery and is concerned about further injury from a potential fall due to instability in her knee. 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 Reactive airway disease Chronic cough Liver fibrosis Graves' disease GERD (gastroesophageal reflux disease) Fibromyalgia Fatty liver Hx of headache Seasonal allergies Environmental allergies Depression History of lumbar puncture Pseudotumor cerebri Asthma Anxiety Neck pain Back pain IBS (irritable bowel syndrome) Hypertension Morbid obesity Surgical History Hx of elbow surgery History of sleeve gastrectomy History of hysteroscopy Hx of tubal ligation Hx of section Family History Mother Hypertension Heart problem Father Diabetes Heart problem High cholesterol Brother Hypertension Sister Hypertension Sister Hypertension Sister Hypertension Brother Heart problem Hypertension Son No problems noted. Daughter No problems noted. Social History (Updated 06/27/25 @ 14:39 by SRI Shea) Household Members: Family Household Members Other:: son 19 yrs, daughter 18 yrs Housing: House Are you a primary care technician to a significant other at home: No Do you presently have visiting nurse or other home services: No Alcohol intake: current Alcohol intake frequency: holidays/special occasions only Patient Tobacco Use Status: Former Tobacco user Tobacco use type: Cigarette Years Smoked: 8 e-Cigarette/Vaping Use: Never Used service: No Current occupational status: disabled Review of Systems Const All systems reviewed & are unremarkable except as noted in HPI and below Physical Exam Vital Signs: BMI result Body Mass Index 45.7 Extrem Other: *Bilateral Lower Extremity Focused Exam Vascular: DP/PT 2/4, CFT<3s to all digits, TG warm to cool, no pedal edema Derm: No open wounds or lacerations or clinical signs of infection. Neuro: Protective sensation grossly intact to bilateral lower extremities. MSK: Moderate tenderness on palpation of the left 5th metatarsophalangeal joint plantarly and on forefoot squeeze. Moderate tenderness on palpation of the plantar lateral and medial calcaneal tubercle left foot. Pain along the lateral plantar fascia band. Left Ankle dorsiflexion 0 degrees on knee extension, 2-3 degrees on knee flexion. Office Procedures AMB Flexor Tendon/Plantar POD Tendon Injection Tendon Injection POD1: - Plantar Fascia Injection All charges added?: Procedure code (CPT) selection complete Office Meds triamcinolone acetonide 40 mg/mL suspension for injection Performing Provider: Henrique Joshua DPM [place] [facility] Administered by: Henrique Joshua DPM on 06/28/25 09:36 Dose Route Admin Location Dispensed Lot Number Expiration Date [facility] Cuff Setter Overlock 20 mg Tendon Sheath Inj. 1 mL [id number] [employer] Total Dispensed Waste 1 mL 50 % dexamethasone sodium phosphate 4 mg/mL injection solution Performing Provider: Henrique Joshua DPM [place] [facility] Administered by: Henrique Joshua DPM on 06/28/25 09:36 Dose Route Admin Location Dispensed Lot Number Expiration Date [facility] Cuff Setter Overlock 4 mg Tendon Sheath Inj. 1 mL [id number] [employer] Total Dispensed Waste 1 mL 0 % bupivacaine (PF) 0.5 % (5 mg/mL) injection solution Performing Provider: Henrique Joshua DPM Performing [place]: [facility] Administered by: Henrique Joshua DPM on 06/28/25 09:36 Dose Route Admin Location Dispensed Lot Number Expiration Date [facility] Cuff Setter Overlock 2 mL intra-articular 10 mL [id number] [employer] Total Dispensed Waste 10 mL 80 % Results Reviewed Results Reviewed: Date of Service: 06/22/25 Procedure(s): MR foot LT wo con IMPRESSION: 1. Findings in the distal fifth proximal phalanx, middle/distal phalanx, could reflect sequela of inhomogeneous fat saturation versus mild edema. No focal fracture plane is seen. 2. No findings to suggest significant fifth MTP joint arthropathy or joint effusion. 3. Visualized plantar fascia appears intact. Assessment & Plan Assessment & Plan (1) Plantar fasciitis of left foot: Code(s): M72.2 - Plantar fascial fibromatosis Category: Medical Plan: * Discussed etiology of the patient's foot pain. Differential diagnosis includes plantar fasciitis, occult fracture neuritis, tendinitis. * Patient educated on the nature and etiology of plantar fasciitis, which involves inflammation and microtearing of the plantar fascia due to repetitive stress and overuse. * Reviewed left foot MRI with the patient. Unremarkable findings. * Patient was dispensed a Cam boot today to be worn at all times when ambulating. * Continue use of night splint. * Continue Celebrex until prescription is complete * Administered steroid injection to the left heel. Patient tolerated the procedure well with no complications. * Physical therapy prescription placed for left foot plantar fasciitis * Follow up in 3 weeks (2) Capsulitis of left foot: Code(s): M77.8 - Other enthesopathies, not elsewhere classified Category: Medical Plan: * Likely secondary to plantar fasciitis lateral band (3) Cavus deformity of both feet: Code(s): Q66.71 - Congenital pes cavus, right foot; Q66.72 - Congenital pes cavus, left foot Category: Medical Plan: * Educated the patient on his foot type. Explained that his high arch foot type (Cavus feet) can lead to altered weight distribution, resulting in increased pressure on the heel and forefoot. Patients may experience symptoms such as pain, callus formation, tendinitis, instability, lateral ankle sprains, and, in some cases, development of digital deformities (e.g., claw toes or hammertoes). Discussed the importance of shoe type with heel and forefoot padding and support. (4) Fibromyalgia: Comment: - Implement aquatic therapy, re-evaluate Gabapentin utility, explore multidisciplinary approach. Code(s): M79.7 - Fibromyalgia Category: Medical Plan: * Continue to monitor Orders: Orders PT Evaluation and Treatment Today M72.2 - Plantar fascial fibromatosis AMB Flexor Tendon / Plantar Fascia Injection Today M72.2 - Plantar fascial fibromatosis Coding Level of Care Code Est Pt Level 3 (89665) Diagnoses Plantar fasciitis of left foot M72.2 Capsulitis of left foot M77.8 Cavus deformity of both feet Q66.71; Q66.72 Fibromyalgia M79.7 CPT Codes Tendon Injection - Tendon Injection POD1: - Plantar Fascia Injection ([id number]) Time Spent (min) 30
[2025-06-28 09:12] VITALS: BMI 45.7
== END 2025-06-28 09:40 | disposition home or self-care (01) ==
LOC: HO.HPODS 09:06
PROVIDERS: PCP Student in an Organized Health Care Education/Training Program; Visit Provider Student in an Organized Health Care Education/Training Program
DX: M72.2 Plantar fascial fibromatosis (principal); M77.8 Other enthesopathies, not elsewhere classified; Q66.71 Congenital pes cavus, right foot; Q66.72 Congenital pes cavus, left foot; M79.7 Fibromyalgia
CPT/HCPCS: 20550; 99213

== ENCOUNTER → 2025-06-28 09:06 | Outpatient (BNVA) | payer OTHER, SELFPAY | PROVIDERS: PCP Student in an Organized Health Care Education/Training Program; Visit Provider Student in an Organized Health Care Education/Training Program | DX: M72.2 Plantar fascial fibromatosis (principal); M77.8 Other enthesopathies, not elsewhere classified; M79.7 Fibromyalgia; Q66.71 Congenital pes cavus, right foot; Q66.72 Congenital pes cavus, left foot | CPT/HCPCS: 20550; 99212; J0665; J1100; J3301 ==

== ENCOUNTER 2025-07-06 08:07 | Outpatient (AMB) | payer OTHER, SELFPAY ==
[2025-07-06 08:14] VITALS: BP 154/106; PULSE 82; TEMP 36.6; O2SAT 98; BMI 46.9
--- NOTE | 2025-07-06 08:14 | A.OFFPC_ITS ---
Vital Signs 07/06/25 08:14 Height 5 ft 2.4 in Weight 260 lb BMI 46.9 BP 154/106 H Blood Pressure Location Lt brachial Position Sitting Pulse 82 Pulse Source Pulse Oximeter Temp 97.8 F Temp Source Temporal Artery Scan Pulse Oximetry (%) 98 Oxygen Delivery Method Room Air Intake Visit Reasons: 2 month f/u Benefits Processor Required: No Accompanied by: Self / Same As Patient Allergies Penicillins (PENICILLINS) Allergy (Intermediate, Verified 07/06/25 08:16) HIVES oxycodone Allergy (Verified 07/06/25 08:16) Rash Medication List - Last Reconciled 07/06/25 by Omar Hollingsworth MD acetaminophen (Tylenol Extra Strength) 1,000 mg PO Q6H PRN albuterol sulfate 90 mcg/actuation 2 puffs inhalation Q4H PRN buspirone 5 mg PO TID carvedilol (Coreg) 6.25 mg PO BID 90 days celecoxib (Celebrex) 200 mg PO BID chlorthalidone 25 mg PO Q OTHER DAY 30 days cholecalciferol (vitamin D3) 1,250 mcg PO QWEEK 12 weeks citalopram 20 mg PO QPM citalopram 10 mg PO QAM dicyclomine 10 mg PO Q8H PRN diltiazem HCl CD 240 mg PO QAM gabapentin 300 mg PO BEDTIME galcanezumab-gnlm (Emgality Pen) 240 mg (2 mL) subcut ONCE 30 days ibuprofen 600 mg PO Q6H PRN levothyroxine 200 mcg PO DAILY losartan 100 mg PO DAILY magnesium glycinate 400 mg (4 x 100 mg magnesium) PO BEDTIME 90 days meloxicam 15 mg PO QAM montelukast (Singulair) 10 mg PO BEDTIME pantoprazole 20 mg PO DAILY perfluorohexyloctane (PF) 100% (Miebo (PF)) 1 drp ophthalmic (eye) BID riboflavin (vitamin B2) 400 mg PO DAILY 90 days rosuvastatin 20 mg PO DAILY triamcinolone acetonide 0.1% 1 appl topical BID-TID ubrogepant (Ubrelvy) 50 - 100 mg (0.5 - 1 x 100 mg) PO ONCE PRN 30 days vitamin B complex 1 tab PO DAILY Tobacco use date assessed: 07/06/25 Dental Screening Dental Screen Date: 11/05/25 Did you have a dental visit in the last 12 months?: Yes Did you have a dental problem in the last 6 months where you did not have access to dental care?: No HPI HPI Comments History of Present Illness Details The patient is a 44-year-old female presenting for management of multiple chronic conditions. The patient has a history of hypertension with a blood pressure reading of 154/100 mmHg during the visit, and a heart rate of 82 bpm. She reports not taking her blood pressure medications this morning, which include carvedilol 6.25 mg twice daily, diltiazem 240 mg daily, and losartan 100 mg daily. She notes that even with medication, her blood pressure readings at home can be in the 140s to 160s. She correlates better blood pressure control with a lower body weight, recalling that her pressure was more normal when she weighed around 200 pounds and was able to reduce her medications. For her migraines, she is under the care of a neurologist and has had a normal brain MRI. She is currently using an Emgality injection and Ubrelvy, but states her headaches persist and the medications do not seem to help. A follow-up is scheduled with neurology to discuss further management, with a potential for a lumbar puncture. The patient has hypothyroidism, managed with levothyroxine 200 mcg daily. Her research methods instructor noted her TSH was 0.32, which is on the lower side of normal, and suggested the dose may need to be decreased. A recent thyroid ultrasound showed no nodules. Regarding her cholesterol, recent labs showed an LDL of 118 mg/dL and a total cholesterol of 197 mg/dL while taking rosuvastatin 10 mg. She has a history of gastroesophageal reflux, for which she takes pantoprazole. The patient is being treated for anxiety and depression with buspirone 5 mg three times a day and citalopram 10 mg in the morning and 20 mg in the evening. She sees a therapist but has deferred seeing a psychiatrist due to feeling overwhelmed by numerous specialist appointments and tests. For musculoskeletal issues, she has a diagnosis of plantar fasciitis and received an injection a few days ago, which has provided some relief to her heel. 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 She also experiences knee and pelvic pain, the latter of which she believes is from limping. She takes celecoxib 200 mg twice daily for pain. The patient has a history of gastric sleeve surgery and reports her weight was previously well-controlled. She notes a 10-pound weight gain since her last visit, which she attributes in part to steroid treatment she received during a hospitalization for a kidney injury that led to sepsis. She acknowledges that her weight is a significant factor in her health issues, particularly her blood pressure. Other history includes a vitamin D deficiency, for which she has been taking 50,000 IU weekly for 8 out of 12 prescribed weeks, and stomach aches, which she suspects may be due to polypharmacy. For health maintenance, she is due for a Pap smear, a mammogram (last one was approximately two years ago and showed benign findings), and a screening colonoscopy. Medical History: - Essential Hypertension - Migraine - Hypothyroidism - Hyperlipidemia - Anxiety - Depression - Plantar fasciitis, with recent injecti on - Stapleton's neuroma - Gastroesophageal reflux disease - History of acute kidney injury complic ated by sepsis, requiring hospitalization and steroid treatment - Vitamin D deficiency - History of benign breast masses on evan or mammogram Surgical History: - Gastric sleeve Medications: - Carvedilol 6.25 mg twice a day for hyp ertension - Diltiazem 240 mg daily for hypertensio n - Losartan 100 mg daily for hypertension - Emgality (galcanezumab) injection for migraines - Ubrelvy (ubrogepant) for migraines - Levothyroxine 200 mcg daily for hypoth yroidism - Pantoprazole for acid reflux - Rosuvastatin 10 mg for hyperlipidemia - Buspirone 5 mg three times a day for a nxiety - Citalopram 10 mg in the morning and 20 mg in the evening for depression/anxiety - Celecoxib 200 mg twice a day for pain - Vitamin D 50,000 IU weekly for vitamin D deficiency Diagnostic Results: - Blood pressure: 154/100 mmHg - Heart rate: 82 bpm - Labs: LDL cholesterol 118 mg/dL, total cholesterol 197 mg/dL, TSH 0.32 - Imaging: Brain MRI was normal; thyroid ultrasound showed no nodules; foot MRI identified a Stapleton's neuroma. Social History: - Weight Management: Patient has a histo ry of gastric sleeve surgery and has gained 10 pounds since her last visit. - Housing: Currently in the process of m oving and packing a four-bedroom house. - Home Care: Receives visits from home c are nurses. - Functional Status: Experiencing pain i n her foot, knee, and pelvis, which causes a limp. 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 Reactive airway disease Chronic cough Liver fibrosis Graves' disease GERD (gastroesophageal reflux disease) Fibromyalgia Fatty liver Hx of headache Seasonal allergies Environmental allergies Depression History of lumbar puncture Pseudotumor cerebri Asthma Anxiety Neck pain Back pain IBS (irritable bowel syndrome) Hypertension Morbid obesity Surgical History Hx of elbow surgery History of sleeve gastrectomy History of hysteroscopy Hx of tubal ligation Hx of section Family History Mother Hypertension Heart problem Father Diabetes Heart problem High cholesterol Brother Hypertension Sister Hypertension Sister Hypertension Sister Hypertension Brother Heart problem Hypertension Son No problems noted. Daughter No problems noted. Social History Household Members: Family Household Members Other:: son 19 yrs, daughter 18 yrs Housing: House Are you a primary progressive care nurse to a significant other at home: No Do you presently have visiting nurse or other home services: No Alcohol intake: current Alcohol intake frequency: holidays/special occasions only Patient Tobacco Use Status: Former Tobacco user Tobacco use type: Cigarette Years Smoked: 8 e-Cigarette/Vaping Use: Never Used service: No Current occupational status: disabled Cognitive needs: No Hearing needs: No Vision needs: No Questionnaire PHQ-9 Over the last 2 weeks, how often have you been bothered by any of the following problems? 1. Little interest or pleasure in doing things: not at all 2. Feeling down, depressed, or hopeless: not at all 3. Trouble falling or staying asleep, or sleeping too much: not at all 4. Feeling tired or having little energy: not at all 5. Poor appetite or overeating: not at all 6. Feeling bad about yourself - or that you are a failure or have let yourself or your family down: not at all 7. Trouble concentrating on things, such as reading the newspaper or watching television: not at all 8. Moving or speaking so slowly that other people could have noticed. Or the opposite - being so fidgety or restless that you have been moving around a lot more than usual: not at all 9. Thoughts that you would be better off or of hurting yourself in some way: not at all Total score: 0 Depression Screening Interpretation: Negative Depression Screening Done: Yes Source: Developed by Drs. Terry Walls, Jaye Colin, Pillo Fisher and colleagues, with an educational jose guadalupe from [employer]. Thrive Questionnaire Date Thrive assessed: 07/06/25 I am a: Patient What is your living situation today?: I have a steady place to live Within the past 12 months, did the food you bought not last and you didn't have the money to get more?: Never true Within the past 12 months, did you worry whether your food would run out before you got money to buy more?: Never true Do you have trouble paying for medicines?: No Do you have trouble getting transportation to medical appointments?: No Do you have trouble paying your heating and electricity bill?: No Do you have trouble taking care of your child, family member or friend?: No Do you have trouble with day-to-day activities such as bathing, preparing meals, shopping, managing finances, etc.?: No Are you currently unemployed and looking for a job?: No Are you interested in more education?: No THRIVE Score: 0 AUDIT C Alcohol Use Questionnaire (AUDIT-C) 1. How often do you have a drink containing alcohol?: Never 3. How often do you have six or more drinks on one occasion?: Never Total Score: 0 ADDY-7 AMB Questionnaire ADDY-7 Date ADDY - 7 assessed: 07/06/25 Feeling nervous, anxious, or on edge: 0 = Not at all Not being able to stop or control worryin = Not at all Worrying too much about different things: 0 = Not at all Trouble relaxin = Not at all Being so restless that it is hard to sit still: 0 = Not at all Becoming easily annoyed or irritable: 0 = Not at all Feeling afraid as if something awful might happen: 0 = Not at all Total ADDY-7 score (0-4 normal; 5-9 mild; 10-14 moderate; 15-21 severe): 0 Source: Developed by Drs. Terry Walls, Jaye Colin, Pillo Fisher and colleagues, with an educational jose guadalupe from [employer]. Review of Systems Narrative - Neurological: Reports persistent headaches despite treatment. - Gastrointestinal: Reports stomach aches. - Musculoskeletal: Reports heel pain that is improving, persistent toe pain, knee pain, and pelvic pain. - Psychiatric: Reports feeling overwhelmed due to managing multiple medical issues and appointments. All systems reviewed & are unremarkable except as reviewed in HPI and above Physical exam (Primary Care) Vital Signs: Last Vital Signs Temp 97.8 F 07/06/25 08:14 Pulse 82 07/06/25 08:14 BP 154/106 H 07/06/25 08:14 Pulse Ox 98 07/06/25 08:14 Oxygen Delivery Method Room Air 07/06/25 08:14 BMI result Body Mass Index 46.9 Tobacco/Smoking Status: Tobacco use Status Tobacco use date assessed 07/06/25 07/06/25 08:17 Patient Tobacco Use Status Former Tobacco user 07/06/25 08:17 Tobacco use type Cigarette 07/06/25 08:17 e-Cigarette/Vaping Use Never Used 07/06/25 08:17 PHQ-9: PHQ-9 Score PHQ-9: Total score 0 07/06/25 08:17 Depression Screening Interpretation: Negative Thrive Assessment: Date of Thrive Assessment Date Thrive assessed 07/06/25 07/06/25 08:17 Narrative General: +Alert and oriented, Well nourished, No acute distress. Eye: Pupils are equal, round and reactive to light, Intact accommodation, Extraocular movements are intact, Normal conjunctiva, Vision unchanged. HENT: Normocephalic, Atraumatic, Tympanic membranes are clear, Normal hearing, Oral mucosa is moist, No pharyngeal erythema, Ear canals patent. Respiratory: Lungs CTA bilaterally, No wheeze, Respirations are non-labored. Cardiovascular: Regular rate, Regular rhythm, S1 auscultated, S2 auscultated, No murmur, Good pulses equal in all extremities, Normal peripheral perfusion, No edema. Gastrointestinal: Soft, Non-tender, Non-distended, Normal bowel sounds, No organomegaly. Musculoskeletal: Normal range of motion, Normal strength, No tenderness, No swelling, No deformity, Normal gait. Integumentary: Warm, Dry, [place], Intact. Neurologic: Alert, Oriented, Normal sensory, Normal motor function, No focal defects, Cranial Nerves II-XII are grossly intact, Normal deep tendon reflexes. Psychiatric: Cooperative, Appropriate mood & affect, Normal judgment. The patient presents with multiple chronic and interrelated conditions, including uncontrolled hypertension on triple therapy, mixed hyperlipidemia requiring medication intensification, persistent migraines refractory to biologic and abortive agents, hypothyroidism on high-dose replacement, and psychiatric comorbidities contributing to treatment complexity. Several diagnostic studies and labs were reviewed, and new preventive screenings were ordered. Medication changes included initiating chlorthalidone and increasing rosuvastatin dosage, both requiring monitoring for renal, hepatic, and electrolyte effects. The visit involved extensive medication management, specialist coordination, and risk?benefit counseling for multiple systems. Coding Level of Care Code Est Pt Level 5 (25733) Complex EM visit Add On G2211 Diagnoses Hypertension, unspecified type I10 Hypertension type: unspecified Persistent migraine aura without cerebral infarction and without status migrainosus, not intractable G43.509 Status migrainosus presence: without status migrainosus Intractability: not intractable Pseudotumor cerebri G93.2 Hypothyroidism, unspecified type E03.9 Hypothyroidism type: unspecified Other hyperlipidemia E78.49 Hyperlipidemia type: other hyperlipidemia Anxiety and depression F41.9; F32.A Overweight E66.3 Plantar fasciitis of left foot M72.2 Gastroesophageal reflux disease without esophagitis K21.9 Esophagitis presence: without esophagitis Assessment & Plan Assessment & Plan (1) Hypertension: Comment: - The patient's blood pressure is uncontrolled at 154/100 mmHg despite being on a multi-drug regimen. - She was non-adherent with her morning dose. - The plan is to add chlorthalidone 25mg every other day. (In combination with Coreg & Diltiazam) - A follow-up visit is scheduled in two weeks to reassess her blood pressure. - Significant emphasis was placed on weight loss as a long-term strategy for blood pressure control. Code(s): I10 - Essential (primary) hypertension Category: Medical Qualifiers: Hypertension type: unspecified Qualified Code(s): I10 - Essential (primary) hypertension (2) Migraine aura, persistent: Comment: - The patient continues to experience persistent headaches despite treatment with Emgality and Ubrelvy. - A brain MRI was normal. - She will follow up with her neurologist to discuss further management, which may include a lumbar puncture. Code(s): G43.509 - Persistent migraine aura without cerebral infarction, not intractable, without status migrainosus Category: Medical Qualifiers: Status migrainosus presence: without status migrainosus Intractability: not intractable Qualified Code(s): G43.509 - Persistent migraine aura without cerebral infarction, not intractable, without status migrainosus (3) Pseudotumor cerebri: Comment: - Recent MRA unremarkable, per Neurology documentation no need for urgent lumbar puncture but may be considered. Code(s): G93.2 - Benign intracranial hypertension Category: Medical (4) Hypothyroidism: Comment: - Her TSH is on the lower end of normal at 0.32, and her research methods instructor has considered lowering her levothyroxine dose. - A thyroid ultrasound was unremarkable. - Management will be deferred to her research methods instructor at her upcoming appointment. Code(s): E03.9 - Hypothyroidism, unspecified Category: Medical Qualifiers: Hypothyroidism type: unspecified Qualified Code(s): E03.9 - Hypothyroidism, unspecified (5) Hyperlipidemia: Comment: - With an LDL of 118 mg/dL, her cholesterol is not at goal given her comorbidities. - The plan is to increase her rosuvastatin dose from 10 mg to 20 mg daily to reduce her cardiovascular risk. Code(s): E78.5 - Hyperlipidemia, unspecified Category: Medical Qualifiers: Hyperlipidemia type: other hyperlipidemia Qualified Code(s): E78.49 - Other hyperlipidemia (6) Anxiety and depression: Comment: - The patient feels overwhelmed by her medical conditions and appointments. - She will continue her current medications (buspirone and citalopram) and continue with her therapist. - A psychiatry referral is deferred at this time. Code(s): F41.9 - Anxiety disorder, unspecified; F32.A - Depression, unspecified Category: Medical (7) Overweight: Comment: - The patient has a history of gastric sleeve surgery but has gained 10 pounds since her last visit. - Weight loss was identified as the top priority to improve her overall health, especially her blood pressure. - She plans to contact her bariatric surgeon for support. Code(s): E66.3 - Overweight Category: Medical (8) Plantar fasciitis of left foot: Comment: - A recent injection has partially relieved her heel pain, but she continues to have significant toe pain from a possible Stapleton's neuroma, as well as associated knee and pelvic pain. - MRI foot overall unremarkable - The plan is to continue celecoxib for pain, and she will follow up with her sticker hand in three weeks. - She was advised to use the prescribed boot with cushioning. Code(s): M72.2 - Plantar fascial fibromatosis Category: Medical (9) GERD (gastroesophageal reflux disease): Comment: - The patient reports stomach aches, possibly due to polypharmacy. - She will continue taking pantoprazole and was instructed to take it first thing in the morning before her other medications. Code(s): K21.9 - Gastro-esophageal reflux disease without esophagitis Category: Medical Qualifiers: Esophagitis presence: without esophagitis Qualified Code(s): K21.9 - Gastro-esophageal reflux disease without esophagitis Plan: Health Maintenance: - Weight Management: Discussed making weight loss a priority to improve blood pressure, foot pain, and general well-being. The patient has a history of gastric sleeve surgery and plans to contact her bariatric surgeon for support. - Cancer Screenings: The patient is due for screenings. An order for a mammogram and a colonoscopy will be placed. She was advised to schedule a Pap smear with her home maker. - Vaccinations: Recommended that the patient receive her annual flu shot and an updated COVID-19 shot. The patient expressed hesitation about the flu shot due to past reactions. - Vitamin Supplementation: The patient is to continue her course of high-dose vitamin D 50,000 IU weekly for four more weeks to treat her deficiency. Patient was informed and verbally consented to the use of an ambient scribe for clinic note documentation during this visit. Plan I discussed with the patient her uncontrolled hypertension, noting her blood pressure of 154/100 mmHg in the office today. We will add chlorthalidone 12.5 mg every other day to her regimen and recheck her pressure in two weeks. I emphasized that losing weight is the most crucial step she can take to control her blood pressure and improve her overall health, which she acknowledged. We reviewed her lab results, including an LDL of 118, and I recommended increasing her rosuvastatin to 20 mg to better manage her cardiovascular risk. We talked about her persistent migraines and the plan to follow up with her neurologist for further evaluation, which may include a lumbar puncture. We also discussed her polypharmacy and associated stomach aches, and I advised her to take her pantoprazole first thing in the morning before other pills. We covered the need for several preventative screenings, and I have ordered a mammogram and colonoscopy. I instructed her to schedule a Pap smear with her BANK CASHIER. I also recommended she get flu and COVID-19 vaccinations, explaining that the post-vaccine reaction she described for the flu shot is a sign that it is effectively stimulating her immune system. Orders: Orders MM screening mammo BI Today Z12.31 - Encounter for screening mammogram for malignant neoplasm of breast Referrals Open Access Screening Colonoscopy Referral Z12.11 - Encounter for screening for malignant neoplasm of colon Medications: New chlorthalidone 25 mg PO Q OTHER DAY 15 tabs 0RF 30 days rosuvastatin 20 mg PO DAILY 90 tabs 3RF Discontinued rosuvastatin Discontinued Reason: Doctor's Order 10 mg PO DAILY 90 days 90 tabs 0RF Patient Instructions: - Start taking a new blood pressure pill, chlorthalidone. Take one-half of a 25 mg pill every other day. - We are increasing your cholesterol medication, rosuvastatin, from 10 mg to 20 mg. Take one pill every day. - Please return in two weeks to have your blood pressure checked. - Focus on losing weight, as this is the most important step for improving your blood pressure and overall health. Please contact your stomach surgeon's office for support. - Take your acid reflux pill (pantoprazole) first thing in the morning, before any other food or pills. - Continue your weekly high-dose vitamin D for the remaining four weeks of your prescription. - Keep your follow-up appointments with your neurologist (for headaches), research methods instructor (for thyroid), and sticker hand (for foot pain). - We have ordered a mammogram and a colonoscopy for you. The facilities will contact you to schedule. - Please call your home maker's office to schedule a Pap smear. - We strongly recommend you get a flu shot and a COVID-19 shot, which you can receive at your local pharmacy.
== END 2025-07-06 08:44 | disposition home or self-care (01) ==
LOC: HO.HMCHD 08:08
PROVIDERS: PCP Student in an Organized Health Care Education/Training Program; Visit Provider Student in an Organized Health Care Education/Training Program
DX: I10 Essential (primary) hypertension (principal); G43.509 Persistent migraine aura without cerebral infarction, not intractable, without status migrainosus; E66.3 Overweight; G93.2 Benign intracranial hypertension; E03.9 Hypothyroidism, unspecified; E78.49 Other hyperlipidemia; F41.9 Anxiety disorder, unspecified; F32.A Depression, unspecified; M72.2 Plantar fascial fibromatosis; K21.9 Gastro-esophageal reflux disease without esophagitis

== ENCOUNTER → 2025-07-06 08:07 | Outpatient (BNVA) | payer OTHER, SELFPAY | PROVIDERS: PCP Student in an Organized Health Care Education/Training Program; Visit Provider Student in an Organized Health Care Education/Training Program | DX: I10 Essential (primary) hypertension (principal); G43.509 Persistent migraine aura without cerebral infarction, not intractable, without status migrainosus; G93.2 Benign intracranial hypertension; E03.9 Hypothyroidism, unspecified; E78.49 Other hyperlipidemia; F41.9 Anxiety disorder, unspecified; F32.A Depression, unspecified; E66.3 Overweight; M72.2 Plantar fascial fibromatosis; K21.9 Gastro-esophageal reflux disease without esophagitis; Z79.899 Other long term (current) drug therapy; Z98.84 Bariatric surgery status; Z13.31 Encounter for screening for depression; Z13.39 Encounter for screening examination for other mental health and behavioral disorders | CPT/HCPCS: 96127; 99212 ==

== ENCOUNTER 2025-07-19 08:07 | Outpatient (AMB) | payer OTHER, SELFPAY ==
[2025-07-19 08:35] VITALS: BMI 46.8
--- NOTE | 2025-07-19 08:35 | A.OFFVIS_ITS ---
Vital Signs 07/19/25 08:35 Height 5 ft 2 in Weight 256 lb BMI 46.8 Intake Visit Reasons: fu Intake Note: Torie is 44 year old female who presents today for a follow up on her capsulitis of left foot. At her last visit a steroid injection was administered to her left heel. Patient states she has seen improvement with her heel pain however she notices she still experiences pain in the ball of her foot and lateral aspect of her left foot. Allergies Penicillins (PENICILLINS) Allergy (Intermediate, Verified 07/19/25 08:36) HIVES oxycodone Allergy (Verified 07/19/25 08:36) Rash HPI HPI fu: Details: 44-year-old female past medical history of IBS, hypertension, hypothyroidism, asthma, fibromyalgia returns today for 3 week follow up for left heel and forefoot pain. She received a cortisone injection last visit to her left heel which she states completely resolve her pain. She is also no longer using her CAM boot due to calf pain. She is still experiencing pain to the front of her foot, unable to walk without a limp due to it. She states she is also walking differently due to her knee LCL injury. History: Left foot and heel pain started following an injury sustained during a vacation. The injury occurred in November when she missed a step and landed heavily on her left foot, causing immediate heel pain and subsequent pain in the lateral foot and middle toe. Since the incident, she has experienced persistent progressive pain and swelling, particularly in the heel and lateral aspect of the foot, which worsens with weight-bearing activities. She does note that the pain is worse after resting and getting up to walk. She is unable to walk without a limp. She has been managing the pain with ice and [id number] medications, but has been advised against ibuprofen due to stomach issues. The patient has also tried using supportive footwear to alleviate symptoms. Additionally, the patient has left knee pain, which she is seeing orthopedic surgery for next week. She has a history of left elbow surgery and is concerned about further injury from a potential fall due to instability in her knee. [facility] Medical History (Updated 07/19/25 @ 09:11 by Henrique Joshua DPM) Overweight Anxiety and depression Hyperlipidemia Hypothyroidism Migraine aura, persistent Foot pain Knee pain [id number] syndrome Reactive airway disease Chronic cough Liver fibrosis Graves' disease GERD (gastroesophageal reflux disease) Fibromyalgia Fatty liver Hx of headache Seasonal allergies Environmental allergies Depression History of lumbar puncture Pseudotumor cerebri Asthma Anxiety Neck pain Back pain IBS (irritable bowel syndrome) Hypertension Morbid obesity Surgical History Hx of elbow surgery History of sleeve gastrectomy History of hysteroscopy Hx of tubal ligation Hx of section Family History Mother Hypertension Heart problem Father Diabetes Heart problem High cholesterol Brother Hypertension Sister Hypertension Sister Hypertension Sister Hypertension Brother Heart problem Hypertension Son No problems noted. Daughter No problems noted. Social History Household Members: Family Household Members Other:: son 19 yrs, daughter 18 yrs Housing: House Are you a primary critical care paramedic to a significant other at home: No Do you presently have visiting nurse or other home services: No Alcohol intake: current Alcohol intake frequency: holidays/special occasions only Patient Tobacco Use Status: Former Tobacco user Tobacco use type: Cigarette Years Smoked: 8 e-Cigarette/Vaping Use: Never Used service: No Current occupational status: disabled Cognitive needs: No Hearing needs: No Vision needs: No Review of Systems Const All systems reviewed & are unremarkable except as noted in HPI and below Physical Exam Vital Signs: BMI result Body Mass Index 46.8 Extrem Other: *Bilateral Lower Extremity Focused Exam Vascular: DP/PT 2/4, CFT<3s to all digits, TG warm to cool, no pedal edema Derm: No open wounds or lacerations or clinical signs of infection. Neuro: Protective sensation grossly intact to bilateral lower extremities. MSK: Moderate tenderness on palpation of the left 5th metatarsophalangeal joint lateral eminence and mildly to the plantar 5th met. No tenderness on palpation of the plantar lateral and medial calcaneal tubercle left foot. No pain along the lateral plantar fascia band. Left Ankle dorsiflexion 0 degrees on knee extension, 2-3 degrees on knee flexion. Office Procedures AMB Joint Injection/Aspir Pod Joint Injection/Aspiration Podiatry: Procedure: Steroid injection Location: Left 5th Metatarsal-phalangeal joint Medication: 1.5cc 0.5% bupivicaine, 1cc dexamethasone, 0.5cc kenalog? Description: The left 5th metatarsal eminence was prepped using alcohol. A steroid injection was administered into the 5th Metatarsal-phalangeal joint and lateral plantar fascia band using sterile technique. The site was dressed using a band-aid. Post-procedure Instructions: The patient was instructed to apply ice to the injection site. The patient was advised to call the office if there are signs or symptoms of worsening pain, infection, or steroid flare. LT - Injection of small joint LT Procedure code (CPT) selection complete Office Meds triamcinolone acetonide 40 mg/mL suspension for injection Performing Provider: Henrique Joshua DPM Performing Location: [facility] Administered by: Henrique Joshua DPM on 07/19/25 09:08 Dose Route Admin Location Dispensed Lot Number Expiration Date [facility] [employer] [place] 20 mg intra-articular 1 mL [id number] [employer]N [employer] Total Dispensed Waste 1 mL 50 % dexamethasone sodium phosphate 4 mg/mL injection solution Performing Provider: Henrique Joshua DPM Performing Location: [facility] Administered by: Henrique Joshua DPM on 07/19/25 09:08 Dose Route Admin Location Dispensed Lot Number Expiration Date [facility] [employer] [place] 4 mg intra-articular 1 mL [id number] MYL AN INSTITUT[facility] Total Dispensed Waste 1 mL 0 % bupivacaine (PF) 0.5 % (5 mg/mL) injection solution Performing Provider: Henrique Joshua DPM Performing Location: [facility] Administered by: Henrique Joshua DPM on 07/19/25 09:08 Dose Route Admin Location Dispensed Lot Number Expiration Date [facility] [employer] [place] 2 mL intra-articular 10 mL [id number] [employer]IK [employer] Total Dispensed Waste 10 mL 80 % Results Reviewed Results Reviewed: Date of Service: 06/22/25 Procedure(s): MR foot LT wo con IMPRESSION: 1. Findings in the distal fifth proximal phalanx, middle/distal phalanx, could reflect sequela of inhomogeneous fat saturation versus mild edema. No focal fracture plane is seen. 2. No findings to suggest significant fifth MTP joint arthropathy or joint effusion. 3. Visualized plantar fascia appears intact. Assessment & Plan Assessment & Plan (1) Plantar fasciitis of left foot: Code(s): M72.2 - Plantar fascial fibromatosis Category: Medical Plan: * Discussed etiology of the patient's foot pain. Differential diagnosis includes plantar fasciitis, occult fracture neuritis, tendinitis. * Patient educated on the nature and etiology of plantar fasciitis, which involves inflammation and microtearing of the plantar fascia due to repetitive stress and overuse. * Reviewed left foot MRI with the patient. Unremarkable findings. * Discontinue CAM boot at this point. Recommended forefoot metatarsal pd. * Continue use of night splint. * Continue Celebrex until prescription is complete * Previously referred for physical therapy which the patient did not start. * Follow up in 1 month. (2) Capsulitis of left foot: Code(s): M77.8 - Other enthesopathies, not elsewhere classified Category: Medical Plan: * Likely secondary to plantar fasciitis lateral band * Administered steroid injection to the left 5th MTP. Patient tolerated the procedure well with no complications. (3) Cavus deformity of both feet: Code(s): Q66.71 - Congenital pes cavus, right foot; Q66.72 - Congenital pes cavus, left foot Category: Medical Plan: * Educated the patient on his foot type. Explained that his high arch foot type (Cavus feet) can lead to altered weight distribution, resulting in increased pressure on the heel and forefoot. Patients may experience symptoms such as pain, callus formation, tendinitis, instability, lateral ankle sprains, and, in some cases, development of digital deformities (e.g., claw toes or hammertoes). Discussed the importance of shoe type with heel and forefoot padding and support. (4) Fibromyalgia: Comment: - Implement aquatic therapy, re-evaluate Gabapentin utility, explore multidisciplinary approach. Code(s): M79.7 - Fibromyalgia Category: Medical Plan: * Continue to monitor Orders: Orders AMB Joint Injection/Aspiration Podiatry Today M77.8 - Other enthesopathies, not elsewhere classified Coding Level of Care Code Est Pt Level 3 (17856) Diagnoses Plantar fasciitis of left foot M72.2 Capsulitis of left foot M77.8 Cavus deformity of both feet Q66.71; Q66.72 Fibromyalgia M79.7 CPT Codes Joint injectio/aspiration Podiatry - Joint Injection POD1: LT - Injection of small joint LT ([id number]) Time Spent (min) 20
== END 2025-07-19 08:59 | disposition home or self-care (01) ==
LOC: HO.HPODS 08:08
PROVIDERS: PCP Student in an Organized Health Care Education/Training Program; Visit Provider Student in an Organized Health Care Education/Training Program
DX: M72.2 Plantar fascial fibromatosis (principal); M77.8 Other enthesopathies, not elsewhere classified; Q66.71 Congenital pes cavus, right foot; Q66.72 Congenital pes cavus, left foot; M79.7 Fibromyalgia
CPT/HCPCS: 20600; 99213

== ENCOUNTER → 2025-07-19 08:07 | Outpatient (BNVA) | payer OTHER, SELFPAY | PROVIDERS: PCP Student in an Organized Health Care Education/Training Program; Visit Provider Student in an Organized Health Care Education/Training Program | DX: M77.8 Other enthesopathies, not elsewhere classified (principal); Q66.71 Congenital pes cavus, right foot; Q66.72 Congenital pes cavus, left foot; M79.7 Fibromyalgia | CPT/HCPCS: 20600; 99212; J0665; J1100; J3301 ==

== ENCOUNTER 2025-07-20 07:52 | Outpatient (AMB) | payer OTHER, SELFPAY ==
--- NOTE | 2025-07-20 07:55 | MHC.PC.OV ---
Vital Signs 07/20/25 07:59 Height 5 ft 2 in Weight 256 lb BMI 46.8 BP 154/104 H Blood Pressure Location Lt brachial Position Sitting Respiration 18 Pulse 90 Pulse Source Pulse Oximeter Temp 98.1 F Temp Source Temporal Artery Scan Pulse Oximetry (%) 98 Oxygen Delivery Method Room Air Intake Visit Reasons: 2 Week F/U BP Check Dining Room Host Required: No Accompanied by: Self / Same As Patient Allergies Penicillins (PENICILLINS) Allergy (Intermediate, Verified 07/20/25 07:57) HIVES oxycodone Allergy (Verified 07/20/25 07:57) Rash Medication List - Last Reconciled 07/20/25 by Omar Hollingsworth MD acetaminophen (Tylenol Extra Strength) 1,000 mg PO Q6H PRN albuterol sulfate 90 mcg/actuation 2 puffs inhalation Q4H PRN buspirone 5 mg PO TID carvedilol (Coreg) 6.25 mg PO BID 90 days celecoxib 200 mg PO BID cholecalciferol (vitamin D3) 1,250 mcg PO QWEEK 12 weeks citalopram 20 mg PO QPM citalopram 10 mg PO QAM dicyclomine 10 mg PO Q8H PRN diltiazem HCl CD 240 mg PO QAM gabapentin 300 mg PO BEDTIME galcanezumab-gnlm (Emgality Pen) 240 mg (2 mL) subcut ONCE 30 days ibuprofen 600 mg PO Q6H PRN levothyroxine 200 mcg PO DAILY losartan 100 mg PO DAILY magnesium glycinate 400 mg (4 x 100 mg magnesium) PO BEDTIME 90 days meloxicam 15 mg PO QAM montelukast (Singulair) 10 mg PO BEDTIME pantoprazole 20 mg PO DAILY perfluorohexyloctane (PF) 100% (Miebo (PF)) 1 drp ophthalmic (eye) BID riboflavin (vitamin B2) 400 mg PO DAILY 90 days rosuvastatin 20 mg PO DAILY triamcinolone acetonide 0.1% 1 appl topical BID-TID ubrogepant (Ubrelvy) 50 - 100 mg (0.5 - 1 x 100 mg) PO ONCE PRN 30 days vitamin B complex 1 tab PO DAILY Tobacco use date assessed: 07/06/25 Dental Screening Dental Screen Date: 07/06/25 HPI HPI Comments History of Present Illness Details History of Present Illness The patient is a 44-year-old female presenting for management of hypertension. She reports that her blood pressure is higher when she takes chlorthalidone, reaching 170/120 mmHg, compared to readings of 154 or 148 mmHg systolic when she does not take it. She also notes increased urinary frequency and palpitations when taking chlorthalidone. Her current blood pressure regimen includes carvedilol 6.25 mg, losartan 100 mg, and diltiazem 240 mg. She was previously on lisinopril but was switched to losartan due to a cough, which she later attributed to a vocal cord injury. The patient reports feeling weak and experiencing tingling in her fingers when her heart rate slows, particularly while lying down. She also notes new-onset daytime napping, which is unusual for her. The patient has decided to discontinue her antidepressants, citalopram and buspirone, in consultation with her therapist, and has already stopped taking them for several weeks. She has a history of a gastric sleeve and follows a portion-controlled diet, but has experienced weight gain, which she attributes to steroid use for a foot injury. Her ability to exercise has been limited by this injury. Other medical history includes hypothyroidism managed with levothyroxine 200 mcg, hypercholesterolemia treated with rosuvastatin, and irritable bowel syndrome for which she takes dicyclomine. She has plantar fasciitis and received an injection for it yesterday. She occasionally uses an albuterol inhaler for asthma. Medical History: - Hypertension - Hypothyroidism - Hypercholesterolemia - Irritable Bowel Syndrome (IBS) - Asthma - Anxiety and depression, diagnosed three years ago following a divorce - Plantar fasciitis - Vitamin D deficiency - History of vocal cord injury which caused a cough - History of weight gain (25 pounds) secondary to steroid use Surgical History: - Gastric sleeve Medications: - Chlorthalidone 25 mg for hypertension - Losartan 100 mg for hypertension - Carvedilol (Coreg) 6.25 mg for hypertension - Diltiazem 240 mg for hypertension - Citalopram for depression (self-discontinued for weeks) - Buspirone - Dicyclomine for IBS - Celebrex for pain - Meloxicam (anti-inflammatory) - Riboflavin (Vitamin B2) - Vitamin D, prescribed for 12 weeks for deficiency - Levothyroxine 200 mcg for hypothyroidism - Rosuvastatin for cholesterol - Albuterol inhaler as needed for asthma Social History - Nutrition: Patient had a gastric sleeve and follows a meal plan with small portions. - Diet: Avoids sweets and bread, eats rice once a week, and drinks protein shakes and bars. - Substance Use: Drinks coffee in the morning but no sugary drinks. - Exercise: Activity has been limited due to a foot injury. - Home Environment: Has a walking pad and gym in her basement. - Life Stressors: Reports experiencing a divorce three years ago and is currently in the process of moving. 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 Reactive airway disease Chronic cough Liver fibrosis Graves' disease GERD (gastroesophageal reflux disease) Fibromyalgia Fatty liver Hx of headache Seasonal allergies Environmental allergies Depression History of lumbar puncture Pseudotumor cerebri Asthma Anxiety Neck pain Back pain IBS (irritable bowel syndrome) Hypertension Morbid obesity Surgical History Hx of elbow surgery History of sleeve gastrectomy History of hysteroscopy Hx of tubal ligation Hx of section Family History Mother Hypertension Heart problem Father Diabetes Heart problem High cholesterol Brother Hypertension Sister Hypertension Sister Hypertension Sister Hypertension Brother Heart problem Hypertension Son No problems noted. Daughter No problems noted. Social History Household Members: Family Household Members Other:: son 19 yrs, daughter 18 yrs Housing: House Are you a primary regular senior care provider to a significant other at home: No Do you presently have visiting nurse or other home services: No Alcohol intake: current Alcohol intake frequency: holidays/special occasions only Patient Tobacco Use Status: Former Tobacco user Tobacco use type: Cigarette Years Smoked: 8 e-Cigarette/Vaping Use: Never Used service: No Current occupational status: disabled Cognitive needs: No Hearing needs: No Vision needs: No Questionnaire Thrive Questionnaire Date Thrive assessed: 07/06/25 AUDIT C Alcohol Use Questionnaire (AUDIT-C) 2. How many drinks containing alcohol do you have on a typical day when you are drinking?: 1 or 2 3. How often do you have six or more drinks on one occasion?: Never Total Score: 0 ADDY-7 AMB Questionnaire ADDY-7 Date ADDY - 7 assessed: 07/06/25 Source: Developed by Drs. Terry Walls, Jaye Colin, Pillo Fisher and colleagues, with an educational jose guadalupe from [email or web address]. Review of Systems Narrative Review of Systems - General: Reports feeling weak and napping during the day, which is unusual. - Cardiovascular: Reports feeling her heart slow down, feeling palpitations, and experiencing tingling in her fingers while lying down. - Neurological: Reports tingling in her fingers. - Head: Reports headaches located in the middle of her head and a sensation in her nose when her blood pressure is high. - Gastrointestinal: Reports stomach issues. - Genitourinary: Reports increased urinary frequency when taking chlorthalidone. - Respiratory: Reports only occasional use of albuterol inhaler for asthma. - Musculoskeletal: Reports soreness in the toe area but notes the heel is improved after an injection for plantar fasciitis. All systems reviewed & are unremarkable except as reviewed in HPI and above Physical exam (Primary Care) Vital Signs: Last Vital Signs Temp 98.1 F 07/20/25 07:59 Pulse 90 07/20/25 07:59 Resp 18 07/20/25 07:59 BP 154/104 H 07/20/25 07:59 Pulse Ox 98 07/20/25 07:59 Oxygen Delivery Method Room Air 07/20/25 07:59 BMI result Body Mass Index 46.8 Tobacco/Smoking Status: Tobacco use Status Tobacco use date assessed 07/06/25 07/20/25 08:02 Patient Tobacco Use Status Former Tobacco user 07/20/25 08:02 Tobacco use type Cigarette 07/20/25 08:02 e-Cigarette/Vaping Use Never Used 07/20/25 08:02 Thrive Assessment: Date of Thrive Assessment Date Thrive assessed 07/06/25 07/20/25 08:02 Narrative Physical Exam General: Alert and oriented, Well nourished, No acute distress. Eye: Pupils are equal, round and reactive to light, Intact accommodation, Extraocular movements are intact, Normal conjunctiva, Vision unchanged. HENT: Normocephalic, Atraumatic, Tympanic membranes are clear, Normal hearing, Oral mucosa is moist, No pharyngeal erythema, Ear canals patent. Respiratory: Lungs CTA bilaterally, No wheeze, Respirations are non-labored. Cardiovascular: Regular rate, Regular rhythm, S1 auscultated, S2 auscultated, No murmur, Good pulses equal in all extremities, Normal peripheral perfusion, No edema. Gastrointestinal: Soft, Non-tender, Non-distended, Normal bowel sounds, No organomegaly. Musculoskeletal: Normal range of motion, Normal strength, No tenderness, No swelling, No deformity, Normal gait. Integumentary: Warm, Dry, [place], Intact. Neurologic: Alert, Oriented, Normal sensory, Normal motor function, No focal defects, Cranial Nerves II-XII are grossly intact, Normal deep tendon reflexes. Psychiatric: Cooperative, Appropriate mood & affect, Normal judgment. Coding Level of Care Code Est Pt Level 4 (84359) Complex EM visit Add On G2211 Diagnoses Hypertension, unspecified type I10 Hypertension type: unspecified Anxiety and depression F41.9; F32.A Irritable bowel syndrome, unspecified type K58.9 Irritable bowel syndrome type: unspecified Plantar fasciitis of left foot M72.2 Persistent migraine aura without cerebral infarction and without status migrainosus, not intractable G43.509 Status migrainosus presence: without status migrainosus Intractability: not intractable Asthma, unspecified asthma severity, unspecified whether complicated, unspecified whether persistent J45.909 Asthma severity: unspecified severity Asthma persistence: unspecified Asthma complication type: unspecified Other hyperlipidemia E78.49 Hyperlipidemia type: other hyperlipidemia Hypothyroidism, unspecified type E03.9 Hypothyroidism type: unspecified Overweight E66.3 Assessment & Plan Assessment & Plan (1) Hypertension: Comment: - Patient reports paradoxical elevation in blood pressure on chlorthalidone, with readings up to 170/120 mmHg. - She is currently on maximum doses of losartan 100 mg and diltiazem 240 mg. - The plan is to discontinue chlorthalidone and increase carvedilol from 6.25 mg to 12.5 mg twice daily. - The patient will monitor her blood pressure at home and follow up in 30 days for a blood pressure check. Code(s): I10 - Essential (primary) hypertension Category: Medical Qualifiers: Hypertension type: unspecified Qualified Code(s): I10 - Essential (primary) hypertension (2) Anxiety and depression: Comment: - The patient wishes to manage anxiety without medication and has already stopped taking citalopram for several weeks. - Per her request, citalopram and buspirone will be discontinued. - She was advised that it takes several weeks for the medication to leave her system and six weeks to re-establish efficacy if she restarts. Code(s): F41.9 - Anxiety disorder, unspecified; F32.A - Depression, unspecified Category: Medical (3) IBS (irritable bowel syndrome): Comment: - Currently using dicyclomine Q8 with improvement in symptoms Code(s): K58.9 - Irritable bowel syndrome, unspecified Category: Medical Qualifiers: Irritable bowel syndrome type: unspecified Qualified Code(s): K58.9 - Irritable bowel syndrome, unspecified (4) Plantar fasciitis of left foot: Comment: - The patient received an injection yesterday and reports improvement in heel pain, though some soreness remains in the toe area. - She will continue taking Celebrex as prescribed by her podiatris Code(s): M72.2 - Plantar fascial fibromatosis Category: Medical (5) Migraine aura, persistent: Comment: - Reports overall improvement in headaches however continues to have occasional symptoms but does relate them to increase blood pressure. At this time have advised for blood pressure management and hopefully with improvement in pressures are headaches to improve overall Code(s): G43.509 - Persistent migraine aura without cerebral infarction, not intractable, without status migrainosus Category: Medical Qualifiers: Status migrainosus presence: without status migrainosus Intractability: not intractable Qualified Code(s): G43.509 - Persistent migraine aura without cerebral infarction, not intractable, without status migrainosus (6) Asthma: Comment: - Continue Albuterol as needed - No documented Spirometry Code(s): J45.909 - Unspecified asthma, uncomplicated Category: Medical Qualifiers: Asthma severity: unspecified severity Asthma persistence: unspecified Asthma complication type: unspecified Qualified Code(s): J45.909 - Unspecified asthma, uncomplicated (7) Hyperlipidemia: Comment: - With an LDL of 118 mg/dL, her cholesterol is not at goal given her comorbidities. - Continue rosuvastatin 20mg QHS Code(s): E78.5 - Hyperlipidemia, unspecified Category: Medical Qualifiers: Hyperlipidemia type: other hyperlipidemia Qualified Code(s): E78.49 - Other hyperlipidemia (8) Hypothyroidism: Comment: - Her TSH is on the lower end of normal at 0.32, and her ethylene plant helper has considered lowering her levothyroxine dose. - A thyroid ultrasound was unremarkable. - Management will be deferred to her ethylene plant helper at her upcoming appointment. Code(s): E03.9 - Hypothyroidism, unspecified Category: Medical Qualifiers: Hypothyroidism type: unspecified Qualified Code(s): E03.9 - Hypothyroidism, unspecified (9) Overweight: Comment: - The patient's weight gain is a significant contributor to her hypertension. - Emphasized the importance of weight loss for blood pressure control. - The goal is for the patient to lose at least 6 pounds in the next four weeks by increasing physical activity as her foot injury permits. Code(s): E66.3 - Overweight Category: Medical Plan: Health Maintenance: - Weight Management: Discussed the need for significant weight loss (60-70 pounds) to improve blood pressure. - Short-term Goal: Set a goal for the patient to lose at least 6 pounds in the next 4 weeks. - Diet: The patient reports following a strict, portion-controlled diet post-gastric sleeve surgery. - Exercise: Encouraged to increase physical activity and resume working out as her foot injury improves. Patient was informed and verbally consented to the use of an ambient scribe for clinic note documentation during this visit. Plan I discussed the patient's resistant hypertension and her experience with chlorthalidone, which seems to paradoxically raise her blood pressure. We agreed to stop chlorthalidone and instead increase her carvedilol dose from 6.25 mg to 12.5 mg twice daily, as her other medications are already at maximum doses. I advised her that she might feel lightheaded for a few days as her blood pressure normalizes. I strongly emphasized that weight loss is the most important factor for improving her blood pressure, and we set a goal for her to lose at least 6 pounds before her follow-up in four weeks. We also conducted a medication reconciliation to reduce polypharmacy. I instructed her to stop taking meloxicam to avoid kidney injury from concurrent use with Celebrex. Per her request and discussions with her therapist, we will stop her citalopram and buspirone. I instructed her to return in 30 days for a blood pressure recheck. Medications: New carvedilol must administer with a meal/food 12.5 mg PO BID 60 tabs 0RF 30 days Discontinued carvedilol (Coreg) must administer with a meal/food Discontinued Reason: Doctor's Order 6.25 mg PO BID 90 days 180 tabs 0RF chlorthalidone Discontinued Reason: Doctor's Order 25 mg PO Q OTHER DAY 30 days 15 tabs 0RF Patient Instructions: - Stop taking Chlorthalidone. - Increase your Carvedilol dose to 12.5 mg (two of the 6.25 mg tablets) twice a day. - Continue taking Losartan 100 mg and Diltiazem 240 mg as prescribed. - Stop taking Meloxicam. - You can continue taking Celebrex for your foot pain. - You may stop taking Citalopram and Buspirone. - You can stop taking Riboflavin (Vitamin B2). - You should be finished with your Vitamin D prescription in about two weeks. - Continue taking your medications for thyroid (Levothyroxine), cholesterol (Rosuvastatin), and stomach cramps (Dicyclomine). - Check your blood pressure and heart rate at home. - Work on losing weight, with a goal of losing at least 6 pounds in the next 4 weeks. - Return to the clinic in 4 weeks for a follow-up appointment to check your blood pressure.
[2025-07-20 07:59] VITALS: BP 154/104; PULSE 90; RESP 18; TEMP 36.7; O2SAT 98; BMI 46.8
== END 2025-07-20 08:25 | disposition home or self-care (01) ==
LOC: HO.HMCHD 07:53
PROVIDERS: PCP Student in an Organized Health Care Education/Training Program; Visit Provider Student in an Organized Health Care Education/Training Program
DX: I10 Essential (primary) hypertension (principal); F41.9 Anxiety disorder, unspecified; F32.A Depression, unspecified; K58.9 Irritable bowel syndrome, unspecified; M72.2 Plantar fascial fibromatosis; G43.509 Persistent migraine aura without cerebral infarction, not intractable, without status migrainosus; J45.909 Unspecified asthma, uncomplicated; E78.49 Other hyperlipidemia; E03.9 Hypothyroidism, unspecified; E66.3 Overweight

== ENCOUNTER → 2025-07-20 07:52 | Outpatient (BNVA) | payer OTHER, SELFPAY | PROVIDERS: PCP Student in an Organized Health Care Education/Training Program; Visit Provider Student in an Organized Health Care Education/Training Program | DX: I10 Essential (primary) hypertension (principal); F41.9 Anxiety disorder, unspecified; F32.A Depression, unspecified; K58.9 Irritable bowel syndrome, unspecified; M72.2 Plantar fascial fibromatosis; E78.49 Other hyperlipidemia; E03.9 Hypothyroidism, unspecified; G43.509 Persistent migraine aura without cerebral infarction, not intractable, without status migrainosus; J45.909 Unspecified asthma, uncomplicated; E66.3 Overweight | CPT/HCPCS: 99212 ==

== ENCOUNTER 2025-08-10 08:48 | Outpatient (AMB) | payer OTHER, SELFPAY ==
--- NOTE | 2025-08-10 08:49 | A.OFFVIS_ITS ---
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 Since the diagnosis, the patient experienced difficulty maintaining stable medication dosages, specifically with levothyroxine, which started at 75 mcg and was recently increased to 200 mcg. The patient noted symptoms including severe fatigue, requiring excessive sleep, dry eyes, hair loss, skin issues, and body aches. The patient also experienced memory issues, anxiety, and fluctuating energy levels. Recently, the patient reported a sudden weight gain of 15-20 pounds, cold sensitivity, and heat intolerance. The patient expressed concern about the significant fluctuations in levothyroxine doses and its impact on symptoms. Interval history: She reports having other medical problems that have interfered with her normal functioning Taking 200 mcg daily, first thing in the AM, not with food or meds. Feels tired, having a hard time falling sleep. ' Constipation/diarrhea (has IBS). She reports gaining weight. exercises (treadmile, bike). She has a history of gastric sleeve 2-3 years ago. She has being taking steroids for IBS, took 4 months of continuous steroids 2023, then in May 2025, she was again in a course of steroids for a foot problem (ordered by podiatry) Physical exam: General: Well appearing. NAD. Not Cushingoid or Acromegalic Neck/Thyroid: Thyroid not palpable, no nodules. CV: RRR, no murmur. No edema. Resp:Lungs clear to auscultation bilaterally Abdomen: Soft, nontender. nondistended Extremities/Neuro: No weakness or tremor of outstretched hands Laboratory Tests 01/12/25 05/06/25 10:08 10:00 25-OH Vitamin D Total 27.6 L TSH 8.73 H 0.32 Free T4 0.77 Laboratory Tests 07/31/22 12:06 Thyroid Peroxidase Ab >900 H Imaging: US thyroid 06/02/25 FINDINGS: SIZE: Measurements of the thyroid lobes and nodules are given in sagittal, anteroposterior and transverse dimensions respectively. Right Thyroid Lobe: 5.4 x 2.1 x 1.6 cm, volume 9.4 mL. Previous: 5.2 x 2.4 x 1.7 cm, volume: 11.2 cc. Parenchyma: The gland echotexture is heterogeneous. Thyroid vascularity is increased. Left Thyroid Lobe: 5.6 x 2.2 x 1.6 cm, volume 9.9 mL. Previous: 5.0 x 2.1 x 1.7 cm, volume: 9.6 cc. Parenchyma: The gland echotexture is heterogeneous. Thyroid vascularity is increased. Isthmus: 0.93 cm in maximum AP dimension. Previous: 0.80 cm. Estimated total number of nodules greater than or equal to 1 cm: 0. 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 Reactive airway disease Chronic cough Liver fibrosis Graves' disease GERD (gastroesophageal reflux disease) Fibromyalgia Fatty liver Hx of headache Seasonal allergies Environmental allergies Depression History of lumbar puncture Pseudotumor cerebri Asthma Anxiety Neck pain Back pain IBS (irritable bowel syndrome) Hypertension Morbid obesity Surgical History Hx of elbow surgery History of sleeve gastrectomy History of hysteroscopy Hx of tubal ligation Hx of section Family History Mother Hypertension Heart problem Father Diabetes Heart problem High cholesterol Brother Hypertension Sister Hypertension Sister Hypertension Sister Hypertension Brother Heart problem Hypertension Son No problems noted. Daughter No problems noted. Social History Household Members: Family Household Members Other:: son 19 yrs, daughter 18 yrs Housing: House Are you a primary respiratory care specialist to a significant other at home: No Do you presently have visiting nurse or other home services: No Alcohol intake: current Alcohol intake frequency: holidays/special occasions only Patient Tobacco Use Status: Former Tobacco user Tobacco use type: Cigarette Years Smoked: 8 e-Cigarette/Vaping Use: Never Used service: No Current occupational status: disabled Cognitive needs: No Hearing needs: No Vision needs: No Physical Exam Vital Signs: Last Vital Signs Temp 99 F 08/10/25 08:51 Pulse 80 08/10/25 08:51 BP 142/98 H 08/10/25 08:51 Pulse Ox 98 08/10/25 08:51 Oxygen Delivery Method Room Air 08/10/25 08:51 BMI result Body Mass Index 48.5 Assessment & Plan Assessment & Plan (1) Hypothyroidism: Code(s): E03.9 - Hypothyroidism, unspecified Category: Medical Qualifiers: Hypothyroidism type: unspecified Qualified Code(s): E03.9 - Hypothyroidism, unspecified Plan: The patient had fluctuating levothyroxine doses with persistent symptoms of fatigue, memory issues, and cold sensitivity. She does have all the specific symptoms that can be explained not only by hypothyroidism including muscle pain, anxiety, having bursts of energy We discussed that given her recent dose change to 200 mcg, we will not change the dose at this point, 1st of all because her TSH in lower range of normal also exam we will have to see how she feels after having this dose for some time. At the emphasized to the patient the importance of proper sleeping for requiring and fatigue resolution, and discuss other factors that could influence her feeling fatigue including fibromyalgia, being overweight, and social/emotional stressors that could feel like it. Her thyroid US was overall unremarkable, with no significant enlargement or nodules. She did not have labs done prior to the visit Plan Repeat TSH/FT4 today Continue levothyroxine 200 mcg daily Follow up in 6 months (2) Morbid obesity: Code(s): E66.01 - Morbid (severe) obesity due to excess calories Category: Medical (3) S/P laparoscopic sleeve gastrectomy: Code(s): Z98.84 - Bariatric surgery status Category: Surgical Plan: Patient with history of obesity, s/p sleeve gastrectomy in [id number]. After being sick last year, she has had multiple courses of steroids and has gained back 60 lbs. We have discussed that she would likely benefit from weight loss in mutiple fronts (sleep/energy/BP), and we have discussed the possibility of starting Zepbound, but would like to make sure that is safe. I will refer the patient to weight management for evaluation Plan 30 minutes spent reviewing previous records, labs, imaging, education and documenting in the chart Orders: Orders TSH reflex Free T4 Today E03.9 - Hypothyroidism, unspecified Referrals Bariatric Surgery Referral Z98.84 - Bariatric surgery status Coding Level of Care Code Tele New Pt Level 4 (03854) Complex visit Add On G2211 Diagnoses Hypothyroidism, unspecified type E03.9 Hypothyroidism type: unspecified Morbid obesity E66.01 S/P laparoscopic sleeve gastrectomy Z98.84
[2025-08-10 08:51] VITALS: BP 142/98; PULSE 80; TEMP 37.2; O2SAT 98; BMI 48.5
== END 2025-08-10 09:53 | disposition home or self-care (01) ==
LOC: HO.ENCR 08:48
PROVIDERS: PCP Student in an Organized Health Care Education/Training Program; Visit Provider Student in an Organized Health Care Education/Training Program
DX: E03.9 Hypothyroidism, unspecified (principal); E66.01 Morbid (severe) obesity due to excess calories; Z68.42 Body mass index [BMI] 45.0-49.9, adult; Z90.3 Acquired absence of stomach [part of]; Z98.84 Bariatric surgery status
CPT/HCPCS: 99214; G2211

== ENCOUNTER → 2025-08-10 08:48 | Outpatient (BNVA) | payer OTHER, SELFPAY | PROVIDERS: PCP Student in an Organized Health Care Education/Training Program; Visit Provider Student in an Organized Health Care Education/Training Program | DX: E03.9 Hypothyroidism, unspecified (principal); E66.01 Morbid (severe) obesity due to excess calories; R53.83 Other fatigue; F41.9 Anxiety disorder, unspecified; M79.10 Myalgia, unspecified site; R41.3 Other amnesia; Z88.4 Allergy status to anesthetic agent; Z68.42 Body mass index [BMI] 45.0-49.9, adult; Z79.899 Other long term (current) drug therapy | CPT/HCPCS: 99212 ==

== ENCOUNTER 2025-08-10 10:03 | Outpatient (REF) | payer OTHER, SELFPAY ==
[2025-08-10 13:20] LABS: Free T4 (Free Thyroxine) 0.71 ng/dL (0.71-1.85)
== END 2025-08-10 10:04 | disposition home or self-care (01) ==
LOC: HO.10HDL 10:03
PROVIDERS: Visit Provider Student in an Organized Health Care Education/Training Program
DX: G43.E09 Chronic migraine with aura, not intractable, without status migrainosus (principal); G93.2 Benign intracranial hypertension; H53.9 Unspecified visual disturbance; I10 Essential (primary) hypertension; E03.9 Hypothyroidism, unspecified
CPT/HCPCS: 36415; 84439; 84443; 99212

== ENCOUNTER 2025-08-16 09:43 | Outpatient (AMB) | payer OTHER, SELFPAY ==
--- NOTE | 2025-08-16 09:58 | A.OFFVIS_ITS ---
Intake Visit Reasons: OV PO LSG 12/26/21 Allergies Penicillins (PENICILLINS) Allergy (Intermediate, Verified 08/16/25 10:03) HIVES oxycodone Allergy (Verified 08/16/25 10:03) Rash HPI Comments Details: This?is a?[]?yo [] who is s/p LSG with[out] hiatal hernia repair on?[]. Presents for [] post op visit. Weight at last visit on [] was [] pounds with a BMI of []. Weight today is [] pounds, representing a [] pound weight loss with a BMI today of [].? No complaints of nausea, emesis, abdominal pain or reflux, or constipation. Present meal plan includes: 8am Pure protein 1 scoop (try skim milk for extra protein) 12pm 2oz protein, 2oz veg 3pm same shake 6pm 2oz protein, 2oz veg Exercise routine includes: [facility] Medical History (Updated 08/10/25 @ 17:34 by RADHA Payne) Overweight Anxiety and depression Hyperlipidemia Hypothyroidism Migraine aura, persistent Foot pain Knee pain [id number] syndrome Reactive airway disease Chronic cough Liver fibrosis Graves' disease GERD (gastroesophageal reflux disease) Fibromyalgia Fatty liver Hx of headache Seasonal allergies Environmental allergies Depression History of lumbar puncture Pseudotumor cerebri Asthma Anxiety Neck pain Back pain IBS (irritable bowel syndrome) Hypertension Morbid obesity Surgical History Hx of elbow surgery History of sleeve gastrectomy History of hysteroscopy Hx of tubal ligation Hx of section Family History Mother Hypertension Heart problem Father Diabetes Heart problem High cholesterol Brother Hypertension Sister Hypertension Sister Hypertension Sister Hypertension Brother Heart problem Hypertension Son No problems noted. Daughter No problems noted. Social History Household Members: Family Household Members Other:: son 19 yrs, daughter 18 yrs Housing: House Are you a primary family day care provider to a significant other at home: No Do you presently have visiting nurse or other home services: No Alcohol intake: former Patient Tobacco Use Status: Former Tobacco user Tobacco use type: Cigarette Years Smoked: 8 e-Cigarette/Vaping Use: Never Used service: No Current occupational status: disabled Cognitive needs: No Hearing needs: No Vision needs: No
--- NOTE | 2025-08-16 10:08 | MHC.OFFVISWM ---
VS Expanded 08/16/25 10:14 BP 191/93 H Blood Pressure Location Rt brachial Blood Pressure Position Sitting Pulse 81 Pulse Source Pulse Oximeter Temp 97.9 F Temperature Source Temporal Artery Scan Pulse Oximetry 97 Oxygen Delivery Method Room Air Height 5 ft 1.5 in Weight 262 lb 12.8 oz BMI 48.8 Body Fat % 47.3 Body Fat Mass 124.4 Fat Free Mass 138.4 Visceral Fat Rating 16.0 Body Water % 37.6 Body Water Mass 98.8 Muscle Mass/Score 131.4 Basal Metabolic Rate/Score 1,966 Intake Visit Reasons: OV PO LSG 12/26/21 Allergies Penicillins (PENICILLINS) Allergy (Intermediate, Verified 08/16/25 10:03) HIVES oxycodone Allergy (Verified 08/16/25 10:03) Rash Medication List - Last Reconciled 08/16/25 by YURIDIA Mariee acetaminophen (Tylenol Extra Strength) 1,000 mg PO Q6H PRN albuterol sulfate 90 mcg/actuation 2 puffs inhalation Q4H PRN carvedilol 12.5 mg PO BID 30 days celecoxib 200 mg PO BID cholecalciferol (vitamin D3) 1,250 mcg PO QWEEK 12 weeks dicyclomine 10 mg PO Q8H PRN diltiazem HCl CD 240 mg PO QAM gabapentin 300 mg PO BEDTIME galcanezumab-gnlm (Emgality Pen) 240 mg (2 mL) subcut ONCE 30 days ibuprofen 600 mg PO Q6H PRN levothyroxine 200 mcg PO DAILY levothyroxine (Unithroid) 25 mcg PO DAILY losartan 100 mg PO DAILY magnesium glycinate 400 mg (4 x 100 mg magnesium) PO BEDTIME 90 days montelukast (Singulair) 10 mg PO BEDTIME pantoprazole 20 mg PO DAILY perfluorohexyloctane (PF) 100% (Miebo (PF)) 1 drp ophthalmic (eye) BID riboflavin (vitamin B2) 400 mg PO DAILY 90 days rosuvastatin 20 mg PO DAILY spironolactone 25 mg PO DAILY 30 days triamcinolone acetonide 0.1% 1 appl topical BID-TID ubrogepant (Ubrelvy) 50 - 100 mg (0.5 - 1 x 100 mg) PO ONCE PRN 30 days vitamin B complex 1 tab PO DAILY HPI Comments Details: This?is a?45?yo F who is s/p LSG 12/26/2021. Presents for 3y 8mo post op visit. Weight gain of 73.8lbs since last OV which was back in October 2022. No complaints of nausea, emesis, abdominal pain or reflux, or constipation. Pt followed up with endocrinology last week, feels that her health has not been ideal. She is on 3 different meds for HTN. Present meal plan includes: - she restarted Dr Linda's plan of protein shakes and 1 meal per day when she started gaining weight - however she has trouble keeping a structured schedule and sometimes eats overnight - found herself eating carrots in the middle of the night recently, wanted a crunch [facility] Medical History (Updated 08/10/25 @ 17:34 by RADAH Payne) Overweight Anxiety and depression Hyperlipidemia Hypothyroidism Migraine aura, persistent Foot pain Knee pain [id number] syndrome Reactive airway disease Chronic cough Liver fibrosis Graves' disease GERD (gastroesophageal reflux disease) Fibromyalgia Fatty liver Hx of headache Seasonal allergies Environmental allergies Depression History of lumbar puncture Pseudotumor cerebri Asthma Anxiety Neck pain Back pain IBS (irritable bowel syndrome) Hypertension Morbid obesity Surgical History Hx of elbow surgery History of sleeve gastrectomy History of hysteroscopy Hx of tubal ligation Hx of section Family History Mother Hypertension Heart problem Father Diabetes Heart problem High cholesterol Brother Hypertension Sister Hypertension Sister Hypertension Sister Hypertension Brother Heart problem Hypertension Son No problems noted. Daughter No problems noted. Social History (Updated 08/16/25 @ 10:04 by Shahida Hi CMA) Household Members: Family Household Members Other:: son 19 yrs, daughter 18 yrs Housing: House Are you a primary animal care assistant to a significant other at home: No Do you presently have visiting nurse or other home services: No Alcohol intake: former Patient Tobacco Use Status: Former Tobacco user Tobacco use type: Cigarette Years Smoked: 8 e-Cigarette/Vaping Use: Never Used service: No Current occupational status: disabled Cognitive needs: No Hearing needs: No Vision needs: No Assessment & Plan Assessment & Plan (1) Morbid obesity: Code(s): E66.01 - Morbid (severe) obesity due to excess calories Category: Medical (2) S/P laparoscopic sleeve gastrectomy: Code(s): Z98.84 - Bariatric surgery status Category: Surgical Plan Pt is interested in starting GLP1. Reviewed contraindications, discussed dosing. Pt had a cousin with thyroid cancer. She will check to see what kind. Discussed need for adequate protein intake while on GLP1s as well as frequent communication with our office. If approved, pt will check in with me weekly and is aware that subsequent Rx will be dependent on frequent communication. Gave Makani Power theresa info and encouraged pt to create a plan and follow. RTC 3m o.
[2025-08-16 10:14] VITALS: BP 191/93; PULSE 81; TEMP 36.6; O2SAT 97; BMI 48.8
== END 2025-08-16 10:33 | disposition home or self-care (01) ==
LOC: HO.HBS 09:43
PROVIDERS: PCP Student in an Organized Health Care Education/Training Program; Visit Provider Physician Assistant Surgical
DX: E66.01 Morbid (severe) obesity due to excess calories (principal); Z98.84 Bariatric surgery status
CPT/HCPCS: 99214; G2211

== ENCOUNTER → 2025-08-16 09:43 | Outpatient (BNVA) | payer OTHER, SELFPAY | PROVIDERS: PCP Student in an Organized Health Care Education/Training Program; Visit Provider Physician Assistant Surgical | DX: Z48.815 Encounter for surgical aftercare following surgery on the digestive system (principal); E66.01 Morbid (severe) obesity due to excess calories; Z68.42 Body mass index [BMI] 45.0-49.9, adult; Z98.84 Bariatric surgery status | CPT/HCPCS: 99212 ==